=== PATIENT | female | born 1950 | race Caucasian/White ===

== ENCOUNTER → 2016-03-19 | Outpatient (CLI) | payer MEDICARE, OTHER ==
[~2016-03-19] MED LIST: ACC15GT TOP; ACHD5005 PO; ALB0.5V IH; ALPR.25T PO; AZIT250T5 PO; CLON0.5T3 PO; DIVA250T4 PO; EST.625T PO; GABA250S5 PO; HYDR1CAP3; HYDR1CAP3 PO; IBP600T1; LIDOCAINE; METH4TAB PO; OXYC5TAB; PRD20T PO; PREMARIN; PROP1TAB77 PO; RT-ALBUINH; RT-ALBUTEROL SULF 2.5 MG/3 ML PRE-MIX VIAL INH ONE; RT-ALBUTEROL SULF 2.5 MG/3 ML PRE-MIX VIAL ONE; SERT50TA PO; SILVER SULFADIAZINE; VALA100033 PO
--- OUTSIDE RECORDS SUMMARY | 2016-03-19 15:06 | XMS REPORT | Continuity of Care Document ---
Author Author [facility] Organization [facility] Address Unknown Phone Unavailable Care Team Providers Care Educational Psychology Professor Name Role Phone Jacoby Bermeo III PCP [phone] Source Comments Some departments are not documenting in the electronic medical record. If you do not see the information that you expected, contact Release of Information in the Health Information Management department at [phone] for further assistance in locating additional records.[facility] Active Allergies and Adverse Reactions No Known Allergies Current Medications Prescription Sig. Disp. Refills Start End Date Status Date PREMARIN PO Take by mouth. Active BUSPAR PO Take by mouth. 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
== END ==
LOC: RT 15:03
PROVIDERS: ATTEND Nurse Practitioner Family
DX: J44.9 Chronic obstructive pulmonary disease, unspecified (principal); R09.02 Hypoxemia
CPT/HCPCS: 94060; 94640; 94726; 94729

== ENCOUNTER 2016-08-13 01:43 | Inpatient (IN) | payer MEDICARE, OTHER ==
[~2016-08-13] VITALS: Ht 167.6 cm; Wt 52.3 kg
[2016-08-13] VITALS (18 sets, daily range): BP systolic 81–122; BP diastolic 57–72
[~2016-08-13 01:43] MED LIST changes: -RT-ALBUTEROL SULF 2.5 MG/3 ML PRE-MIX VIAL INH ONE; -RT-ALBUTEROL SULF 2.5 MG/3 ML PRE-MIX VIAL ONE
[2016-08-13] MEDS ORDERED: methylPREDNISolone 125 MG (Solu-MEDROL) VIAL ONE (01:52)
--- NOTE | 2016-08-13 01:58 | ED Dyspnea ---
General Stated Complaint: WHEEZING,LOW RESPONSIVENESS Source of Information: EMS, RN Notes Reviewed Exam Limitations: Physical Impairments (respiratory distress) History of Present Illness Time Seen by Provider: 01:48 Initial Comments Patient brought in by EMS p/ developing markedly worsen dyspnea tonight. Apparently started having trouble earlier in day and progressively became worse. Has home O2 but doesn't usually wear it, but sounds like she started using it this PM to no avail. Almost wonder if she knocked out her respiratory drive by using too much O2. Very drowsy upon arrival. called 911 when he thought the patient might of had a seizure ( described as almost posturing by ). No reported LOC although patient is very drowsy. EMS reports that patient's current state is actually improved from what they encountered upon arrival to patient's home. EMS reports patient was so tight initially that they couldn't hear any breath sounds. She is @ least wheezing audibly upon arrival. Currently receiving her second nebulizer treatment. Significant other reports patient was seen by her PCP on Thursday to see if she could qualify for a concentrator but apparently her O2 sats were too good @ that time. Is also still smoking. Timing/Duration: Constant, Other (since AM (08/12) and slowly became worse. 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.) Severity: Severe Activities at Onset: None Prior Episodes/Possible Cause: Occasional Episodes Modifying Factors: Worse With Lying Down Associated Symptoms: Wheezing Allergies and Home Medications Allergies Coded Allergies: Sulfa (Sulfonamide Antibiotics) (Unverified Allergy, Unknown, SOB, SWELLING, RASH, 09/29/14) penicillin (Unverified Allergy, Unknown, 09/29/14) Home Medications Albuterol Sulfate 8.5 Gm Hfa.aer.ad, #9 (Reported) Albuterol Sulfate 2.5 Mg/0.5 Ml Vial.neb, 2.5 MG IH Q4H PRN for SHORTNESS OF BREATH, #25 Prescribed by: FIOR PARRA on 02/02/16 1511 Alprazolam 0.25 Mg Tablet, 1 TAB PO BID, (Reported) Azithromycin 250 Mg Tablet, 250 MG PO UD, #6 Prescribed by: FIOR PARRA on 02/02/16 1511 Clonazepam 0.5 Mg Tablet, 1 EACH PO BID, (Reported) Divalproex Sodium 250 Mg Tablet.dr, 1 EACH PO BID, (Reported) Gabapentin 250 Mg/5 Ml Solution, 250 MG PO BID, (Reported) Prednisone 20 Mg Tab, 40 MG PO DAILY for 4 Days Prescribed by: FIOR PARRA on 02/02/16 1511 Constitutional: see HPI, malaise Respiratory: see HPI, orthopnea, short of breath, wheezing : No Psychiatric/Neurological: See HPI, Depressed, Seizure (??? (doubt)) All Other Systems Reviewed Negative Unless Noted: Yes (Negative excepted noted.) Past Cbfneia-Nmkzbx-Lxslxh Hx Patient Social History Type Used: Cigarettes Recent Foreign Travel: No Contact w/Someone Who Travel: No Recent Hopitalizations: No Immunizations Up To Date Date of Pneumonia Vaccine: Sep 29, 2012 Date of Influenza Vaccine: Nov 25, 2010 Seasonal Allergies Seasonal Allergies: No Surgeries HX Surgeries: Yes Surgeries: Appendectomy, Gallbladder, Hysterectomy Respiratory Hx Respiratory Disorders: No Respiratory Disorders: Chronic Bronchitis, COPD, Emphysema Cardiovascular Hx Cardiac Disorders: No Neurological Hx Neurological Disorders: No 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 System 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) 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 Genitourinary Hx Genitourinary Disorders: No Gastrointestinal Hx Gastrointestinal Disorders: No Musculoskeletal Hx Musculoskeletal Disorders: No Endocrine Hx Endocrine Disorders: No HEENT HX ENT Disorders: No Blood Transfusions Hx Blood Disorders: No Physical Exam Vital Signs Vital Sign - Last 12Hours 08/13/16 08/13/16 01:47 02:19 Temp 96.5 Pulse 133 Resp 28 B/P (MAP) 168/99 Pulse Ox 94 O2 Delivery Simple Mask O2 Flow Rate 10.00 Capillary Refill : General Appearance: Moderate Distress HEENT: Normal ENT Inspection Neck: Normal Inspection Respiratory: Decreased Breath Sounds, Respiratory Distress, Wheezing Cardiovascular: Regular Rate, Rhythm, Tachycardia Rectal: Deferred Neurologic/Psychiatric: Depressed Affect, Other (drowsy; somnolent) Skin: Cool Focused Exam Lactic Acid Level Laboratory Tests Test 08/13/16 02:30 Lactic Acid Level 0.72 MMOL/L (0.50-2.00) Progress/Results/Core Measures Results/Orders Lab Results Laboratory Tests Test 08/13/16 01:47 08/13/16 01:56 08/13/16 02:30 08/13/16 03:14 Range/Units White Blood Count 26.7 H 4.3-11.0 10^3/uL Red Blood Count 4.18 L 4.35-5.85 10^6/uL Hemoglobin 15.1 11.5-16.0 G/DL Hematocrit 45 35-52 % Mean Corpuscular Volume 107 H 80-99 FL Mean Corpuscular Hemoglobin 36 H 25-34 PG Mean Corpuscular Hemoglobin Concent 34 32-36 G/DL Red Cell Distribution Width 12.7 10.0-14.5 % Platelet Count 318 130-400 10^3/uL Mean Platelet Volume 10.4 7.4-10.4 FL Neutrophils (%) (Auto) 42 42-75 % Lymphocytes (%) (Auto) 43 12-44 % Monocytes (%) (Auto) 9 0-12 % Eosinophils (%) (Auto) 5 0-10 % Basophils (%) (Auto) 1 0-10 % Neutrophils # (Auto) 11.2 H 1.8-7.8 X 10^3 Lymphocytes # (Auto) 11.4 H 1.0-4.0 X 10^3 Monocytes # (Auto) 2.5 H 0.0-1.0 X 10^3 Eosinophils # (Auto) 1.4 H 0.0-0.3 10^3/uL Basophils # (Auto) 0.2 H 0.0-0.1 10^3/uL Neutrophils % (Manual) 48 % Lymphocytes % (Manual) 27 % Monocytes % (Manual) 4 % Eosinophils % (Manual) 10 % Basophils % (Manual) 0 % Band Neutrophils 0 % Reactive Lymphocytes 11 % Blood Morphology Comment NORMAL Sodium Level 141 135-145 MMOL/L Potassium Level 4.6 3.6-5.0 MMOL/L Chloride Level 100 98-107 MMOL/L Carbon Dioxide Level 28 21-32 MMOL/L Anion Gap 13 5-14 MMOL/L Blood Urea Nitrogen 15 7-18 MG/DL Creatinine 0.83 0.60-1.30 MG/DL Estimat Glomerular Filtration Rate > 60 BUN/Creatinine Ratio 18 0-20 Glucose Level 242 H 70-105 MG/DL Calcium Level 8.8 8.5-10.1 MG/DL Magnesium Level 2.7 H 1.8-2.4 MG/DL Total Bilirubin 0.7 0.1-1.0 MG/DL Aspartate Amino Transf (AST/SGOT) 31 5-34 U/L Alanine Aminotransferase (ALT/SGPT) 21 0-55 U/L Alkaline Phosphatase 48 40-136 U/L Troponin I < 0.30 <0.30 NG/ML B-Type Natriuretic Peptide 106.3 H <100.0 PG/ML Total Protein 6.9 6.4-8.2 GM/DL Albumin 4.4 3.2-4.5 GM/DL Valproic Acid (Depakene) Level 45.7 L 50.0-100.0 UG/ML Blood Gas Puncture Site R RAD L RAD Blood Gas Patient Temperature 96.5 96.9 Arterial Blood pH 7.12 *L 7.36 L 7.37-7.43 Arterial Blood Partial Pressure CO2 100 *H 47 H 35-45 MMHG Arterial Blood Partial Pressure O2 106 H 189 H 79-93 MMHG Arterial Blood HCO3 32 H 26 23-27 MMOL/L Arterial Blood Total CO2 34.9 H 27.9 21.0-31.0 MMOL/L Arterial Blood Oxygen Saturation 97 100 94-100 % Arterial Blood Base Excess 2.6 H 1.4 -2.5-2.5 MMOL/L Rush Test YES-POS YES-POS Blood Gas Ventilator Setting NO NO Blood Gas Inspired Oxygen 10L 60% Lactic Acid Level 0.72 0.50-2.00 MMOL/L My Orders Orders - GEORGINA ABREU DO Methylprednisolone Sod Succ (Solu-Medrol (08/13/16 01:52) Saline Lock/Iv-Start (08/13/16 01:55) Ekg Tracing (08/13/16 01:55) Arterial Blood Gas (08/13/16 01:55) BNP (08/13/16 01:55) Cbc With Automated Diff (08/13/16 01:55) Comprehensive Metabolic Panel (08/13/16 01:55) Magnesium (08/13/16 01:55) Troponin I (08/13/16 01:55) Chest 1 View, Ap/Pa Only (08/13/16 01:55) Methylprednisolone Sod Succ (Solu-Medrol (08/13/16 02:00) Ns Iv 1000 Ml (Sodium Chloride 0.9%) (08/13/16 02:00) Manual Differential (08/13/16 01:47) Blood Culture (08/13/16 02:11) Lactic Acid Analyzer (08/13/16 02:11) Albuterol Pre-Mix Nebs (Rt) (Proventil P (08/13/16 02:12) Albuterol Pre-Mix Nebs (Rt) (Proventil P (08/13/16 02:16) Bipap Rt-Rfs (08/13/16 02:16) Valproic Acid (08/13/16 02:28) Arterial Blood Gas (08/13/16 03:05) Medications Given in ED Current Medications Medications Dose Ordered Sig/Lulu Route Start Time Stop Time Status Last Admin Dose Admin Albuterol Sulfate 2.5 mg STK-MED ONCE .ROUTE 08/13/16 02:12 08/13/16 02:16 DC 08/13/16 02:19 2.5 MG Methylprednisolone Sodium Succinate 125 mg ONCE ONCE IVP 08/13/16 02:00 08/13/16 02:01 DC 08/13/16 02:05 125 MG Sodium Chloride 1,000 ml @ 0 mls/hr Q0M ONCE IV 08/13/16 02:00 08/13/16 02:01 DC 08/13/16 02:04 999 MLS/HR Vital Signs/I&O Vital Sign - Last 12Hours 08/13/16 08/13/16 08/13/16 01:47 02:19 02:21 Temp 96.5 Pulse 133 114 Resp 28 24 B/P (MAP) 168/99 Pulse Ox 94 95 100 O2 Delivery Simple Mask Simple Mask O2 Flow Rate 10.00 60.00 Progress Note : Progress Note Patient did start to perk up shortly p/ arrival here. Much improved p/ placed on bipap. ABG markedly improved p/ placed on bipap. Discussed c/ Dr. 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 Concurs c/ need for admission. Going to wait on any antibiotics in light of relatively normal WBC differential and no fever. Suspect the leukocytosis is stress related. Will get repeat CBC in AM, 08/13. Going to continue tapering her O2 down as well. ECG Initial ECG Impression Date: Aug 13, 2016 Initial ECG Impression Time: 01:55 Initial ECG Rate: 131 Initial ECG Rhythm: S.Tach Initial ECG Comparisson: Changed Comment LAD, ? Left anterior fascicular block; LVH; anterior infarct, ? age Diagnostic Imaging Diagonstic Imaging: Xray Plain Films/CT/US/NM/MRI: chest Reviewed: Reviewed by Me (NAD) Departure Communication Time/Spoke to Admitting Phy: 03:25 Impression Impression: Primary Impression: COPD with exacerbation Additional Impressions: Suspected stress induced leukocytosis Tobacco abuse Disposition: 09 ADMITTED INPATIENT Condition: Improved Decision to Admit Reason: Admit from ER (General) Decision to Admit/Date: Aug 13, 2016 Time/Decision to Admit Time: 03:25 Departure-Patient Inst. Referrals: GEORGINA GARCIA DO (PCP/Family) Primary Care Physician GEORGINA ABREU DO Aug 13, 2016 01:58
[2016-08-13] MEDS ORDERED: methylPREDNISolone 125 MG (Solu-MEDROL) VIAL IVP ONE (02:00)
[2016-08-13] MEDS ORDERED: NS IV 1000 ML 1,000 ML IV ONE (02:00)
[2016-08-13 02:03] LABS: BASOPHILS # (AUTO) 0.2 10^3/uL (0.0-0.1); BASOPHILS % (AUTO) 1 % (0-10); EOSINOPHILS # (AUTO) 1.4 10^3/uL (0.0-0.3); EOSINOPHILS % (AUTO) 5 % (0-10); LYMPHOCYTES # (AUTO) 11.4 X 10^3 (1.0-4.0); LYMPHOCYTES % (AUTO) 43 % (12-44); MEAN CORPUSCULAR HEMOGLOBIN 36 PG (25-34); MEAN CORPUSCULAR HGB CONC 34 G/DL (32-36); MEAN CORPUSCULAR VOLUME 107 FL (80-99); MEAN PLATELET VOLUME 10.4 FL (7.4-10.4); MONOCYTES # (AUTO) 2.5 X 10^3 (0.0-1.0); MONOCYTES % (AUTO) 9 % (0-12); NEUTROPHILS # (AUTO) 11.2 X 10^3 (1.8-7.8); NEUTROPHILS % (AUTO) 42 % (42-75); PLATELET COUNT 318 10^3/uL (130-400); RED BLOOD COUNT 4.18 10^6/uL (4.35-5.85); RED CELL DISTRIBUTION WIDTH 12.7 % (10.0-14.5); WHITE BLOOD COUNT 26.7 10^3/uL (4.3-11.0)
[2016-08-13] MEDS ORDERED: RT-ALBUTEROL SULF 2.5 MG/3 ML PRE-MIX VIAL ONE (02:12)
[2016-08-13 02:13] LABS: ABG BASE EXCESS 2.6 MMOL/L (-2.5-2.5); ABG HCO3 32 MMOL/L (23-27); ABG OXYGEN SATURATION 97 % (94-100); ABG PO2 106 MMHG (79-93); ABG TCO2 34.9 MMOL/L (21.0-31.0)
[2016-08-13 02:14] LABS: ALLENS TEST YES-POS; PATIENT TEMP 96.5
[2016-08-13 02:15] LABS: ABG PCO2 100 MMHG (35-45); ABG PH 7.12 (7.37-7.43)
[2016-08-13] MEDS ORDERED: RT-ALBUTEROL SULF 2.5 MG/3 ML PRE-MIX VIAL IH STA (02:16)
[2016-08-13 02:21] LABS: BAND NEUTROPHILS 0 %; BASOPHILS % (MANUAL) 0 %; EOSINOPHILS % (MANUAL) 10 %; LYMPHOCYTES % (MANUAL) 27 %; NEUTROPHILS % (MANUAL) 48 %; REACTIVE LYMPHOCYTES 11 %
[2016-08-13 02:27] LABS: ALANINE AMINOTRANSFERASE 21 U/L (0-55); ALBUMIN 4.4 GM/DL (3.2-4.5); ANION GAP 13 MMOL/L (5-14); ASPARTATE AMINO TRANSFERASE 31 U/L (5-34); BILIRUBIN,TOTAL 0.7 MG/DL (0.1-1.0); BLOOD UREA NITROGEN 15 MG/DL (7-18); BUN/CREATININE RATIO 18 (0-20); CALCIUM 8.8 MG/DL (8.5-10.1); CARBON DIOXIDE 28 MMOL/L (21-32); CHLORIDE 100 MMOL/L (98-107); CREATININE SERUM 0.83 MG/DL (0.60-1.30); GFR ESTIMATED > 60; GLUCOSE 242 MG/DL (70-105); MAGNESIUM 2.7 MG/DL (1.8-2.4); POTASSIUM 4.6 MMOL/L (3.6-5.0); SODIUM 141 MMOL/L (135-145); TOTAL PROTEIN 6.9 GM/DL (6.4-8.2)
[2016-08-13 02:33] LABS: TROPONIN I < 0.30 NG/ML (<0.30)
[2016-08-13 03:23] LABS: ABG BASE EXCESS 1.4 MMOL/L (-2.5-2.5); ABG HCO3 26 MMOL/L (23-27); ABG OXYGEN SATURATION 100 % (94-100); ABG PCO2 47 MMHG (35-45); ABG PH 7.36 (7.37-7.43); ABG PO2 189 MMHG (79-93); ABG TCO2 27.9 MMOL/L (21.0-31.0)
[2016-08-13 03:25] LABS: ALLENS TEST YES-POS; PATIENT TEMP 96.9
[2016-08-13] MEDS ORDERED: NS IV 1000 ML 1,000 ML ONE (04:30)
[2016-08-13] MEDS ORDERED: RT-ALBUTEROL SULF 2.5 MG/3 ML PRE-MIX VIAL IH PRN (05:30)
[2016-08-13] MEDS ORDERED: NS IV 1000 ML 1,000 ML IV SCH (05:30)
[2016-08-13] MEDS ORDERED: CATHETER FLUSH 10 ML SYR IV PRN (05:30)
[2016-08-13] MEDS: CATHETER FLUSH 10 ML SYR IV SCH ×3 (06:02→22:17)
[2016-08-13 06:18] LABS: BASOPHILS % (AUTO) 0 % (0-10); EOSINOPHILS % (AUTO) 0 % (0-10); LYMPHOCYTES # (AUTO) 0.5 X 10^3 (1.0-4.0); LYMPHOCYTES % (AUTO) 4 % (12-44); MEAN CORPUSCULAR HEMOGLOBIN 36 PG (25-34); MEAN CORPUSCULAR HGB CONC 34 G/DL (32-36); MEAN CORPUSCULAR VOLUME 107 FL (80-99); MEAN PLATELET VOLUME 10.2 FL (7.4-10.4); MONOCYTES # (AUTO) 0.4 X 10^3 (0.0-1.0); MONOCYTES % (AUTO) 3 % (0-12); NEUTROPHILS # (AUTO) 12.7 X 10^3 (1.8-7.8); NEUTROPHILS % (AUTO) 94 % (42-75); PLATELET COUNT 198 10^3/uL (130-400); RED CELL DISTRIBUTION WIDTH 12.7 % (10.0-14.5); WHITE BLOOD COUNT 13.6 10^3/uL (4.3-11.0)
[2016-08-13] MEDS: RT-ALBUTEROL/IPRATROPIUM 3 ML (DUONEB) VIAL INH SCH ×5 (06:34→22:21)
--- NOTE | 2016-08-13 07:01 | Diagnostic Imaging Report ---
INDICATION: Shortness of breath. Comparison with 02/02/2016. FINDINGS: There is obstructive lung disease. No acute infiltrates are present. Heart is not enlarged. No pulmonary edema. No pneumothorax or pleural effusion. IMPRESSION: Obstructive pulmonary disease with no acute changes. Dictated by: Dictated on workstation # [id number]
--- NOTE | 2016-08-13 07:16 | Pulmonary Consultation ---
History of Present Illness History of Present Illness Date of Consultation 08/13/16 07:11 Date of Admission History of Present Illness 65yo with hx of COPD oxygen dependant however is noncompliant with oxygen presented via EMS secondary to worsening dyspnea onset was the day of admission. called EMS after finding pt lethargic. PT did improve with nebulizer treatments. PT is currently requiring noninvasive ventilation. Her ABG has improved with noninvasive ventilation. I am consulted for pulmonary management. Allergies and Home Medications Allergies Coded Allergies: Sulfa (Sulfonamide Antibiotics) (Unverified Allergy, Unknown, SOB, SWELLING, RASH, 09/29/14) penicillin (Unverified Allergy, Unknown, 09/29/14) Home Medications Albuterol Sulfate 18 Gm Hfa.aer.ad, 2 PUFF INH Q4H PRN for SHORTNESS OF BREATH, (Reported) Alprazolam 0.5 Mg Tablet, 0.5 MG PO Q12H PRN for BREAKTHROUGH ANXIETY, (Reported ) Clonazepam 1 Mg Tablet, 1 MG PO BID, (Reported) Divalproex Sodium 250 Mg Tablet.dr, 250 MG PO BID, (Reported) Ipratropium Cushing 0.2 Mg/1 Ml Solution, 1 VIAL NEB Q6H PRN for SHORTNESS OF BREATH, (Reported) Prednisone 10 Mg Tab.ds.pk, 10 MG PO DAILY, #21 Take 6 tabs(60mg)daily,decrease by 1 tab(10MG)daily. Prescribed by: KRYSTYNA GRAVES on 08/14/16 1006 Past Axfphgw-Byvwmc-Nwotcz Hx Patient Social History Alcohol Use: Denies Use Recreational Drug Use: No Smoking Status: Current Everyday Smoker Type Used: Cigarettes 2nd Hand Smoke Exposure: Yes Recent Foreign Travel: No Contact w/Someone Who Travel: No Recent Infectious Disease Expo: No Recent Hopitalizations: No Physical Abuse Screen: No Sexual Abuse: No Immunizations Up To Date Date of Pneumonia Vaccine: Sep 29, 2012 Date of Influenza Vaccine: Nov 25, 2010 Seasonal Allergies Seasonal Allergies: No Surgeries HX Surgeries: Yes Surgeries: Appendectomy, Gallbladder, Hysterectomy Respiratory Hx Respiratory Disorders: No Respiratory Disorders: Chronic Bronchitis, COPD, Emphysema Cardiovascular Hx Cardiac Disorders: No Neurological Hx Neurological Disorders: No 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 System 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) 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 Genitourinary Hx Genitourinary Disorders: No Gastrointestinal Hx Gastrointestinal Disorders: No Musculoskeletal Hx Musculoskeletal Disorders: No Endocrine Hx Endocrine Disorders: No HEENT HX ENT Disorders: No Blood Transfusions Hx Blood Disorders: No Exam Exam Vital Signs Date Time Temp Pulse Resp B/P (MAP) Pulse Ox O2 Delivery O2 Flow Rate FiO2 08/13/16 06:40 89 23 97 45.00 08/13/16 06:00 92 23 93/65 97 NIV Bilevel 50.00 08/13/16 05:45 92 30 99/70 97 NIV Bilevel 50.00 08/13/16 05:30 92 23 87/63 90 NIV Bilevel 50.00 08/13/16 05:15 92 24 89/60 90 NIV Bilevel 30.00 08/13/16 05:00 92 24 81/57 90 NIV Bilevel 30.00 08/13/16 04:58 93 08/13/16 04:56 NIV Bilevel 30 08/13/16 04:45 92 24 90/61 93 NIV Bilevel 30.00 08/13/16 04:28 96 08/13/16 04:25 97.8 93 28 96/71 95 NIV Bilevel 30.00 08/13/16 04:09 96 16 96 NIV Bilevel 08/13/16 03:32 100 29 100 30.00 08/13/16 02:21 114 24 100 60.00 08/13/16 02:19 95 Simple Mask 10.00 08/13/16 01:47 96.5 133 28 168/99 94 Simple Mask I & O 08/13/16 07:00 Intake Total 1000 ml Output Total 400 ml Balance 600 ml General Appearance: Moderate Distress HEENT: Normal ENT Inspection Neck: Normal Inspection, Supple Respiratory: Accessory Muscle Use, Decreased Breath Sounds, Respiratory Distress, Wheezing Cardiovascular: Regular Rate, Rhythm, Tachycardia Capillary Refill: Less Than 3 Seconds Gastrointestinal: normal bowel sounds, non tender, soft, no organomegaly Neurologic/Psychiatric: Alert, Oriented x3, Depressed Affect, Other (drowsy; somnolent) Skin: Cool Results Lab Laboratory Tests 08/13/16 01:47 08/13/16 05:46 Assessment/Plan Assessment/Plan Acute on Chronic respiratory failure -Currently requiring noninvasive ventilation -will trial off this morning and see how she does. -Pt will benefit from vent to mask in home setting -SVNS Severe COPDAE - SVNS -solumedrol 255 Clinical Quality Measures DVT/VTE Risk/Contraindication: Risk Factor Score Per Nursin RFS Level Per Nursing on Admit: 4+=Very High RIKI REID DO Aug 13, 2016 07:16
[2016-08-13] MEDS ORDERED: ALBU18HF2 INH (08:11)
[2016-08-13] MEDS ORDERED: DIVA250T4 PO (08:11)
[2016-08-13] MEDS ORDERED: CLON1TAB3 PO (08:11)
[2016-08-13] MEDS ORDERED: IPRA0.2S51 NEB (08:11)
[2016-08-13] MEDS ORDERED: ALPR0.5T7 PO (08:16)
[2016-08-13] MEDS: RT-ADVAIR HFA 115/21 MCG PER PUFF IH SCH ×2 (08:57→18:34)
[2016-08-13] MEDS ORDERED: ALPRAZolam 0.5 MG (XANAX) TAB PO PRN (09:00)
[2016-08-13] MEDS ORDERED: RT-ALBUTEROL/IPRATROPIUM 3 ML (DUONEB) VIAL IH SCH (09:00)
[2016-08-13] MEDS: clonazePAM 1 MG (KlonoPIN) TAB PO SCH ×2 (09:03→20:12)
[2016-08-13] MEDS: predniSONE 10 MG TAB PO SCH (09:03)
[2016-08-13] MEDS: NICOTINE 14 MG (NICODERM) PATCH TD SCH (09:05)
[2016-08-13] MEDS: DIVALPROEX 250 MG DELAYED RELEASE (DEPAKOTE) TAB PO SCH ×2 (09:07→20:12)
[2016-08-13] MEDS: PATCH REMOVAL TP SCH (09:54)
[2016-08-13] MEDS ORDERED: methylPREDNISolone 40 MG/ML (Solu-MEDROL) VIAL IV SCH (10:00)
--- NOTE | 2016-08-13 11:09 | History & Physical-Hospitalist ---
HPI History of Present Illness: HPI/Chief Complaint CC: SOB HPI: this is a 65 yoWF clinic pt of Dr. Madera with a hx of anxiety and COPD who presented to the ER with dyspnea via EMS. Pt is on home O2 that she does not wear. called 911 because he thought she was having seizure but upon assessment her pH was 7.12, CO2 of 100 consistent with CO2 narcosis. Pt was placed on BiPAP with good result; pH 7.31/47/189, WBC to 13.6, Hgb stable, CMP normal but glucose 242. CXR showed COPD. Pt was given high dose IV steroids with neb, and placed on nicotine patch because she continues to smoke. Patient Interview: Pt states that she is feeling much better, but does not remember last night Pt confirms PCP as Dr. Bermeo. Pt confirms seeing Dr. Bermeo earlier this week for portable O2; she states that the humidity makes her worse than normal. Pt was informed that since she was hospitalized, she will now qualify for it. Pt states that she felt fine yesterday and was working in her yard. It was humid yesterday, which likely exacerbated her COPD. Pt was informed that Dr. Birch will be checking in on her Pt does not recall taking Depakote. She confirms that she takes something for her nerves and PTSD. Dr. Bermeo refills all her medications. Pt states that her PTSD is from family issues. Pt confirms using home O2 at night. Pt states that she uses the O2 other times when needed. Pt confirms that she smokes. Pt's denies smoking. Pt was advised to stop smoking, this will expedite her recovery. Pt admits to working at [employer]. She has worked there about 20 years. Physical exam stable Pt confirms that she had her gallbladder and appendix removed. Pt denies being previously hospitalized for lung function. Pt was informed that she may need to use more O2 at home. Pt confirms having breathing treatments at home Pt's states that she uses her acapella regularly Scribed by Kym Faye under the direct supervision of Dr. Graves. Source: patient Exam Limitations: no limitations Date Seen 08/13/16 Time Seen by Provider: 09:00 Attending Physician Chad Ellison MD PCP Mehul Bermeo DO Referring Physician Date of Admission Aug 13, 2016 at 03:34 Home Medications & Allergies Home Medications Reviewed patient Home Medication Reconciliation Form Allergies Allergies Coded Allergies Sulfa (Sulfonamide Antibiotics) (Unverified Allergy, Unknown, SOB, SWELLING, RASH, 09/29/14) penicillin (Unverified Allergy, Unknown, 09/29/14) Past Zvtpcih-Fsaoww-Jgvmku Hx Patient Social History Marrital Status: Employed/Student: retired ([employer]) Alcohol Use: Denies Use Recreational Drug Use: No Smoking Status: Current Everyday Smoker Type Used: Cigarettes 2nd Hand Smoke Exposure: Yes Physical Abuse Screen: No Sexual Abuse: No Recent Foreign Travel: No Contact w/other who traveled: No Recent Hopitalizations: No Recent Infectious Disease Expo: No Immunizations Up To Date Date of Pneumonia Vaccine: Sep 29, 2012 Date of Influenza Vaccine: Nov 25, 2010 Seasonal Allergies Seasonal Allergies: No Surgeries HX Surgeries: Yes Surgeries: Appendectomy, Gallbladder, Hysterectomy Respiratory Hx Respiratory Disorders: Yes Respiratory Disorders: COPD Cardiovascular Hx Cardiovascular Disorders: No Neurological Hx Neurological Disorders: No 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 System 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) Genitourinary Hx Genitourinary Disorders: No Gastrointestinal Hx Gastrointestinal Disorders: No Musculoskeletal Hx Musculoskeletal Disorders: No Endocrine Hx Endocrine Disorders: No HEENT HX ENT Disorders: No Cancer Hx Cancer: No Psychosocial Hx Psychiatric Problems: No Integumentary HX Skin/Integumentary Disorder: No Blood Transfusions Hx Blood Disorders: No Review of Systems Date Seen by Provider: Aug 13, 2016 Time Seen by Provider: 09:00 Constitutional: weakness EENTM: no symptoms reported Respiratory: dyspnea on exertion, short of breath, wheezing Cardiovascular: no symptoms reported Gastrointestinal: no symptoms reported Genitourinary: no symptoms reported Musculoskeletal: no symptoms reported Skin: no symptoms reported Psychiatric/Neurological: Anxiety All Other Systems Reviewed Negative Unless Noted: Yes Physical Exam Physical Exam Vital Signs Vital Sign - Last 12Hours 08/13/16 08/13/16 08/13/16 01:47 02:19 04:56 Temp 96.5 Pulse 133 Resp 28 B/P (MAP) 168/99 Pulse Ox 94 O2 Delivery Simple Mask O2 Flow Rate 10.00 FiO2 30 Capillary Refill : Less Than 3 Seconds General Appearance: No Apparent Distress, WD/WN, Chronically ill, Thin Eyes: Bilateral Eye Normal Inspection, Bilateral Eye PERRL HEENT: PERRL/EOMI, Normal ENT Inspection, Pharynx Normal Neck: Full Range of Motion, Normal Inspection, Non Tender, Supple, Carotid Bruit Respiratory: Chest Non Tender, Normal Breath Sounds, No Accessory Muscle Use, No Respiratory Distress, Crackles, Decreased Breath Sounds, Wheezing Cardiovascular: Regular Rate, Rhythm, No Edema, No Gallop, No JVD, No Murmur, Normal Peripheral Pulses Gastrointestinal: Normal Bowel Sounds, No Organomegaly, No Pulsatile Mass, Non Tender, Soft Back: Normal Inspection, No CVA Tenderness, No Vertebral Tenderness Extremity: Normal Capillary Refill, Normal Inspection, Normal Range of Motion, Non Tender, No Calf Tenderness, No Pedal Edema Neurologic/Psychiatric: Alert, Oriented x3, No Motor/Sensory Deficits, Normal Mood/Affect Skin: Normal Color, Warm/Dry Lymphatic: No Adenopathy Results Results/Procedures Lab Laboratory Tests 08/13/16 01:47 08/13/16 05:46 Assessment/Plan Admission Diagnosis Assessment: Severe respiratory failure with CO2 narcosis requiring noninvasive ventilator support now resolved Night time oxygen dependent Severe COPD Current smoker Anxiety 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
[2016-08-13] MEDS ORDERED: ALPRAZolam 0.25 MG (XANAX) TAB PO ONE (22:45)
[2016-08-14] VITALS: BP 128/63
[2016-08-14] MEDS: RT-ALBUTEROL/IPRATROPIUM 3 ML (DUONEB) VIAL INH SCH ×3 (02:33→10:13)
[2016-08-14 04:00] VITALS: BP 130/65
[2016-08-14 04:45] LABS: MEAN PLATELET VOLUME 9.9 FL (7.4-10.4); RED BLOOD COUNT 3.48 10^6/uL (4.35-5.85); RED CELL DISTRIBUTION WIDTH 12.4 % (10.0-14.5); WHITE BLOOD COUNT 10.4 10^3/uL (4.3-11.0)
[2016-08-14 05:33] LABS: ANION GAP 9 MMOL/L (5-14); BLOOD UREA NITROGEN 10 MG/DL (7-18); BUN/CREATININE RATIO 15 (0-20); CALCIUM 8.4 MG/DL (8.5-10.1); CARBON DIOXIDE 25 MMOL/L (21-32); CHLORIDE 106 MMOL/L (98-107); CREATININE SERUM 0.65 MG/DL (0.60-1.30); GFR ESTIMATED > 60; GLUCOSE 90 MG/DL (70-105); HEMOLYSIS 13 (0-29); ICTERUS 0.4 (0-1.9); LIPEMIA 1 (0-49); POTASSIUM 3.6 MMOL/L (3.6-5.0); SODIUM 140 MMOL/L (135-145)
[2016-08-14] MEDS ORDERED: KCL 20 MEQ TAB (K-DUR) PO SCH (06:00)
[2016-08-14] MEDS ORDERED: MAGNESIUM 1 GM/100 ML IVPB 100 ML IV SCH (06:00)
[2016-08-14] MEDS ORDERED: POTASSIUM CL 10MEQ/50ML IVPB 50 ML IV SCH (06:00)
[2016-08-14] MEDS: CATHETER FLUSH 10 ML SYR IV SCH (06:02)
[2016-08-14] MEDS: RT-ADVAIR HFA 115/21 MCG PER PUFF IH SCH (06:20)
[2016-08-14 08:00] VITALS: BP 105/54
[2016-08-14] MEDS: NICOTINE 14 MG (NICODERM) PATCH TD SCH (08:23)
[2016-08-14] MEDS: clonazePAM 1 MG (KlonoPIN) TAB PO SCH (08:23)
[2016-08-14] MEDS: predniSONE 10 MG TAB PO SCH (08:23)
[2016-08-14] MEDS: DIVALPROEX 250 MG DELAYED RELEASE (DEPAKOTE) TAB PO SCH (08:23)
[2016-08-14] MEDS: PATCH REMOVAL TP SCH (08:24)
[2016-08-14] MEDS ORDERED: PRED10TA22 PO (10:06)
--- NOTE | 2016-08-14 10:27 | Pulmonary Progress Note ---
Exam Exam Vital Signs Date Time Temp Pulse Resp B/P (MAP) Pulse Ox O2 Delivery O2 Flow Rate FiO2 08/14/16 08:06 Nasal Cannula 1.00 08/14/16 08:00 98.5 99 16 105/54 94 Nasal Cannula 3.00 08/14/16 06:29 Nasal Cannula 1.00 08/14/16 06:21 97 Nasal Cannula 1.00 08/14/16 04:00 97.2 72 19 130/65 96 Nasal Cannula 3.00 08/14/16 02:34 96 Nasal Cannula 1.00 08/14/16 00:00 96.6 85 17 128/63 95 Nasal Cannula 3.00 08/13/16 22:21 95 Nasal Cannula 1.00 08/13/16 20:21 98.4 89 20 122/72 96 Nasal Cannula 3.00 08/13/16 20:15 Nasal Cannula 3.00 08/13/16 18:41 Nasal Cannula 1.00 08/13/16 18:36 95 Nasal Cannula 1.00 08/13/16 16:40 96 3.00 08/13/16 15:55 Nasal Cannula 3.00 08/13/16 15:51 98.2 92 18 115/68 96 Nasal Cannula 3.00 08/13/16 14:37 98.8 94 16 113/68 96 Nasal Cannula 3.00 08/13/16 14:36 87 33 113/68 NIV Bilevel 50.00 08/13/16 14:17 96 Nasal Cannula 3.00 08/13/16 13:00 88 08/13/16 12:00 89 NIV Bilevel 50.00 08/13/16 12:00 Nasal Cannula 3.00 08/13/16 11:00 89 92/59 96 NIV Bilevel 50.00 08/13/16 10:33 97 Nasal Cannula 3.00 I & O 08/14/16 07:00 Intake Total 1860 ml Output Total 2150 ml Balance -290 ml General Appearance: Moderate Distress HEENT: Normal ENT Inspection Neck: Normal Inspection, Supple Respiratory: Accessory Muscle Use, Decreased Breath Sounds, Respiratory Distress, Wheezing Cardiovascular: Regular Rate, Rhythm, Tachycardia Capillary Refill: Less Than 3 Seconds Gastrointestinal: normal bowel sounds, non tender, soft, no organomegaly Extremity: Normal Capillary Refill, Normal Inspection, Normal Range of Motion, Non Tender, No Calf Tenderness, No Pedal Edema Neurologic/Psychiatric: Alert, Oriented x3, Depressed Affect, Other (drowsy; somnolent) Skin: Cool Lymphatic: No Adenopathy Results Lab Laboratory Tests 08/13/16 01:47 08/13/16 05:46 08/14/16 04:04 Assessment/Plan Assessment/Plan Acute on Chronic respiratory failure - ptis doing much better and is wanting to go home -Pt will benefit from vent to mask in home setting -will arrange with DME -SVNS Severe COPDAE - SVNS -prednisone taper 232 Clinical Quality Measures DVT/VTE Risk/Contraindication: Risk Factor Score Per Nursin RFS Level Per Nursing on Admit: 4+=Very High RIKI REID DO Aug 14, 2016 10:27
--- NOTE | 2016-08-14 10:36 | Discharge Summary-Hospitalist ---
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 Madera with a hx of anxiety and COPD who presented to the ER with dyspnea via EMS. Pt is on home O2 that she does not wear. called 911 because he thought she was having seizure but upon assessment her pH was 7.12, CO2 of 100 consistent with CO2 narcosis. Pt was placed on BiPAP with good result; pH 7.31/47/189, WBC to 13.6, Hgb stable, CMP normal but glucose 242. CXR showed COPD. Pt was given high dose IV steroids with neb, and placed on nicotine patch because she continues to smoke. Patient Interview: Pt states that she is feeling much better, but does not remember last night Pt confirms PCP as Dr. Bermeo. Pt confirms seeing Dr. Bermeo earlier this week for portable O2; she states that the humidity makes her worse than normal. Pt was informed that since she was hospitalized, she will now qualify for it. Pt states that she felt fine yesterday and was working in her yard. It was humid yesterday, which likely exacerbated her COPD. Pt was informed that Dr. Birch will be checking in on her Pt does not recall taking Depakote. She confirms that she takes something for her nerves and PTSD. Dr. Bermeo refills all her medications. Pt states that her PTSD is from family issues. Pt confirms using home O2 at night. Pt states that she uses the O2 other times when needed. Pt confirms that she smokes. Pt's denies smoking. Pt was advised to stop smoking, this will expedite her recovery. Pt admits to working at [employer]. She has worked there about 20 years. Physical exam stable Pt confirms that she had her gallbladder and appendix removed. Pt denies being previously hospitalized for lung function. Pt was informed that she may need to use more O2 at home. Pt confirms having breathing treatments at home Pt's states that she uses her acapella regularly Scribed by Kym Faye under the direct supervision of Dr. Graves. 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 Lungs sound fine. Pt was informed that she qualified for 1 L continuous O2 Pt confirms [facility] Smoking cessation was encouraged. No fever, vital signs stable, pleasant, at bedside Regular rate and rhythm, clear to auscultation bilaterally but diminished breath sounds all jimenez but significantly improved with good air expansion No edema Plan: Mode assessment for portability Scribed by Kym Faye under the direct supervision of Dr. Graves. Hospital course: Patient had a brief hospital course she required BiPAP for respiratory failure and CO2 narcosis in and oxygen dependent patient and overall she improved rapidly with IV steroids and Dr. Birch's pulmonary management. Smoking cessation was counseled aggressively and all home meds were restarted. Patient was deemed stable on 1 L of oxygen continuously of which order was placed and medical supply will evaluate mode assessment for portability for a small oxygen tank so she can ambulate continuous oxygen when she leaves the house. Discharge Summary Discharge Physical Examination Allergies: Coded Allergies: Sulfa (Sulfonamide Antibiotics) (Unverified Allergy, Unknown, SOB, SWELLING, RASH, 09/29/14) penicillin (Unverified Allergy, Unknown, 09/29/14) Vitals & I&Os Vital Signs Date Time Temp Pulse Resp B/P (MAP) Pulse Ox O2 Delivery O2 Flow Rate FiO2 08/14/16 10:13 96 Nasal Cannula 1.00 08/14/16 08:00 98.5 99 16 105/54 08/13/16 04:56 30 Hospital Course Labs (last 24 hrs) Laboratory Tests 08/14/16 04:04: White Blood Count 10.4, Red Blood Count 3.48L, Hemoglobin 12.1, Hematocrit 38, Mean Corpuscular Volume 108H, Mean Corpuscular Hemoglobin 35H, Mean Corpuscular Hemoglobin Concent 32, Red Cell Distribution Width 12.4, Platelet Count 200, Mean Platelet Volume 9.9, Sodium Level 140, Potassium Level 3.6, Chloride Level 106, Carbon Dioxide Level 25, Anion Gap 9, Blood Urea Nitrogen 10, Creatinine 0.65, Estimat Glomerular Filtration Rate > 60, BUN/Creatinine Ratio 15, Glucose Level 90, Calcium Level 8.4L Pending Labs Laboratory Tests 08/14/16 04:04: White Blood Count 10.4, Red Blood Count 3.48, Hemoglobin 12.1, Hematocrit 38, Mean Corpuscular Volume 108, Mean Corpuscular Hemoglobin 35, Mean Corpuscular Hemoglobin Concent 32, Red Cell Distribution Width 12.4, Platelet Count 200, Mean Platelet Volume 9.9, Sodium Level 140, Potassium Level 3.6, Chloride Level 106, Carbon Dioxide Level 25, Anion Gap 9, Blood Urea Nitrogen 10, Creatinine 0.65, Estimat Glomerular Filtration Rate > 60, BUN/Creatinine Ratio 15, Glucose Level 90, Calcium Level 8.4 Discharge Home Medications: Active Scripts Active Prednisone 10 Mg Tab.ds.pk 10 Mg PO DAILY Take 6 tabs(60mg)daily,decrease by 1 tab(10MG)daily. Reported Alprazolam 0.5 Mg Tablet 0.5 Mg PO Q12H PRN Ipratropium [place] 0.2 Mg/1 Ml Solution 1 Vial NEB Q6H PRN Divalproex Sodium 250 Mg Tablet.dr 250 Mg PO BID Clonazepam 1 Mg Tablet 1 Mg PO BID Ventolin Hfa (Albuterol Sulfate) 18 Gm Hfa.aer.ad 2 Puff INH Q4H PRN Instructions to patient/family Please see electonic discharge instructions given to patient. Clinical Quality Measures DVT/VTE Risk/Contraindication: Risk Factor Score Per Nursin RFS Level Per Nursing on Admit: 4+=Very High KRYSTYNA GRAVES DO Aug 14, 2016 10:36
== END 2016-08-14 12:30 | disposition home or self-care (01) | DRG 189 ==
LOC: EDUNIT# 01:43 → ER 01:45 → ICU 03:34 → 4TH 15:05
PROVIDERS: ADMIT Internal Medicine; ATTEND Internal Medicine
DX: J96.20 Acute and chronic respiratory failure, unspecified whether with hypoxia or hypercapnia (principal); J44.1 Chronic obstructive pulmonary disease with (acute) exacerbation; F41.9 Anxiety disorder, unspecified; F43.10 Post-traumatic stress disorder, unspecified; F17.210 Nicotine dependence, cigarettes, uncomplicated; D72.829 Elevated white blood cell count, unspecified; Z99.81 Dependence on supplemental oxygen; Z91.19 Patient's noncompliance with other medical treatment and regimen
CPT/HCPCS: 36415; 71010; 80048; 80053; 80164; 82805; 83605; 83735; 83880; 84484; 85007; 85025; 85027; 87040; 93005; 94640; 94660; 94664; 94760; 94761; 96361; 96374

== ENCOUNTER 2016-09-30 04:48 | Inpatient (IN) | payer MEDICARE, OTHER ==
[~2016-09-30] VITALS: Ht 160 cm; Wt 54.4 kg
[2016-09-30] VITALS (18 sets, daily range): BP systolic 126–163; BP diastolic 69–93
[~2016-09-30 04:48] MED LIST changes: +ALBU18HF2 INH; +ALPR0.5T7 PO; +CLON1TAB3 PO; +IPRA0.2S51 NEB; +PRED10TA22 PO
[2016-09-30] MEDS ORDERED: RT-ALBUTEROL SULF 2.5 MG/3 ML PRE-MIX VIAL INH STA (04:56)
[2016-09-30] MEDS ORDERED: methylPREDNISolone 125 MG (Solu-MEDROL) VIAL IVP ONE (05:00)
[2016-09-30] MEDS ORDERED: RT-IPRATROPIUM (ATROVENT) 0.5MG/2.5ML AMP IH ONE (05:00)
[2016-09-30 05:06] LABS: BASOPHILS # (AUTO) 0.1 10^3/uL (0.0-0.1); BASOPHILS % (AUTO) 1 % (0-10); EOSINOPHILS # (AUTO) 0.7 10^3/uL (0.0-0.3); EOSINOPHILS % (AUTO) 6 % (0-10); LYMPHOCYTES # (AUTO) 2.9 X 10^3 (1.0-4.0); LYMPHOCYTES % (AUTO) 28 % (12-44); MEAN CORPUSCULAR HEMOGLOBIN 36 PG (25-34); MEAN CORPUSCULAR HGB CONC 35 G/DL (32-36); MEAN CORPUSCULAR VOLUME 103 FL (80-99); MEAN PLATELET VOLUME 10.2 FL (7.4-10.4); MONOCYTES # (AUTO) 0.9 X 10^3 (0.0-1.0); MONOCYTES % (AUTO) 9 % (0-12); NEUTROPHILS # (AUTO) 5.8 X 10^3 (1.8-7.8); NEUTROPHILS % (AUTO) 56 % (42-75); PLATELET COUNT 230 10^3/uL (130-400); RED BLOOD COUNT 4.36 10^6/uL (4.35-5.85); RED CELL DISTRIBUTION WIDTH 11.8 % (10.0-14.5); WHITE BLOOD COUNT 10.4 10^3/uL (4.3-11.0)
[2016-09-30 05:10] LABS: PROTHROMBIN TIME PATIENT 12.8 SEC (12.2-14.7)
[2016-09-30] MEDS ORDERED: NS IV 500 ML 500 ML IV ONE (05:11)
[2016-09-30] MEDS ORDERED: fentaNYL INJECTION 100 MCG/2 ML AMP IVP ONE (05:15)
[2016-09-30 05:22] LABS: ALANINE AMINOTRANSFERASE 13 U/L (0-55); ALBUMIN 4.3 GM/DL (3.2-4.5); ANION GAP 7 MMOL/L (5-14); ASPARTATE AMINO TRANSFERASE 16 U/L (5-34); BILIRUBIN,TOTAL 0.7 MG/DL (0.1-1.0); BLOOD UREA NITROGEN 9 MG/DL (7-18); BUN/CREATININE RATIO 12; CALCIUM 9.5 MG/DL (8.5-10.1); CARBON DIOXIDE 32 MMOL/L (21-32); CHLORIDE 103 MMOL/L (98-107); CREATININE SERUM 0.75 MG/DL (0.60-1.30); GFR ESTIMATED > 60; GLUCOSE 100 MG/DL (70-105); POTASSIUM 4.2 MMOL/L (3.6-5.0); SODIUM 142 MMOL/L (135-145); TOTAL PROTEIN 7.2 GM/DL (6.4-8.2)
--- NOTE | 2016-09-30 05:27 | ED General ---
General Chief Complaint: Respiratory Problems Stated Complaint: RESP DISTRESS Nursing Triage Note: brought in by [facility] for c/o feeling soa x2 hrs Nursing Sepsis Screen: No Definite Risk Source of Information: Patient Exam Limitations: No Limitations History of Present Illness Time Seen by Provider: 04:50 Initial Comments This 65 amount presents to the emergency room via EMS in respiratory distress. She has severe COPD and was admitted in July. She required BiPAP at that time. She was recently diagnosed with bronchitis and saw a ruby engineer in [place]. He prescribed a new medication which her insurance would not cover. reports she had recently quit smoking but started smoking again today. She has had no fever that she is aware of. She is coughing and has severe audible wheezing on arrival. She is on her second DuoNeb treatment was provided by EMS. Patient states that she does not want intubation but does not seem willing to accept the alternative. She will not answer the question about CODE STATUS directly. She states "let's just try that" referring to BiPAP. Allergies and Home Medications Allergies Coded Allergies: Sulfa (Sulfonamide Antibiotics) (Unverified Allergy, Unknown, SOB, SWELLING, RASH, 09/29/14) penicillin (Unverified Allergy, Unknown, 09/29/14) Home Medications Albuterol Sulfate 18 Gm Hfa.aer.ad, 2 PUFF INH Q4H PRN for SHORTNESS OF BREATH, (Reported) Alprazolam 0.5 Mg Tablet, 0.5 MG PO Q12H PRN for BREAKTHROUGH ANXIETY, (Reported ) Clonazepam 1 Mg Tablet, 1 MG PO BID, (Reported) Divalproex Sodium 250 Mg Tablet.dr, 250 MG PO BID, (Reported) Ipratropium [place] 0.2 Mg/1 Ml Solution, 1 VIAL NEB Q6H PRN for SHORTNESS OF BREATH, (Reported) Prednisone 10 Mg Tab.ds.pk, 10 MG PO DAILY, #21 Take 6 tabs(60mg)daily,decrease by 1 tab(10MG)daily. Prescribed by: KRYSTYNA GRAVES on 08/14/16 1006 Constitutional: no symptoms reported EENTM: no symptoms reported Respiratory: see HPI Cardiovascular: no symptoms reported Gastrointestinal: no symptoms reported Genitourinary: no symptoms reported Musculoskeletal: no symptoms reported Skin: no symptoms reported Psychiatric/Neurological: Headache Hematologic/Lymphatic: No Symptoms Reported Past Clixddi-Fjiqek-Jxazgd Hx Patient Social History Alcohol Use: Denies Use Recreational Drug Use: No Smoking Status: Current Everyday Smoker Type Used: Cigarettes 2nd Hand Smoke Exposure: Yes Recent Foreign Travel: No Contact w/Someone Who Travel: No Recent Infectious Disease Expo: No Recent Hopitalizations: No Immunizations Up To Date Tetanus Booster (TDap): Unknown Date of Pneumonia Vaccine: Sep 29, 2012 Date of Influenza Vaccine: Nov 25, 2010 Seasonal Allergies Seasonal Allergies: No Surgeries HX Surgeries: Yes Surgeries: Appendectomy, Gallbladder, Hysterectomy Respiratory Hx Respiratory Disorders: Yes Respiratory Disorders: Chronic Bronchitis, COPD, Emphysema Cardiovascular Hx Cardiac Disorders: No Neurological Hx Neurological Disorders: No 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 System 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) 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 Genitourinary Hx Genitourinary Disorders: No Gastrointestinal Hx Gastrointestinal Disorders: No Musculoskeletal Hx Musculoskeletal Disorders: No Endocrine Hx Endocrine Disorders: No HEENT HX ENT Disorders: No Cancer Hx Cancer: No Psychosocial Hx Psychiatric Problems: No Integumentary HX Skin/Integumentary Disorder: No Blood Transfusions Hx Blood Disorders: No Physical Exam Vital Signs Vital Sign - Last 12Hours 09/30/16 09/30/16 04:57 05:04 Temp 97.7 Pulse 130 Resp 36 B/P (MAP) 188/98 Pulse Ox 97 O2 Delivery OxyMask O2 Flow Rate 10.00 FiO2 60 Capillary Refill : Less Than 3 Seconds General Appearance: Severe Distress, Thin HEENT: PERRL/EOMI, Normal ENT Inspection Respiratory: Accessory Muscle Use, No Crackles, Respiratory Distress, Wheezing (severe, diffuse) Cardiovascular: No Edema, No Murmur, Tachycardia Gastrointestinal: Non Tender, Soft Extremity: Normal Inspection, No Pedal Edema Neurologic/Psychiatric: Alert, No Motor/Sensory Deficits, cable 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 Norm as Tested Skin: Normal Color, Warm/Dry Focused Exam Lactic Acid Level Laboratory Tests Test 09/30/16 04:55 Lactic Acid Level 1.39 MMOL/L (0.50-2.00) Progress/Results/Core Measures Results/Orders Lab Results Laboratory Tests Test 09/30/16 04:55 09/30/16 05:00 09/30/16 05:23 Range/Units Lactic Acid Level 1.39 0.50-2.00 MMOL/L White Blood Count 10.4 4.3-11.0 10^3/uL Red Blood Count 4.36 4.35-5.85 10^6/uL Hemoglobin 15.5 11.5-16.0 G/DL Hematocrit 45 35-52 % Mean Corpuscular Volume 103 H 80-99 FL Mean Corpuscular Hemoglobin 36 H 25-34 PG Mean Corpuscular Hemoglobin Concent 35 32-36 G/DL Red Cell Distribution Width 11.8 10.0-14.5 % Platelet Count 230 130-400 10^3/uL Mean Platelet Volume 10.2 7.4-10.4 FL Neutrophils (%) (Auto) 56 42-75 % Lymphocytes (%) (Auto) 28 12-44 % Monocytes (%) (Auto) 9 0-12 % Eosinophils (%) (Auto) 6 0-10 % Basophils (%) (Auto) 1 0-10 % Neutrophils # (Auto) 5.8 1.8-7.8 X 10^3 Lymphocytes # (Auto) 2.9 1.0-4.0 X 10^3 Monocytes # (Auto) 0.9 0.0-1.0 X 10^3 Eosinophils # (Auto) 0.7 H 0.0-0.3 10^3/uL Basophils # (Auto) 0.1 0.0-0.1 10^3/uL Prothrombin Time 12.8 12.2-14.7 SEC INR Comment 1.0 0.8-1.4 Activated Partial Thromboplast Time 27 24-35 SEC Sodium Level 142 135-145 MMOL/L Potassium Level 4.2 3.6-5.0 MMOL/L Chloride Level 103 98-107 MMOL/L Carbon Dioxide Level 32 21-32 MMOL/L Anion Gap 7 5-14 MMOL/L Blood Urea Nitrogen 9 7-18 MG/DL Creatinine 0.75 0.60-1.30 MG/DL Estimat Glomerular Filtration Rate > 60 BUN/Creatinine Ratio 12 Glucose Level 100 70-105 MG/DL Calcium Level 9.5 8.5-10.1 MG/DL Total Bilirubin 0.7 0.1-1.0 MG/DL Aspartate Amino Transf (AST/SGOT) 16 5-34 U/L Alanine Aminotransferase (ALT/SGPT) 13 0-55 U/L Alkaline Phosphatase 50 40-136 U/L Total Protein 7.2 6.4-8.2 GM/DL Albumin 4.3 3.2-4.5 GM/DL Valproic Acid (Depakene) Level 51.2 50.0-100.0 UG/ML Blood Gas Puncture Site RIGHT RADIAL Blood Gas Patient Temperature 97.7 Arterial Blood pH 7.33 *L 7.37-7.43 Arterial Blood Partial Pressure CO2 62 H 35-45 MMHG Arterial Blood Partial Pressure O2 49 L 79-93 MMHG Arterial Blood HCO3 32 H 23-27 MMOL/L Arterial Blood Total CO2 33.5 H 21.0-31.0 MMOL/L Arterial Blood Oxygen Saturation 81 L 94-100 % Arterial Blood Base Excess 5.8 H -2.5-2.5 MMOL/L Rush Test YES-POS Blood Gas Ventilator Setting NO Blood Gas Inspired Oxygen 60% My Orders Orders - NATANAEL ALONZO MD Cbc With Automated Diff (09/30/16 04:56) Comprehensive Metabolic Panel (09/30/16 04:56) Lactic Acid Analyzer (09/30/16 04:56) Blood Culture (09/30/16 04:56) Sputum Culture (09/30/16 04:56) Ua Culture If Indicated (09/30/16 04:56) Protime With Inr (09/30/16 04:56) Partial Thromboplastin Time (09/30/16 04:56) Chest 1 View, Ap/Pa Only (09/30/16 04:56) O2 (09/30/16 04:56) Saline Lock/Iv-Start (09/30/16 04:56) Saline Lock/Iv-Start (09/30/16 04:56) Vital Signs Adult Sepsis Patie Q1HR (09/30/16 04:56) Remove Rings In Anticipation O (09/30/16 04:56) Albuterol Pre-Mix Nebs (Rt) (Proventil P (09/30/16 04:56) Ipratropium 0.02% Neb Solution (Atrovent (09/30/16 05:00) Svn Sm Volume Nebulizer Rt-Rfs (09/30/16 04:56) Svn Sm Volume Nebulizer Rt-Rfs (09/30/16 04:56) Bipap Rt-Rfs (09/30/16 04:56) Methylprednisolone Sod Succ (Solu-Medrol (09/30/16 05:00) Valproic Acid (09/30/16 04:59) Arterial Blood Gas (09/30/16 05:05) Fentanyl Injection (Sublimaze Injection (09/30/16 05:15) Ns Iv 500 Ml (Sodium Chloride 0.9%) (09/30/16 05:11) Medications Given in ED Current Medications Medications Dose Ordered Sig/Lulu Route Start Time Stop Time Status Last Admin Dose Admin Fentanyl Citrate 25 mcg ONCE ONCE IVP 09/30/16 05:15 09/30/16 05:16 DC 09/30/16 05:10 25 MCG Ipratropium [place] 0.5 mg ONCE ONCE IH 09/30/16 05:00 09/30/16 05:01 DC 09/30/16 05:19 0.5 MG Methylprednisolone Sodium Succinate 125 mg ONCE ONCE IVP 09/30/16 05:00 09/30/16 05:01 DC 09/30/16 05:07 125 MG Sodium Chloride 500 ml @ 0 mls/hr Q0M ONCE IV 09/30/16 05:11 09/30/16 05:12 DC 09/30/16 05:26 0 MLS/HR Vital Signs/I&O Vital Sign - Last 12Hours 09/30/16 09/30/16 09/30/16 04:57 05:04 05:19 Temp 97.7 Pulse 130 128 Resp 36 33 B/P (MAP) 188/98 Pulse Ox 97 97 O2 Delivery OxyMask NIV CPAP O2 Flow Rate 10.00 60.00 FiO2 60 Blood Pressure Mean: 128 Progress Note : Time: 05:27 Progress Note Patient was immediately started on BiPAP therapy. She was given Solu-Medrol 125 mg and an hour-long breathing treatment was started. She will receive a 500 mL normal saline bolus. Fentanyl 25 g was administered for headache. Diagnostic Imaging Diagonstic Imaging: Xray Plain Films/CT/US/NM/MRI: chest Comments Chest x-ray viewed by me. Report not yet available. There is hyperinflation with no evidence of infiltrate or consolidation. Departure Communication Time/Spoke to Admitting Phy: 05:[address] Ellison Time/Spoke to Consulting Physi: 05:50 Communication/Consulting Dr. Birch Impression Impression: Primary Impression: RESPIRATORY FAILURE, UNSP, UNSP W HYPOXIA OR HYPERCAPNIA Additional Impression: COPD with exacerbation Disposition: ADMITTED INPATIENT Condition: Improved Decision to Admit Reason: Admit from ER (General) Decision to Admit/Date: Sep 30, 2016 Time/Decision to Admit Time: 04:50 Departure-Patient Inst. Referrals: GEORGINA GARCIA DO (PCP/Family) Primary Care Physician NATANAEL ALONZO MD Sep 30, 2016 05:27
[2016-09-30 05:28] LABS: VALPROIC ACID 51.2 UG/ML (50.0-100.0)
[2016-09-30 05:47] LABS: ABG BASE EXCESS 5.8 MMOL/L (-2.5-2.5); ABG HCO3 32 MMOL/L (23-27); ABG OXYGEN SATURATION 81 % (94-100); ABG PCO2 62 MMHG (35-45); ABG PO2 49 MMHG (79-93); ABG TCO2 33.5 MMOL/L (21.0-31.0); ALLENS TEST YES-POS; PATIENT TEMP 97.7
[2016-09-30 05:48] LABS: ABG PH 7.33 (7.37-7.43)
--- NOTE | 2016-09-30 06:57 | Diagnostic Imaging Report ---
EXAMINATION: Portable erect AP chest at 5:30 AM INDICATION: Shortness of breath The heart size is within normal limits and stable when compared to 08/13/16. The lungs remain clear. There is still no sign of failure, pneumonia or pleural effusion to suggest an acute abnormality. The mediastinum is not widened. The osseous structures are intact. IMPRESSION: Stable chest. There has been no adverse change since the prior exam. Dictated by: Dictated on workstation # [id number]
--- NOTE | 2016-09-30 07:05 | Pulmonary Consultation ---
History of Present Illness History of Present Illness Date of Consultation 09/30/16 07:00 Time Seen by Provider: 07:00 Date of Admission History of Present Illness 65yo with hx COPD presented the ED via EMS secondary to respiratory distress. Pt upon arrival was found to be hypoxic ABG shows acute respiratory acidosis. PT was give 125mg Solumedrol IV x 1 and SVN treatments secondary to SOB, coughing and wheezing. SHe is currently requiring BiPAP. She has no leukocytosis or fever and CXR shows no acute infiltration. PT has had multiple hospitalizations secondary to COPDAE. T Allergies and Home Medications Allergies Coded Allergies: Sulfa (Sulfonamide Antibiotics) (Unverified Allergy, Unknown, SOB, SWELLING, RASH, 09/29/14) penicillin (Unverified Allergy, Unknown, 09/29/14) Home Medications Albuterol Sulfate 18 Gm Hfa.aer.ad, 2 PUFF INH Q4H PRN for SHORTNESS OF BREATH, (Reported) Alprazolam 0.5 Mg Tablet, 0.5 MG PO Q12H PRN for BREAKTHROUGH ANXIETY, (Reported ) Clonazepam 1 Mg Tablet, 1 MG PO BID, (Reported) Divalproex Sodium 250 Mg Tablet.dr, 250 MG PO BID, (Reported) Ipratropium [place] 0.2 Mg/1 Ml Solution, 1 VIAL NEB Q6H PRN for SHORTNESS OF BREATH, (Reported) Prednisone 10 Mg Tab.ds.pk, 10 MG PO DAILY, #21 Take 6 tabs(60mg)daily,decrease by 1 tab(10MG)daily. Prescribed by: KRYSTYNA GRAVES on 08/14/16 1006 Past Hbyijkx-Yrdaut-Wipbgd Hx Patient Social History Alcohol Use: Denies Use Recreational Drug Use: No Smoking Status: Current Everyday Smoker Type Used: Cigarettes 2nd Hand Smoke Exposure: Yes Recent Foreign Travel: No Contact w/Someone Who Travel: No Recent Infectious Disease Expo: No Recent Hopitalizations: No Immunizations Up To Date Tetanus Booster (TDap): Unknown Date of Pneumonia Vaccine: Sep 29, 2012 Date of Influenza Vaccine: Nov 25, 2010 Seasonal Allergies Seasonal Allergies: No Surgeries HX Surgeries: Yes Surgeries: Appendectomy, Gallbladder, Hysterectomy Respiratory Hx Respiratory Disorders: Yes Respiratory Disorders: Chronic Bronchitis, COPD, Emphysema Cardiovascular Hx Cardiac Disorders: No Neurological Hx Neurological Disorders: No 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 System 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) 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 Genitourinary Hx Genitourinary Disorders: No Gastrointestinal Hx Gastrointestinal Disorders: No Musculoskeletal Hx Musculoskeletal Disorders: No Endocrine Hx Endocrine Disorders: No HEENT HX ENT Disorders: No Cancer Hx Cancer: No Psychosocial Hx Psychiatric Problems: No Integumentary HX Skin/Integumentary Disorder: No Blood Transfusions Hx Blood Disorders: No Review of Systems Time Seen by Provider: 07:26 Constitutional: Malaise, Weakness, No: Chills, Fever, Other, Sweats Eyes: No: Conjunctivae inflammation, Eyelid inflammation, Other, Pain, Redness , Vision change ENT: Nose congestion Respiratory: Cough, Dry, SOB with excertion, Shortness of breath Cardiovascular: Edema, Lt Headedness, Palpitations, Paroxysmal Noc. Dyspnea Gastrointestinal: Nausea, No: Abdominal Pain, Constipation, Diarrhea, Hematochezia, Melena, Other, Vomiting Genitourinary: No Dysuria, No Frequency, No Incontinence, No Hematuria, No Retention, No Other Neurological: Confusion, Incoordination, Weakness Exam Exam Vital Signs Date Time Temp Pulse Resp B/P (MAP) Pulse Ox O2 Delivery O2 Flow Rate FiO2 09/30/16 06:49 105 29 100 60.00 09/30/16 06:22 98.0 104 20 99 NIV Bilevel 09/30/16 06:00 98.0 107 20 120/77 99 NIV/Bilevel 09/30/16 05:19 128 33 97 60.00 09/30/16 05:04 NIV CPAP 60 09/30/16 04:57 97.7 130 36 188/98 97 OxyMask 10.00 I & O 09/30/16 07:00 Intake Total 500 ml Balance 500 ml General Appearance: Severe Distress, Thin HEENT: PERRL/EOMI, Normal ENT Inspection Respiratory: Accessory Muscle Use, No Crackles, Respiratory Distress, Wheezing (severe, diffuse) Cardiovascular: No Edema, No Murmur, Tachycardia Capillary Refill: Less Than 3 Seconds Extremity: Normal Inspection, No Pedal Edema Neurologic/Psychiatric: Alert, No Motor/Sensory Deficits, 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
[2016-09-30 07:15] LABS: BILIRUBIN,URINE NEGATIVE (NEGATIVE); KETONES,URINE NEGATIVE (NEGATIVE); LEUKOCYTE ESTERASE ,URINE NEGATIVE (NEGATIVE); NITRITE,URINE NEGATIVE (NEGATIVE); PH,URINE 6 (5-9); PROTEIN,URINE NEGATIVE (NEGATIVE); UROBILINOGEN,URINE NORMAL (NORMAL)
[2016-09-30] MEDS ORDERED: CATHETER FLUSH 10 ML SYR IV PRN (07:15)
[2016-09-30] MEDS ORDERED: ONDANSETRON 4 MG/2 ML (SDV) Z0FRAN IV PRN (07:15)
[2016-09-30] MEDS ORDERED: methylPREDNISolone 40 MG/ML (Solu-MEDROL) VIAL IV SCH (07:15)
[2016-09-30] MEDS: NS IV 1000 ML 1,000 ML IV SCH ×2 (08:05→17:19)
[2016-09-30] MEDS: RT-ADVAIR HFA 115/21 MCG PER PUFF IH SCH ×2 (08:56→21:03)
[2016-09-30] MEDS: methylPREDNISolone 40 MG/ML (Solu-MEDROL) VIAL IV SCH ×3 (09:08→22:28)
[2016-09-30] MEDS ORDERED: RT-ALBUTEROL SULF 2.5 MG/3 ML PRE-MIX VIAL IH PRN (09:15)
[2016-09-30] MEDS: RT-ALBUTEROL/IPRATROPIUM 3 ML (DUONEB) VIAL INH SCH ×2 (14:17→21:03)
--- NOTE | 2016-09-30 15:49 | Progress Note-Hospitalist ---
Standard Progress Note Progress Notes/Assess & Plan Date Seen 09/30/16 Time Seen by Provider: 15:46 Assess & Plan/Chief Complaint The patient is a 65-year-old white female known to me from a previous hospitalization. She reports that about 0200 this morning she awakened and was quite short of breath. Shortly after that she felt the need to come to the emergency room where she was evaluated by Dr. Merritt. He found no evidence of acute infection. Her blood gases showed a pH of 7.33 and a PCO2 of 60. On a previous admission she had a PCO2 of 100. She reports no fever or unusual appearing sputum. Physical exam: She is sitting up in bed. She is employing nasal O2. Her SaO2 is 97 percent. Lungs show breath sounds throughout. CV is regular. Abdomen is soft. Ankles show no pedal edema. Impression: COPD in exacerbation. Plan: Pulmonary consultation and aggressive pulmonary toilet Labs Laboratory Tests 09/30/16 05:00 DANIELLE GA MD Sep 30, 2016 15:49
[2016-09-30] MEDS ORDERED: ALPRAZolam 0.5 MG (XANAX) TAB PO PRN (17:15)
[2016-09-30] MEDS: DIVALPROEX 250 MG DELAYED RELEASE (DEPAKOTE) TAB PO SCH (20:33)
[2016-09-30] MEDS: clonazePAM 1 MG (KlonoPIN) TAB PO SCH (20:35)
[2016-10-01] VITALS (12 sets, daily range): BP systolic 121–146; BP diastolic 68–85
[2016-10-01] MEDS: RT-ALBUTEROL/IPRATROPIUM 3 ML (DUONEB) VIAL INH SCH ×2 (03:04→08:29)
[2016-10-01] MEDS: NS IV 1000 ML 1,000 ML IV SCH (03:25)
[2016-10-01 04:22] LABS: BASOPHILS % (AUTO) 0 % (0-10); EOSINOPHILS % (AUTO) 0 % (0-10); LYMPHOCYTES # (AUTO) 0.7 X 10^3 (1.0-4.0); LYMPHOCYTES % (AUTO) 7 % (12-44); MEAN CORPUSCULAR HEMOGLOBIN 34 PG (25-34); MEAN CORPUSCULAR HGB CONC 33 G/DL (32-36); MEAN CORPUSCULAR VOLUME 106 FL (80-99); MEAN PLATELET VOLUME 10.8 FL (7.4-10.4); MONOCYTES # (AUTO) 0.2 X 10^3 (0.0-1.0); MONOCYTES % (AUTO) 2 % (0-12); NEUTROPHILS # (AUTO) 8.3 X 10^3 (1.8-7.8); NEUTROPHILS % (AUTO) 91 % (42-75); PLATELET COUNT 170 10^3/uL (130-400); RED CELL DISTRIBUTION WIDTH 11.7 % (10.0-14.5); WHITE BLOOD COUNT 9.1 10^3/uL (4.3-11.0)
[2016-10-01 04:41] LABS: ANION GAP 11 MMOL/L (5-14); BLOOD UREA NITROGEN 11 MG/DL (7-18); BUN/CREATININE RATIO 17; CALCIUM 8.8 MG/DL (8.5-10.1); CARBON DIOXIDE 23 MMOL/L (21-32); CHLORIDE 109 MMOL/L (98-107); CREATININE SERUM 0.66 MG/DL (0.60-1.30); GFR ESTIMATED > 60; GLUCOSE 123 MG/DL (70-105); MAGNESIUM 2.1 MG/DL (1.8-2.4); PHOSPHORUS 3.4 MG/DL (2.3-4.7); POTASSIUM 3.9 MMOL/L (3.6-5.0); SODIUM 143 MMOL/L (135-145)
[2016-10-01] MEDS: methylPREDNISolone 40 MG/ML (Solu-MEDROL) VIAL IV SCH (05:50)
[2016-10-01] MEDS ORDERED: KCL 20 MEQ TAB (K-DUR) PO SCH (06:00)
[2016-10-01] MEDS ORDERED: MAGNESIUM 1 GM/100 ML IVPB 100 ML IV SCH (06:00)
[2016-10-01] MEDS ORDERED: POTASSIUM CL 10MEQ/50ML IVPB 50 ML IV SCH (06:00)
--- NOTE | 2016-10-01 07:07 | Diagnostic Imaging Report ---
INDICATION: Shortness of air. Respiratory failure. History of COPD. COMPARISON: 09/30/2016 FINDINGS: Single frontal view of the chest demonstrates normal heart size and pulmonary vascularity. The lungs are well aerated and clear. No large pleural effusion or pneumothorax is seen. The visualized osseous structures show no acute abnormalities. IMPRESSION: 1. No acute cardiopulmonary process. Dictated by: Dictated on workstation # [id number]
[2016-10-01] MEDS: RT-ADVAIR HFA 115/21 MCG PER PUFF IH SCH (08:37)
[2016-10-01] MEDS: clonazePAM 1 MG (KlonoPIN) TAB PO SCH (08:39)
[2016-10-01] MEDS: DIVALPROEX 250 MG DELAYED RELEASE (DEPAKOTE) TAB PO SCH (08:40)
--- NOTE | 2016-10-01 08:58 | Pulmonary Progress Note ---
Subjective Time Seen by Provider: 08:57 Subjective/Events-last exam No complications noted. Pt feels improved. Exam Exam Vital Signs Date Time Temp Pulse Resp B/P (MAP) Pulse Ox O2 Delivery O2 Flow Rate FiO2 10/01/16 08:37 98 Nasal Cannula 3.00 10/01/16 08:30 98 Nasal Cannula 3.00 10/01/16 08:00 68 18 140/76 97 Nasal Cannula 3.00 10/01/16 07:00 94 10/01/16 07:00 94 22 146/85 97 Nasal Cannula 3.00 10/01/16 06:00 78 21 139/81 99 Nasal Cannula 3.00 10/01/16 05:00 72 17 137/78 97 NIV Bilevel 35.00 10/01/16 04:00 71 18 136/81 96 NIV Bilevel 35.00 10/01/16 04:00 NIV Bilevel 30 10/01/16 03:04 64 17 97 30.00 10/01/16 03:00 68 16 121/73 97 NIV Bilevel 35.00 10/01/16 02:00 65 17 122/71 97 NIV Bilevel 35.00 10/01/16 01:00 72 18 121/70 96 NIV Bilevel 35.00 10/01/16 01:00 72 10/01/16 00:15 NIV Bilevel 35.00 10/01/16 00:15 66 19 96 35.00 10/01/16 00:00 67 17 121/68 96 NIV Bilevel 40.00 10/01/16 00:00 NIV Bilevel 40 09/30/16 23:00 85 18 128/83 95 NIV Bilevel 40.00 09/30/16 22:35 103 21 95 40.00 09/30/16 22:35 101 26 138/79 98 NIV Bilevel 40.00 09/30/16 22:00 107 36 149/81 94 Nasal Cannula 3.00 09/30/16 21:03 97 Nasal Cannula 3.00 09/30/16 21:03 97 Nasal Cannula 3.00 09/30/16 21:00 74 21 155/81 97 Nasal Cannula 3.00 09/30/16 20:00 98.3 3.00 09/30/16 20:00 Nasal Cannula 4.00 09/30/16 20:00 83 21 163/88 96 Nasal Cannula 3.00 09/30/16 19:00 91 22 133/69 98 Nasal Cannula 3.00 09/30/16 19:00 91 09/30/16 18:00 89 22 97 Nasal Cannula 3.00 09/30/16 17:00 82 21 139/86 98 Nasal Cannula 3.00 09/30/16 16:00 97.9 81 25 143/82 96 Nasal Cannula 3.00 09/30/16 15:21 Nasal Cannula 3.00 09/30/16 15:00 89 22 137/80 94 Nasal Cannula 3.00 09/30/16 14:18 98 Nasal Cannula 3.00 09/30/16 14:00 87 24 145/88 94 Nasal Cannula 3.00 09/30/16 13:00 80 09/30/16 13:00 86 20 126/81 95 Nasal Cannula 3.00 09/30/16 12:00 Nasal Cannula 3.00 09/30/16 12:00 96.3 88 31 140/79 99 Nasal Cannula 3.00 09/30/16 11:00 90 22 142/70 99 Nasal Cannula 3.00 09/30/16 10:00 94 18 95 Nasal Cannula 3.00 09/30/16 09:00 90 22 95 NIV Bilevel 40.00 09/30/16 08:57 83 18 100 40.00 09/30/16 08:57 83 100 40 09/30/16 08:57 100 NIV Bilevel 40 I & O 10/01/16 07:00 Intake Total 3540 ml Output Total 2200 ml Balance 1340 ml General Appearance: Mild Distress, Thin HEENT: PERRL/EOMI, Normal ENT Inspection Respiratory: Accessory Muscle Use, No Crackles, Respiratory Distress, Wheezing (severe, diffuse) Cardiovascular: No Edema, No Murmur, Tachycardia Capillary Refill: Less Than 3 Seconds Extremity: Normal Inspection, No Pedal Edema Neurologic/Psychiatric: Alert, No Motor/Sensory Deficits, 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 labs and CXR reviewed Clinical Quality Measures DVT/VTE Risk/Contraindication: Risk Factor Score Per Nursin RFS Level Per Nursing on Admit: 4+=Very High RIKI REID DO Oct 01, 2016 08:58
--- NOTE | 2016-10-01 11:28 | History & Physical-Hospitalist ---
HPI History of Present Illness: HPI/Chief Complaint tHE PATIENT IS A 66-YEAR-OLD white female whose primary care doctor is Dr. Mehul Bermeo. She has severe COPD and still smokes. She reports that she was awakened at about 02 30 this morning with increasing shortness of breath. It had did not improve after a treatment and she came to the emergency room. Chest x-ray was negative for pneumonia or fluid. Her blood gases showed a PCO2 of 60 in contradistinction to the 100 she showed at admission on her last visit. She had a pH of 7.33. She improved with BiPAP was admitted to the ICU for careful observation as she was on the threshold of respiratory failure. By the time I saw her son 8 hours after her admission she was already feeling much better. Source: patient Exam Limitations: no limitations Date Seen 09/30/16 Time Seen by Provider: 15:50 Attending Physician Chad Ga MD PCP Mehul Bermeo DO Referring Physician Date of Admission Sep 30, 2016 at 06:15 Home Medications & Allergies Home Medications Reviewed patient Home Medication Reconciliation Form Allergies Allergies Coded Allergies Sulfa (Sulfonamide Antibiotics) (Unverified Allergy, Unknown, SOB, SWELLING, RASH, 09/29/14) penicillin (Unverified Allergy, Unknown, 09/29/14) Past Wnfwpnh-Pnpojh-Oyfmwv Hx Patient Social History Alcohol Use: Denies Use Recreational Drug Use: No Smoking Status: Current Everyday Smoker Type Used: Cigarettes 2nd Hand Smoke Exposure: Yes Physical Abuse Screen: No Sexual Abuse: No Recent Foreign Travel: Yes Contact w/other who traveled: No Recent Hopitalizations: Yes (Pneum) Recent Infectious Disease Expo: No Immunizations Up To Date Tetanus Booster (TDap): Unknown Date of Pneumonia Vaccine: Oct 01, 2015 Date of Influenza Vaccine: Nov 25, 2010 Seasonal Allergies Seasonal Allergies: No Surgeries HX Surgeries: Yes Surgeries: Appendectomy, Gallbladder, Hysterectomy Respiratory Hx Respiratory Disorders: Yes Respiratory Disorders: COPD Cardiovascular Hx Cardiovascular Disorders: No Neurological Hx Neurological Disorders: No 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 System Hx 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 Disorders: Yes (HPV) HIV/AIDS: No Female 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 Disorders: Denies Genitourinary Hx Genitourinary Disorders: No Gastrointestinal Hx Gastrointestinal Disorders: No Musculoskeletal Hx Musculoskeletal Disorders: No Endocrine Hx Endocrine Disorders: No HEENT HX ENT Disorders: No Cancer Hx Cancer: No Psychosocial Hx Psychiatric Problems: No Integumentary HX Skin/Integumentary Disorder: No Blood Transfusions Hx Blood Disorders: No Review of Systems Constitutional: see HPI EENTM: no symptoms reported Respiratory: see HPI, short of breath, wheezing Cardiovascular: no symptoms reported Gastrointestinal: no symptoms reported Genitourinary: no symptoms reported Musculoskeletal: no symptoms reported Skin: no symptoms reported Psychiatric/Neurological: No Symptoms Reported Physical Exam Physical Exam Vital Signs Vital Sign - Last 12Hours 09/30/16 09/30/16 04:57 05:04 Temp 97.7 Pulse 130 Resp 36 B/P (MAP) 188/98 Pulse Ox 97 O2 Delivery OxyMask O2 Flow Rate 10.00 FiO2 60 Capillary Refill : Less Than 3 Seconds General Appearance: Moderate Distress Eyes: Bilateral Eye Normal Inspection HEENT: Normal ENT Inspection Neck: Normal Inspection Respiratory: Decreased Breath Sounds (distant without wheezes or rhonchi) Cardiovascular: Regular Rate, Rhythm, No Edema, No Gallop, No JVD, No Murmur, Normal Peripheral Pulses Gastrointestinal: Normal Bowel Sounds, No Organomegaly, No Pulsatile Mass, Non Tender, Soft Back: Normal Inspection Extremity: Normal Capillary Refill, Normal Inspection, Normal Range of Motion, Non Tender, No Calf Tenderness, No Pedal Edema Neurologic/Psychiatric: Alert, Oriented x3, No Motor/Sensory Deficits, Normal Mood/Affect Skin: Normal Color, Warm/Dry Lymphatic: No Adenopathy Results Results/Procedures Lab Laboratory Tests 09/30/16 05:00 10/01/16 03:45 Assessment/Plan Admission Diagnosis COPD in exacerbation. Assessment and Plan Pulmonology consultation. IV steroids and vigorous pulmonary toilet Clinical Quality Measures DVT/VTE Risk/Contraindication: Risk Factor Score Per Nursin RFS Level Per Nursing on Admit: 4+=Very High CHAD GA MD Oct 01, 2016 11:28
[2016-10-01] MEDS ORDERED: PRD10T PO (12:18)
--- NOTE | 2016-10-01 12:21 | Discharge Instructions ---
Discharge Instructions Discharge Medications New, Converted or Re-Newed RX: Transmitted to Pharmacy Patient Instructions Patient Instructions: Medications as on the discharge list. A prednisone taper prescription has been transmitted to your pharmacy. appt with Dr Birch O2 as before Return to The [facility] For: Declining condition Activity & Diet Discharge Diet: No Restrictions Copy Copies To 1: GEORGINA GARCIA RODNEY K MD Oct 01, 2016 12:21
[2016-10-02] MEDS ORDERED: predniSONE 10 MG TAB PO SCH (09:00)
== END 2016-10-01 13:45 | disposition home or self-care (01) | DRG 189 ==
LOC: EDUNIT# 04:48 → ER 04:50 → ICU 06:15 → 4TH 10-01 11:20
PROVIDERS: ADMIT Internal Medicine; ATTEND Internal Medicine
DX: J96.21 Acute and chronic respiratory failure with hypoxia (principal); J44.1 Chronic obstructive pulmonary disease with (acute) exacerbation; R51 Headache; F17.210 Nicotine dependence, cigarettes, uncomplicated
CPT/HCPCS: 36415; 71010; 80048; 80053; 80164; 81000; 82805; 83605; 83735; 84100; 85025; 85610; 85730; 87040; 87081; 94640; 94660; 96361; 96374; 96375

== ENCOUNTER → 2016-11-25 | Outpatient (CLI) | payer MEDICARE, OTHER ==
[~2016-11-25] MED LIST changes: +PRD10T PO
--- NOTE | 2016-11-25 15:48 | Diagnostic Imaging Report ---
PROCEDURE: Lung cancer screening CT chest without contrast. TECHNIQUE: Multiple contiguous axial images were obtained through the chest without the use of intravenous contrast. This is performed with a low-dose protocol. INDICATION: Currently asymptomatic patient with 30 pack years history of smoking Comparison: 01/12/2011 Findings: There are scattered tiny nodules in the right lung along the major fissure, axial image 34, and in the upper right lung, image 16 and 11. Particularly on the coronal reconstruction, these demonstrate calcifications compatible with calcified granulomas. No significant consolidation, mass or suspicious nodule is seen. There is mild emphysema changes noted in the upper lobes. No bronchiectasis, or fibrotic changes are seen in the lungs. No pericardial or pleural effusion. The thoracic aorta is normal in caliber. The heart size is normal. Prominent coronary artery atherosclerotic calcifications are seen. No axillary lymphadenopathy. The osseous structures demonstrate thoracic spine degenerative changes. IMPRESSION: 1. Scattered tiny calcified granulomas seen in the right lung. No suspicious nodule. 2. Mild emphysema changes. Lung Rads Category 2. Benign findings. Recommendations: Annual screening low-dose CT scan. Dictated by: Dictated on workstation # [id number]
== END ==
LOC: RAD 13:14
PROVIDERS: ATTEND Internal Medicine Critical Care Medicine
DX: Z12.2 Encounter for screening for malignant neoplasm of respiratory organs (principal); R91.8 Other nonspecific abnormal finding of lung field; Z87.891 Personal history of nicotine dependence

== ENCOUNTER 2017-04-17 08:56 | Inpatient (IN) | payer MEDICARE, OTHER ==
[~2017-04-17] VITALS: Ht 162.6 cm; Wt 49.9 kg
[~2017-04-17 08:56] MED LIST changes: +AZIT250T12 PO; -AZIT250T5 PO
[2017-04-17 09:15] LABS: BASOPHILS # (AUTO) 0.1 10^3/uL (0.0-0.1); BASOPHILS % (AUTO) 1 % (0-10); EOSINOPHILS # (AUTO) 0.6 10^3/uL (0.0-0.3); EOSINOPHILS % (AUTO) 8 % (0-10); HEMATOCRIT 44 % (35-52); HEMOGLOBIN 14.5 G/DL (11.5-16.0); LYMPHOCYTES # (AUTO) 2.5 X 10^3 (1.0-4.0); LYMPHOCYTES % (AUTO) 33 % (12-44); MEAN CORPUSCULAR HEMOGLOBIN 34 PG (25-34); MEAN CORPUSCULAR HGB CONC 33 G/DL (32-36); MEAN CORPUSCULAR VOLUME 103 FL (80-99); MONOCYTES # (AUTO) 0.6 X 10^3 (0.0-1.0); MONOCYTES % (AUTO) 8 % (0-12); NEUTROPHILS # (AUTO) 3.9 X 10^3 (1.8-7.8); NEUTROPHILS % (AUTO) 50 % (42-75); PLATELET COUNT 235 10^3/uL (130-400); RED BLOOD COUNT 4.23 10^6/uL (4.35-5.85); RED CELL DISTRIBUTION WIDTH 12.3 % (10.0-14.5); WHITE BLOOD COUNT 7.8 10^3/uL (4.3-11.0)
[2017-04-17] MEDS ORDERED: RT-ALBUTEROL/IPRATROPIUM 3 ML (DUONEB) VIAL INH ONE (09:15)
--- NOTE | 2017-04-17 09:30 | Diagnostic Imaging Report ---
INDICATION: Shortness of air and COPD. TIME OF EXAM: 9:20 AM CORRELATION is made with prior study from 10/01/2016. FINDINGS: The heart size is stable. The lungs are clear. No infiltrates are detected. No effusion or pneumothorax is seen. IMPRESSION: No acute cardiopulmonary process is detected. Dictated by: Dictated on workstation # [id number]
[2017-04-17 09:35] LABS: ALANINE AMINOTRANSFERASE 39 U/L (0-55); ALKALINE PHOSPHATASE 56 U/L (40-136); BILIRUBIN,TOTAL 1.1 MG/DL (0.1-1.0); BUN/CREATININE RATIO 7; CALCIUM 8.9 MG/DL (8.5-10.1); CARBON DIOXIDE 27 MMOL/L (21-32); CHLORIDE 101 MMOL/L (98-107); CREATININE SERUM 0.83 MG/DL (0.60-1.30); GFR ESTIMATED > 60; GLUCOSE 184 MG/DL (70-105); POTASSIUM 3.8 MMOL/L (3.6-5.0); SODIUM 139 MMOL/L (135-145); TOTAL PROTEIN 6.7 GM/DL (6.4-8.2)
--- NOTE | 2017-04-17 10:10 | ED Respiratory ---
General Chief Complaint: Respiratory Problems Stated Complaint: SOA Nursing Triage Note: c/o soa. Onset this morning. Hx of COPD. Source: patient Exam Limitations: no limitations History of Present Illness Date Seen by Provider: Apr 17, 2017 Time Seen by Provider: 10:06 Initial Comments The patient is a 66-year-old white female known to me. She apparently has been having more difficulty with breathing over the last 2-3 days. She got up this morning and felt much more short of breath. She sleeps with CPAP routinely. Her states that she fell on arising and dislodged the mask which caused her to desaturate considerably. She is presently on albuterol on a 3 times daily basis. He questions whether this can be done more frequently. There has been no fever. There has been no increase in sputum production either. Timing/Duration: this morning Prior Episodes/Possible Cause: frequent episodes Modifying Factors: Improves With Activity, Improves With Other (she has home oxygen which she uses during the day and CPAP at night.) Allergies and Home Medications Allergies Coded Allergies: Sulfa (Sulfonamide Antibiotics) (Unverified Allergy, Unknown, SOB, SWELLING, RASH, 09/29/14) penicillin (Unverified Allergy, Unknown, 09/29/14) Home Medications Albuterol Sulfate 18 Gm Hfa.aer.ad, 2 PUFF INH Q4H PRN for SHORTNESS OF BREATH, (Reported) Alprazolam 0.5 Mg Tablet, 0.5 MG PO Q12H PRN for BREAKTHROUGH ANXIETY, (Reported ) Clonazepam 1 Mg Tablet, 1.5 MG PO BID, (Reported) TAKES 1 & 1/2 (1MG) TABLET Divalproex Sodium 250 Mg Tablet.dr, 250 MG PO BID, (Reported) Ipratropium Viola 0.2 Mg/1 Ml Solution, 1 VIAL NEB Q6H PRN for SHORTNESS OF BREATH, (Reported) Prednisone 10 Mg Tab, 60 MG PO DAILY, #35 Prescribed by: DANIELLE GA on 10/01/16 1218 Constitutional: see HPI EENTM: no symptoms reported Respiratory: see HPI, cough, dyspnea on exertion, wheezing Cardiovascular: no symptoms reported Gastrointestinal: no symptoms reported Genitourinary: no symptoms reported Musculoskeletal: no symptoms reported Skin: no symptoms reported Psychiatric/Neurological: No Symptoms Reported Past Izrvzfn-Gkwjtn-Zsyfza Hx Patient Social History Alcohol Use: Denies Use Recreational Drug Use: No Smoking Status: Current Everyday Smoker Type Used: Cigarettes 2nd Hand Smoke Exposure: Yes Recent Foreign Travel: No Contact w/Someone Who Travel: No Recent Infectious Disease Expo: No Recent Hopitalizations: Yes (Pneum) Immunizations Up To Date Tetanus Booster (TDap): Unknown Date of Pneumonia Vaccine: Oct 01, 2015 Date of Influenza Vaccine: Nov 25, 2010 Seasonal Allergies Seasonal Allergies: No Surgeries History of Surgeries: No Surgeries: Appendectomy, Gallbladder, Hysterectomy Respiratory History of Respiratory Disorde: Yes Respiratory Disorders: Asthma, Pneumonia, Chronic Bronchitis, COPD, Emphysema Currently Using CPAP: No Currently Using BIPAP: No Cardiovascular History of Cardiac Disorders: No Neurological History of Neurological Disord: No 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 System Hx 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 Disorders: Yes (HPV) HIV/AIDS: No 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 Genitourinary History of Genitourinary Disor: No Gastrointestinal History of Gastrointestinal Di: No Musculoskeletal History of Musculoskeletal Dis: No Endocrine History of Endocrine Disorders: No HEENT History of HEENT Disorders: No Cancer History of Cancer: No Psychosocial History of Psychiatric Problem: No Integumentary History of Skin or Integumenta: No Blood Transfusions History of Blood Disorders: No Physical Exam Vital Signs Vital Signs - First Documented 04/17/17 04/17/17 08:56 09:25 Temp 97.5 Pulse 70 Resp 18 B/P (MAP) 137/76 (96) Pulse Ox 98 O2 Delivery Room Air O2 Flow Rate 2.00 FiO2 93 Capillary Refill : Less Than 3 Seconds General Appearance: moderate distress Eyes: Bilateral Eye Normal Inspection HEENT: normal ENT inspection Neck: full range of motion Respiratory: other (poor air movement.) Cardiovascular: regular rate, rhythm Extremities: normal range of motion 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 nml as tested Skin: normal color Progress/Results/Core Measures Suspected Sepsis Recent Fever Within 48 Hours: No Infection Criteria Present: None New/Unexplained Altered Menta: No Sepsis Screen: No Definite Risk Sepsis Diagnosis: SIRS Temperature:97.5 Pulse: 70 Respiratory Rate: 18 Laboratory Tests 04/17/17 09:05: White Blood Count 7.8 Blood Pressure 137 /76 Mean: 96 Laboratory Tests 04/17/17 09:05: Creatinine 0.83, Platelet Count 235, Total Bilirubin 1.1H Results/Orders Lab Results Laboratory Tests Test 04/17/17 09:05 Range/Units White Blood Count 7.8 4.3-11.0 10^3/uL Red Blood Count 4.23 L 4.35-5.85 10^6/uL Hemoglobin 14.5 11.5-16.0 G/DL Hematocrit 44 35-52 % Mean Corpuscular Volume 103 H 80-99 FL Mean Corpuscular Hemoglobin 34 25-34 PG Mean Corpuscular Hemoglobin Concent 33 32-36 G/DL Red Cell Distribution Width 12.3 10.0-14.5 % Platelet Count 235 130-400 10^3/uL Mean Platelet Volume 10.0 7.4-10.4 FL Neutrophils (%) (Auto) 50 42-75 % Lymphocytes (%) (Auto) 33 12-44 % Monocytes (%) (Auto) 8 0-12 % Eosinophils (%) (Auto) 8 0-10 % Basophils (%) (Auto) 1 0-10 % Neutrophils # (Auto) 3.9 1.8-7.8 X 10^3 Lymphocytes # (Auto) 2.5 1.0-4.0 X 10^3 Monocytes # (Auto) 0.6 0.0-1.0 X 10^3 Eosinophils # (Auto) 0.6 H 0.0-0.3 10^3/uL Basophils # (Auto) 0.1 0.0-0.1 10^3/uL Sodium Level 139 135-145 MMOL/L Potassium Level 3.8 3.6-5.0 MMOL/L Chloride Level 101 98-107 MMOL/L Carbon Dioxide Level 27 21-32 MMOL/L Anion Gap 11 5-14 MMOL/L Blood Urea Nitrogen 6 L 7-18 MG/DL Creatinine 0.83 0.60-1.30 MG/DL Estimat Glomerular Filtration Rate > 60 BUN/Creatinine Ratio 7 Glucose Level 184 H 70-105 MG/DL Calcium Level 8.9 8.5-10.1 MG/DL Total Bilirubin 1.1 H 0.1-1.0 MG/DL Aspartate Amino Transf (AST/SGOT) 56 H 5-34 U/L Alanine Aminotransferase (ALT/SGPT) 39 0-55 U/L Alkaline Phosphatase 56 40-136 U/L Total Protein 6.7 6.4-8.2 GM/DL Albumin 4.0 3.2-4.5 GM/DL My Orders Orders - DANIELLE GA MD Cbc With Automated Diff (04/17/17 09:01) Comprehensive Metabolic Panel (04/17/17 09:01) Albuterol/Ipra Inhalation Soln (Duoneb I (04/17/17 09:15) Chest 1 View, Ap/Pa Only (04/17/17 09:01) Svn Sm Volume Nebulizer Rt-Rfs (04/17/17 09:01) Medications Given in ED Current Medications Medications Dose Ordered Sig/Lulu Route Start Time Stop Time Status Last Admin Dose Admin Albuterol/ Ipratropium 3 ml ONCE ONCE INH 04/17/17 09:15 04/17/17 09:16 DC 04/17/17 09:25 3 ML Vital Signs/I&O Vital Sign - Last 12Hours 04/17/17 04/17/17 08:56 09:25 Temp 97.5 Pulse 70 Resp 18 B/P (MAP) 137/76 (96) Pulse Ox 98 O2 Delivery Room Air Nasal Cannula O2 Flow Rate 2.00 FiO2 93 Capillary Refill : Less Than 3 Seconds Blood Pressure Mean: 96 Departure Communication (Admissions) Progress Notes Discussed with patient and her . After initial improvement and reexamination she admits that she is having more difficulty again already. We both believe it prudent that she stay. Impression Impression: Primary Impression: COPD with exacerbation Disposition: ADMITTED INPATIENT Condition: Stable/Unchanged Admissions Decision to Admit Reason: Admit from ER (General) Decision to Admit/Date: Apr 17, 2017 Time/Decision to Admit Time: 11:02 Departure-Patient Inst. Referrals: GEORGINA GARCIA DO (PCP/Family) Primary Care Physician DANIELLE GA MD Apr 17, 2017 10:10
[2017-04-17 12:00] VITALS: BP 114/61
--- NOTE | 2017-04-17 12:13 | History & Physical-Hospitalist ---
HPI History of Present Illness: HPI/Chief Complaint CC: Dyspnea HPI: This is a 66-year-old white female clinic patient of Dr. Bermeo who has severe COPD and maintained on oxygen at home who continues to smoke although she says cessation is in the very near future who presents to the emergency room with shortness of breath and wheezing. Patient has been admitted for acute exacerbation of COPD without infiltrate on chest x-ray but Rocephin will be given for bronchitis that is present and will be monitor closely in the meantime. Source: patient Exam Limitations: no limitations Date Seen 04/17/17 Time Seen by Provider: 12:00 Attending Physician Nasra Carney DO PCP Mehul Bermeo DO Referring Physician Date of Admission Apr 17, 2017 at 11:00 Home Medications & Allergies Home Medications Reviewed patient Home Medication Reconciliation Form Allergies Allergies Coded Allergies Sulfa (Sulfonamide Antibiotics) (Unverified Allergy, Unknown, SOB, SWELLING, RASH, 09/29/14) penicillin (Unverified Allergy, Unknown, 09/29/14) Past Yehgupa-Xuxxqp-Kpjija Hx Patient Social History Marrital Status: Employed/Student: retired Alcohol Use: Regular Use Alcohol Beverage of Choice: Beer Recreational Drug Use: No Smoking Status: Current Everyday Smoker Former Smoker, Quit: Apr 15, 2017 Type Used: Cigarettes 2nd Hand Smoke Exposure: Yes Physical Abuse Screen: No Sexual Abuse: No Recent Foreign Travel: No Contact w/other who traveled: No Recent Hopitalizations: Yes (Pneum) Recent Infectious Disease Expo: No Immunizations Up To Date Tetanus Booster (TDap): Unknown Pediatric: Yes Date of Pneumonia Vaccine: Dec 01, 2016 Date of Influenza Vaccine: Dec 01, 2016 Seasonal Allergies Seasonal Allergies: No Surgeries Yes Appendectomy, Gallbladder, Hysterectomy Respiratory Yes COPD, Emphysema, Pneumonia Currently Using CPAP: No Currently Using BIPAP: No Cardiovascular No Neurological No 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 System Hx 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 Disorders: Yes (HPV) HIV/AIDS: No Female 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 Genitourinary No Gastrointestinal No Musculoskeletal No Endocrine History of Endocrine Disorders: No HEENT History of HEENT Disorders: No Cancer No Psychosocial History of Psychiatric Problem: No Integumentary History of Skin or Integumenta: No Blood Transfusions History of Blood Disorders: No Family Medical History Family Hx: Cardiovascular disease G8 BROTHER Diabetes mellitus G8 BROTHER G8 BROTHER Hypertension G8 BROTHER Neoplasm 19 FATHER (LEUKEMIA LYMPHOMA) G8 BROTHER (LEUKEMIA) Respiratory disorder 19 FATHER 19 MOTHER G8 BROTHER Review of Systems Constitutional: see HPI, weakness EENTM: no symptoms reported Respiratory: cough, dyspnea on exertion, short of breath, wheezing Cardiovascular: no symptoms reported Gastrointestinal: no symptoms reported Genitourinary: no symptoms reported Musculoskeletal: no symptoms reported Skin: no symptoms reported Psychiatric/Neurological: No Symptoms Reported All Other Systems Reviewed Negative Unless Noted: Yes Physical Exam Physical Exam Vital Signs Vital Signs - First Documented 04/17/17 04/17/17 08:56 09:25 Temp 97.5 Pulse 70 Resp 18 B/P (MAP) 137/76 (96) Pulse Ox 98 O2 Delivery Room Air O2 Flow Rate 2.00 FiO2 93 Capillary Refill : Less Than 3 Seconds General Appearance: No Apparent Distress, WD/WN, Chronically ill, Cachetic Eyes: Bilateral Eye Normal Inspection, Bilateral Eye PERRL HEENT: PERRL/EOMI, Normal ENT Inspection, Pharynx Normal Neck: Full Range of Motion, Normal Inspection, Non Tender, Supple, Carotid Bruit Respiratory: Chest Non Tender, No Accessory Muscle Use, No Respiratory Distress , Crackles, Decreased Breath Sounds, Wheezing Cardiovascular: Regular Rate, Rhythm, No Edema, No Gallop, No JVD, No Murmur, Normal Peripheral Pulses Gastrointestinal: Normal Bowel Sounds, No Organomegaly, No Pulsatile Mass, Non Tender, Soft Back: Normal Inspection, No CVA Tenderness, No Vertebral Tenderness Extremity: Normal Capillary Refill, Normal Inspection, Normal Range of Motion, Non Tender, No Calf Tenderness, No Pedal Edema Neurologic/Psychiatric: Alert, Oriented x3, No Motor/Sensory Deficits, Normal Mood/Affect Skin: Normal Color, Warm/Dry Lymphatic: No Adenopathy Results Results/Procedures Lab Laboratory Tests 04/17/17 09:05 Assessment/Plan Admission Diagnosis Assessment: Acute exacerbation of COPD without infiltrate on chest x-ray Hypoxia acute on chronic Night time oxygen dependent Current smoker Anxiety PTSD Assessment and Plan Plan: IV steroids Oxygen Nebulizers Home meds Rocephin empirically Monitor closely Clinical Quality Measures DVT/VTE Risk/Contraindication: Risk Factor Score Per Nursin RFS Level Per Nursing on Admit: 4+=Very High NASRA CARNEY DO Apr 17, 2017 12:13
[2017-04-17] MEDS ORDERED: IBUPROFEN TABLET 200 MG TAB PO PRN (12:15)
[2017-04-17] MEDS ORDERED: ACETAMINOPHEN 500 MG TAB (TYLENOL) PO PRN (12:15)
[2017-04-17] MEDS ORDERED: ONDANSETRON 4 MG/2 ML (SDV) Z0FRAN IVP PRN (12:15)
[2017-04-17] MEDS ORDERED: CATHETER FLUSH 10 ML SYR IV PRN (12:15)
[2017-04-17] MEDS ORDERED: HYDROcodone/APAP 5 MG/325 MG (LORTAB) TAB PO PRN (12:15)
[2017-04-17] MEDS: methylPREDNISolone 40 MG/ML (Solu-MEDROL) VIAL IV SCH ×3 (12:42→23:51)
[2017-04-17] MEDS: NS IV 1000 ML 1,000 ML IV SCH (12:42)
[2017-04-17] MEDS: cefTRIAXone INJECTION 1,000 MG in NS (IVPB) 50 ML IV SCH (12:42)
[2017-04-17] MEDS ORDERED: RT-ALBUTEROL/IPRATROPIUM 3 ML (DUONEB) VIAL IH PRN (13:30)
[2017-04-17] MEDS ORDERED: RT-ALBUTEROL/IPRATROPIUM 3 ML (DUONEB) VIAL IH SCH (14:00)
[2017-04-17] MEDS ORDERED: UMEC1BLS INH (14:01)
[2017-04-17] MEDS ORDERED: ROFL500T4 PO (14:01)
[2017-04-17] MEDS ORDERED: GUAI177L3 PO (14:30)
[2017-04-17 15:08] VITALS: BP 114/61
[2017-04-17] MEDS ORDERED: RT-ALBUTEROL/IPRATROPIUM 3 ML (DUONEB) VIAL INH PRN (15:15)
[2017-04-17] MEDS: ALPRAZolam 0.25 MG (XANAX) TAB PO PRN ×3 (15:52→23:51)
[2017-04-17 16:00] VITALS: BP 128/60
[2017-04-17] MEDS ORDERED: ALPRAZolam 0.5 MG (XANAX) TAB PO SCH (16:15)
[2017-04-17] MEDS ORDERED: GUAIFEN PO PRN (16:15)
[2017-04-17] MEDS ORDERED: DEXTROMETHORPHAN PO PRN (16:15)
[2017-04-17] MEDS ORDERED: [UNRECOGNIZED DRUG - OTHER] PO PRN (16:15)
[2017-04-17] MEDS ORDERED: guaiFENesin/DM (ROBITUSSIN DM) 10 ML UDC PO PRN (16:45)
[2017-04-17] MEDS: RT-ALBUTEROL/IPRATROPIUM 3 ML (DUONEB) VIAL INH SCH (18:04)
[2017-04-17 20:00] VITALS: BP 124/59
[2017-04-17] MEDS: clonazePAM 1 MG (KlonoPIN) TAB PO SCH (20:15)
[2017-04-17] MEDS: DIVALPROEX 250 MG DELAYED RELEASE (DEPAKOTE) TAB PO SCH (20:15)
[2017-04-17] MEDS: DOCUSATE SODIUM 100 MG (COLACE) CAP PO SCH (20:17)
[2017-04-18 00:30] VITALS: BP 133/72
[2017-04-18] MEDS: NS IV 1000 ML 1,000 ML IV SCH ×2 (01:52→15:10)
[2017-04-18 04:58] VITALS: BP 127/65
[2017-04-18] MEDS: methylPREDNISolone 40 MG/ML (Solu-MEDROL) VIAL IV SCH ×4 (06:13→23:09)
[2017-04-18] MEDS: cefTRIAXone INJECTION 1,000 MG in NS (IVPB) 50 ML IV SCH (07:41)
[2017-04-18] MEDS: clonazePAM 1 MG (KlonoPIN) TAB PO SCH ×2 (07:42→19:56)
[2017-04-18] MEDS: DIVALPROEX 250 MG DELAYED RELEASE (DEPAKOTE) TAB PO SCH ×2 (07:42→20:00)
[2017-04-18] MEDS: ALPRAZolam 0.25 MG (XANAX) TAB PO PRN ×3 (07:42→22:21)
[2017-04-18] MEDS: ROFLUMILAST 500 MCG TAB (DALIRESP) PO SCH (07:42)
[2017-04-18] MEDS: DOCUSATE SODIUM 100 MG (COLACE) CAP PO SCH ×2 (07:45→19:57)
[2017-04-18 08:30] VITALS: BP 151/76
[2017-04-18] MEDS ORDERED: NON-FORMULARY MEDICATION 1 EA EA (Umeclidinium Brm/Vilanterol Tr (Anoro Ellipta 62.5-25 Mc INH SCH (09:00)
[2017-04-18] MEDS: RT-ALBUTEROL/IPRATROPIUM 3 ML (DUONEB) VIAL INH SCH ×3 (11:17→19:18)
--- NOTE | 2017-04-18 12:11 | Progress Note-Hospitalist ---
Progress Note HPI/CC on Admission CC: Dyspnea HPI: This is a 66-year-old white female clinic patient of Dr. Bermeo who has severe COPD and maintained on oxygen at home who continues to smoke although she says cessation is in the very near future who presents to the emergency room with shortness of breath and wheezing. Patient has been admitted for acute exacerbation of COPD without infiltrate on chest x-ray but Rocephin will be given for bronchitis that is present and will be monitor closely in the meantime. Progress Notes/Assess & Plan Date Seen 04/18/17 Time Seen by Provider: 11:15 Admission Dx/Process Assessment: Acute exacerbation of COPD without infiltrate on chest x-ray Hypoxia acute on chronic Night time oxygen dependent Current smoker Anxiety PTSD Diagonsis/Assessment & Plan Patient doing much better and wanted to go home but still wheezing and asked for a breathing treatment Patient does have nebulizer treatments and machine at home and oxygen Denies any pain Bowels are moving Willing to stay another day to prevent coming straight back if wheezing worsens No fever, vital signs stable, pleasant, improved Regular rate and rhythm, subtle wheezing all jimenez at end expiratory phase No edema Assessment: Acute exacerbation of COPD without infiltrate on chest x-ray Hypoxia acute on chronic Night time oxygen dependent Current smoker Anxiety PTSD Plan: IV steroids Oxygen Nebulizers Home meds Rocephin empirically Monitor closely KRYSTYNA GRAVES DO Apr 18, 2017 12:11
[2017-04-18 12:30] VITALS: BP 129/72
[2017-04-18 16:45] VITALS: BP 124/66
[2017-04-18 20:10] VITALS: BP 113/56
[2017-04-19] VITALS: BP 136/63
[2017-04-19] MEDS: NS IV 1000 ML 1,000 ML IV SCH (04:27)
[2017-04-19] MEDS: methylPREDNISolone 40 MG/ML (Solu-MEDROL) VIAL IV SCH ×2 (05:07→11:12)
[2017-04-19] MEDS: ALPRAZolam 0.25 MG (XANAX) TAB PO PRN (07:59)
[2017-04-19] MEDS: cefTRIAXone INJECTION 1,000 MG in NS (IVPB) 50 ML IV SCH (07:59)
[2017-04-19 08:00] VITALS: BP 134/63
[2017-04-19] MEDS: ROFLUMILAST 500 MCG TAB (DALIRESP) PO SCH (08:00)
[2017-04-19] MEDS: clonazePAM 1 MG (KlonoPIN) TAB PO SCH (08:00)
[2017-04-19] MEDS: DOCUSATE SODIUM 100 MG (COLACE) CAP PO SCH (08:02)
[2017-04-19] MEDS: RT-ALBUTEROL/IPRATROPIUM 3 ML (DUONEB) VIAL INH SCH (08:09)
[2017-04-19] MEDS: DIVALPROEX 250 MG DELAYED RELEASE (DEPAKOTE) TAB PO SCH (08:16)
[2017-04-19] MEDS ORDERED: PRED10TA22 PO (12:00)
[2017-04-19] MEDS ORDERED: CEFD300C3 PO (12:00)
--- NOTE | 2017-04-19 12:02 | Discharge Summary-Hospitalist ---
Diagnosis/Chief Complaint Date of Admission Apr 17, 2017 at 11:00 Date of Discharge Discharge Date: Apr 19, 2017 Admission Diagnosis Assessment: Acute exacerbation of COPD without infiltrate on chest x-ray Hypoxia acute on chronic Night time oxygen dependent Current smoker Anxiety PTSD Discharge Diagnosis Assessment: Acute exacerbation of COPD without infiltrate on chest x-ray Hypoxia acute on chronic Night time oxygen dependent Current smoker Anxiety PTSD Plan: IV steroids Oxygen Nebulizers Home meds Rocephin empirically Monitor closely Discharge Summary Discharge Physical Examination Allergies: Coded Allergies: Sulfa (Sulfonamide Antibiotics) (Unverified Allergy, Unknown, SOB, SWELLING, RASH, 09/29/14) penicillin (Unverified Allergy, Unknown, 09/29/14) Vitals & I&Os Vital Signs Date Time Temp Pulse Resp B/P (MAP) Pulse Ox O2 Delivery O2 Flow Rate FiO2 04/19/17 08:10 96 Nasal Cannula 3.00 04/19/17 08:00 98.2 97 18 134/63 (86) 04/17/17 18:34 92 Hospital Course Patient doing much better and agrees with going home Has home oxygen at home already and nebulizer treatments with medications No fever, vital signs stable, pleasant, improved, at bedside Clear to auscultation bilaterally much improved from yesterday but diminished all jimenez changes from severe COPD Hospital course: Patient had an uneventful hospital course she was admitted for respiratory insufficiency due to acute exacerbation of COPD with continued smoking. Patient was placed on Rocephin empirically for bronchitis and patient was continued on all of her home medications. Overall she did well responded to IV steroids and will resume her home oxygen and nebulizer treatment regimen at home and have close follow-up with her primary care provider Dr. Bermeo. Smoking cessation counseled. Discharge Home Medications: Active Scripts Active Cefdinir 300 Mg Capsule 300 Mg PO BID Prednisone 10 Mg Tab.ds.pk 10 Mg PO DAILY Take 6 tabs(60mg)daily,decrease by 1 tab(10MG)daily. Reported Mucinex Fast-Max Congest-Cough (Guaifen/Dextromethorphan/PE) 180 Ml Liquid 20 Ml PO Q4H PRN Anoro Ellipta 62.5-25 Mcg INH (Umeclidinium Brm/Vilanterol Tr) 1 Each Blst.w.dev 1 Puff INH DAILY Daliresp (Roflumilast) 500 Mcg Tablet 500 Mcg PO DAILY Alprazolam 0.5 Mg Tablet 0.5 Mg PO Q12H Ipratropium [place] 0.2 Mg/1 Ml Solution 1 Vial NEB Q6H PRN Divalproex Sodium 250 Mg Tablet.dr 250 Mg PO BID Clonazepam 1 Mg Tablet 1.5 Mg PO BID TAKES 1 & 1/2 (1MG) TABLET Ventolin Hfa (Albuterol Sulfate) 18 Gm Hfa.aer.ad 2 Puff INH Q6H PRN Instructions to patient/family Please see electronic discharge instructions given to patient. Clinical Quality Measures DVT/VTE Risk/Contraindication: Risk Factor Score Per Nursin RFS Level Per Nursing on Admit: 4+=Very High KRYSTYNA GRAVES DO Apr 19, 2017 12:02
== END 2017-04-19 12:46 | disposition home or self-care (01) | DRG 192 ==
LOC: EDUNIT# 08:56 → ER 08:57 → 4TH 11:00
PROVIDERS: ADMIT Internal Medicine; ATTEND Internal Medicine
DX: J43.9 Emphysema, unspecified (principal); R09.02 Hypoxemia; F17.210 Nicotine dependence, cigarettes, uncomplicated; F41.9 Anxiety disorder, unspecified; F43.10 Post-traumatic stress disorder, unspecified; Z99.81 Dependence on supplemental oxygen
CPT/HCPCS: 36415; 71045; 80053; 85025; 94640; 94664; 94760; 99283

== ENCOUNTER 2017-04-30 08:26 | Outpatient (RCR) | payer MEDICARE, OTHER ==
[~2017-04-30 08:26] MED LIST changes: +CEFD300C3 PO; +GUAI177L3 PO; +ROFL500T4 PO; +UMEC1BLS INH
[2017-06-10] MEDS ORDERED: PRED10TA22 PO (10:38)
== END 2017-07-29 | disposition home or self-care (01) ==
LOC: CARD 08:26
PROVIDERS: ATTEND Internal Medicine
DX: R00.2 Palpitations (principal)
CPT/HCPCS: 93225; 93226

== ENCOUNTER 2017-09-01 14:57 | Emergency (ER) | payer MEDICARE, OTHER ==
[~2017-09-01] VITALS: Ht 162.6 cm; Wt 49.6 kg
[~2017-09-01 14:57] MED LIST changes: -CLON1TAB3 PO; +CLON1TAB4 PO; +DIVA-74 PO
[2017-09-01] MEDS ORDERED: RT-ALBUTEROL/IPRATROPIUM 3 ML (DUONEB) VIAL INH ONE (15:15)
--- NOTE | 2017-09-01 15:27 | ED Respiratory ---
General Chief Complaint: Respiratory Problems Stated Complaint: SOA Source: patient Exam Limitations: no limitations History of Present Illness Date Seen by Provider: Sep 01, 2017 Time Seen by Provider: 15:16 Initial Comments The patient is a 66-year-old white female who presents with complaints of increasing respiratory difficulty. She is not aware of fever. She reports she is producing more sputum than usual. She has a diagnosis of COPD and uses oxygen at home. She states this is largely at bed time but she has had to use it continuously at this time. Timing/Duration: this morning Prior Episodes/Possible Cause: occasional episodes Modifying Factors: Improves With Oxygen Allergies and Home Medications Allergies Coded Allergies: Sulfa (Sulfonamide Antibiotics) (Unverified Allergy, Unknown, SOB, SWELLING, RASH, 09/29/14) penicillin (Unverified Allergy, Unknown, 09/29/14) Home Medications Albuterol Sulfate 18 Gm Hfa.aer.ad, 2 PUFF INH Q6H PRN for WHEEZING, (Reported) Alprazolam 0.5 Mg Tablet, 0.5 MG PO Q12H, (Reported) Clonazepam 1 Mg Tablet, 1.5 MG PO BID, (Reported) TAKES 1 & 1/2 (1MG) TABLET Divalproex Sodium 250 Mg Tablet.dr, 250 MG PO BID, (Reported) LAST FILLED 01-09-17 #180 Guaifen/Dextromethorphan/PE 180 Ml Liquid, 20 ML PO Q4H PRN for COUGH, (Reported ) Ipratropium [place] 0.2 Mg/1 Ml Solution, 1 VIAL NEB Q6H PRN for SHORTNESS OF BREATH, (Reported) Prednisone 10 Mg Tab.ds.pk, 10 MG PO DAILY Take 6 tabs(60mg)daily,decrease by 1 tab(10MG)daily. Prescribed by: KRYSTYNA GRAVES on 06/10/17 1038 Roflumilast 500 Mcg Tablet, 500 MCG PO DAILY, (Reported) Umeclidinium Brm/Vilanterol Tr 1 Each Blst.w.dev, 1 PUFF INH DAILY, (Reported) Patient Home Medication List Home Medication List Reviewed: Yes Review of Systems Constitutional: see HPI Respiratory: see HPI, cough, dyspnea on exertion, phlegm, short of breath, wheezing Cardiovascular: no symptoms reported Gastrointestinal: no symptoms reported Genitourinary: no symptoms reported Musculoskeletal: no symptoms reported Skin: no symptoms reported Psychiatric/Neurological: No Symptoms Reported Hematologic/Lymphatic: No Symptoms Reported Immunological/Allergic: no symptoms reported Past Kpicigg-Qukfyj-Rsmgkb Hx Patient Social History Alcohol Beverage of Choice: Beer Type Used: Cigarettes Former Smoker, Quit: Apr 15, 2017 2nd Hand Smoke Exposure: Yes Recent Hopitalizations: Yes (Pneum) Immunizations Up To Date Tetanus Booster (TDap): Unknown PED Vaccines UTD: Yes Date of Pneumonia Vaccine: Dec 01, 2016 Date of Influenza Vaccine: Dec 01, 2016 Seasonal Allergies Seasonal Allergies: No Past Medical History Surgeries: Yes Appendectomy, Gallbladder, Hysterectomy Respiratory: Yes Asthma, Pneumonia, Chronic Bronchitis, COPD, Emphysema Currently Using CPAP: No Currently Using BIPAP: No Cardiac: No Neurological: No 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 Disorders: Yes (HPV) Female 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 Disorders: Denies [employer] History: Hysterectomy HIV/AIDS: No Genitourinary: No Gastrointestinal: No Musculoskeletal: No Endocrine: No HEENT: No Cancer: No Psychosocial: No Integumentary: No Blood Disorders: No Family Medical History Cardiovascular disease G8 BROTHER Diabetes mellitus G8 BROTHER G8 BROTHER Hypertension G8 BROTHER Neoplasm 19 FATHER (LEUKEMIA LYMPHOMA) G8 BROTHER (LEUKEMIA) Respiratory disorder 19 FATHER 19 MOTHER G8 BROTHER Hypertension Physical Exam Vital Signs Vital Signs - First Documented 09/01/17 15:04 Temp 97.9 Pulse 88 Resp 22 B/P (MAP) 146/96 (113) Pulse Ox 98 O2 Delivery Nasal Cannula O2 Flow Rate 2.00 Capillary Refill : General Appearance: moderate distress Eyes: Bilateral Eye Normal Inspection HEENT: normal ENT inspection Neck: full range of motion, normal inspection Respiratory: decreased breath sounds, accessory muscle use, wheezing, expiration Cardiovascular: normal peripheral pulses, regular rate, rhythm, no edema, no gallop, no JVD, no murmur Gastrointestinal: normal bowel sounds, non tender, soft, no organomegaly, no pulsatile mass Extremities: normal range of motion, non-tender, normal inspection, no pedal edema, no calf tenderness, normal capillary refill, pelvis stable Neurologic/Psychiatric: orthopedic technician II-XII nml as tested, no motor/sensory deficits, alert, normal mood/affect, oriented x 3 Skin: normal color, warm/dry, cyanosis, cool, diaphoresis, damp Lymphatic: no adenopathy Progress/Results/Core Measures Suspected Sepsis SIRS Temperature: Pulse: Respiratory Rate: Laboratory Tests 09/01/17 15:10: White Blood Count 5.0 Blood Pressure / Mean: Laboratory Tests 09/01/17 15:10: Creatinine 0.78, Platelet Count 264, Total Bilirubin 0.7 Results/Orders Lab Results Laboratory Tests Test 09/01/17 15:10 09/01/17 16:45 Range/Units White Blood Count 5.0 4.3-11.0 10^3/uL Red Blood Count 4.13 L 4.35-5.85 10^6/uL Hemoglobin 13.8 11.5-16.0 G/DL Hematocrit 40 35-52 % Mean Corpuscular Volume 97 80-99 FL Mean Corpuscular Hemoglobin 33 25-34 PG Mean Corpuscular Hemoglobin Concent 34 32-36 G/DL Red Cell Distribution Width 13.1 10.0-14.5 % Platelet Count 264 130-400 10^3/uL Mean Platelet Volume 9.5 7.4-10.4 FL Neutrophils (%) (Auto) 52 42-75 % Lymphocytes (%) (Auto) 34 12-44 % Monocytes (%) (Auto) 10 0-12 % Eosinophils (%) (Auto) 4 0-10 % Basophils (%) (Auto) 1 0-10 % Neutrophils # (Auto) 2.6 1.8-7.8 X 10^3 Lymphocytes # (Auto) 1.7 1.0-4.0 X 10^3 Monocytes # (Auto) 0.5 0.0-1.0 X 10^3 Eosinophils # (Auto) 0.2 0.0-0.3 10^3/uL Basophils # (Auto) 0.1 0.0-0.1 10^3/uL Sodium Level 141 135-145 MMOL/L Potassium Level 3.9 3.6-5.0 MMOL/L Chloride Level 108 H 98-107 MMOL/L Carbon Dioxide Level 24 21-32 MMOL/L Anion Gap 9 5-14 MMOL/L Blood Urea Nitrogen 6 L 7-18 MG/DL Creatinine 0.78 0.60-1.30 MG/DL Estimat Glomerular Filtration Rate > 60 BUN/Creatinine Ratio 8 Glucose Level 91 70-105 MG/DL Calcium Level 9.1 8.5-10.1 MG/DL Total Bilirubin 0.7 0.1-1.0 MG/DL Aspartate Amino Transf (AST/SGOT) 22 5-34 U/L Alanine Aminotransferase (ALT/SGPT) 19 0-55 U/L Alkaline Phosphatase 64 40-136 U/L Total Protein 6.4 6.4-8.2 GM/DL Albumin 4.0 3.2-4.5 GM/DL Blood Gas Puncture Site LEFT BRACHIAL Blood Gas Patient Temperature 98.1 Arterial Blood pH 7.36 L 7.37-7.43 Arterial Blood Partial Pressure CO2 45 35-45 MMHG Arterial Blood Partial Pressure O2 113 H 79-93 MMHG Arterial Blood HCO3 25 23-27 MMOL/L Arterial Blood Total CO2 26.2 21.0-31.0 MMOL/L Arterial Blood Oxygen Saturation 99 94-100 % Arterial Blood Base Excess 0.1 -2.5-2.5 MMOL/L Rush Test NA Blood Gas Ventilator Setting NO Blood Gas Inspired Oxygen 2L My Orders Orders - DANIELLE GA MD Cbc With Automated Diff (09/01/17 15:10) Comprehensive Metabolic Panel (09/01/17 15:10) Chest 1 View, Ap/Pa Only (09/01/17 15:10) Albuterol/Ipra Inhalation Soln (Duoneb I (09/01/17 15:15) Svn Small Volume Nebulizer (09/01/17 15:10) Medications Given in ED Current Medications Medications Dose Ordered Sig/Lulu Route Start Time Stop Time Status Last Admin Dose Admin Albuterol/ Ipratropium 3 ml ONCE ONCE INH 09/01/17 15:15 09/01/17 15:16 DC 09/01/17 15:45 3 ML Vital Signs/I&O 09/01/17 09/01/17 15:04 15:45 Temp 97.9 Pulse 88 Resp 22 B/P (MAP) 146/96 (113) Pulse Ox 98 98 O2 Delivery Nasal Cannula Nasal Cannula O2 Flow Rate 2.00 2.00 Capillary Refill : Departure Communication (Admissions) 2801 reexamination shows the patient to be free of wheezing with much better breath sounds. She states she feels much better as well. It is her desire to go home. Impression Primary Impression: COPD with exacerbation Disposition: HOME, SELF-CARE Condition: Improved Departure-Patient Inst. Decision time for Depature: 17:23 Referrals: GEROGINA GARCIA DO (PCP/Family) Primary Care Physician Add. Discharge Instructions: All discharge instructions reviewed with patient and/or family. Voiced understanding. Use oxygen as needed You may use your nebulizer as often as every 4 hours. Prednisone as directed. If increasing symptoms return to the emergency room Scripts Prednisone (Prednisone) 20 Mg Tab 20 MG PO DAILY, #22 TAB Take 3 tabs(60mg)daily,decrease by 1/2 tab(10mg)every other day. Prov: DANIELLE GA MD 09/01/17 DANIELLE GA MD Sep 01, 2017 15:27
[2017-09-01 15:28] LABS: BASOPHILS # (AUTO) 0.1 10^3/uL (0.0-0.1); BASOPHILS % (AUTO) 1 % (0-10); EOSINOPHILS # (AUTO) 0.2 10^3/uL (0.0-0.3); EOSINOPHILS % (AUTO) 4 % (0-10); HEMATOCRIT 40 % (35-52); HEMOGLOBIN 13.8 G/DL (11.5-16.0); LYMPHOCYTES # (AUTO) 1.7 X 10^3 (1.0-4.0); LYMPHOCYTES % (AUTO) 34 % (12-44); MEAN CORPUSCULAR HEMOGLOBIN 33 PG (25-34); MEAN CORPUSCULAR HGB CONC 34 G/DL (32-36); MEAN CORPUSCULAR VOLUME 97 FL (80-99); MEAN PLATELET VOLUME 9.5 FL (7.4-10.4); MONOCYTES # (AUTO) 0.5 X 10^3 (0.0-1.0); MONOCYTES % (AUTO) 10 % (0-12); NEUTROPHILS # (AUTO) 2.6 X 10^3 (1.8-7.8); NEUTROPHILS % (AUTO) 52 % (42-75); PLATELET COUNT 264 10^3/uL (130-400); RED BLOOD COUNT 4.13 10^6/uL (4.35-5.85); RED CELL DISTRIBUTION WIDTH 13.1 % (10.0-14.5)
[2017-09-01 15:54] LABS: ALANINE AMINOTRANSFERASE 19 U/L (0-55); ALKALINE PHOSPHATASE 64 U/L (40-136); BILIRUBIN,TOTAL 0.7 MG/DL (0.1-1.0); BUN/CREATININE RATIO 8; CALCIUM 9.1 MG/DL (8.5-10.1); CARBON DIOXIDE 24 MMOL/L (21-32); CHLORIDE 108 MMOL/L (98-107); CREATININE SERUM 0.78 MG/DL (0.60-1.30); GFR ESTIMATED > 60; GLUCOSE 91 MG/DL (70-105); POTASSIUM 3.9 MMOL/L (3.6-5.0); SODIUM 141 MMOL/L (135-145); TOTAL PROTEIN 6.4 GM/DL (6.4-8.2)
--- NOTE | 2017-09-01 15:56 | Diagnostic Imaging Report ---
INDICATION: Shortness of breath, history of COPD. Frontal chest obtained at 3:33 p.m. FINDINGS: Heart and mediastinal silhouette are normal in appearance. The lungs are clear. There is no pneumothorax or pleural fluid. There is mild hyperinflation. IMPRESSION: No acute process in the chest with no change from 06/08/17. Dictated by: Dictated on workstation # [id number]
[2017-09-01 17:20] LABS: ABG BASE EXCESS 0.1 MMOL/L (-2.5-2.5); ABG OXYGEN SATURATION 99 % (94-100); ABG PCO2 45 MMHG (35-45); ABG PH 7.36 (7.37-7.43); ABG PO2 113 MMHG (79-93); ABG TCO2 26.2 MMOL/L (21.0-31.0)
[2017-09-01 17:21] LABS: INSPIRED O2 2L; PATIENT TEMP 98.1; VENTILATOR NO
[2017-09-01] MEDS ORDERED: PRD20T PO (17:26)
[2017-09-01] MEDS ORDERED: methylPREDNISolone 125 MG (Solu-MEDROL) VIAL IVP ONE (17:45)
[2017-09-01 18:30] VITALS: BP 146/96
== END 2017-09-01 18:30 | disposition home or self-care (01) ==
LOC: EDUNIT# 14:57 → ER 14:58
DX: J44.1 Chronic obstructive pulmonary disease with (acute) exacerbation (principal); Z80.6 Family history of leukemia; Z82.49 Family history of ischemic heart disease and other diseases of the circulatory system; Z86.19 Personal history of other infectious and parasitic diseases; Z87.01 Personal history of pneumonia (recurrent); Z90.710 Acquired absence of both cervix and uterus; Z90.89 Acquired absence of other organs; Z87.891 Personal history of nicotine dependence; Z88.2 Allergy status to sulfonamides; Z88.0 Allergy status to penicillin; Z79.51 Long term (current) use of inhaled steroids; Z79.52 Long term (current) use of systemic steroids
CPT/HCPCS: 36415; 36600; 71045; 80053; 82805; 85025; 94640; 96374

== ENCOUNTER → 2017-11-03 | Outpatient (CLI) | payer MEDICARE, OTHER ==
[~2017-11-03] MED LIST changes: +CLON1TAB13 PO; -CLON1TAB4 PO; +FLUT12AE4 IH; -GUAI177L3 PO; +GUAI180L12 PO; +LEVO500T80 PO
--- NOTE | 2017-11-03 10:42 | Diagnostic Imaging Report ---
PROCEDURE: CT chest without contrast. TECHNIQUE: Multiple contiguous axial images were obtained through the chest without the use of intravenous contrast. INDICATION: Followup pulmonary nodules. History of smoking. COMPARISON: 11/25/2016 FINDINGS: Evaluation of lung jimenez demonstrates small 2-3 mm micronodule within the left upper lobe (image 7, series 3). This, however, is stable compared to 11/25/2016. Few scattered benign punctate calcified granuloma are also noted bilaterally. There is otherwise no new suspicious pulmonary nodule or mass. There is mild air trapping within the bilateral mid and upper lung jimenez consistent with background of emphysematous disease. There is no focal consolidation, large effusion, nor pneumothorax. Cardiomediastinal structures show normal heart size. There is small pericardial effusion. Note is made of moderate calcified aortic and coronary atherosclerosis. No pathologically enlarged or morphologically abnormal adenopathy is seen within the mediastinum, freddy, nor axilla on this noncontrast study. Osseous structures show no acute abnormalities. No lytic or blastic bony lesions are seen. Included portions of the upper abdomen show no additional acute abnormalities. IMPRESSION: 1. Small micronodule within the left apex and few scattered benign-appearing punctate calcified granuloma. Continued followup with annular low-dose screening CT chest is recommended. 2. Background of mild emphysematous disease. 3. Moderate calcified aortic and coronary atherosclerosis. Dictated by: Dictated on workstation # [id number]
== END ==
LOC: RAD 08:58
PROVIDERS: ATTEND Internal Medicine Critical Care Medicine
DX: R91.1 Solitary pulmonary nodule (principal); J84.10 Pulmonary fibrosis, unspecified; I70.0 Atherosclerosis of aorta; I25.10 Atherosclerotic heart disease of native coronary artery without angina pectoris; J43.9 Emphysema, unspecified; Z87.891 Personal history of nicotine dependence
CPT/HCPCS: 71250

== ENCOUNTER 2017-11-13 05:17 | Inpatient (IN) | payer MEDICARE, OTHER ==
[2017-11-13] VITALS (17 sets, daily range): BP systolic 103–175; BP diastolic 55–91
[~2017-11-13] VITALS: Ht 162.6 cm; Wt 52.3 kg
[~2017-11-13 05:17] MED LIST changes: -FLUT12AE4 IH; -LEVO500T80 PO
--- OUTSIDE RECORDS SUMMARY | 2017-11-13 05:24 | XMS REPORT | Continuity of Care Document ---
Author Author [facility] Organization [facility] Address Unknown Phone Unavailable Allergies Active Description Code Type Severity Reaction Onset Reported/Identified Relationship to Patient Clinical Status Yes penicillin [id number] Drug Allergy Unknown N/A 09/29/2014 Yes Sulfa (Sulfonamide Antibiotics) [id number] Drug Allergy Unknown SOB, SWELLING, 09/29/2014 Medications There is no data. Problems Date Dx Coded Attending Type Code Diagnosis Diagnosed By 01/13/2011 Ot 053.9 HERPES ZOSTER NOS 01/13/2011 Ot 305.1 TOBACCO USE DISORDER 01/13/2011 Ot 733.90 BONE CARTILAGE DIS NOS 01/13/2011 Ot 786.50 CHEST PAIN NOS 01/13/2011 Ot 793.19 OTHER NONSPECIFIC ABNORMAL FINDING OF АННА 01/13/2011 Ot V58.69 OTH MED,LT, CURRENT USE 11/26/2011 Ot 535.50 UNSP GASTRITIS GASTRODUODENITIS W/O ME 09/29/2014 DEYA JJ MD Ot 455.0 INT HEMORRHOID W/O COMPL 09/29/2014 DEYA JJ MD Ot 455.3 EXT HEMORRHOID W/O COMPL 09/29/2014 DEYA JJ MD Ot 596.0 BLADDER NECK OBSTRUCTION 09/29/2014 PARVIZ MASSEY, DEYA Ot V12.72 PERSONAL HISTORY OF COLONIC POLYPS 09/29/2014 PARVIZ MASSEY, DEYA Ot V76.51 SCREEN MAL NEOP-COLON 01/01/2016 GEORGINA GARCIA DO Ot J18.9 PNEUMONIA, UNSPECIFIED ORGANISM 01/04/2016 GEORGINA GARCIA DO Ot J18.9 PNEUMONIA, UNSPECIFIED ORGANISM 01/17/2016 Ot 793.81 MAMMOGRAPHIC MICROCLACIFICATION 01/17/2016 Ot V15.89 HX-HEALTH HAZARDS NEC 01/17/2016 Ot V76.11 SCRN MAMMO- HIGH RISK PT, MALIGNANT NEOPL 01/17/2016 Ot V72.84 EXAM PRE- OPERATIVE NOS 01/17/2016 DEYA JJ MD Ot V12.72 PERSONAL HISTORY OF COLONIC POLYPS 01/17/2016 DEYA JJ MD Ot V72.84 EXAM PRE-OPERATIVE NOS 01/17/2016 GEORGINA GARCIA DO Ot J18.9 PNEUMONIA, UNSPECIFIED ORGANISM 01/18/2016 GEORGINA GARCIA DO, Ot J18.9 PNEUMONIA, UNSPECIFIED ORGANISM 01/22/2016 GEORGINA GARCIA DO, Ot J18.9 PNEUMONIA, UNSPECIFIED ORGANISM 02/02/2016 FIOR PARRA APRN Ot F17.210 NICOTINE DEPENDENCE, CIGARETTES, UNCOMPL 02/02/2016 FIOR PARRA APRN Ot J44.1 CHRONIC OBSTRUCTIVE PULMONARY DISEASE W 02/02/2016 FIOR PARRA APRN Ot R06.02 SHORTNESS OF BREATH 02/02/2016 FIOR PARRA APRN Ot Z79.899 OTHER CUSTODIAL (CURRENT) DRUG THERAPY 02/04/2016 FIOR PARRA APRN Ot F17.210 NICOTINE DEPENDENCE, CIGARETTES, UNCOMPL 02/04/2016 FIOR PARRA APRN Ot J44.1 CHRONIC OBSTRUCTIVE PULMONARY DISEASE W 02/04/2016 FIOR PARRA APRN Ot R06.02 SHORTNESS OF BREATH 02/04/2016 FIOR PARRA APRN Ot Z79.899 OTHER CUSTODIAL (CURRENT) DRUG THERAPY 02/08/2016 GEORGINA GARCIA DO Ot J18.9 PNEUMONIA, UNSPECIFIED ORGANISM 03/20/2016 CARLOS ALBERTO GARCIA L TRAVELING PHLEBOTOMIST Ot J44.9 CHRONIC OBSTRUCTIVE PULMONARY DISEASE, U 03/20/2016 SHAY GARCIAIA L TRAVELING PHLEBOTOMIST Ot R09.02 HYPOXEMIA 03/25/2016 DONN GARCIARICIA L TRAVELING PHLEBOTOMIST Ot J44.9 CHRONIC OBSTRUCTIVE PULMONARY DISEASE, U 03/25/2016 DONN GARCIARICIA L TRAVELING PHLEBOTOMIST Ot R09.02 HYPOXEMIA 04/22/2016 HSAY GARCIAIA L TRAVELING PHLEBOTOMIST Ot J44.9 CHRONIC OBSTRUCTIVE PULMONARY DISEASE, U 04/22/2016 SHAY GARCIAIA L TRAVELING PHLEBOTOMIST Ot R09.02 HYPOXEMIA 05/07/2016 SHAY GARCIAIA L TRAVELING PHLEBOTOMIST Ot J44.9 CHRONIC OBSTRUCTIVE PULMONARY DISEASE, U 05/07/2016 CARLOS ALBERTO GARCIA L TRAVELING PHLEBOTOMIST Ot R09.02 HYPOXEMIA 08/13/2016 DANIELLE GA MD Ot D72.829 ELEVATED WHITE BLOOD CELL COUNT, UNSPECI 08/13/2016 DANIELLE GA MD Ot F17.210 NICOTINE DEPENDENCE, CIGARETTES, UNCOMPL 08/13/2016 DANIELLE GA MD Ot F41.9 ANXIETY DISORDER, UNSPECIFIED 08/13/2016 DANIELLE GA MD Ot F43.10 POST-TRAUMATIC STRESS DISORDER, UNSPECIF 08/13/2016 DANIELLE GA MD Ot J44.1 CHRONIC OBSTRUCTIVE PULMONARY DISEASE W 08/13/2016 DANIELLE GA MD Ot J96.20 ACUTE AND CHR RESP FAILURE, UNSP W HYPOX 08/13/2016 DANIELLE GA MD Ot Z91.19 PATIENT'S NONCOMPLIANCE W [facility] 08/13/2016 DANIELLE GA MD Ot Z99.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 OXYGEN 2016 DANIELLE GA MD Ot F17.210 NICOTINE DEPENDENCE, CIGARETTES, UNCOMPL 2016 DANIELLE GA MD Ot J44.1 CHRONIC OBSTRUCTIVE PULMONARY DISEASE W 2016 DANIELLE GA MD Ot J96.21 ACUTE AND CHRONIC RESPIRATORY FAILURE [place] 2016 DANIELLE GA MD Ot R51 HEADACHE 11/21/2016 Ot V72.84 EXAM PRE- OPERATIVE NOS 11/21/2016 DYEA JJ MD Ot V12.72 PERSONAL HISTORY OF COLONIC POLYPS 11/21/2016 DEYA JJ MD Ot V72.84 EXAM PRE-OPERATIVE NOS 11/21/2016 GEORGINA GARCIA DO Ot J18.9 PNEUMONIA, UNSPECIFIED ORGANISM 11/21/2016 CARLOS ALBERTO GARCIA Ot J44.9 CHRONIC OBSTRUCTIVE PULMONARY DISEASE, U 11/21/2016 CARLOS ALBERTO GARCIA Ot R09.02 HYPOXEMIA 12/16/2016 VIKA CHIN MD Ot R91.8 OTHER NONSPECIFIC ABNORMAL FINDING OF АННА 12/16/2016 VIKA CHIN MD Ot Z12.2 ENCNTR SCREEN FOR MALIGNANT NEOPLASM OF 12/16/2016 VIKA CHIN MD Ot Z87.891 PERSONAL HISTORY OF NICOTINE DEPENDENCE 02/25/2017 Lawrence Ravi 491.20 OBSTRUCTIVE CHRONIC BRONCHITIS, WITHOUT EXACERBATION 02/25/2017 Lawrence Ravi J44.9 CHRONIC OBSTRUCTIVE PULMONARY DISEASE, UNSPECIFIED 04/19/2017 KRYSTYNA GRAVES DO Ot F17.210 NICOTINE DEPENDENCE, CIGARETTES, UNCOMPL 04/19/2017 STAR CORTES KRYSTYNA Ot F41.9 ANXIETY DISORDER, UNSPECIFIED 04/19/2017 KRYSTYNA GRAVES DO Ot F43.10 POST-TRAUMATIC STRESS DISORDER, UNSPECIF 04/19/2017 KRYSTYNA GRAVES DO Ot J43.9 EMPHYSEMA, UNSPECIFIED 04/19/2017 STAR CORTES KRYSTYNA Ot R09.02 HYPOXEMIA 04/19/2017 KRYSTYNA GRAVES DO Ot Z99.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 OXYGEN 06/10/2017 DANIELLE GA MD Ot 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 06/10/2017 DANIELLE GA MD Ot F13.20 SEDATIVE, HYPNOTIC OR ANXIOLYTIC DEPENDE 06/10/2017 DANIELLE GA MD Ot F17.210 NICOTINE DEPENDENCE, CIGARETTES, UNCOMPL 06/10/2017 DANIELLE GA MD Ot F41.9 ANXIETY DISORDER, UNSPECIFIED 06/10/2017 DANIELLE GA MD Ot J43.9 EMPHYSEMA, UNSPECIFIED 06/10/2017 DANIELLE GA MD Ot J96.22 ACUTE AND CHRONIC RESPIRATORY FAILURE [place] 06/10/2017 DANIELLE GA MD Ot R55 SYNCOPE AND COLLAPSE 06/10/2017 DANIELLE GA MD Ot T38.0X5A ADVERSE EFFECT OF GLUCOCORT/SYNTH ANALOG 06/10/2017 DANIELLE GA MD Ot Z87.01 PERSONAL HISTORY OF PNEUMONIA (RECURRENT 06/24/2017 GEORGINA GARCIA DO Ot R00.2 PALPITATIONS 07/29/2017 GEORGINA GARCIA DO Ot R00.2 PALPITATIONS 07/30/2017 GEORGINA GARCIA DO Ot R00.2 PALPITATIONS 09/01/2017 DANIELLE GA MD Ot J44.1 CHRONIC OBSTRUCTIVE PULMONARY DISEASE W 09/01/2017 DANIELLE GA MD Ot R06.02 SHORTNESS OF BREATH 09/01/2017 DANIELLE GA MD Ot Z79.51 CUSTODIAL (CURRENT) USE OF INHALED STERO 09/01/2017 DANIELLE GA MD Ot Z79.52 CUSTODIAL (CURRENT) USE OF SYSTEMIC STER 09/01/2017 DANIELLE GA MD Ot Z80.6 FAMILY HISTORY OF LEUKEMIA 09/01/2017 DANIELLE GA MD Ot Z82.49 FAMILY HX OF ISCHEM HEART DIS AND OTH DI 09/01/2017 DANIELLE GA MD Ot Z86.19 PERSONAL HISTORY OF OTHER INFECTIOUS AND 09/01/2017 DANIELLE GA MD Ot Z87.01 PERSONAL HISTORY OF PNEUMONIA (RECURRENT 09/01/2017 DANIELLE GA MD Ot Z87.891 PERSONAL HISTORY OF NICOTINE DEPENDENCE 09/01/2017 DANIELLE GA MD Ot Z88.0 ALLERGY STATUS TO PENICILLIN 09/01/2017 DANIELLE GA MD Ot Z88.2 ALLERGY STATUS TO SULFONAMIDES STATUS 09/01/2017 DANIELLE GA MD Ot Z90.710 ACQUIRED ABSENCE OF BOTH CERVIX AND UTER 09/01/2017 DANIELLE GA MD Ot Z90.89 ACQUIRED ABSENCE OF OTHER ORGANS 09/03/2017 DANIELLE GA MD Ot J44.1 CHRONIC OBSTRUCTIVE PULMONARY DISEASE W 09/03/2017 DANIELLE GA MD Ot R06.02 SHORTNESS OF BREATH 09/03/2017 DANIELLE GA MD Ot Z79.51 CUSTODIAL (CURRENT) USE OF INHALED STERO 09/03/2017 DANIELLE GA MD Ot Z79.52 CUSTODIAL (CURRENT) USE OF SYSTEMIC STER 09/03/2017 DANIELLE GA MD Ot Z80.6 FAMILY HISTORY OF LEUKEMIA 09/03/2017 DANIELLE GA MD Ot Z82.49 FAMILY HX OF ISCHEM HEART DIS AND OTH DI 09/03/2017 DANIELLE GA MD Ot Z86.19 PERSONAL HISTORY OF OTHER INFECTIOUS AND 09/03/2017 DANIELLE GA MD Ot Z87.01 PERSONAL HISTORY OF PNEUMONIA (RECURRENT 09/03/2017 DANIELLE GA MD Ot Z87.891 PERSONAL HISTORY OF NICOTINE DEPENDENCE 09/03/2017 DANIELLE GA MD Ot Z88.0 ALLERGY STATUS TO PENICILLIN 09/03/2017 DANIELLE GA MD Ot Z88.2 ALLERGY STATUS TO SULFONAMIDES STATUS 09/03/2017 DANIELLE GA MD Ot Z90.710 ACQUIRED ABSENCE OF BOTH CERVIX AND UTER 09/03/2017 DANIELLE GA MD Ot Z90.89 ACQUIRED ABSENCE OF OTHER ORGANS 10/28/2017 DEYA JJ MD Ot V12.72 PERSONAL HISTORY OF COLONIC POLYPS 10/28/2017 DEYA JJ MD Ot V72.84 EXAM PRE-OPERATIVE NOS 10/28/2017 GEORGINA GARCIA DO Ot J18.9 PNEUMONIA, UNSPECIFIED ORGANISM 10/28/2017 GEORGINA GARCIA DO Ot J18.9 PNEUMONIA, UNSPECIFIED ORGANISM 10/28/2017 CARLOS ALBERTO GARCIA TRAVELING PHLEBOTOMIST Ot J44.9 CHRONIC OBSTRUCTIVE PULMONARY DISEASE, U 10/28/2017 CARLOS ALBERTO GARCIAP Ot R09.02 HYPOXEMIA 10/28/2017 VIKA CHIN MD Ot R91.8 OTHER NONSPECIFIC ABNORMAL FINDING OF АННА 10/28/2017 VIKA CHIN MD Ot Z12.2 ENCNTR SCREEN FOR MALIGNANT NEOPLASM OF 10/28/2017 VIKA CHIN MD Ot Z87.891 PERSONAL HISTORY OF NICOTINE DEPENDENCE 10/28/2017 GEORGINA GARCIA DO Ot R00.2 PALPITATIONS 11/03/2017 GEORGINA GARCIA DO Ot J18.9 PNEUMONIA, UNSPECIFIED ORGANISM 11/03/2017 GEORGINA GARCIA DO Ot J18.9 PNEUMONIA, UNSPECIFIED ORGANISM 11/03/2017 CARLOS ALBERTO GARCIA Ot J44.9 CHRONIC OBSTRUCTIVE PULMONARY DISEASE, U 11/03/2017 CARLOS ALBERTO GARCIA Ot R09.02 HYPOXEMIA 11/03/2017 VIKA CHIN MD Ot R91.8 OTHER NONSPECIFIC ABNORMAL FINDING OF АННА 11/03/2017 VIKA CHIN MD Ot Z12.2 ENCNTR SCREEN FOR MALIGNANT NEOPLASM OF 11/03/2017 VIKA CHIN MD Ot Z87.891 PERSONAL HISTORY OF NICOTINE DEPENDENCE 11/03/2017 GEORGINA GARCIA DO Ot R00.2 PALPITATIONS Procedures There is no data. Results Test Result Range Sputum Gram stain - 12/31/15 17:45 GRAM STAIN SPUTUM AND MIXED BACTERIAL [facility] Bacterial sputum culture - 12/31/15 17:45 Bacterial sputum culture [facility] Comprehensive metabolic panel - 02/02/16 14:40 Serum or plasma sodium measurement (moles/volume) 144 mmol/L 135-145 Serum or plasma potassium measurement (moles/volume) 4.3 mmol/L 3.6-5.0 Serum or plasma chloride measurement (moles/volume) 107 mmol/L 98-107 Carbon dioxide 27 mmol/L 21-32 Serum or plasma anion gap determination (moles/volume) 10 mmol/L 5-14 Serum or plasma urea nitrogen measurement (mass/volume) 8 mg/dL 7-18 Serum or plasma creatinine measurement (mass/volume) 0.85 mg/dL 0.60-1.30 Serum or plasma urea nitrogen/creatinine mass ratio 9 NRG Serum or plasma creatinine measurement with calculation of estimated glomerular filtration rate > NRG Serum or plasma glucose measurement (mass/volume) 90 mg/dL 70-105 Serum or plasma calcium measurement (mass/volume) 9.2 mg/dL 8.5-10.1 Serum or plasma total bilirubin measurement (mass/volume) 1.0 mg/dL 0.1-1.0 Serum or plasma alkaline phosphatase measurement (enzymatic activity/volume) 64 U/L 40-136 Serum or plasma aspartate aminotransferase measurement (enzymatic activity/ volume) 16 U/L 5-34 Serum or plasma alanine aminotransferase measurement (enzymatic activity/volume ) 14 U/L 0-55 Serum or plasma protein measurement (mass/volume) 7.2 g/dL 6.4-8.2 Serum or plasma albumin measurement (mass/volume) 4.7 g/dL 3.2-4.5 Complete blood count (CBC) with automated white blood cell (WBC) differential - 02/02/16 14:40 Blood leukocytes automated count (number/volume) 7.5 10*3/uL 4.3-11.0 Blood erythrocytes automated count (number/volume) 4.71 10*6/uL 4.35-5.85 Venous blood hemoglobin measurement (mass/volume) 16.6 g/dL 11.5-16.0 Blood hematocrit (volume fraction) 51 % 35-52 Automated erythrocyte mean corpuscular volume 108 [foz_us] 80-99 Automated erythrocyte mean corpuscular hemoglobin (mass per erythrocyte) 35 pg 25-34 Automated erythrocyte mean corpuscular hemoglobin concentration measurement ( mass/volume) 33 g/dL 32-36 Automated erythrocyte distribution width ratio 12.6 % 10.0-14.5 Automated blood platelet count (count/volume) 228 10*3/uL 130-400 Automated blood platelet mean volume measurement 10.1 [foz_us] 7.4-10.4 Automated blood neutrophils/100 leukocytes 57 % 42-75 Automated blood lymphocytes/100 leukocytes 32 % 12-44 Blood monocytes/100 leukocytes 8 % 0-12 Automated blood eosinophils/100 leukocytes 3 % 0-10 Automated blood basophils/100 leukocytes 1 % 0-10 Blood neutrophils automated count (number/volume) 4.3 10*3 1.8-7.8 Blood lymphocytes automated count (number/volume) 2.4 10*3 1.0-4.0 Blood monocytes automated count (number/volume) 0.6 10*3 0.0-1.0 Automated eosinophil count 0.2 10*3/uL 0.0-0.3 Automated blood basophil count (count/volume) 0.0 10*3/uL 0.0-0.1 Complete blood count (CBC) with automated white blood cell (WBC) differential - 08/13/16 01:47 Blood leukocytes automated count (number/volume) 26.7 10*3/uL 4.3-11.0 Blood erythrocytes automated count (number/volume) 4.18 10*6/uL 4.35-5.85 Venous blood hemoglobin measurement (mass/volume) 15.1 g/dL 11.5-16.0 Blood hematocrit (volume fraction) 45 % 35-52 Automated erythrocyte mean corpuscular volume 107 [foz_us] 80-99 Automated erythrocyte mean corpuscular hemoglobin (mass per erythrocyte) 36 pg 25-34 Automated erythrocyte mean corpuscular hemoglobin concentration measurement ( mass/volume) 34 g/dL 32-36 Automated erythrocyte distribution width ratio 12.7 % 10.0-14.5 Automated blood platelet count (count/volume) 318 10*3/uL 130-400 Automated blood platelet mean volume measurement 10.4 [foz_us] 7.4-10.4 Automated blood neutrophils/100 leukocytes 42 % 42-75 Automated blood lymphocytes/100 leukocytes 43 % 12-44 Blood monocytes/100 leukocytes 9 % 0-12 Automated blood eosinophils/100 leukocytes 5 % 0-10 Automated blood basophils/100 leukocytes 1 % 0-10 Blood neutrophils automated count (number/volume) 11.2 10*3 1.8-7.8 Blood lymphocytes automated count (number/volume) 11.4 10*3 1.0-4.0 Blood monocytes automated count (number/volume) 2.5 10*3 0.0-1.0 Automated eosinophil count 1.4 10*3/uL 0.0-0.3 Automated blood basophil count (count/volume) 0.2 10*3/uL 0.0-0.1 Blood manual differential performed detection - 08/13/16 01:47 Blood monocytes/100 leukocytes 4 % NRG Manual blood segmented neutrophils/100 leukocytes 48 % NRG Blood band neutrophils/100 leukocytes 0 % NRG Manual blood lymphocytes/100 leukocytes 27 % NRG Manual eosinophils/100 leukocytes in nose 10 % NRG Manual blood basophils/100 leukocytes 0 % NRG Blood lymphocytes variant/100 leukocytes 11 % NRG Blood erythrocyte morphology finding identification [facility] Comprehensive metabolic panel - 08/13/16 01:47 Serum or plasma sodium measurement (moles/volume) 141 mmol/L 135-145 Serum or plasma potassium measurement (moles/volume) 4.6 mmol/L 3.6-5.0 Serum or plasma chloride measurement (moles/volume) 100 mmol/L 98-107 Carbon dioxide 28 mmol/L 21-32 Serum or plasma anion gap determination (moles/volume) 13 mmol/L 5-14 Serum or plasma urea nitrogen measurement (mass/volume) 15 mg/dL 7-18 Serum or plasma creatinine measurement (mass/volume) 0.83 mg/dL 0.60-1.30 Serum or plasma urea nitrogen/creatinine mass ratio 18 0 -20 Serum or plasma creatinine measurement with calculation of estimated glomerular filtration rate > NRG Serum or plasma glucose measurement (mass/volume) 242 mg/dL 70-105 Serum or plasma calcium measurement (mass/volume) 8.8 mg/dL 8.5-10.1 Serum or plasma total bilirubin measurement (mass/volume) 0.7 mg/dL 0.1-1.0 Serum or plasma alkaline phosphatase measurement (enzymatic activity/volume) 48 U/L 40-136 Serum or plasma aspartate aminotransferase measurement (enzymatic activity/ volume) 31 U/L 5-34 Serum or plasma alanine aminotransferase measurement (enzymatic activity/volume ) 21 U/L 0-55 Serum or plasma protein measurement (mass/volume) 6.9 g/dL 6.4-8.2 Serum or plasma albumin measurement (mass/volume) 4.4 g/dL 3.2-4.5 Magnesium - 08/13/16 01:47 Magnesium 2.7 mg/dL 1.8-2.4 Serum or plasma troponin i.cardiac measurement (mass/volume) - 08/13/16 01:47 Serum or plasma troponin i.cardiac measurement (mass/volume) < ng/ mL <0.30 Serum or plasma lithium measurement (moles/volume) - 08/13/16 01:47 BNP level 106.3 pg/mL <100.0 Valproic acid - 08/13/16 01:47 Valproic acid 45.7 ug/mL 50.0-100.0 Arterial blood gas measurement - 08/13/16 01:56 Blood pCO2 100 mm[Hg] 35-45 Blood pO2 106 mm[Hg] 79-93 Arterial blood bicarbonate measurement (moles/volume) 32 mmol/L 23-27 Arterial blood base excess by calculation 2.6 mmol/L -2.5 -2.5 Arterial blood oxygen saturation measurement 97 % 94-100 * Inhaled oxygen flow rate 10L NRG Arterial blood pH measurement with patient temperature correction 7.12 7.37-7.43 Arterial blood carbon dioxide, total measurement (moles/volume) 34.9 mmol/L 21.0-31.0 Body site R RAD NRG Assessment of wrist artery patency prior to arterial puncture YES- POS NRG Setting of ventilation mode NO NRG Measurement of body temperature 96.5 NRG Bacterial blood culture - 08/13/16 02:18 FREE TEXT EXTERNAL SEE COMMENT NRG QUANTITY OF GROWTH Isolated NRG Bacterial blood culture [id number] NRG Blood lactic acid measurement (moles/volume) - 08/13/16 02:30 Blood lactic acid measurement (moles/volume) 0.72 mmol/L 0.50-2.00 Bacterial blood culture - 08/13/16 02:30 Bacterial blood culture NG NRG Arterial blood gas measurement - 08/13/16 03:14 Blood pCO2 47 mm[Hg] 35-45 Blood pO2 189 mm[Hg] 79-93 Arterial blood bicarbonate measurement (moles/volume) 26 mmol/L 23-27 Arterial blood base excess by calculation 1.4 mmol/L -2.5 -2.5 Arterial blood oxygen saturation measurement 100 % 94- 100 * Inhaled oxygen flow rate 60% NRG Arterial blood pH measurement with patient temperature correction 7.36 7.37-7.43 Arterial blood carbon dioxide, total measurement (moles/volume) 27.9 mmol/L 21.0-31.0 Body site L RAD NRG Assessment of wrist artery patency prior to arterial puncture YES- POS NRG Setting of ventilation mode NO NRG Measurement of body temperature 96.9 NRG Complete blood count (CBC) with automated white blood cell (WBC) differential - 08/13/16 05:46 Blood leukocytes automated count (number/volume) 13.6 10*3/uL 4.3-11.0 Blood erythrocytes automated count (number/volume) 3.70 10*6/uL 4.35-5.85 Venous blood hemoglobin measurement (mass/volume) 13.3 g/dL 11.5-16.0 Blood hematocrit (volume fraction) 39 % 35-52 Automated erythrocyte mean corpuscular volume 107 [foz_us] 80-99 Automated erythrocyte mean corpuscular hemoglobin (mass per erythrocyte) 36 pg 25-34 Automated erythrocyte mean corpuscular hemoglobin concentration measurement ( mass/volume) 34 g/dL 32-36 Automated erythrocyte distribution width ratio 12.7 % 10.0-14.5 Automated blood platelet count (count/volume) 198 10*3/uL 130-400 Automated blood platelet mean volume measurement 10.2 [foz_us] 7.4-10.4 Automated blood neutrophils/100 leukocytes 94 % 42-75 Automated blood lymphocytes/100 leukocytes 4 % 12-44 Blood monocytes/100 leukocytes 3 % 0-12 Automated blood eosinophils/100 leukocytes 0 % 0-10 Automated blood basophils/100 leukocytes 0 % 0-10 Blood neutrophils automated count (number/volume) 12.7 10*3 1.8-7.8 Blood lymphocytes automated count (number/volume) 0.5 10*3 1.0-4.0 Blood monocytes automated count (number/volume) 0.4 10*3 0.0-1.0 Automated eosinophil count 0.0 10*3/uL 0.0-0.3 Automated blood basophil count (count/volume) 0.0 10*3/uL 0.0-0.1 Automated blood complete blood count (hemogram) panel - 08/14/16 04:04 Blood leukocytes automated count (number/volume) 10.4 10*3/uL 4.3-11.0 Blood erythrocytes automated count (number/volume) 3.48 10*6/uL 4.35-5.85 Venous blood hemoglobin measurement (mass/volume) 12.1 g/dL 11.5-16.0 Blood hematocrit (volume fraction) 38 % 35-52 Automated erythrocyte mean corpuscular volume 108 [foz_us] 80-99 Automated erythrocyte mean corpuscular hemoglobin (mass per erythrocyte) 35 pg 25-34 Automated erythrocyte mean corpuscular hemoglobin concentration measurement ( mass/volume) 32 g/dL 32-36 Automated erythrocyte distribution width ratio 12.4 % 10.0-14.5 Automated blood platelet count (count/volume) 200 10*3/uL 130-400 Automated blood platelet mean volume measurement 9.9 [foz_us] 7.4-10.4 Whole blood basic metabolic panel - 08/14/16 04:04 Serum or plasma sodium measurement (moles/volume) 140 mmol/L 135-145 Serum or plasma potassium measurement (moles/volume) 3.6 mmol/L 3.6-5.0 Serum or plasma chloride measurement (moles/volume) 106 mmol/L 98-107 Carbon dioxide 25 mmol/L 21-32 Serum or plasma anion gap determination (moles/volume) 9 mmol/L 5-14 Serum or plasma urea nitrogen measurement (mass/volume) 10 mg/dL 7-18 Serum or plasma creatinine measurement (mass/volume) 0.65 mg/dL 0.60-1.30 Serum or plasma urea nitrogen/creatinine mass ratio 15 0 -20 Serum or plasma creatinine measurement with calculation of estimated glomerular filtration rate > NRG Serum or plasma glucose measurement (mass/volume) 90 mg/dL 70-105 Serum or plasma calcium measurement (mass/volume) 8.4 mg/dL 8.5-10.1 Blood lactic acid measurement (moles/volume) - 09/30/16 04:55 Blood lactic acid measurement (moles/volume) 1.39 mmol/L 0.50-2.00 Bacterial blood culture - 09/30/16 04:55 Bacterial blood culture NG NRG Complete blood count (CBC) with automated white blood cell (WBC) differential - 09/30/16 05:00 Blood leukocytes automated count (number/volume) 10.4 10*3/uL 4.3-11.0 Blood erythrocytes automated count (number/volume) 4.36 10*6/uL 4.35-5.85 Venous blood hemoglobin measurement (mass/volume) 15.5 g/dL 11.5-16.0 Blood hematocrit (volume fraction) 45 % 35-52 Automated erythrocyte mean corpuscular volume 103 [foz_us] 80-99 Automated erythrocyte mean corpuscular hemoglobin (mass per erythrocyte) 36 pg 25-34 Automated erythrocyte mean corpuscular hemoglobin concentration measurement ( mass/volume) 35 g/dL 32-36 Automated erythrocyte distribution width ratio 11.8 % 10.0-14.5 Automated blood platelet count (count/volume) 230 10*3/uL 130-400 Automated blood platelet mean volume measurement 10.2 [foz_us] 7.4-10.4 Automated blood neutrophils/100 leukocytes 56 % 42-75 Automated blood lymphocytes/100 leukocytes 28 % 12-44 Blood monocytes/100 leukocytes 9 % 0-12 Automated blood eosinophils/100 leukocytes 6 % 0-10 Automated blood basophils/100 leukocytes 1 % 0-10 Blood neutrophils automated count (number/volume) 5.8 10*3 1.8-7.8 Blood lymphocytes automated count (number/volume) 2.9 10*3 1.0-4.0 Blood monocytes automated count (number/volume) 0.9 10*3 0.0-1.0 Automated eosinophil count 0.7 10*3/uL 0.0-0.3 Automated blood basophil count (count/volume) 0.1 10*3/uL 0.0-0.1 Comprehensive metabolic panel - 09/30/16 05:00 Serum or plasma sodium measurement (moles/volume) 142 mmol/L 135-145 Serum or plasma potassium measurement (moles/volume) 4.2 mmol/L 3.6-5.0 Serum or plasma chloride measurement (moles/volume) 103 mmol/L 98-107 Carbon dioxide 32 mmol/L 21-32 Serum or plasma anion gap determination (moles/volume) 7 mmol/L 5-14 Serum or plasma urea nitrogen measurement (mass/volume) 9 mg/dL 7-18 Serum or plasma creatinine measurement (mass/volume) 0.75 mg/dL 0.60-1.30 Serum or plasma urea nitrogen/creatinine mass ratio 12 NRG Serum or plasma creatinine measurement with calculation of estimated glomerular filtration rate > NRG Serum or plasma glucose measurement (mass/volume) 100 mg/dL 70-105 Serum or plasma calcium measurement (mass/volume) 9.5 mg/dL 8.5-10.1 Serum or plasma total bilirubin measurement (mass/volume) 0.7 mg/dL 0.1-1.0 Serum or plasma alkaline phosphatase measurement (enzymatic activity/volume) 50 U/L 40-136 Serum or plasma aspartate aminotransferase measurement (enzymatic activity/ volume) 16 U/L 5-34 Serum or plasma alanine aminotransferase measurement (enzymatic activity/volume ) 13 U/L 0-55 Serum or plasma protein measurement (mass/volume) 7.2 g/dL 6.4-8.2 Serum or plasma albumin measurement (mass/volume) 4.3 g/dL 3.2-4.5 PT panel in platelet poor plasma by coagulation assay - 09/30/16 05:00 Prothrombin time (PT) in platelet poor plasma by coagulation assay 12.8 s 12.2-14.7 INR in platelet poor plasma or blood by coagulation assay 1.0 0.8-1.4 Activated partial thromboplastin time (aPTT) in platelet poor plasma bycoagulation assay - 09/30/16 05:00 Activated partial thromboplastin time (aPTT) in platelet poor plasma bycoagulation assay 27 s 24-35 Valproic acid - 09/30/16 05:00 Valproic acid 51.2 ug/mL 50.0-100.0 Arterial blood gas measurement - 09/30/16 05:23 Blood pCO2 62 mm[Hg] 35-45 Blood pO2 49 mm[Hg] 79-93 Arterial blood bicarbonate measurement (moles/volume) 32 mmol/L 23-27 Arterial blood base excess by calculation 5.8 mmol/L -2.5 -2.5 Arterial blood oxygen saturation measurement 81 % 94-100 * Inhaled oxygen flow rate 60% NRG Arterial blood pH measurement with patient temperature correction 7.33 7.37-7.43 Arterial blood carbon dioxide, total measurement (moles/volume) 33.5 mmol/L 21.0-31.0 Body site RIGHT RADIAL NRG Assessment of wrist artery patency prior to arterial puncture YES- POS NRG Setting of ventilation mode NO NRG Measurement of body temperature 97.7 NRG Bacterial blood culture - 09/30/16 05:32 Bacterial blood culture NG NRG Complete urinalysis with reflex to culture - 09/30/16 07:05 Urine color determination YELLOW NRG Urine clarity determination CLEAR NRG Urine pH measurement by test strip 6 5-9 Specific gravity of urine by test strip 1.020 1.016- 1.022 Urine protein assay by test strip, semi-quantitative NEGATIVE NEGATIVE Urine glucose detection by automated test strip NEGATIVE NEGATIVE Erythrocytes detection in urine sediment by light microscopy 2+ NEGATIVE Urine ketones detection by automated test strip NEGATIVE NEGATIVE Urine nitrite detection by test strip NEGATIVE NEGATIVE Urine total bilirubin detection by test strip NEGATIVE NEGATIVE Urine urobilinogen measurement by automated test strip (mass/volume) NORMAL NORMAL Urine leukocyte esterase detection by dipstick NEGATIVE NEGATIVE Automated urine sediment erythrocyte count by microscopy (number/high power field) [HPF] NRG Automated urine sediment leukocyte count by microscopy (number/high power field ) NONE NRG Bacteria detection in urine sediment by light microscopy NEGATIVE NRG Squamous epithelial cells detection in urine sediment by light microscopy 5-10 NRG Crystals detection in urine sediment by light microscopy NONE NRG Casts detection in urine sediment by light microscopy NONE NRG Mucus detection in urine sediment by light microscopy MODERATE NRG Complete urinalysis with reflex to culture NO NRG Methicillin resistant Staphylococcus aureus (MRSA) screening culture - 07:05 Methicillin resistant Staphylococcus aureus (MRSA) screening culture NEG NRG Methicillin resistant Staphylococcus aureus (MRSA) screening culture - 11:00 Methicillin resistant Staphylococcus aureus (MRSA) screening culture NEG NRG Complete blood count (CBC) with automated white blood cell (WBC) differential - 10/01/16 03:45 Blood leukocytes automated count (number/volume) 9.1 10*3/uL 4.3-11.0 Blood erythrocytes automated count (number/volume) 3.70 10*6/uL 4.35-5.85 Venous blood hemoglobin measurement (mass/volume) 12.7 g/dL 11.5-16.0 Blood hematocrit (volume fraction) 39 % 35-52 Automated erythrocyte mean corpuscular volume 106 [foz_us] 80-99 Automated erythrocyte mean corpuscular hemoglobin (mass per erythrocyte) 34 pg 25-34 Automated erythrocyte mean corpuscular hemoglobin concentration measurement ( mass/volume) 33 g/dL 32-36 Automated erythrocyte distribution width ratio 11.7 % 10.0-14.5 Automated blood platelet count (count/volume) 170 10*3/uL 130-400 Automated blood platelet mean volume measurement 10.8 [foz_us] 7.4-10.4 Automated blood neutrophils/100 leukocytes 91 % 42-75 Automated blood lymphocytes/100 leukocytes 7 % 12-44 Blood monocytes/100 leukocytes 2 % 0-12 Automated blood eosinophils/100 leukocytes 0 % 0-10 Automated blood basophils/100 leukocytes 0 % 0-10 Blood neutrophils automated count (number/volume) 8.3 10*3 1.8-7.8 Blood lymphocytes automated count (number/volume) 0.7 10*3 1.0-4.0 Blood monocytes automated count (number/volume) 0.2 10*3 0.0-1.0 Automated eosinophil count 0.0 10*3/uL 0.0-0.3 Automated blood basophil count (count/volume) 0.0 10*3/uL 0.0-0.1 Whole blood basic metabolic panel - 10/01/16 03:45 Serum or plasma sodium measurement (moles/volume) 143 mmol/L 135-145 Serum or plasma potassium measurement (moles/volume) 3.9 mmol/L 3.6-5.0 Serum or plasma chloride measurement (moles/volume) 109 mmol/L 98-107 Carbon dioxide 23 mmol/L 21-32 Serum or plasma anion gap determination (moles/volume) 11 mmol/L 5-14 Serum or plasma urea nitrogen measurement (mass/volume) 11 mg/dL 7-18 Serum or plasma creatinine measurement (mass/volume) 0.66 mg/dL 0.60-1.30 Serum or plasma urea nitrogen/creatinine mass ratio 17 NRG Serum or plasma creatinine measurement with calculation of estimated glomerular filtration rate > NRG Serum or plasma glucose measurement (mass/volume) 123 mg/dL 70-105 Serum or plasma calcium measurement (mass/volume) 8.8 mg/dL 8.5-10.1 Serum or plasma phosphate measurement (mass/volume) - 10/01/16 03:45 Serum or plasma phosphate measurement (mass/volume) 3.4 mg/dL 2.3-4.7 Magnesium - 10/01/16 03:45 Magnesium 2.1 mg/dL 1.8-2.4 Complete blood count (CBC) with automated white blood cell (WBC) differential - 04/17/17 09:05 Blood leukocytes automated count (number/volume) 7.8 10*3/uL 4.3-11.0 Blood erythrocytes automated count (number/volume) 4.23 10*6/uL 4.35-5.85 Venous blood hemoglobin measurement (mass/volume) 14.5 g/dL 11.5-16.0 Blood hematocrit (volume fraction) 44 % 35-52 Automated erythrocyte mean corpuscular volume 103 [foz_us] 80-99 Automated erythrocyte mean corpuscular hemoglobin (mass per erythrocyte) 34 pg 25-34 Automated erythrocyte mean corpuscular hemoglobin concentration measurement ( mass/volume) 33 g/dL 32-36 Automated erythrocyte distribution width ratio 12.3 % 10.0-14.5 Automated blood platelet count (count/volume) 235 10*3/uL 130-400 Automated blood platelet mean volume measurement 10.0 [foz_us] 7.4-10.4 Automated blood neutrophils/100 leukocytes 50 % 42-75 Automated blood lymphocytes/100 leukocytes 33 % 12-44 Blood monocytes/100 leukocytes 8 % 0-12 Automated blood eosinophils/100 leukocytes 8 % 0-10 Automated blood basophils/100 leukocytes 1 % 0-10 Blood neutrophils automated count (number/volume) 3.9 10*3 1.8-7.8 Blood lymphocytes automated count (number/volume) 2.5 10*3 1.0-4.0 Blood monocytes automated count (number/volume) 0.6 10*3 0.0-1.0 Automated eosinophil count 0.6 10*3/uL 0.0-0.3 Automated blood basophil count (count/volume) 0.1 10*3/uL 0.0-0.1 Comprehensive metabolic panel - 04/17/17 09:05 Serum or plasma sodium measurement (moles/volume) 139 mmol/L 135-145 Serum or plasma potassium measurement (moles/volume) 3.8 mmol/L 3.6-5.0 Serum or plasma chloride measurement (moles/volume) 101 mmol/L 98-107 Carbon dioxide 27 mmol/L 21-32 Serum or plasma anion gap determination (moles/volume) 11 mmol/L 5-14 Serum or plasma urea nitrogen measurement (mass/volume) 6 mg/dL 7-18 Serum or plasma creatinine measurement (mass/volume) 0.83 mg/dL 0.60-1.30 Serum or plasma urea nitrogen/creatinine mass ratio 7 NRG Serum or plasma creatinine measurement with calculation of estimated glomerular filtration rate > NRG Serum or plasma glucose measurement (mass/volume) 184 mg/dL 70-105 Serum or plasma calcium measurement (mass/volume) 8.9 mg/dL 8.5-10.1 Serum or plasma total bilirubin measurement (mass/volume) 1.1 mg/dL 0.1-1.0 Serum or plasma alkaline phosphatase measurement (enzymatic activity/volume) 56 U/L 40-136 Serum or plasma aspartate aminotransferase measurement (enzymatic activity/ volume) 56 U/L 5-34 Serum or plasma alanine aminotransferase measurement (enzymatic activity/volume ) 39 U/L 0-55 Serum or plasma protein measurement (mass/volume) 6.7 g/dL 6.4-8.2 Serum or plasma albumin measurement (mass/volume) 4.0 g/dL 3.2-4.5 Blood lactic acid measurement (moles/volume) - 06/08/17 08:40 Blood lactic acid measurement (moles/volume) 2.51 mmol/L 0.50-2.00 Complete blood count (CBC) with automated white blood cell (WBC) differential - 06/08/17 08:42 Blood leukocytes automated count (number/volume) 11.6 10*3/uL 4.3-11.0 Blood erythrocytes automated count (number/volume) 4.28 10*6/uL 4.35-5.85 Venous blood hemoglobin measurement (mass/volume) 14.3 g/dL 11.5-16.0 Blood hematocrit (volume fraction) 44 % 35-52 Automated erythrocyte mean corpuscular volume 103 [foz_us] 80-99 Automated erythrocyte mean corpuscular hemoglobin (mass per erythrocyte) 33 pg 25-34 Automated erythrocyte mean corpuscular hemoglobin concentration measurement ( mass/volume) 32 g/dL 32-36 Automated erythrocyte distribution width ratio 13.2 % 10.0-14.5 Automated blood platelet count (count/volume) 280 10*3/uL 130-400 Automated blood platelet mean volume measurement 10.2 [foz_us] 7.4-10.4 Automated blood neutrophils/100 leukocytes 42 % 42-75 Automated blood lymphocytes/100 leukocytes 42 % 12-44 Blood monocytes/100 leukocytes 9 % 0-12 Automated blood eosinophils/100 leukocytes 6 % 0-10 Automated blood basophils/100 leukocytes 1 % 0-10 Blood neutrophils automated count (number/volume) 4.9 10*3 1.8-7.8 Blood lymphocytes automated count (number/volume) 4.8 10*3 1.0-4.0 Blood monocytes automated count (number/volume) 1.1 10*3 0.0-1.0 Automated eosinophil count 0.7 10*3/uL 0.0-0.3 Automated blood basophil count (count/volume) 0.1 10*3/uL 0.0-0.1 Comprehensive metabolic panel - 06/08/17 08:42 Serum or plasma sodium measurement (moles/volume) 141 mmol/L 135-145 Serum or plasma potassium measurement (moles/volume) 3.8 mmol/L 3.6-5.0 Serum or plasma chloride measurement (moles/volume) 107 mmol/L 98-107 Carbon dioxide 22 mmol/L 21-32 Serum or plasma anion gap determination (moles/volume) 12 mmol/L 5-14 Serum or plasma urea nitrogen measurement (mass/volume) 6 mg/dL 7-18 Serum or plasma creatinine measurement (mass/volume) 0.83 mg/dL 0.60-1.30 Serum or plasma urea nitrogen/creatinine mass ratio 7 NRG Serum or plasma creatinine measurement with calculation of estimated glomerular filtration rate > NRG Serum or plasma glucose measurement (mass/volume) 181 mg/dL 70-105 Serum or plasma calcium measurement (mass/volume) 9.0 mg/dL 8.5-10.1 Serum or plasma total bilirubin measurement (mass/volume) 0.7 mg/dL 0.1-1.0 Serum or plasma alkaline phosphatase measurement (enzymatic activity/volume) 68 U/L 40-136 Serum or plasma aspartate aminotransferase measurement (enzymatic activity/ volume) 55 U/L 5-34 Serum or plasma alanine aminotransferase measurement (enzymatic activity/volume ) 31 U/L 0-55 Serum or plasma protein measurement (mass/volume) 6.8 g/dL 6.4-8.2 Serum or plasma albumin measurement (mass/volume) 4.2 g/dL 3.2-4.5 PT panel in platelet poor plasma by coagulation assay - 06/08/17 08:42 Prothrombin time (PT) in platelet poor plasma by coagulation assay 13.7 s 12.2-14.7 INR in platelet poor plasma or blood by coagulation assay 1.0 0.8-1.4 Activated partial thromboplastin time (aPTT) in platelet poor plasma bycoagulation assay - 06/08/17 08:42 Activated partial thromboplastin time (aPTT) in platelet poor plasma bycoagulation assay 26 s 24-35 Bacterial blood culture - 06/08/17 08:45 Bacterial blood culture NG NRG Arterial blood gas measurement - 06/08/17 08:46 Blood pCO2 48 mm[Hg] 35-45 Blood pO2 96 mm[Hg] 79-93 Arterial blood bicarbonate measurement (moles/volume) 23 mmol/L 23-27 Arterial blood base excess by calculation -2.3 mmol/L - 2.5-2.5 Arterial blood oxygen saturation measurement 98 % 94-100 * Inhaled oxygen flow rate 5 NRG Arterial blood pH measurement with patient temperature correction 7.30 7.37-7.43 Arterial blood carbon dioxide, total measurement (moles/volume) 24.9 mmol/L 21.0-31.0 Body site R RAD NRG Assessment of wrist artery patency prior to arterial puncture YES- POS NRG Setting of ventilation mode NO NRG Measurement of body temperature 96.8 NRG Bacterial blood culture - 06/08/17 08:53 Bacterial blood culture NG NRG Serum or plasma lactate measurement (moles/volume) - 06/08/17 10:45 Serum or plasma lactate measurement (moles/volume) 2.21 mmol/L 0.50-2.00 Complete blood count (CBC) with automated white blood cell (WBC) differential - 06/09/17 09:25 Blood leukocytes automated count (number/volume) 17.7 10*3/uL 4.3-11.0 Blood erythrocytes automated count (number/volume) 3.65 10*6/uL 4.35-5.85 Venous blood hemoglobin measurement (mass/volume) 12.2 g/dL 11.5-16.0 Blood hematocrit (volume fraction) 37 % 35-52 Automated erythrocyte mean corpuscular volume 102 [foz_us] 80-99 Automated erythrocyte mean corpuscular hemoglobin (mass per erythrocyte) 33 pg 25-34 Automated erythrocyte mean corpuscular hemoglobin concentration measurement ( mass/volume) 33 g/dL 32-36 Automated erythrocyte distribution width ratio 13.1 % 10.0-14.5 Automated blood platelet count (count/volume) 218 10*3/uL 130-400 Automated blood platelet mean volume measurement 10.2 [foz_us] 7.4-10.4 Automated blood neutrophils/100 leukocytes 95 % 42-75 Automated blood lymphocytes/100 leukocytes 3 % 12-44 Blood monocytes/100 leukocytes 2 % 0-12 Automated blood eosinophils/100 leukocytes 0 % 0-10 Automated blood basophils/100 leukocytes 0 % 0-10 Blood neutrophils automated count (number/volume) 16.8 10*3 1.8-7.8 Blood lymphocytes automated count (number/volume) 0.5 10*3 1.0-4.0 Blood monocytes automated count (number/volume) 0.4 10*3 0.0-1.0 Automated eosinophil count 0.0 10*3/uL 0.0-0.3 Automated blood basophil count (count/volume) 0.0 10*3/uL 0.0-0.1 Comprehensive metabolic panel - 06/09/17 09:25 Serum or plasma sodium measurement (moles/volume) 139 mmol/L 135-145 Serum or plasma potassium measurement (moles/volume) 3.8 mmol/L 3.6-5.0 Serum or plasma chloride measurement (moles/volume) 108 mmol/L 98-107 Carbon dioxide 22 mmol/L 21-32 Serum or plasma anion gap determination (moles/volume) 9 mmol/L 5-14 Serum or plasma urea nitrogen measurement (mass/volume) 8 mg/dL 7-18 Serum or plasma creatinine measurement (mass/volume) 0.78 mg/dL 0.60-1.30 Serum or plasma urea nitrogen/creatinine mass ratio 10 NRG Serum or plasma creatinine measurement with calculation of estimated glomerular filtration rate > NRG Serum or plasma glucose measurement (mass/volume) 215 mg/dL 70-105 Serum or plasma calcium measurement (mass/volume) 8.8 mg/dL 8.5-10.1 Serum or plasma total bilirubin measurement (mass/volume) 0.3 mg/dL 0.1-1.0 Serum or plasma alkaline phosphatase measurement (enzymatic activity/volume) 55 U/L 40-136 Serum or plasma aspartate aminotransferase measurement (enzymatic activity/ volume) 16 U/L 5-34 Serum or plasma alanine aminotransferase measurement (enzymatic activity/volume ) 21 U/L 0-55 Serum or plasma protein measurement (mass/volume) 6.2 g/dL 6.4-8.2 Serum or plasma albumin measurement (mass/volume) 3.9 g/dL 3.2-4.5 Blood manual differential performed detection - 06/09/17 09:25 Blood monocytes/100 leukocytes 3 % NRG Manual blood segmented neutrophils/100 leukocytes 93 % NRG Blood band neutrophils/100 leukocytes 2 % NRG Manual blood lymphocytes/100 leukocytes 2 % NRG Manual eosinophils/100 leukocytes in nose 0 % NRG Manual blood basophils/100 leukocytes 0 % NRG Blood macrocytes detection by light microscopy SLIGHT NRG Complete blood count (CBC) with automated white blood cell (WBC) differential - 06/10/17 05:36 Blood leukocytes automated count (number/volume) 15.0 10*3/uL 4.3-11.0 Blood erythrocytes automated count (number/volume) 3.53 10*6/uL 4.35-5.85 Venous blood hemoglobin measurement (mass/volume) 11.7 g/dL 11.5-16.0 Blood hematocrit (volume fraction) 36 % 35-52 Automated erythrocyte mean corpuscular volume 101 [foz_us] 80-99 Automated erythrocyte mean corpuscular hemoglobin (mass per erythrocyte) 33 pg 25-34 Automated erythrocyte mean corpuscular hemoglobin concentration measurement ( mass/volume) 33 g/dL 32-36 Automated erythrocyte distribution width ratio 13.4 % 10.0-14.5 Automated blood platelet count (count/volume) 200 10*3/uL 130-400 Automated blood platelet mean volume measurement 10.3 [foz_us] 7.4-10.4 Automated blood neutrophils/100 leukocytes 78 % 42-75 Automated blood lymphocytes/100 leukocytes 16 % 12-44 Blood monocytes/100 leukocytes 6 % 0-12 Automated blood eosinophils/100 leukocytes 0 % 0-10 Automated blood basophils/100 leukocytes 0 % 0-10 Blood neutrophils automated count (number/volume) 11.7 10*3 1.8-7.8 Blood lymphocytes automated count (number/volume) 2.5 10*3 1.0-4.0 Blood monocytes automated count (number/volume) 0.9 10*3 0.0-1.0 Automated eosinophil count 0.0 10*3/uL 0.0-0.3 Automated blood basophil count (count/volume) 0.0 10*3/uL 0.0-0.1 Comprehensive metabolic panel - 06/10/17 05:36 Serum or plasma sodium measurement (moles/volume) 141 mmol/L 135-145 Serum or plasma potassium measurement (moles/volume) 3.9 mmol/L 3.6-5.0 Serum or plasma chloride measurement (moles/volume) 109 mmol/L 98-107 Carbon dioxide 22 mmol/L 21-32 Serum or plasma anion gap determination (moles/volume) 10 mmol/L 5-14 Serum or plasma urea nitrogen measurement (mass/volume) 12 mg/dL 7-18 Serum or plasma creatinine measurement (mass/volume) 0.66 mg/dL 0.60-1.30 Serum or plasma urea nitrogen/creatinine mass ratio 18 NRG Serum or plasma creatinine measurement with calculation of estimated glomerular filtration rate > NRG Serum or plasma glucose measurement (mass/volume) 79 mg/dL 70-105 Serum or plasma calcium measurement (mass/volume) 8.7 mg/dL 8.5-10.1 Serum or plasma total bilirubin measurement (mass/volume) 0.3 mg/dL 0.1-1.0 Serum or plasma alkaline phosphatase measurement (enzymatic activity/volume) 47 U/L 40-136 Serum or plasma aspartate aminotransferase measurement (enzymatic activity/ volume) 16 U/L 5-34 Serum or plasma alanine aminotransferase measurement (enzymatic activity/volume ) 19 U/L 0-55 Serum or plasma protein measurement (mass/volume) 5.9 g/dL 6.4-8.2 Serum or plasma albumin measurement (mass/volume) 3.6 g/dL 3.2-4.5 Complete blood count (CBC) with automated white blood cell (WBC) differential - 09/01/17 15:10 Blood leukocytes automated count (number/volume) 5.0 10*3/uL 4.3-11.0 Blood erythrocytes automated count (number/volume) 4.13 10*6/uL 4.35-5.85 Venous blood hemoglobin measurement (mass/volume) 13.8 g/dL 11.5-16.0 Blood hematocrit (volume fraction) 40 % 35-52 Automated erythrocyte mean corpuscular volume 97 [foz_us] 80-99 Automated erythrocyte mean corpuscular hemoglobin (mass per erythrocyte) 33 pg 25-34 Automated erythrocyte mean corpuscular hemoglobin concentration measurement ( mass/volume) 34 g/dL 32-36 Automated erythrocyte distribution width ratio 13.1 % 10.0-14.5 Automated blood platelet count (count/volume) 264 10*3/uL 130-400 Automated blood platelet mean volume measurement 9.5 [foz_us] 7.4-10.4 Automated blood neutrophils/100 leukocytes 52 % 42-75 Automated blood lymphocytes/100 leukocytes 34 % 12-44 Blood monocytes/100 leukocytes 10 % 0-12 Automated blood eosinophils/100 leukocytes 4 % 0-10 Automated blood basophils/100 leukocytes 1 % 0-10 Blood neutrophils automated count (number/volume) 2.6 10*3 1.8-7.8 Blood lymphocytes automated count (number/volume) 1.7 10*3 1.0-4.0 Blood monocytes automated count (number/volume) 0.5 10*3 0.0-1.0 Automated eosinophil count 0.2 10*3/uL 0.0-0.3 Automated blood basophil count (count/volume) 0.1 10*3/uL 0.0-0.1 Comprehensive metabolic panel - 09/01/17 15:10 Serum or plasma sodium measurement (moles/volume) 141 mmol/L 135-145 Serum or plasma potassium measurement (moles/volume) 3.9 mmol/L 3.6-5.0 Serum or plasma chloride measurement (moles/volume) 108 mmol/L 98-107 Carbon dioxide 24 mmol/L 21-32 Serum or plasma anion gap determination (moles/volume) 9 mmol/L 5-14 Serum or plasma urea nitrogen measurement (mass/volume) 6 mg/dL 7-18 Serum or plasma creatinine measurement (mass/volume) 0.78 mg/dL 0.60-1.30 Serum or plasma urea nitrogen/creatinine mass ratio 8 NRG Serum or plasma creatinine measurement with calculation of estimated glomerular filtration rate > NRG Serum or plasma glucose measurement (mass/volume) 91 mg/dL 70-105 Serum or plasma calcium measurement (mass/volume) 9.1 mg/dL 8.5-10.1 Serum or plasma total bilirubin measurement (mass/volume) 0.7 mg/dL 0.1-1.0 Serum or plasma alkaline phosphatase measurement (enzymatic activity/volume) 64 U/L 40-136 Serum or plasma aspartate aminotransferase measurement (enzymatic activity/ volume) 22 U/L 5-34 Serum or plasma alanine aminotransferase measurement (enzymatic activity/volume ) 19 U/L 0-55 Serum or plasma protein measurement (mass/volume) 6.4 g/dL 6.4-8.2 Serum or plasma albumin measurement (mass/volume) 4.0 g/dL 3.2-4.5 Arterial blood gas measurement - 09/01/17 16:45 Blood pCO2 45 mm[Hg] 35-45 Blood pO2 113 mm[Hg] 79-93 Arterial blood bicarbonate measurement (moles/volume) 25 mmol/L 23-27 Arterial blood base excess by calculation 0.1 mmol/L -2.5 -2.5 Arterial blood oxygen saturation measurement 99 % 94-100 * Inhaled oxygen flow rate 2L NRG Arterial blood pH measurement with patient temperature correction 7.36 7.37-7.43 Arterial blood carbon dioxide, total measurement (moles/volume) 26.2 mmol/L 21.0-31.0 Body site LEFT BRACHIAL NRG Assessment of wrist artery patency prior to arterial puncture NA NRG Setting of ventilation mode NO NRG Measurement of body temperature 98.1 NRG Encounters ACCT No. Visit Date/Time Discharge Status Pt. Type Provider Facility Loc./Unit Complaint [id number] 11/03/2017 08:58:00 11/03/2017 23:59:59 CLS Outpatient VIKA CHIN MD [facility] RAD R91.8 [id number] 09/01/2017 14:58:00 09/01/2017 18:30:00 DIS Emergency DANIELLE GA MD [facility] ER SOA [id number] 07/30/2017 08:30:00 07/30/2017 23:59:59 CLS Preadmit GEORGINA GARCIA DO [facility] CARD R00.2 [id number] 04/30/2017 08:26:00 07/29/2017 00:01:00 DIS Outpatient GEORGINA GARCIA DO [facility] CARD R00.2 [id number] 06/08/2017 09:40:00 06/10/2017 11:30:00 DIS Inpatient DANIELLE GA MD [facility] 4TH COPD ACUTE EXACERBATION, HYPOXIA [id number] 04/17/2017 11:00:00 04/19/2017 12:46:00 DIS Inpatient KRYSTYNA GRAVES DO [facility] 4TH COPD IN EXACERBATION [id number] 11/25/2016 13:14:00 11/25/2016 23:59:59 CLS Outpatient VIKA CHIN MD [facility] RAD SCREENING [id number] 10/02/2016 12:11:00 10/02/2016 23:59:59 CLS Preadmit VIKA CHIN MD [facility] RAD COPD,HX OF SMOKING [id number] 09/30/2016 06:15:00 2016 13:45:00 DIS Inpatient DANIELLE GA MD [facility] [address] RESPIRATORY FAILURE,COPD EX [id number] 08/13/2016 03:34:00 08/14/2016 12:30:00 DIS Inpatient DANIELLE GA MD [facility] [address] ACUTE EXACERBATION OF COPD [id number] 03/19/2016 15:03:00 03/19/2016 23:59:59 CLS Outpatient 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 J44.9, R09.02 [id number] 02/02/2016 14:37:00 02/02/2016 16:52:00 DIS Emergency FIOR PARRA APRN [facility] ER SOA [id number] 01/17/2016 14:18:00 01/17/2016 23:59:59 CLS Outpatient GEORGINA GARCIA DO [facility] RAD PNEUMONIA [id number] 12/31/2015 17:22:00 12/31/2015 23:59:59 CLS Outpatient GEORGINA GARCIA DO [facility] RAD J18.9 [id number] 09/29/2014 09:19:00 09/29/2014 12:00:00 DIS Outpatient DEYA JJ MD [facility] SDC SCREENING,HISTORY OF POLYPS [id number] 09/28/2014 06:36:00 09/28/2014 23:59:59 CLS Outpatient DEYA JJ MD [facility] PREOP HISTORY OF POLYPS [id number] 06/06/2013 18:50:00 06/06/2013 23:59:59 CLS Outpatient [id number] 11/13/2017 05:18:00 ACT Emergency SHAILESH HICKMAN DO [facility] ER LETHARGIC,LABORED BREATHING [id number] 11/26/2011 06:32:00 Document Registration [id number] 11/25/2011 08:24:00 Document Registration [id number] 05/02/2011 09:40:00 Document Registration [id number] 01/12/2011 22:12:00 Document Registration [id number] 10/08/2016 10:00:00 02/25/2017 15:48:00 DIS Outpatient Lawrence Ravi [id number] 10/06/2016 12:41:00 10/06/2016 23:59:00 DIS Outpatient Lawrence Ravi
[2017-11-13] MEDS ORDERED: DEXAMETHASONE 4 MG/ML SDV (DECADRON) ONE (05:27)
[2017-11-13] MEDS ORDERED: RT-ALBUTEROL/IPRATROPIUM 3 ML (DUONEB) VIAL ONE (05:27)
[2017-11-13] MEDS ORDERED: RT-ALBUTEROL/IPRATROPIUM 3 ML (DUONEB) VIAL INH ONE (05:30)
[2017-11-13] MEDS ORDERED: DEXAMETHASONE 4 MG/ML SDV (DECADRON) IH ONE ×2 (05:30)
[2017-11-13] MEDS ORDERED: methylPREDNISolone 125 MG (Solu-MEDROL) VIAL IVP ONE (05:30)
[2017-11-13] MEDS ORDERED: cefTRIAXone FOR IV USE 1,000 MG in NS (IVPB) 50 ML IV ONE (05:30)
[2017-11-13 05:37] LABS: BASOPHILS # (AUTO) 0.1 10^3/uL (0.0-0.1); BASOPHILS % (AUTO) 1 % (0-10); EOSINOPHILS # (AUTO) 0.3 10^3/uL (0.0-0.3); EOSINOPHILS % (AUTO) 3 % (0-10); HEMATOCRIT 43 % (35-52); HEMOGLOBIN 14.5 G/DL (11.5-16.0); LYMPHOCYTES # (AUTO) 3.2 X 10^3 (1.0-4.0); LYMPHOCYTES % (AUTO) 30 % (12-44); MEAN CORPUSCULAR HEMOGLOBIN 33 PG (25-34); MEAN CORPUSCULAR HGB CONC 34 G/DL (32-36); MEAN CORPUSCULAR VOLUME 100 FL (80-99); MEAN PLATELET VOLUME 9.8 FL (7.4-10.4); MONOCYTES # (AUTO) 0.9 X 10^3 (0.0-1.0); MONOCYTES % (AUTO) 8 % (0-12); NEUTROPHILS # (AUTO) 6.4 X 10^3 (1.8-7.8); NEUTROPHILS % (AUTO) 58 % (42-75); PLATELET COUNT 247 10^3/uL (130-400); RED BLOOD COUNT 4.34 10^6/uL (4.35-5.85); RED CELL DISTRIBUTION WIDTH 13.3 % (10.0-14.5)
--- NOTE | 2017-11-13 05:43 | ED Respiratory ---
General Chief Complaint: Respiratory Problems Stated Complaint: LETHARGIC,LABORED BREATHING Source: patient (LIMITED HISTORIAN DUE TO CLINICAL CONDITION), old records Exam Limitations: clinical condition History of Present Illness Date Seen by Provider: Nov 13, 2017 Time Seen by Provider: 05:18 Initial Comments PT ARRIVES VIA EMS FROM HOME PT WITH LONG HISTORY OF COPD WITH CHRONIC RESPIRATORY FAILURE PT WOKE HER UP AND TOLD HIM SHE WAS SHORT OF BREATH AND HE CALLED EMS PT SAW ON THURSDAY, FOR THIS PROBLEM--HAS BEEN SHORT OF BREATH FOR A WEEK. WAS STARTED ON [place] PT DENIES CHEST PAIN PT STATES SHE HAS HAD FEVER NO SWELLING IN LEGS/ FEET EMS REPORT THAT O2 SAT WAS 50% ON ROOM AIR AT THE SCENE EMS PLACED PT ON CPAP AND O2 SAT IS 98% PT HAS BEEN LETHARGIC PT WAS INITIALLY HYPERTENSIVE, WITH BP AROUND 200 SYSTOLIC, PER EMS EMS INITIATED A DUONEB TREATMENT ENROUTE. PT HAS HOME CPAP THAT SHE ONLY WEARS AT NIGHT. CLAIMS SHE WAS USING IT TONIGHT PT STATES SHE DID NOT THINK IT WAS WORKING RIGHT FOR THE LAST WEEK AND HAD SOMEONE FROM [facility] LOOK AT IT LAST WEEK AND AGAIN YESTERDAY--REPORTEDLY THEY DID NOT FIND ANYTHING WRONG. PT HAS HAD MULTIPLE ADMITS FOR COPD EXACERBATION/RESPIRATORY FAILURE LAST ADMIT 05/2017 PT HAS BEEN DNR ON PRIOR ADMITS. PT HAS CONTINUED TO SMOKE PT HAS KALIE PULMONARY NODULE, AND IS FOLLOWED BY ROUTINE CHEST CT SCANS--LAST SCAN WAS 11/03/17 AND NO CHANGE IN SIZE, AND NO ACUTE PROCESS. PCP: DR. GARCIA MOOSE HUNTER: GREGG FERNANDEZ Allergies and Home Medications Allergies Coded Allergies: Sulfa (Sulfonamide Antibiotics) (Unverified Allergy, Unknown, SOB, SWELLING, RASH, 09/29/14) penicillin (Unverified Allergy, Unknown, 09/29/14) Home Medications Albuterol Sulfate 18 Gm Hfa.aer.ad, 2 PUFF INH Q6H PRN for WHEEZING, (Reported) Alprazolam 0.5 Mg Tablet, 0.5 MG PO Q12H, (Reported) Clonazepam 1 Mg Tablet, 1.5 MG PO BID, (Reported) TAKES 1 & 1/2 (1MG) TABLET Divalproex Sodium 250 Mg Tablet.dr, 250 MG PO BID, (Reported) LAST FILLED 01-09-17 #180 Guaifen/Dextromethorphan/PE 180 Ml Liquid, 20 ML PO Q4H PRN for COUGH, (Reported ) Ipratropium [place] 0.2 Mg/1 Ml Solution, 1 VIAL NEB Q6H PRN for SHORTNESS OF BREATH, (Reported) Roflumilast 500 Mcg Tablet, 500 MCG PO DAILY, (Reported) Umeclidinium Brm/Vilanterol Tr 1 Each Blst.w.dev, 1 PUFF INH DAILY, (Reported) Patient Home Medication List Home Medication List Reviewed: Yes Review of Systems Review of Systems Constitutional: fever, malaise, weakness, other (LIMITED) Respiratory: short of breath Cardiovascular: No chest pain, No edema Past Pwxlmaz-Xocdxf-Frewpy Hx Patient Social History Alcohol Use: Occasionally Uses Number of Drinks Today: AA Alcohol Beverage of Choice: Beer Recreational Drug Use: No Smoking Status: Current Everyday Smoker Type Used: Cigarettes (1 PPD) 2nd Hand Smoke Exposure: Yes Recent Foreign Travel: No Contact w/Someone Who Travel: No Recent Hopitalizations: No Immunizations Up To Date Tetanus Booster (TDap): Unknown PED Vaccines UTD: Yes Date of Pneumonia Vaccine: Dec 01, 2016 Date of Influenza Vaccine: Dec 01, 2016 Seasonal Allergies Seasonal Allergies: No Past Medical History Surgeries: Yes (EGD/COLONOSOCPIES WITH POLYPECTOMIES; CERVICAL SPINE SURGERY; LUMBAR SPINE SURGERY/KYPHOPLASTY; GENITAL SURGERY) Appendectomy, Gallbladder, Hysterectomy, Orthopedic Respiratory: Yes (CHRONIC RESPIRATORY FAILURE; KALIE PULMONARY NODULE--STABLE/ UNCHANGED ON CT 11/03/17) Asthma, Pneumonia, Chronic Bronchitis, COPD, Emphysema Currently Using CPAP: No Currently Using BIPAP: No Cardiac: No Neurological: No 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 Disorders: Yes (HPV) Female 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 Disorders: Denies [employer] History: Hysterectomy, Menopausal HIV/AIDS: No Genitourinary: No Gastrointestinal: Yes Hemorrhoids, Polyps Musculoskeletal: Yes (CHRONIC NECK AND BACK PAIN--S/P CERVICAL AND LUMBAR SPINE SURGERIES) Chronic Back Pain Endocrine: No HEENT: No Cancer: No Psychosocial: Yes Anxiety, PTSD Integumentary: Yes (SHINGLES) Blood Disorders: No Family Medical History Cardiovascular disease G8 BROTHER Diabetes mellitus G8 BROTHER G8 BROTHER Hypertension G8 BROTHER Neoplasm 19 FATHER (LEUKEMIA LYMPHOMA) G8 BROTHER (LEUKEMIA) Respiratory disorder 19 FATHER 19 MOTHER G8 BROTHER Hypertension Physical Exam Vital Signs - First Documented 11/13/17 11/13/17 05:20 05:30 Temp 96.7 Pulse 116 Resp 16 B/P (MAP) 129/81 (97) Pulse Ox 100 O2 Delivery NIV Bilevel O2 Flow Rate 100.00 FiO2 100 Capillary Refill : Height: 5'4.00" Weight: 109lbs. 5.0oz. 49.177702gd; 18.8 BMI Method:Stated General Appearance: thin, other (LETHARGIC, BUT ABLE TO ANSWER YES/NO QUESTIONS AND OPENS EYES TO VOICE) Neck: normal inspection Respiratory: other (DECREASED AERATION IN ALL LUNG ORELLANA, WITH VERY FAINT WHEEZING BILATERALLY) Cardiovascular: no murmur, tachycardia Gastrointestinal: soft Extremities: no pedal edema, normal capillary refill (PULSES +2/4) Neurologic/Psychiatric: no motor/sensory deficits, oriented x 3, other ( LETHARGIC BUT DOES NOT APPEAR CONFUSED) Skin: normal color, warm/dry Focused Exam Lactate Level 11/13/17 05:24: Lactic Acid Level 2.06*H Lactic Acid Level Laboratory Tests Test 11/13/17 05:24 Lactic Acid Level 2.06 MMOL/L (0.50-2.00) *H Progress/Results/Core Measures Suspected Sepsis SIRS Temperature: Pulse: Respiratory Rate: Laboratory Tests 11/13/17 05:24: White Blood Count 11.0 Blood Pressure / Mean: 11/13/17 05:24: Lactic Acid Level 2.06*H Laboratory Tests 11/13/17 05:24: Creatinine 0.84, INR Comment 1.0, Platelet Count 247, Total Bilirubin 0.8 Results/Orders Lab Results Laboratory Tests Test 11/13/17 05:24 11/13/17 05:45 11/13/17 05:55 Range/Units White Blood Count 11.0 4.3-11.0 10^3/uL Red Blood Count 4.34 L 4.35-5.85 10^6/uL Hemoglobin 14.5 11.5-16.0 G/DL Hematocrit 43 35-52 % Mean Corpuscular Volume 100 H 80-99 FL Mean Corpuscular Hemoglobin 33 25-34 PG Mean Corpuscular Hemoglobin Concent 34 32-36 G/DL Red Cell Distribution Width 13.3 10.0-14.5 % Platelet Count 247 130-400 10^3/uL Mean Platelet Volume 9.8 7.4-10.4 FL Neutrophils (%) (Auto) 58 42-75 % Lymphocytes (%) (Auto) 30 12-44 % Monocytes (%) (Auto) 8 0-12 % Eosinophils (%) (Auto) 3 0-10 % Basophils (%) (Auto) 1 0-10 % Neutrophils # (Auto) 6.4 1.8-7.8 X 10^3 Lymphocytes # (Auto) 3.2 1.0-4.0 X 10^3 Monocytes # (Auto) 0.9 0.0-1.0 X 10^3 Eosinophils # (Auto) 0.3 0.0-0.3 10^3/uL Basophils # (Auto) 0.1 0.0-0.1 10^3/uL Prothrombin Time 13.6 12.2-14.7 SEC INR Comment 1.0 0.8-1.4 Activated Partial Thromboplast Time 24 24-35 SEC Sodium Level 138 135-145 MMOL/L Potassium Level 3.7 3.6-5.0 MMOL/L Chloride Level 104 98-107 MMOL/L Carbon Dioxide Level 22 21-32 MMOL/L Anion Gap 12 5-14 MMOL/L Blood Urea Nitrogen 6 L 7-18 MG/DL Creatinine 0.84 0.60-1.30 MG/DL Estimat Glomerular Filtration Rate > 60 BUN/Creatinine Ratio 7 Glucose Level 210 H 70-105 MG/DL Lactic Acid Level 2.06 *H 0.50-2.00 MMOL/L Calcium Level 8.8 8.5-10.1 MG/DL Corrected Calcium 8.6 8.5-10.1 MG/DL Magnesium Level 2.3 1.8-2.4 MG/DL Total Bilirubin 0.8 0.1-1.0 MG/DL Aspartate Amino Transf (AST/SGOT) 39 H 5-34 U/L Alanine Aminotransferase (ALT/SGPT) 21 0-55 U/L Alkaline Phosphatase 67 40-136 U/L Troponin I < 0.30 <0.30 NG/ML B-Type Natriuretic Peptide 32.7 <100.0 PG/ML Total Protein 7.0 6.4-8.2 GM/DL Albumin 4.2 3.2-4.5 GM/DL Valproic Acid (Depakene) Level 18.7 L 50.0-100.0 UG/ML Blood Gas Puncture Site RRAD Blood Gas Patient Temperature 96.7 Arterial Blood pH 7.27 *L 7.37-7.43 Arterial Blood Partial Pressure CO2 55 H 35-45 MMHG Arterial Blood Partial Pressure O2 285 H 79-93 MMHG Arterial Blood HCO3 25 23-27 MMOL/L Arterial Blood Total CO2 26.6 21.0-31.0 MMOL/L Arterial Blood Oxygen Saturation 100 94-100 % Arterial Blood Base Excess -1.4 -2.5-2.5 MMOL/L Rush Test YES-POS Blood Gas Ventilator Setting NO Blood Gas Inspired Oxygen 100 BIPAP Urine Color YELLOW Urine Clarity CLEAR Urine pH 6 5-9 Urine Specific [place] 1.020 1.016-1.022 Urine Protein 2+ H NEGATIVE Urine Glucose (UA) 3+ H NEGATIVE Urine Ketones NEGATIVE NEGATIVE Urine Nitrite NEGATIVE NEGATIVE Urine Bilirubin NEGATIVE NEGATIVE Urine Urobilinogen NORMAL NORMAL MG/DL Urine Leukocyte Esterase NEGATIVE NEGATIVE Urine RBC (Auto) 2+ H NEGATIVE Urine RBC 0-2 /HPF Urine WBC NONE /HPF Urine Squamous Epithelial Cells RARE /HPF Urine Crystals NONE /LPF Urine Bacteria TRACE /HPF Urine Casts PRESENT /LPF Urine Hyaline Casts 0-2 H /LPF Urine Mucus SMALL H /LPF Urine Culture Indicated NO My Orders Orders - SHAILESH HICKMAN DO Saline Lock/Iv-Start (11/13/17 05:21) Ekg Tracing (11/13/17 05:21) O2 (11/13/17 05:21) Monitor-Rhythm Ecg Trace Only (11/13/17 05:21) Arterial Blood Gas (11/13/17 05:21) BNP (11/13/17 05:21) Cbc With Automated Diff (11/13/17 05:21) Comprehensive Metabolic Panel (11/13/17 05:21) Lactic Acid Analyzer (11/13/17 05:21) Magnesium (11/13/17 05:21) Protime With Inr (11/13/17 05:21) Partial Thromboplastin Time (11/13/17 05:21) Troponin I (11/13/17 05:21) Ua Culture If Indicated (11/13/17 05:21) Blood Culture (11/13/17 05:21) Chest 1 View, Ap/Pa Only (11/13/17 05:21) O2 (11/13/17 05:21) Saline Lock/Iv-Start (11/13/17 05:21) Sputum Culture (11/13/17 05:21) Urine Culture (11/13/17 05:21) Saline Lock/Iv-Start (11/13/17 05:21) Saline Lock/Iv-Start (11/13/17 05:21) Vital Signs Adult Sepsis Patie Q15M (11/13/17 05:21) O2 (11/13/17 05:21) Remove Rings In Anticipation O (11/13/17 05:21) Ceftriaxone For Iv Use (Rocephin For I (11/13/17 05:30) Albuterol/Ipra Inhalation Soln (Duoneb I (11/13/17 05:30) Dexamethasone Injection (Decadron Inject (11/13/17 05:30) Rt Request For Service (11/13/17 05:21) Svn Small Volume Nebulizer (11/13/17 05:21) Svn Small Volume Nebulizer (11/13/17 05:21) Methylprednisolone Sod Succ (Solu-Medrol (11/13/17 05:30) Valproic Acid (11/13/17 05:21) Dexamethasone Injection (Decadron Inject (11/13/17 05:30) Dexamethasone Injection (Decadron Inject (11/13/17 05:27) Albuterol/Ipra Inhalation Soln (Duoneb I (11/13/17 05:27) Catheter(Urinary) Insert & Ass 03,15 (11/13/17 05:35) Medications Given in ED Current Medications Medications Dose Ordered Sig/Lulu Route Start Time Stop Time Status Last Admin Dose Admin Albuterol/ Ipratropium 3 ml ONCE ONCE INH 11/13/17 05:30 11/13/17 05:32 DC 11/13/17 05:30 3 ML Ceftriaxone Sodium 1000 mg/ Sodium Chloride 60 ml @ 100 mls/hr ONCE ONCE IV 11/13/17 05:30 11/13/17 06:05 DC 11/13/17 06:09 100 MLS/HR Dexamethasone Sodium Phosphate 20 mg ONCE ONCE IH 11/13/17 05:30 11/13/17 05:32 DC 11/13/17 05:30 20 MG Methylprednisolone Sodium Succinate 125 mg ONCE ONCE IVP 11/13/17 05:30 9/14/18 05:32 DC 11/13/17 05:41 125 MG Vital Signs/I&O 11/13/17 11/13/17 11/13/17 05:20 05:20 05:30 Temp 96.7 Pulse 116 108 Resp 16 18 B/P (MAP) 129/81 (97) Pulse Ox 100 100 100 O2 Delivery NIV Bilevel NIV/Bilevel O2 Flow Rate 100.00 FiO2 100 Capillary Refill : Progress Note : Progress Note PT IMMEDIATELY SWITCHED OVER TO BIPAP ON ARRIVAL AND DUONEB TREATMENT GIVEN O2 SAT 100% 0600--PT FEELING MUCH BETTER, PT IS MUCH MORE ALERT, AWAKE, AND TALKING IN FULL SENTENCES RESPIRATIONS EVEN AND UNLABORED INCREASED AERATION AND DECREASED WHEEZING O2 SATS REMAIN AT 100% NO DETERIORATION IN PT'S CONDITION DURING ER STAY ECG Initial ECG Impression Date: Nov 13, 2017 Initial ECG Impression Time: 05:29 Initial ECG Rate: 113 Initial ECG Rhythm: S.Tach Initial ECG Comparisson: Unchanged Diagnostic Imaging Comments CXR--NO ACUTE PROCESS, PER RADIOLOGIST REPORT @ 0603 Reviewed: Reviewed by Me Departure Communication (Admissions) 0617--SPOKE WITH DR. GRAVES, ACCEPTS PT FOR ADMIT. WANTS DR. REID CONSULTED 0619--SPOKE WITH DR. REID, FOR PULMONOLOGY CONSULT. Impression Primary Impression: Acute on chronic respiratory failure with hypoxia and hypercapnia Additional Impressions: Lactic acidosis COPD with exacerbation Disposition: ADMITTED INPATIENT Condition: Improved Admissions Decision to Admit Reason: Admit from ER (General) Decision to Admit/Date: Nov 13, 2017 Time/Decision to Admit Time: 06:20 Departure-Patient Inst. Referrals: GEORGINA GARCIA DO (PCP/Family) Primary Care Physician SHAILESH HICKMAN DO Nov 13, 2017 05:43
[2017-11-13 05:52] LABS: ABG BASE EXCESS -1.4 MMOL/L (-2.5-2.5); ABG OXYGEN SATURATION 100 % (94-100); ABG PCO2 55 MMHG (35-45); ABG PO2 285 MMHG (79-93); ABG TCO2 26.6 MMOL/L (21.0-31.0); ALLENS TEST YES-POS; INSPIRED O2 100 BIPAP; VENTILATOR NO
[2017-11-13 05:52] LABS: PROTHROMBIN TIME PATIENT 13.6 SEC (12.2-14.7)
[2017-11-13 05:53] LABS: PATIENT TEMP 96.7
[2017-11-13 05:54] LABS: ABG PH 7.27 (7.37-7.43)
--- NOTE | 2017-11-13 06:00 | Diagnostic Imaging Report ---
CHEST 1 VIEW, AP/PA ONLY Indication: Shortness of air Comparison: 09/01/2017 Findings: No focal airspace disease in the visualized lungs. Please note that the posterior lower lobes are poorly evaluated by portable radiography. No pleural effusion or pneumothorax. Normal cardiomediastinal silhouette. Impression: No acute cardiopulmonary process by portable radiography. Dictated by: Dictated on workstation # [id number]
[2017-11-13 06:02] LABS: ALANINE AMINOTRANSFERASE 21 U/L (0-55); ALBUMIN 4.2 GM/DL (3.2-4.5); ALKALINE PHOSPHATASE 67 U/L (40-136); BILIRUBIN,TOTAL 0.8 MG/DL (0.1-1.0); BUN/CREATININE RATIO 7; CALCIUM 8.8 MG/DL (8.5-10.1); CARBON DIOXIDE 22 MMOL/L (21-32); CHLORIDE 104 MMOL/L (98-107); CREATININE SERUM 0.84 MG/DL (0.60-1.30); GFR ESTIMATED > 60; GLUCOSE 210 MG/DL (70-105); MAGNESIUM 2.3 MG/DL (1.8-2.4); POTASSIUM 3.7 MMOL/L (3.6-5.0); SODIUM 138 MMOL/L (135-145)
[2017-11-13 06:10] LABS: VALPROIC ACID 18.7 UG/ML (50.0-100.0)
[2017-11-13 06:24] LABS: BILIRUBIN,URINE NEGATIVE (NEGATIVE); CLARITY,URINE CLEAR; COLOR,URINE YELLOW; GLUCOSE, URINE (UA) 3+ (NEGATIVE); KETONES,URINE NEGATIVE (NEGATIVE); LEUKOCYTE ESTERASE ,URINE NEGATIVE (NEGATIVE); NITRITE,URINE NEGATIVE (NEGATIVE); PH,URINE 6 (5-9); PROTEIN,URINE 2+ (NEGATIVE); UROBILINOGEN,URINE NORMAL (NORMAL)
[2017-11-13 06:31] LABS: RBC,URINE 0-2 /HPF
[2017-11-13 06:32] LABS: BACTERIA,URINE TRACE /HPF; HYALINE CASTS, URINE 0-2 /LPF; SQUAMOUS EPITHELIAL CELL,UR RARE /HPF
--- OUTSIDE RECORDS SUMMARY | 2017-11-13 06:38 | XMS REPORT | Continuity of Care Document ---
Author Author [facility] Organization [facility] Address Unknown Phone Unavailable Allergies Active Description Code Type Severity Reaction Onset Reported/Identified Relationship to Patient Clinical Status Yes penicillin [id number] Drug Allergy Unknown N/A 09/29/2014 Yes Sulfa (Sulfonamide Antibiotics) [id number] Drug Allergy Unknown SOB, SWELLING, 09/29/2014 Medications [...] 02/02/2016 FIOR PARRA APRN Ot Z79.899 OTHER LONG-TERM (CURRENT) DRUG THERAPY 02/04/2016 FIOR PARRA APRN Ot F17.210 NICOTINE DEPENDENCE, CIGARETTES, UNCOMPL 02/04/2016 FIOR PARRA APRN Ot J44.1 CHRONIC OBSTRUCTIVE PULMONARY DISEASE W 02/04/2016 FIOR PARRA APRN Ot R06.02 SHORTNESS OF BREATH 02/04/2016 FIOR PARRA APRN Ot Z79.899 OTHER LONG-TERM (CURRENT) DRUG THERAPY 02/08/2016 GEORGINA GARCIA DO Ot J18.9 PNEUMONIA, UNSPECIFIED ORGANISM 03/20/2016 CARLOS ALBERTO GARCIA L CADDIE SUPERVISOR Ot J44.9 CHRONIC OBSTRUCTIVE PULMONARY DISEASE, U 03/20/2016 SHAY GARCIAIA L CADDIE SUPERVISOR Ot R09.02 HYPOXEMIA 03/25/2016 DONN GARCIARICIA L CADDIE SUPERVISOR Ot J44.9 CHRONIC OBSTRUCTIVE PULMONARY DISEASE, U 03/25/2016 DONN GARCIARICIA L CADDIE SUPERVISOR Ot R09.02 HYPOXEMIA 04/22/2016 SHAY GARCIAIA L CADDIE SUPERVISOR Ot J44.9 CHRONIC OBSTRUCTIVE PULMONARY DISEASE, U 04/22/2016 SHAY GARCIAIA L CADDIE SUPERVISOR Ot R09.02 HYPOXEMIA 05/07/2016 SHAY GARCIAIA L CADDIE SUPERVISOR Ot J44.9 CHRONIC OBSTRUCTIVE PULMONARY DISEASE, U 05/07/2016 CARLOS ALBERTO GARCIA L CADDIE SUPERVISOR Ot R09.02 HYPOXEMIA 08/13/2016 DANIELLE GA MD [...] GA MD Ot Z91.19 PATIENT'S NONCOMPLIANCE W [facility] 08/13/2016 DANIELLE GA MD [...] GA MD Ot Z91.19 PATIENT'S NONCOMPLIANCE W [facility] 08/14/2016 DANIELLE GA MD [...] GA MD Ot Z91.19 PATIENT'S NONCOMPLIANCE W [facility] 08/14/2016 DANIELLE GA MD [...] GA MD Ot Z91.19 PATIENT'S NONCOMPLIANCE W [facility] 08/14/2016 DANIELLE GA MD Ot Z99.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 OXYGEN 2016 DANIELLE GA MD Ot F17.210 NICOTINE DEPENDENCE, CIGARETTES, UNCOMPL 2016 DANIELLE GA MD Ot J44.1 CHRONIC OBSTRUCTIVE PULMONARY DISEASE W 2016 DANIELLE GA MD Ot J96.21 ACUTE AND CHRONIC RESPIRATORY FAILURE [place] 2016 DANIELLE GA MD Ot R51 HEADACHE 11/21/2016 Ot V72.84 EXAM PRE- OPERATIVE NOS 11/21/2016 DEYA JJ MD Ot V12.72 PERSONAL HISTORY [...] GA MD Ot J43.9 EMPHYSEMA, UNSPECIFIED 06/10/2017 DAINELLE GA MD Ot J96.22 ACUTE AND CHRONIC [...] BREATH 09/01/2017 DANIELLE GA MD Ot Z79.51 LONG-TERM (CURRENT) USE OF INHALED STERO 09/01/2017 DANIELLE GA MD Ot Z79.52 LONG-TERM (CURRENT) USE OF SYSTEMIC STER 09/01/2017 DANIELLE [...] BREATH 09/03/2017 DANIELLE GA MD Ot Z79.51 LONG-TERM (CURRENT) USE OF INHALED STERO 09/03/2017 DANIELLE GA MD Ot Z79.52 LONG-TERM (CURRENT) USE OF SYSTEMIC STER 09/03/2017 DANIELLE [...] PNEUMONIA, UNSPECIFIED ORGANISM 10/28/2017 CARLOS ALBERTO GARCIA CADDIE SUPERVISOR Ot J44.9 CHRONIC OBSTRUCTIVE PULMONARY DISEASE, U 10/28/2017 CARLOS ALBERTO GARCIAP Ot R09.02 HYPOXEMIA 10/28/2017 IVKA CHIN MD Ot R91.8 OTHER NONSPECIFIC ABNORMAL [...] GRAM STAIN SPUTUM AND MIXED BACTERIAL CATIA [facility] Bacterial sputum culture - 12/31/15 17:45 Bacterial sputum culture NORMAL [facility] Comprehensive metabolic panel - 02/02/16 14:40 Serum [...] NRG Blood erythrocyte morphology finding identification NORMAL [facility] Comprehensive metabolic panel - 08/13/16 01:47 Serum [...] OF GROWTH Isolated NRG Bacterial blood culture [id number] NRG Blood lactic acid measurement (moles/volume) - [...] NRG Measurement of body temperature 98.1 NRG Complete blood count (CBC) with automated white blood cell (WBC) differential - 11/13/17 05:24 Blood leukocytes automated count (number/volume) 11.0 10*3/uL 4.3-11.0 Blood erythrocytes automated count (number/volume) 4.34 10*6/uL 4.35-5.85 Venous blood hemoglobin measurement (mass/volume) 14.5 g/dL 11.5-16.0 Blood hematocrit (volume fraction) 43 % 35-52 Automated erythrocyte mean corpuscular volume 100 [foz_us] 80-99 Automated erythrocyte mean corpuscular hemoglobin (mass per erythrocyte) 33 pg 25-34 Automated erythrocyte mean corpuscular hemoglobin concentration measurement ( mass/volume) 34 g/dL 32-36 Automated erythrocyte distribution width ratio 13.3 % 10.0-14.5 Automated blood platelet count (count/volume) 247 10*3/uL 130-400 Automated blood platelet mean volume measurement 9.8 [foz_us] 7.4-10.4 Automated blood neutrophils/100 leukocytes 58 % 42-75 Automated blood lymphocytes/100 leukocytes 30 % 12-44 Blood monocytes/100 leukocytes 8 % 0-12 Automated blood eosinophils/100 leukocytes 3 % 0-10 Automated blood basophils/100 leukocytes 1 % 0-10 Blood neutrophils automated count (number/volume) 6.4 10*3 1.8-7.8 Blood lymphocytes automated count (number/volume) 3.2 10*3 1.0-4.0 Blood monocytes automated count (number/volume) 0.9 10*3 0.0-1.0 Automated eosinophil count 0.3 10*3/uL 0.0-0.3 Automated blood basophil count (count/volume) 0.1 10*3/uL 0.0-0.1 PT panel in platelet poor plasma by coagulation assay - 11/13/17 05:24 Prothrombin time (PT) in platelet poor plasma by coagulation assay 13.6 s 12.2-14.7 INR in platelet poor plasma or blood by coagulation assay 1.0 0.8-1.4 Activated partial thromboplastin time (aPTT) in platelet poor plasma bycoagulation assay - 11/13/17 05:24 Activated partial thromboplastin time (aPTT) in platelet poor plasma bycoagulation assay 24 s 24-35 Blood lactic acid measurement (moles/volume) - 11/13/17 05:24 Blood lactic acid measurement (moles/volume) 2.06 mmol/L 0.50-2.00 Comprehensive metabolic panel - 11/13/17 05:24 Serum or plasma sodium measurement (moles/volume) 138 mmol/L 135-145 Serum or plasma potassium measurement (moles/volume) 3.7 mmol/L 3.6-5.0 Serum or plasma chloride measurement (moles/volume) 104 mmol/L 98-107 Carbon dioxide 22 mmol/L 21-32 Serum or plasma anion gap determination (moles/volume) 12 mmol/L 5-14 Serum or plasma urea nitrogen measurement (mass/volume) 6 mg/dL 7-18 Serum or plasma creatinine measurement (mass/volume) 0.84 mg/dL 0.60-1.30 Serum or plasma urea nitrogen/creatinine mass ratio 7 NRG Serum or plasma creatinine measurement with calculation of estimated glomerular filtration rate > NRG Serum or plasma glucose measurement (mass/volume) 210 mg/dL 70-105 Serum or plasma calcium measurement (mass/volume) 8.8 mg/dL 8.5-10.1 Serum or plasma total bilirubin measurement (mass/volume) 0.8 mg/dL 0.1-1.0 Serum or plasma alkaline phosphatase measurement (enzymatic activity/volume) 67 U/L 40-136 Serum or plasma aspartate aminotransferase measurement (enzymatic activity/ volume) 39 U/L 5-34 Serum or plasma alanine aminotransferase measurement (enzymatic activity/volume ) 21 U/L 0-55 Serum or plasma protein measurement (mass/volume) 7.0 g/dL 6.4-8.2 Serum or plasma albumin measurement (mass/volume) 4.2 g/dL 3.2-4.5 CALCIUM CORRECTED 8.6 mg/dL 8.5-10.1 Magnesium - 11/13/17 05:24 Magnesium 2.3 mg/dL 1.8-2.4 Serum or plasma troponin i.cardiac measurement (mass/volume) - 11/13/17 05:24 Serum or plasma troponin i.cardiac measurement (mass/volume) < ng/ mL <0.30 Serum or plasma lithium measurement (moles/volume) - 11/13/17 05:24 BNP level 32.7 pg/mL <100.0 [id number] - 11/13/17 05:24 [id number] 18.7 ug/mL 50.0-100.0 Arterial blood gas measurement - 11/13/17 05:45 Blood pCO2 55 mm[Hg] 35-45 Blood pO2 285 mm[Hg] 79-93 Arterial blood bicarbonate measurement (moles/volume) 25 mmol/L 23-27 Arterial blood base excess by calculation -1.4 mmol/L - 2.5-2.5 Arterial blood oxygen saturation measurement 100 % 94- 100 * Inhaled oxygen flow rate 100 BIPAP NRG Arterial blood pH measurement with patient temperature correction 7.27 7.37-7.43 Arterial blood carbon dioxide, total measurement (moles/volume) 26.6 mmol/L 21.0-31.0 Body site RRAD NRG Assessment of wrist artery patency prior to arterial puncture YES- POS NRG Setting of ventilation mode NO NRG Measurement of body temperature 96.7 NRG Complete urinalysis with reflex to culture - 11/13/17 05:55 Urine color determination YELLOW NRG Urine clarity determination CLEAR NRG Urine pH measurement by test strip 6 5-9 Specific gravity of urine by test strip 1.020 1.016- 1.022 Urine protein assay by test strip, semi-quantitative 2+ NEGATIVE Urine glucose detection by automated test strip 3+ NEGATIVE Erythrocytes detection in urine sediment by [...] detection in urine sediment by light microscopy TRACE NRG Squamous epithelial cells detection in urine sediment by light microscopy RARE NRG Crystals detection in urine sediment by light microscopy NONE NRG Casts detection in urine sediment by light microscopy PRESENT NRG Mucus detection in urine sediment by light microscopy SMALL NRG Complete urinalysis with reflex to culture NO NRG Hyaline casts detection in urine sediment by light microscopy 0-2 NRG Encounters ACCT No. Visit Date/Time Discharge Status Pt. Type Provider Facility Loc./Unit Complaint [id number] 11/03/2017 08:58:00 11/03/2017 23:59:59 CLS Outpatient VIKA CHIN MD [facility] RAD R91.8 [id number] 09/01/2017 14:58:00 09/01/2017 18:30:00 DIS Emergency DANIELLE GA MD [facility] ER SOA [id number] 07/30/2017 08:30:00 07/30/2017 23:59:59 CLS Preadmit GEORGINA GARCIA DO [facility] CARD R00.2 [id number] 04/30/2017 08:26:00 07/29/2017 00:01:00 DIS Outpatient GEORGINA GARCIA DO [facility] CARD R00.2 [id number] 06/08/2017 09:40:00 06/10/2017 11:30:00 DIS Inpatient DANIELLE GA MD [facility] 4TH COPD ACUTE EXACERBATION, HYPOXIA [id number] 04/17/2017 11:00:00 04/19/2017 12:46:00 DIS Inpatient KRYSTYNA GRAVES DO [facility] 4TH COPD IN EXACERBATION [id number] 11/25/2016 13:14:00 11/25/2016 23:59:59 CLS Outpatient VIKA CHIN MD [facility] RAD SCREENING [id number] 10/02/2016 12:11:00 10/02/2016 23:59:59 CLS Preadmit VIKA CHIN MD [facility] RAD COPD,HX OF SMOKING [id number] 09/30/2016 06:15:00 2016 13:45:00 DIS Inpatient DANIELLE GA MD [facility] 4TH RESPIRATORY FAILURE,COPD EX [id number] 08/13/2016 03:34:00 08/14/2016 12:30:00 DIS Inpatient DANIELLE GA MD [facility] 4TH ACUTE EXACERBATION OF COPD [id number] 03/19/2016 15:03:00 03/19/2016 23:59:59 CLS Outpatient CARLOS ALBERTO GARCIA [facility] RT J44.9, R09.02 [id number] 02/02/2016 14:37:00 02/02/2016 16:52:00 DIS Emergency FIOR PARRA METER INSTALLER AND REMOVER [facility] ER SOA [id number] 01/17/2016 14:18:00 01/17/2016 23:59:59 CLS Outpatient GEORGINA GARCIA DO [facility] RAD PNEUMONIA [id number] 12/31/2015 17:22:00 12/31/2015 23:59:59 CLS Outpatient GEORGINA GARCIA DO [facility] RAD J18.9 [id number] 09/29/2014 09:19:00 09/29/2014 12:00:00 DIS Outpatient DEYA JJ MD [facility] SDC SCREENING,HISTORY OF POLYPS [id number] 09/28/2014 06:36:00 09/28/2014 23:59:59 CLS Outpatient DEYA JJ MD [facility] PREOP HISTORY OF POLYPS [id number] 06/06/2013 18:50:00 06/06/2013 23:59:59 CLS Outpatient [id number] 11/13/2017 06:20:00 ACT Inpatient KRYSTYNA GRAVES DO [facility] ICU ACUTE ON CHRONIC RESPIRATORY FAILURE;COPD; [id number] 11/26/2011 06:32:00 Document Registration [id number] 11/25/2011 08:24:00 Document Registration [id number] 05/02/2011 09:40:00 Document Registration [id number] 01/12/2011 22:12:00 Document Registration [id number] 10/08/2016 10:00:00 02/25/2017 15:48:00 DIS Outpatient Lawrence Ravi [id number] 10/06/2016 12:41:00 10/06/2016 23:59:00 DIS Outpatient Lawrence Ravi
[2017-11-13] MEDS ORDERED: CATHETER FLUSH 10 ML SYR IV PRN (08:15)
[2017-11-13] MEDS ORDERED: LEVO500T80 PO (08:51)
[2017-11-13] MEDS ORDERED: AZITHROMYCIN 500 MG/NS 250 ML IVPB IV SCH ×2 (09:00)
[2017-11-13] MEDS ORDERED: RT-ALBUTEROL/IPRATROPIUM 3 ML (DUONEB) VIAL INH PRN (09:30)
--- NOTE | 2017-11-13 10:01 | History & Physical-Hospitalist ---
BRENDA PARRA MEDICAL STUDENT 11/13/17 1001: History of Present Illness HPI/Chief Complaint 67 year old female with history of COPD with multiple previous hospitalizations (last 06/17) with one week of congestion, productive cough, and dyspnea admitted after acute worsening of dyspnea and respiratory failure. Pt saw PCP, Dr. Bermeo on Thursday, who diagnosed her with sinus infection and gave her Levaquin. She felt feverish throughout the week and continued to have productive cough, dyspnea and congestion. During this time, she has not felt that her CPAP with 2.5 L oxygen has been working right - it seems as if it is not pushing enough air through, she says. This morning, her noted her to be lethargic with severe dyspnea and called EMS. EMS found her to have O2 saturation of 50% on RA and put on a CPAP with oxygen with improvement to 98%. They also noted a systolic in the 200s. Duonebs were administered with improvement in mental status. Other symptoms include constipation and a new sore that has developed over her sacrum. She follows with Dr. Adrian for KALIE nodule, for which she has serial CTs last one last week. Source: patient Exam Limitations: no limitations Date Seen 11/13/17 Time Seen by Provider: 08:45 Attending Physician Nasra Graves DO PCP Mehul Bermeo DO Referring Physician Date of Admission Nov 13, 2017 at 06:20 Home Medications & Allergies Home Medications Reviewed patient Home Medication Reconciliation performed by pharmacy medication reconciliations cadd technician and/or nursing. Patients Allergies have been reviewed. Allergies Allergies Coded Allergies Sulfa (Sulfonamide Antibiotics) (Unverified Allergy, Unknown, SOB, SWELLING, RASH, 09/29/14) penicillin (Unverified Allergy, Unknown, Pt has received Ceftriaxone w/o issue , 11/13/17) Past Tvoglsw-Boweab-Nlthnz Hx Patient Social History Marrital Status: Living Status: Lives with Employed/Student: retired (From [employer]) Alcohol Use: Occasionally Uses Number of Drinks Today: AA Alcohol Beverage of Choice: Beer (1 beer per night) Recreational Drug Use: No Smoking Status: Current Everyday Smoker Type Used: Cigarettes 2nd Hand Smoke Exposure: Yes Physical Abuse Screen: No Sexual Abuse: No Recent Foreign Travel: No Contact w/other who traveled: No Recent Hopitalizations: No Recent Infectious Disease Expo: No Immunizations Up To Date Tetanus Booster (TDap): Unknown Pediatric: Yes Date of Pneumonia Vaccine: Dec 01, 2016 Date of Influenza Vaccine: Dec 01, 2016 Seasonal Allergies Seasonal Allergies: No Past Medical History Surgeries: Appendectomy, Gallbladder, Hysterectomy, Orthopedic Respiratory: COPD, Emphysema, Pneumonia Currently Using CPAP: No Currently Using BIPAP: No : No 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: Yes (HPV) HIV/AIDS: No Female 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 Disorders: Denies Hysterectomy, Menopausal Gastrointestinal: Hemorrhoids, Polyps Musculoskeletal: Chronic Back Pain Psychosocial: Anxiety, PTSD History of Blood Disorders: No Adverse Reaction to Blood Crespo: No Family History Cardiovascular disease G8 BROTHER Diabetes mellitus G8 BROTHER G8 BROTHER Hypertension G8 BROTHER Neoplasm 19 FATHER (LEUKEMIA LYMPHOMA) G8 BROTHER (LEUKEMIA) Respiratory disorder 19 FATHER 19 MOTHER G8 BROTHER Hypertension Review of Systems Constitutional: chills, fever EENTM: nose congestion; No throat pain Respiratory: cough, phlegm, short of breath Cardiovascular: No chest pain, No edema Gastrointestinal: No abdominal pain; constipation; No diarrhea Genitourinary: no symptoms reported Musculoskeletal: no symptoms reported Skin: no symptoms reported Psychiatric/Neurological: Anxiety Physical Exam Physical Exam Vital Signs Vital Signs - First Documented 11/13/17 11/13/17 05:20 05:30 Temp 96.7 Pulse 116 Resp 16 B/P (MAP) 129/81 (97) Pulse Ox 100 O2 Delivery NIV Bilevel O2 Flow Rate 100.00 FiO2 100 Capillary Refill : Less Than 3 Seconds Height, Weight, BMI Height: 5'4.00" Weight: 116lbs. 9.6oz. 52.868071ht; 20.0 BMI Method:Stated General Appearance: WD/WN, Other (On BiPap, appears comfortable. ) Respiratory: Chest Non Tender, Decreased Breath Sounds; No Wheezing (No prominent wheezing heard. ) Cardiovascular: Regular Rate, Rhythm, No Edema, No Murmur Gastrointestinal: Normal Bowel Sounds, Non Tender, Soft Extremity: No Pedal Edema Neurologic/Psychiatric: Alert, Oriented x3 Skin: Normal Color, Warm/Dry Results Results/Procedures Labs Laboratory Tests 11/13/17 05:24 Patient resulted labs reviewed. Assessment/Plan Admission Diagnosis Acute on chronic hypoxic respiratory failure Admission Status: Inpatient Order (span 2 midnights) Assessment and Plan 67 year-old with a history of COPD with multiple previous hospitalizations for this now admitted for acute hypoxic respiratory failure secondary to a COPD exacerbation. Acute respiratory failure secondary to COPD exacerbation: Lactate 2.06 admission , troponin negative and BNP normal. -Duonebs Q4H -Solumedrol given in ED, now given Q6H -On BiPAP with saturation >92% -On Azithromycin and CTX Decubitus Ulcer -Dressing changes as needed Constipation -Will provide bowel regimen Dispo: Continue ICU admission until off BiPAP, then will transfer to the floor. Diagnosis/Problems Diagnosis/Problems (1) Decubitus ulcer of back Status: Acute Qualifiers: Pressure injury stage: stage 1 Qualified Codes: L89.101 - Pressure ulcer of unspecified part of back, stage 1 (2) COPD with exacerbation Status: Acute (3) Acute on chronic respiratory failure with hypoxia and hypercapnia Status: Acute (4) Lactic acidosis Status: Acute (5) Anxiety Status: Chronic Clinical Quality Measures DVT/VTE Risk/Contraindication: Risk Factor Score Per Nursin RFS Level Per Nursing on Admit: 4+=Very High NASRA GRAVES DO 11/13/17 1035: History of Present Illness HPI/Chief Complaint CC: Dyspnea HPI: This is a 67-year-old white female with severe COPD due to smoking who is known to me from prior hospital stays his primary care provider is Dr. Bermeo and coatings inspector is Dr. Adrian who was recently seen by her primary care provider placed on Levaquin for empiric coverage of bronchitis and had follow- up plan for CT scan was obtained to check lung nodules. Patient is currently on BiPAP much improved after nebulizer treatments BiPAP and oxygen supplementation. She has been placed on empiric antibiotic for bronchitis and at the bedside reports she is doing much better. He reports that she's been doing extremely well at home prior to this but patient has such severe COPD that I believe that she limits her activities because of her COPD and she does have a decubitus ulcer on her sacrum that likely as a result from sitting in a chair and lying in bed a lot. Source: patient, family, RN/MD Exam Limitations: no limitations Time Seen by Provider: 10:00 Home Medications & Allergies Home Medications Reviewed Past Wsmwkud-Nbmvhu-Bwdygq Hx Past Med/Social Hx: Reviewed Nursing Past Med/Soc Hx, Reviewed and Corrections made Patient Social History Marrital Status: Type Used: Cigarettes Past Medical History Surgeries: Appendectomy, Gallbladder, Hysterectomy, Orthopedic Respiratory: Chronic Bronchitis, COPD, Emphysema, Pneumonia Female 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 Disorders: Denies Hysterectomy, Menopausal Gastrointestinal: Hemorrhoids, Polyps Musculoskeletal: Chronic Back Pain Psychosocial: Anxiety, PTSD Family History Cardiovascular disease G8 BROTHER Diabetes mellitus G8 BROTHER G8 BROTHER Hypertension G8 BROTHER Neoplasm 19 FATHER (LEUKEMIA LYMPHOMA) G8 BROTHER (LEUKEMIA) Respiratory disorder 19 FATHER 19 MOTHER G8 BROTHER Hypertension Review of Systems Constitutional: chills, fever, weakness EENTM: nose congestion Respiratory: cough, phlegm, short of breath, wheezing Gastrointestinal: no symptoms reported Genitourinary: no symptoms reported Musculoskeletal: no symptoms reported Skin: no symptoms reported Psychiatric/Neurological: Anxiety All Other Systems Reviewed Negative Unless Noted: Yes Physical Exam Physical Exam General Appearance: No Apparent Distress, WD/WN Eyes: Bilateral Eye Normal Inspection, Bilateral Eye PERRL HEENT: PERRL/EOMI, TMs Normal, Normal ENT Inspection, Pharynx Normal Neck: Full Range of Motion, Normal Inspection, Non Tender, Supple, Carotid Bruit Respiratory: Chest Non Tender, Lungs Clear, Accessory Muscle Use, Crackles, Decreased Breath Sounds, Respiratory Distress Cardiovascular: Regular Rate, Rhythm, No Edema, No Gallop, No JVD, No Murmur, Normal Peripheral Pulses Gastrointestinal: Normal Bowel Sounds, No Organomegaly, No Pulsatile Mass, Non Tender, Soft Back: Normal Inspection, No CVA Tenderness, No Vertebral Tenderness Extremity: Normal Capillary Refill, Normal Inspection, Normal Range of Motion, Non Tender, No Calf Tenderness, No Pedal Edema Neurologic/Psychiatric: Alert, Oriented x3, No Motor/Sensory Deficits, Normal Mood/Affect Skin: Normal Color, Warm/Dry Lymphatic: No Adenopathy Assessment/Plan Admission Diagnosis Respiratory failure Bronchitis Anxiety PTSD Plan: BiPAP O2 Nebs Home meds Monitor closely Admission Status: Inpatient Order (span 2 midnights) Reason for Inpatient Admission: Respiratory failure requiring biPAP due to severe COPD Diagnosis/Problems Diagnosis/Problems (1) Acute on chronic respiratory failure with hypoxia and hypercapnia Status: Acute (2) COPD with exacerbation Status: Acute (3) Decubitus ulcer of back Status: Acute Qualifiers: Pressure injury stage: stage 1 Qualified Codes: L89.101 - Pressure ulcer of unspecified part of back, stage 1 (4) Lactic acidosis Status: Acute Assessment & Plan: Due to hypoxia (5) Anxiety Status: Chronic PARRA,BRENDA MEDICAL STUDENT Nov 13, 2017 10:01 NASRA GRAVES DO Nov 13, 2017 10:35
[2017-11-13] MEDS: RT-ALBUTEROL/IPRATROPIUM 3 ML (DUONEB) VIAL INH SCH ×4 (10:18→22:31)
[2017-11-13] MEDS ORDERED: fentaNYL INJECTION 100 MCG/2 ML AMP IVP PRN (10:45)
[2017-11-13] MEDS ORDERED: [UNRECOGNIZED DRUG - OTHER] PO PRN (10:45)
[2017-11-13] MEDS ORDERED: ACETAMINOPHEN 500 MG TAB (TYLENOL) PO PRN (10:45)
[2017-11-13] MEDS ORDERED: DOCUSATE SODIUM 100 MG (COLACE) CAP PO PRN (10:45)
[2017-11-13] MEDS ORDERED: RT-ALBUTEROL SULF 2.5 MG/3 ML PRE-MIX VIAL INH PRN (10:45)
[2017-11-13] MEDS ORDERED: LORazepam INJ 2 MG/ML (ATIVAN) VIAL IVP PRN (10:45)
[2017-11-13] MEDS ORDERED: GUAIFEN PO PRN (10:45)
[2017-11-13] MEDS ORDERED: HYDROcodone/APAP 5 MG/325 MG (LORTAB) TAB PO PRN (10:45)
[2017-11-13] MEDS ORDERED: ONDANSETRON 4 MG/2 ML (SDV) Z0FRAN IVP PRN (10:45)
[2017-11-13] MEDS ORDERED: DEXTROMETHORPHAN PO PRN (10:45)
--- NOTE | 2017-11-13 11:16 | Pulmonary Consultation ---
History of Present Illness History of Present Illness Date of Consultation 11/13/17 11:10 Time Seen by Provider: 11:10 Date of Admission History of Present Illness 67yo with a hx of KALIE nodule (follows with Dr. Adrian), PATRICIA, severe COPD and multiple hospitalizations last admit was 06/17 secondary to respiratory failure, and increased lethargy . Pt's Sp02 was 50% on RA per EMS. EMS placed pt on CPAP and Sp02 improved to 98%. She was also found to have SBP of 200's Allergies and Home Medications Allergies Coded Allergies: Sulfa (Sulfonamide Antibiotics) (Unverified Allergy, Unknown, SOB, SWELLING, RASH, 09/29/14) penicillin (Unverified Allergy, Unknown, Pt has received Ceftriaxone w/o issue, 11/13/17) Home Medications Albuterol Sulfate 18 Gm Hfa.aer.ad, 2 PUFF INH Q6H PRN for WHEEZING, (Reported) Clonazepam 1 Mg Tablet, 1.5 MG PO BID, (Reported) TAKES 1 & 1/2 (1MG) TABLET Divalproex Sodium 250 Mg Tablet.dr, 250 MG PO BID, (Reported) Fluticasone/Salmeterol 12 Gm Hfa.aer.ad, 12 GM IH BID Prescribed by: LAURA GREEN on 11/14/17 1123 Guaifen/Dextromethorphan/PE 180 Ml Liquid, 20 ML PO Q4H PRN for COUGH, (Reported ) Ipratropium [place] 0.2 Mg/1 Ml Solution, 1 VIAL NEB TID PRN for SHORTNESS OF BREATH, (Reported) Prednisone 10 Mg Tab.ds.pk, 10 MG PO DAILY Take 6 tabs(60mg)daily,decrease by 1 tab(10MG)daily. Prescribed by: LAURA GREEN on 11/14/17 1119 Roflumilast 500 Mcg Tablet, 500 MCG PO DAILY, (Reported) Umeclidinium Brm/Vilanterol Tr 1 Each Blst.w.dev, 1 PUFF INH DAILY, (Reported) Past Gpdeiln-Sdvpyk-Icaacs Hx Past Med/Social Hx: Reviewed Nursing Past Med/Soc Hx, Reviewed and Corrections made Patient Social History Alcohol Use: Occasionally Uses Number of Drinks Today: AA Alcohol Beverage of Choice: Beer (1 beer per night) Recreational Drug Use: No Smoking Status: Current Everyday Smoker Type Used: Cigarettes 2nd Hand Smoke Exposure: Yes Recent Foreign Travel: No Contact w/Someone Who Travel: No Recent Infectious Disease Expo: No Recent Hopitalizations: No Immunizations Up To Date Tetanus Booster (TDap): Unknown PED Vaccines UTD: Yes Date of Pneumonia Vaccine: Dec 01, 2016 Date of Influenza Vaccine: Dec 01, 2016 Seasonal Allergies Seasonal Allergies: No Past Medical History Surgeries: Yes Appendectomy, Gallbladder, Hysterectomy, Orthopedic Respiratory: Yes Asthma, Pneumonia, Chronic Bronchitis, COPD, Emphysema Currently Using CPAP: No Currently Using BIPAP: No Cardiac: No Neurological: No : No 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 Disorders: Yes (HPV) Female 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 Disorders: Denies [employer] History: Hysterectomy, Menopausal HIV/AIDS: No Genitourinary: No Gastrointestinal: Yes Hemorrhoids, Polyps Musculoskeletal: Yes (CHRONIC NECK AND BACK PAIN--S/P CERVICAL AND LUMBAR SPINE SURGERIES) Chronic Back Pain Endocrine: No HEENT: No Cancer: No Psychosocial: Yes Anxiety, PTSD Integumentary: Yes (SHINGLES) Blood Disorders: No Adverse Reaction/Blood Tranf: No Family Medical History Cardiovascular disease G8 BROTHER Diabetes mellitus G8 BROTHER G8 BROTHER Hypertension G8 BROTHER Neoplasm 19 FATHER (LEUKEMIA LYMPHOMA) G8 BROTHER (LEUKEMIA) Respiratory disorder 19 FATHER 19 MOTHER G8 BROTHER Hypertension Review of Systems Time Seen by Provider: 12:31 Sepsis Event Evaluation Height, Weight, BMI Height: 5'4.00" Weight: 116lbs. 9.6oz. 52.251018qj; 20.0 BMI Method:Stated Exam Exam Vital Signs Date Time Temp Pulse Resp B/P (MAP) Pulse Ox O2 Delivery O2 Flow Rate FiO2 11/13/17 10:45 91 26 125/79 (94) 93 Room Air 11/13/17 10:18 96 20 94 25.00 11/13/17 10:00 96 22 114/82 (93) 91 NIV Bilevel 25.00 11/13/17 09:45 97 21 123/80 (94) 91 NIV Bilevel 25.00 11/13/17 09:30 94 19 119/78 (92) 90 NIV Bilevel 25.00 11/13/17 09:15 98 20 126/89 (101) 92 NIV Bilevel 25.00 11/13/17 09:00 97 21 110/72 (85) 92 NIV Bilevel 25.00 11/13/17 08:53 97 30 11/13/17 08:45 NIV Bilevel 25 11/13/17 08:45 101 21 103/78 (86) 91 NIV Bilevel 25.00 11/13/17 08:30 100 21 120/82 (95) 93 NIV Bilevel 25.00 11/13/17 08:30 100 21 120/82 (95) 93 NIV Bilevel 25.00 11/13/17 08:15 101 22 131/69 (89) 95 NIV Bilevel 25.00 11/13/17 08:15 101 22 131/69 (89) 95 NIV Bilevel 25.00 11/13/17 08:11 98 27 99 30.00 11/13/17 07:45 93 18 109/93 99 NIV CPAP 11/13/17 07:13 98 18 104/66 (79) 98 NIV Bilevel 11/13/17 05:30 108 18 100 100.00 11/13/17 05:20 96.7 116 16 129/81 (97) 100 NIV/Bilevel 11/13/17 05:20 100 NIV Bilevel 100 Height & Weight Height: 5'4.00" Weight: 116lbs. 9.6oz. 52.357428we; 20.0 BMI Method:Stated General Appearance: No Apparent Distress, WD/WN HEENT: PERRL/EOMI, TMs Normal, Normal ENT Inspection, Pharynx Normal Neck: Full Range of Motion, Normal Inspection, Non Tender, Supple, Carotid Bruit Respiratory: Chest Non Tender, Lungs Clear, Accessory Muscle Use, Crackles, Decreased Breath Sounds, Respiratory Distress Cardiovascular: Regular Rate, Rhythm, No Edema, No Gallop, No JVD, No Murmur, Normal Peripheral Pulses Capillary Refill: Less Than 3 Seconds Gastrointestinal: soft Extremity: Normal Capillary Refill, Normal Inspection, Normal Range of Motion, Non Tender, No Calf Tenderness, No Pedal Edema Neurologic/Psychiatric: Alert, Oriented x3, No Motor/Sensory Deficits, Normal Mood/Affect Skin: Normal Color, Warm/Dry Lymphatic: No Adenopathy Results Lab Laboratory Tests 11/13/17 05:24 Assessment/Plan Assessment/Plan Acute respiratory distress - improved -CXR is negative -D/C marcus -Troponin is negative COPDAE r/o Pneumonia (doubt pneumonia -Prednisone taper -SVNS Q 4 -Add advair Allergic rhinitis -Singulair, zyrtec, flonase Sinus tach -Monitor Will d/c marcus and get pt up to chair. If she is still doing ok will transfer to 4th floor with tele. RIKI REID DO Nov 13, 2017 11:16
[2017-11-13] MEDS ORDERED: RT-IPRATROPIUM (ATROVENT) 0.5MG/2.5ML AMP IH PRN (14:00)
[2017-11-13] MEDS: ALPRAZolam 0.5 MG (XANAX) TAB PO PRN ×2 (14:12→20:46)
[2017-11-13] MEDS: CATHETER FLUSH 10 ML SYR IV SCH ×2 (15:38→20:48)
[2017-11-13] MEDS: RT-ADVAIR HFA 115/21 MCG PER PUFF IH SCH (18:47)
[2017-11-13] MEDS: clonazePAM 1 MG (KlonoPIN) TAB PO SCH (20:47)
[2017-11-13] MEDS: DIVALPROEX 250 MG DELAYED RELEASE (DEPAKOTE) TAB PO SCH (20:47)
[2017-11-13] MEDS ORDERED: MONTELUKAST 10 MG (SINGULAIR) TAB PO SCH (21:00)
[2017-11-14 00:03] VITALS: BP 130/69
[2017-11-14] MEDS: RT-ALBUTEROL/IPRATROPIUM 3 ML (DUONEB) VIAL INH SCH ×3 (02:16→10:16)
[2017-11-14 03:26] VITALS: BP 110/60
[2017-11-14] MEDS: CATHETER FLUSH 10 ML SYR IV SCH (06:18)
[2017-11-14] MEDS: RT-ADVAIR HFA 115/21 MCG PER PUFF IH SCH (06:40)
[2017-11-14] MEDS ORDERED: PANTOPRAZOLE 40 MG (PROTONIX) TAB PO SCH (07:00)
--- NOTE | 2017-11-14 07:17 | Pulmonary Progress Note ---
Subjective Time Seen by Provider: 07:17 Subjective/Events-last exam No complications noted. Sepsis Event Evaluation Height, Weight, BMI Height: 5'4.00" Weight: 115lbs. 6.0oz. 52.798395wa; 20.0 BMI Method:Stated Focused Exam Lactate Level 11/13/17 05:24: Lactic Acid Level 2.06*H 11/13/17 07:14: Lactic Acid Level 0.88 Exam Exam Vital Signs Date Time Temp Pulse Resp B/P (MAP) Pulse Ox O2 Delivery O2 Flow Rate FiO2 11/14/17 06:53 Nasal Cannula 2.00 11/14/17 06:40 95 Nasal Cannula 2.00 11/14/17 04:25 19 25.00 11/14/17 03:26 97.5 92 20 110/60 (77) 97 NIV Bilevel 25.00 11/14/17 02:16 90 20 96 25.00 11/14/17 01:00 84 11/14/17 00:34 20 25.00 11/14/17 00:03 98.9 102 20 130/69 (89) 99 Room Air 11/13/17 22:31 95 17 95 25.00 11/13/17 21:00 Room Air 11/13/17 19:54 98.2 97 20 143/63 (89) 95 Room Air 11/13/17 19:00 93 11/13/17 18:53 Nasal Cannula 2.00 11/13/17 18:47 88 Room Air 11/13/17 16:15 98.7 96 24 113/55 (74) 92 Room Air 11/13/17 13:59 95 Room Air 11/13/17 13:30 Room Air 11/13/17 13:20 97.9 104 20 175/79 (111) 95 Room Air 11/13/17 11:51 97.7 11/13/17 11:51 94 Room Air 11/13/17 11:45 93 27 128/80 (96) 92 Room Air 11/13/17 11:00 95 19 128/86 (100) 93 Room Air 11/13/17 10:45 91 26 125/79 (94) 93 Room Air 11/13/17 10:18 96 20 94 25.00 11/13/17 10:00 96 22 114/82 (93) 91 NIV Bilevel 25.00 11/13/17 09:45 97 21 123/80 (94) 91 NIV Bilevel 25.00 11/13/17 09:30 94 19 119/78 (92) 90 NIV Bilevel 25.00 11/13/17 09:15 98 20 126/89 (101) 92 NIV Bilevel 25.00 11/13/17 09:00 97 21 110/72 (85) 92 NIV Bilevel 25.00 11/13/17 08:53 97 30 11/13/17 08:45 NIV Bilevel 25 11/13/17 08:45 101 21 103/78 (86) 91 NIV Bilevel 25.00 11/13/17 08:30 100 21 120/82 (95) 93 NIV Bilevel 25.00 11/13/17 08:30 100 21 120/82 (95) 93 NIV Bilevel 25.00 11/13/17 08:15 101 22 131/69 (89) 95 NIV Bilevel 25.00 11/13/17 08:15 101 22 131/69 (89) 95 NIV Bilevel 25.00 11/13/17 08:11 98 27 99 30.00 11/13/17 07:45 93 18 109/93 99 NIV CPAP I & O 11/14/17 07:00 Intake Total 1570 ml Output Total 365 ml Balance 1205 ml Height & Weight Height: 5'4.00" Weight: 115lbs. 6.0oz. 52.020766if; 20.0 BMI Method:Stated General Appearance: No Apparent Distress, WD/WN HEENT: PERRL/EOMI, TMs Normal, Normal ENT Inspection, Pharynx Normal Neck: Full Range of Motion, Normal Inspection, Non Tender, Supple, Carotid Bruit Respiratory: Chest Non Tender, Lungs Clear, Accessory Muscle Use, Crackles, Decreased Breath Sounds, Respiratory Distress Cardiovascular: Regular Rate, Rhythm, No Edema, No Gallop, No JVD, No Murmur, Normal Peripheral Pulses Capillary Refill: Less Than 3 Seconds Gastrointestinal: soft Extremity: Normal Capillary Refill, Normal Inspection, Normal Range of Motion, Non Tender, No Calf Tenderness, No Pedal Edema Neurologic/Psychiatric: Alert, Oriented x3, No Motor/Sensory Deficits, Normal Mood/Affect Skin: Normal Color, Warm/Dry Lymphatic: No Adenopathy Results Lab Laboratory Tests 11/13/17 05:24 Assessment/Plan Assessment/Plan Acute respiratory distress - improved -CXR is negative -D/C marcus -Troponin is negative COPDAE r/o Pneumonia (doubt pneumonia -Prednisone taper -SVNS Q 4 -advair Allergic rhinitis -Singulairmarychuyyrtec, flonase Sinus tach -Monitor RIKI REID DO Nov 14, 2017 07:17
[2017-11-14] MEDS: clonazePAM 1 MG (KlonoPIN) TAB PO SCH (08:10)
[2017-11-14] MEDS: DIVALPROEX 250 MG DELAYED RELEASE (DEPAKOTE) TAB PO SCH (08:10)
[2017-11-14] MEDS ORDERED: AZITHROMYCIN 500 MG (ZITHROMAX) VIAL ONE (08:11)
[2017-11-14] MEDS ORDERED: NS (IVPB) 250 ML ONE (08:12)
[2017-11-14] MEDS: ALPRAZolam 0.5 MG (XANAX) TAB PO PRN (08:12)
[2017-11-14 08:40] VITALS: BP 121/59
[2017-11-14] MEDS ORDERED: ROFLUMILAST 500 MCG TAB (DALIRESP) PO SCH (09:00)
[2017-11-14] MEDS ORDERED: predniSONE 10 MG TAB PO SCH (09:00)
[2017-11-14] MEDS ORDERED: LORATADINE (CLARITIN) 10 MG TAB PO SCH (09:00)
[2017-11-14] MEDS ORDERED: NON-FORMULARY MEDICATION 1 EA EA (Umeclidinium Brm/Vilanterol Tr (Anoro Ellipta 62.5-25 Mc INH SCH (09:00)
[2017-11-14] MEDS ORDERED: cefTRIAXone 1 GM/NS 50 ML IVPB IV SCH ×2 (09:00)
[2017-11-14] MEDS ORDERED: AZITHROMYCIN 500 MG/NS 250 ML IVPB IV SCH ×2 (09:00)
[2017-11-14] MEDS ORDERED: PRED10TA22 PO (11:19)
[2017-11-14] MEDS ORDERED: FLUT12AE4 IH (11:23)
[2017-11-14 11:53] VITALS: BP 138/73
[2017-11-14] MEDS ORDERED: inSUlin ASPART (NovoLOG) 1 UNIT/0.01 ML (CHARGE PER UNIT) SC SCH (14:30)
--- NOTE | 2017-11-19 08:57 | Physician Query-Final Dx ---
CARLOS ALBERTO WALSH 11/19/17 0857: Final Diagnosis Give Final Diagnosis Please give Final Diagnosis EVE CAMARGO 11/26/17 1119: KRYSTYNA GRAVES DO 11/26/17 1625: Final Diagnosis Give Final Diagnosis AECOPD CARLOS ALBERTO WALSH Nov 19, 2017 08:57 EVE CAMARGO Nov 26, 2017 11:19 KRYSTYNA GRAVES DO Nov 26, 2017 16:25
== END 2017-11-14 12:56 | disposition home or self-care (01) | DRG 189 ==
LOC: EDUNIT# 05:17 → ER 05:18 → ICU 06:20 → 4TH 13:20
PROVIDERS: ADMIT Internal Medicine; ATTEND Internal Medicine
DX: J96.21 Acute and chronic respiratory failure with hypoxia (principal); J96.22 Acute and chronic respiratory failure with hypercapnia; J43.9 Emphysema, unspecified; E87.2 Acidosis; R91.1 Solitary pulmonary nodule; F17.210 Nicotine dependence, cigarettes, uncomplicated; L89.151 Pressure ulcer of sacral region, stage 1; G47.33 Obstructive sleep apnea (adult) (pediatric); J30.9 Allergic rhinitis, unspecified; R00.0 Tachycardia, unspecified; F41.9 Anxiety disorder, unspecified; F43.10 Post-traumatic stress disorder, unspecified
CPT/HCPCS: 36415; 51702; 71045; 80053; 80164; 81000; 82805; 83605; 83735; 83880; 84484; 85025; 85610; 85730; 87040; 87081; 87088; 93005; 93041; 94640; 94660; 94760; 94761; 96374; 96375; 99291

== ENCOUNTER 2018-01-03 16:28 | Inpatient (IN) | payer MEDICARE, OTHER ==
[2018-01-03] VITALS (13 sets, daily range): BP systolic 109–136; BP diastolic 56–108
[~2018-01-03] VITALS: Ht 160 cm; Wt 51.0 kg
[~2018-01-03 16:28] MED LIST changes: +FLUT12AE4 IH; +LEVO500T80 PO
[2018-01-03] MEDS ORDERED: proPOfol 200 MG/20 ML (DIPRIVAN) VIAL IV ONE (16:36)
[2018-01-03] MEDS ORDERED: PROPOFOL DRIP (ICU) 100 ML IV ONE (16:38)
[2018-01-03] MEDS ORDERED: NS IV 1000 ML 1,000 ML IV ONE ×3 (16:39→17:48)
[2018-01-03] MEDS: PROPOFOL INJECTION 50 ML IV SCH (16:45)
[2018-01-03] MEDS ORDERED: RT-ALBUTEROL/IPRATROPIUM 3 ML (DUONEB) VIAL INH ONE (16:45)
[2018-01-03] MEDS ORDERED: methylPREDNISolone 125 MG (Solu-MEDROL) VIAL IVP ONE (16:45)
[2018-01-03 16:53] LABS: BASOPHILS # (AUTO) 0.1 10^3/uL (0.0-0.1); BASOPHILS % (AUTO) 0 % (0-10); EOSINOPHILS # (AUTO) 0.6 10^3/uL (0.0-0.3); EOSINOPHILS % (AUTO) 2 % (0-10); HEMATOCRIT 43 % (35-52); HEMOGLOBIN 13.6 G/DL (11.5-16.0); LYMPHOCYTES # (AUTO) 8.3 X 10^3 (1.0-4.0); LYMPHOCYTES % (AUTO) 34 % (12-44); MEAN CORPUSCULAR HEMOGLOBIN 34 PG (25-34); MEAN CORPUSCULAR HGB CONC 31 G/DL (32-36); MEAN CORPUSCULAR VOLUME 107 FL (80-99); MEAN PLATELET VOLUME 9.9 FL (7.4-10.4); MONOCYTES # (AUTO) 2.1 X 10^3 (0.0-1.0); MONOCYTES % (AUTO) 8 % (0-12); NEUTROPHILS # (AUTO) 13.5 X 10^3 (1.8-7.8); NEUTROPHILS % (AUTO) 55 % (42-75); PLATELET COUNT 324 10^3/uL (130-400); RED BLOOD COUNT 4.06 10^6/uL (4.35-5.85); RED CELL DISTRIBUTION WIDTH 13.2 % (10.0-14.5); WHITE BLOOD COUNT 24.6 10^3/uL (4.3-11.0)
[2018-01-03 16:55] LABS: ABG BASE EXCESS -4.5 MMOL/L (-2.5-2.5); ABG OXYGEN SATURATION 100 % (94-100); ABG PO2 334 MMHG (79-93); ABG TCO2 25.6 MMOL/L (21.0-31.0)
[2018-01-03 16:58] LABS: ABG PCO2 71 MMHG (35-45); ABG PH 7.14 (7.37-7.43); ALLENS TEST YES-POS; INSPIRED O2 60%; PATIENT TEMP 98.1; VENTILATOR YES
[2018-01-03 17:06] LABS: AMPHETAMINE SCREEN, URINE NEGATIVE (NEGATIVE); BARBITURATE SCREEN URINE NEGATIVE (NEGATIVE); BENZODIAZEPINES SCREEN URINE POSITIVE (NEGATIVE); CANNABINOID SCREEN, URINE NEGATIVE (NEGATIVE); COCAINE SCREEN URINE NEGATIVE (NEGATIVE); METHADONE STAT NEGATIVE (NEGATIVE); METHAMPHETAMINE SCREEN URINE S NEGATIVE (NEGATIVE); OPIATE SCREEN URINE NEGATIVE (NEGATIVE); OXYCODONE STAT NEGATIVE (NEGATIVE); PROPOXYPHENE STAT NEGATIVE (NEGATIVE); TRICYCLIC ANTIDEPRESSANTS SCRE NEGATIVE (NEGATIVE)
[2018-01-03 17:07] LABS: PROTHROMBIN TIME PATIENT 13.2 SEC (12.2-14.7)
[2018-01-03 17:08] LABS: MAGNESIUM 2.5 MG/DL (1.8-2.4)
--- OUTSIDE RECORDS SUMMARY | 2018-01-03 17:11 | XMS REPORT | Clinical Summary ---
Author Author [facility] Organization [facility] Address Unknown Phone Unavailable Care Team Providers Care Importer Exporter Name Role Phone Mehul Bermeo MD PCP Amanda Augustin MD Unavailable Unavailable Source Comments Some departments are not documenting in the electronic medical record. If you do not see the information that you expected, contact Release of Information in the Health Information Management department at [phone] for further assistance in locating additional records.[facility] Allergies No Known Allergies Current Medications Prescription Sig. Disp. Refills Start End Date Status Date PREMARIN PO Take by mouth. Active BUSPAR PO Take by mouth. 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
--- OUTSIDE RECORDS SUMMARY | 2018-01-03 17:13 | XMS REPORT | Continuity of Care Document ---
Author Author [facility] Organization [facility] Address Unknown Phone Unavailable Allergies Active Description Code Type Severity Reaction Onset Reported/Identified Relationship to Patient Clinical Status Yes penicillin [id number] Drug Allergy Unknown N/A 09/29/2014 Yes Sulfa (Sulfonamide Antibiotics) [id number] Drug Allergy Unknown SOB, SWELLING, 09/29/2014 Yes penicillin [id number] Drug Allergy Unknown Pt has received 11/13/2017 Medications There is no data. Problems Date [...] MD Ot 596.0 BLADDER NECK OBSTRUCTION 09/29/2014 DEYA JJ MD Ot V12.72 PERSONAL HISTORY OF COLONIC POLYPS 09/29/2014 DEYA JJ MD Ot V76.51 SCREEN MAL NEOP-COLON 01/01/2016 GEORGINA GARCIA DO Ot J18.9 PNEUMONIA, UNSPECIFIED ORGANISM 01/04/2016 GEORGINA GARCIA DO Ot J18.9 PNEUMONIA, UNSPECIFIED ORGANISM 01/17/2016 Ot 793.81 MAMMOGRAPHIC MICROCLACIFICATION 01/17/2016 Ot V15.89 HX-HEALTH HAZARDS NEC 01/17/2016 Ot V76.11 SCRN MAMMO- HIGH RISK PT, MALIGNANT NEOPL 01/17/2016 Ot V72.84 EXAM PRE- OPERATIVE NOS 01/17/2016 PARVIZ MASSEY, DEYA Ot V12.72 PERSONAL HISTORY OF COLONIC POLYPS 01/17/2016 DEYA JJ MD Ot V72.84 EXAM PRE-OPERATIVE NOS 01/17/2016 GEORGINA GARCIA DO Ot J18.9 PNEUMONIA, UNSPECIFIED ORGANISM 01/18/2016 GEORGINA GARCIA DO Ot J18.9 PNEUMONIA, UNSPECIFIED ORGANISM 01/22/2016 GEORGINA GARCIA DO Ot J18.9 PNEUMONIA, UNSPECIFIED ORGANISM 02/02/2016 FIOR PARRA APRN Ot F17.210 NICOTINE DEPENDENCE, CIGARETTES, UNCOMPL 02/02/2016 FIOR PARRA APRN Ot J44.1 CHRONIC OBSTRUCTIVE PULMONARY DISEASE W 02/02/2016 FIOR PARRA APRN Ot R06.02 SHORTNESS OF BREATH 02/02/2016 FIOR PARRA APRN Ot 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 02/04/2016 FIOR PARRA APRN Ot F17.210 NICOTINE DEPENDENCE, CIGARETTES, UNCOMPL 02/04/2016 FIOR PARRA APRN Ot J44.1 CHRONIC OBSTRUCTIVE PULMONARY DISEASE W 02/04/2016 FIOR PARRA APRN Ot R06.02 SHORTNESS OF BREATH 02/04/2016 FIOR PARRA APRN Ot Z79.899 OTHER NURSING HOME (CURRENT) DRUG THERAPY 02/08/2016 GEORGINA GARCIA DO Ot J18.9 PNEUMONIA, UNSPECIFIED ORGANISM 03/20/2016 CARLOS ALBERTO GARCIA VICE PRESIDENT PAYMENT Ot J44.9 CHRONIC OBSTRUCTIVE PULMONARY DISEASE, U 03/20/2016 CARLOS ALBERTO GARCIA L VICE PRESIDENT PAYMENT Ot R09.02 HYPOXEMIA 03/25/2016 CARLOS ALBERTO GARCIA L VICE PRESIDENT PAYMENT Ot J44.9 CHRONIC OBSTRUCTIVE PULMONARY DISEASE, U 03/25/2016 CARLOS ALBERTO GARCIA VICE PRESIDENT PAYMENT Ot R09.02 HYPOXEMIA 04/22/2016 CARLOS ALBERTO GARCIA VICE PRESIDENT PAYMENT Ot J44.9 CHRONIC OBSTRUCTIVE PULMONARY DISEASE, U 04/22/2016 CARLOS ALBERTO GARCIA VICE PRESIDENT PAYMENT Ot R09.02 HYPOXEMIA 05/07/2016 CARLOS ALBERTO GARCIA L VICE PRESIDENT PAYMENT Ot J44.9 CHRONIC OBSTRUCTIVE PULMONARY DISEASE, U 05/07/2016 RADHA CARLOS ALBERTO L VICE PRESIDENT PAYMENT Ot R09.02 HYPOXEMIA 08/13/2016 DANIELLE GA MD [...] GA MD Ot Z91.19 PATIENT'S NONCOMPLIANCE W [facility] MEDICAL TR 08/13/2016 DANIELLE GA MD Ot [...] GA MD Ot Z91.19 PATIENT'S NONCOMPLIANCE W [facility] TR 08/14/2016 DAINELLE GA MD Ot Z99.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 [...] GA MD Ot Z91.19 PATIENT'S NONCOMPLIANCE W [facility] MED[facility] TR 08/14/2016 DANIELLE GA MD Ot Z99.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 OXYGEN 08/14/2016 DANIELLE GA MD Ot D72.829 ELEVATED WHITE BLOOD CELL COUNT, UNSPECI 08/14/2016 DANIELLE GA MD Ot F17.210 NICOTINE DEPENDENCE, CIGARETTES, UNCOMPL 08/14/2016 DANIELLE GA MD Ot F41.9 ANXIETY DISORDER, UNSPECIFIED 08/14/2016 DANIELLE GA MD Ot F43.10 POST-TRAUMATIC STRESS DISORDER, UNSPECIF 08/14/2016 DANIELLE AG MD Ot J44.1 CHRONIC OBSTRUCTIVE PULMONARY DISEASE W 08/14/2016 DANIELLE GA MD Ot J96.20 ACUTE AND CHR RESP FAILURE, UNSP W HYPOX 08/14/2016 DANIELLE GA MD Ot Z91.19 PATIENT'S NONCOMPLIANCE W [facility] TR 08/14/2016 DANIELLE GA MD Ot Z99.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 OXYGEN 2016 DANIELLE AG MD Ot F17.210 NICOTINE DEPENDENCE, CIGARETTES, UNCOMPL [...] PULMONARY DISEASE, U 11/21/2016 CARLOS ALBERTO GARCIA VICE PRESIDENT PAYMENT Ot R09.02 HYPOXEMIA 12/16/2016 VIKA CHIN MD [...] Ot F17.210 NICOTINE DEPENDENCE, CIGARETTES, UNCOMPL 04/19/2017 KRYSTYNA GRAVES DO Ot F41.9 ANXIETY DISORDER, UNSPECIFIED 04/19/2017 KRYSTYNA GRAVES DO Ot F43.10 POST-TRAUMATIC STRESS DISORDER, UNSPECIF 04/19/2017 KRYSTYNA GRAVES DO Ot J43.9 EMPHYSEMA, UNSPECIFIED 04/19/2017 KRYSTYNA GRAVES DO Ot R09.02 HYPOXEMIA 04/19/2017 CRIS GRAVES DOI Ot Z99.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 OXYGEN 06/10/2017 [...] DO Ot R00.2 PALPITATIONS 09/01/2017 DANIELLE GA MD, Ot J44.1 CHRONIC OBSTRUCTIVE PULMONARY DISEASE W 09/01/2017 DANIELLE GA MD Ot R06.02 SHORTNESS OF BREATH 09/01/2017 DANIELLE GA MD, Ot 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 09/01/2017 DANIELLE GA MD Ot Z79.52 OFFICE MACHINE MECHANIC (CURRENT) USE OF SYSTEMIC STER 09/01/2017 DANIELLE GA MD, Ot Z80.6 FAMILY HISTORY OF LEUKEMIA 09/01/2017 DANIELLE GA MD Ot Z82.49 FAMILY HX OF ISCHEM HEART DIS AND OTH DI 09/01/2017 DANIELLE GA MD Ot Z86.19 PERSONAL HISTORY OF OTHER INFECTIOUS AND 09/01/2017 DANIELLE GA MD Ot Z87.01 PERSONAL HISTORY OF PNEUMONIA (RECURRENT 09/01/2017 DANIELLE GA MD, Ot Z87.891 PERSONAL HISTORY OF NICOTINE DEPENDENCE 09/01/2017 DANIELLE GA MD, Ot Z88.0 ALLERGY STATUS TO PENICILLIN 09/01/2017 DANIELLE AG MD, Ot Z88.2 ALLERGY STATUS TO SULFONAMIDES STATUS 09/01/2017 DANIELLE GA MD Ot Z90.710 ACQUIRED ABSENCE OF BOTH CERVIX AND UTER 09/01/2017 DANIELLE GA MD Ot Z90.89 ACQUIRED ABSENCE OF OTHER ORGANS 09/03/2017 DANIELLE GA MD, Ot J44.1 CHRONIC OBSTRUCTIVE PULMONARY DISEASE W 09/03/2017 DANIELLE GA MD Ot R06.02 SHORTNESS OF BREATH 09/03/2017 DANIELLE GA MD, Ot 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 09/03/2017 DANIELLE GA MD, Ot Z79.52 NURSING HOME (CURRENT) USE OF SYSTEMIC STER 09/03/2017 DANIELLE GA MD, Ot Z80.6 FAMILY HISTORY OF LEUKEMIA 09/03/2017 DANIELLE GA MD Ot Z82.49 FAMILY HX OF ISCHEM HEART DIS AND OTH DI 09/03/2017 DANIELLE GA MD Ot Z86.19 PERSONAL HISTORY OF OTHER INFECTIOUS AND 09/03/2017 DANIELLE GA MD Ot Z87.01 PERSONAL HISTORY OF PNEUMONIA (RECURRENT 09/03/2017 DANIELLE GA MD, Ot Z87.891 PERSONAL HISTORY OF NICOTINE DEPENDENCE [...] PNEUMONIA, UNSPECIFIED ORGANISM 10/28/2017 CARLOS ALBERTO GARCIA VICE PRESIDENT PAYMENT Ot J44.9 CHRONIC OBSTRUCTIVE PULMONARY DISEASE, U 10/28/2017 CARLOS ALBERTO GARCIA VICE PRESIDENT PAYMENT Ot R09.02 HYPOXEMIA 10/28/2017 VIKA CHIN MD [...] PNEUMONIA, UNSPECIFIED ORGANISM 11/03/2017 CARLOS ALBERTO GARCIA VICE PRESIDENT PAYMENT Ot J44.9 CHRONIC OBSTRUCTIVE PULMONARY DISEASE, U 11/03/2017 CARLOS ALBERTO GARCIA VICE PRESIDENT PAYMENT Ot R09.02 HYPOXEMIA 11/03/2017 VIKA CHIN MD Ot R91.8 OTHER NONSPECIFIC ABNORMAL FINDING OF АННА 11/03/2017 VIKA CHIN MD Ot Z12.2 ENCNTR SCREEN FOR MALIGNANT NEOPLASM OF 11/03/2017 VIKA CHIN MD Ot Z87.891 PERSONAL HISTORY OF NICOTINE DEPENDENCE 11/03/2017 GEORGINA GARCIA DO Ot R00.2 PALPITATIONS 11/13/2017 GARCIAGEORGINA GARCIA DO Ot R00.2 PALPITATIONS 11/14/2017 STAR CORTES KRYSTYNA Ot E87.2 ACIDOSIS 11/14/2017 STAR CORTES KRYSTYNA Ot F17.210 NICOTINE DEPENDENCE, CIGARETTES, UNCOMPL 11/14/2017 STAR CORTES KRYSTYNA Ot F41.9 ANXIETY DISORDER, UNSPECIFIED 11/14/2017 STAR CROTES KRYSTYNA Ot F43.10 POST-TRAUMATIC STRESS DISORDER, UNSPECIF 11/14/2017 GRAVESKEVIN CORTES KRYSTYNA Ot G47.33 OBSTRUCTIVE SLEEP APNEA (ADULT) (PEDIATR 11/14/2017 STAR CORTES KRYSTYNA Ot J30.9 ALLERGIC RHINITIS, UNSPECIFIED 11/14/2017 STAR CORTES KRYSTYNA Ot J43.9 EMPHYSEMA, UNSPECIFIED 11/14/2017 STAR CORTES KRYSTYNA Ot J96.21 ACUTE AND CHRONIC RESPIRATORY FAILURE [place] 11/14/2017 STAR CORTES KRYSTYNA Ot J96.22 ACUTE AND CHRONIC RESPIRATORY FAILURE [place] 11/14/2017 STAR CORTES KRYSTYNA Ot L89.151 PRESSURE ULCER OF SACRAL REGION, STAGE 1 11/14/2017 KRYSTYNA GRAVES DO Ot R00.0 TACHYCARDIA, UNSPECIFIED 11/14/2017 KRYSTYNA GRAVES DO Ot R91.1 SOLITARY PULMONARY NODULE 11/27/2017 ELSY MSASEY VIKA S Ot I25.10 ATHSCL HEART DISEASE OF [place] CORONARY 11/27/2017 ELSY MASSEY VIKA S Ot I70.0 ATHEROSCLEROSIS OF [place] 11/27/2017 ELSY MASSEY VIKA S Ot J43.9 EMPHYSEMA, UNSPECIFIED 11/27/2017 ELSY MASSEY, VIKA S Ot J84.10 PULMONARY FIBROSIS, UNSPECIFIED 11/27/2017 ELSY MASSEY VIKA S Ot R91.1 SOLITARY PULMONARY NODULE 11/27/2017 ELSY MASSEY VIKA S Ot Z87.891 PERSONAL HISTORY OF NICOTINE DEPENDENCE Procedures There is no data. Results Test Result Range Sputum Gram stain - 12/31/15 17:45 GRAM STAIN SPUTUM AND MIXED BACTERIAL CATIA NRG Bacterial sputum culture - 12/31/15 17:45 Bacterial sputum culture [facility] Comprehensive metabolic panel - 02/02/16 14:40 Serum [...] 08/13/16 01:47 Blood monocytes/100 leukocytes 4 % NR Manual blood segmented neutrophils/100 leukocytes 48 % NRG Blood band neutrophils/100 leukocytes 0 % NRG Manual blood lymphocytes/100 leukocytes 27 % NRG Manual eosinophils/100 leukocytes in nose 10 % NRG Manual blood basophils/100 leukocytes 0 % NRG Blood lymphocytes variant/100 leukocytes 11 % NRG Blood erythrocyte morphology finding identification [facility] Comprehensive metabolic panel - 08/13/16 01:47 Serum [...] OF GROWTH Isolated NRG Bacterial blood culture [id number] NRG Blood lactic acid measurement (moles/volume) - [...] 11/13/17 05:24 BNP level 32.7 pg/mL <100.0 [id number] - 11/13/17 05:24 [id number] 18.7 ug/mL 50.0-100.0 Bacterial blood culture - 11/13/17 05:24 Bacterial blood culture NG NRG Arterial blood gas measurement - 11/13/17 05:45 [...] urine sediment by light microscopy 0-2 NRG Bacterial urine culture - 11/13/17 05:55 Bacterial urine culture SEE COMMEN NRG COLONY COUNT . NRG FTX;REPORTABLE THIS AMENDED REPORT SENT BY [facility] NR FREE TEXT ENTRY 2 11/15 12:05 NRG Bacterial blood culture - 11/13/17 06:05 Bacterial blood culture NG NRG Serum or plasma lactate measurement (moles/volume) - 11/13/17 07:14 Serum or plasma lactate measurement (moles/volume) 0.88 mmol/L 0.50-2.00 Methicillin resistant Staphylococcus aureus (MRSA) screening culture - 11:00 Methicillin resistant Staphylococcus aureus (MRSA) screening culture NEG NRG Serum or plasma troponin i.cardiac measurement (mass/volume) - 11/13/17 11:55 Serum or plasma troponin i.cardiac measurement (mass/volume) < ng/ mL <0.30 Complete blood count (CBC) with automated white blood cell (WBC) differential - 01/03/18 16:36 Blood leukocytes automated count (number/volume) 24.6 10*3/uL 4.3-11.0 Blood erythrocytes automated count (number/volume) 4.06 10*6/uL 4.35-5.85 Venous blood hemoglobin measurement (mass/volume) 13.6 g/dL 11.5-16.0 Blood hematocrit (volume fraction) 43 % 35-52 Automated erythrocyte mean corpuscular volume 107 [foz_us] 80-99 Automated erythrocyte mean corpuscular hemoglobin (mass per erythrocyte) 34 pg 25-34 Automated erythrocyte mean corpuscular hemoglobin concentration measurement ( mass/volume) 31 g/dL 32-36 Automated erythrocyte distribution width ratio 13.2 % 10.0-14.5 Automated blood platelet count (count/volume) 324 10*3/uL 130-400 Automated blood platelet mean volume measurement 9.9 [foz_us] 7.4-10.4 Automated blood neutrophils/100 leukocytes 55 % 42-75 Automated blood lymphocytes/100 leukocytes 34 % 12-44 Blood monocytes/100 leukocytes 8 % 0-12 Automated blood eosinophils/100 leukocytes 2 % 0-10 Automated blood basophils/100 leukocytes 0 % 0-10 Blood neutrophils automated count (number/volume) 13.5 10*3 1.8-7.8 Blood lymphocytes automated count (number/volume) 8.3 10*3 1.0-4.0 Blood monocytes automated count (number/volume) 2.1 10*3 0.0-1.0 Automated eosinophil count 0.6 10*3/uL 0.0-0.3 Automated blood basophil count (count/volume) 0.1 10*3/uL 0.0-0.1 Arterial blood gas measurement - 01/03/18 16:45 Blood pCO2 71 mm[Hg] 35-45 Blood pO2 334 mm[Hg] 79-93 Arterial blood bicarbonate measurement (moles/volume) 23 mmol/L 23-27 Arterial blood base excess by calculation -4.5 mmol/L - 2.5-2.5 Arterial blood oxygen saturation measurement 100 % 94- 100 * Inhaled oxygen flow rate 60% NRG Arterial blood pH measurement with patient temperature correction 7.14 7.37-7.43 Arterial blood carbon dioxide, total measurement (moles/volume) 25.6 mmol/L 21.0-31.0 Body site RT RAD NRG Assessment of wrist artery patency prior to arterial puncture YES- POS NRG Setting of ventilation mode YES NRG Measurement of body temperature 98.1 NRG Capillary blood glucose measurement by glucometer (mass/volume) - 01/03/18 16: 48 Capillary blood glucose measurement by glucometer (mass/volume) 171 mg/dL 70-110 Encounters ACCT No. Visit Date/Time Discharge Status Pt. Type Provider Facility Loc./Unit Complaint [id number] 11/13/2017 06:20:00 11/14/2017 12:56:00 DIS Inpatient KRYSTYNA GRAVES DO [facility] 4TH ACUTE ON CHRONIC RESPIRATORY FAILURE;COPD; [id number] 11/03/2017 08:58:00 11/03/2017 23:59:59 CLS Outpatient VIKA CHIN MD [facility] RAD R91.8 [id number] 09/01/2017 14:58:00 09/01/2017 18:30:00 DIS Emergency DANIELLE GA MD [facility] ER SOA [id number] 07/30/2017 08:30:00 07/30/2017 23:59:59 CLS Preadmit GEORGINA GARCIA DO [facility] CARD R00.2 [id number] 04/30/2017 08:26:00 07/29/2017 00:01:00 DIS Outpatient GEORGINA GARCIA DO [facility] CARD R00.2 [id number] 06/08/2017 09:40:00 06/10/2017 11:30:00 DIS Inpatient DANIELLE GA MD [facility] 4TH COPD ACUTE EXACERBATION, HYPOXIA [id number] 04/17/2017 11:00:00 04/19/2017 12:46:00 DIS Inpatient KRYSTYNA GRAVES DO [facility] 4TH COPD IN EXACERBATION [id number] 11/25/2016 13:14:00 11/25/2016 23:59:59 CLS Outpatient VIKA CHIN MD [facility] RAD SCREENING [id number] 10/02/2016 12:11:00 10/02/2016 23:59:59 CLS Preadmit VIKA CHIN MD [facility] RAD COPD,HX OF SMOKING [id number] 09/30/2016 06:15:00 2016 13:45:00 DIS Inpatient DANIELLE GA MD [facility] 4TH RESPIRATORY FAILURE,COPD EX [id number] 08/13/2016 03:34:00 08/14/2016 12:30:00 DIS Inpatient DANIELLE GA MD [facility] 4TH ACUTE EXACERBATION OF COPD [id number] 03/19/2016 15:03:00 03/19/2016 23:59:59 CLS Outpatient CARLOS ALBERTO GARCIA [facility] RT J44.9, R09.02 [id number] 02/02/2016 14:37:00 02/02/2016 16:52:00 DIS Emergency FIOR PARRA APRN [facility] ER SOA [id number] 01/17/2016 14:18:00 01/17/2016 23:59:59 CLS Outpatient GEORGINA GARCIA DO [facility] RAD PNEUMONIA [id number] 12/31/2015 17:22:00 12/31/2015 23:59:59 CLS Outpatient GEORGINA GARCIA DO [facility] RAD J18.9 [id number] 09/29/2014 09:19:00 09/29/2014 12:00:00 DIS Outpatient DEYA JJ MD [facility] SCREENING,HISTORY OF POLYPS [id number] 09/28/2014 06:36:00 09/28/2014 23:59:59 CLS Outpatient DEYA JJ MD [facility] PREOP HISTORY OF POLYPS [id number] 06/06/2013 18:50:00 06/06/2013 23:59:59 CLS Outpatient [id number] 01/03/2018 16:32:00 ACT Emergency CLINTON MASSEY, NATANAEL Thompson [facility] ER COPD,RESP DISTRESS [id number] 11/26/2011 06:32:00 Document Registration [id number] 11/25/2011 08:24:00 Document Registration [id number] 05/02/2011 09:40:00 Document Registration [id number] 01/12/2011 22:12:00 Document Registration [id number] 10/08/2016 10:00:00 02/25/2017 15:48:00 DIS Outpatient Lawrence Ravi [id number] 10/06/2016 12:41:00 10/06/2016 23:59:00 DIS Outpatient Lawrence Ravi
[2018-01-03 17:14] LABS: BAND NEUTROPHILS 2 %; BASOPHILS % (MANUAL) 0 %; EOSINOPHILS % (MANUAL) 2 %; LYMPHOCYTES % (MANUAL) 38 %; MONOCYTES % (MANUAL) 5 %; NEUTROPHILS % (MANUAL) 49 %; PLATELET CLUMPS OCCASIONAL; REACTIVE LYMPHOCYTES 4 %; TOXIC GRANULATION/VACUOLAZATIO 2+
[2018-01-03] MEDS ORDERED: ETOMIDATE IV SOLN 20 MG/10 ML VIAL IV ONE (17:15)
[2018-01-03 17:17] LABS: ALANINE AMINOTRANSFERASE 11 U/L (0-55); ALKALINE PHOSPHATASE 61 U/L (40-136); BILIRUBIN,TOTAL 0.3 MG/DL (0.1-1.0); BUN/CREATININE RATIO 6; CARBON DIOXIDE 17 MMOL/L (21-32); CHLORIDE 104 MMOL/L (98-107); CREATININE SERUM 0.96 MG/DL (0.60-1.30); GFR ESTIMATED 58; GLUCOSE 184 MG/DL (70-105); POTASSIUM 3.5 MMOL/L (3.6-5.0); SODIUM 142 MMOL/L (135-145); TOTAL PROTEIN 6.9 GM/DL (6.4-8.2)
[2018-01-03 17:24] LABS: MYOGLOBIN SERUM 23.4 NG/ML (10.0-92.0)
--- NOTE | 2018-01-03 17:24 | Diagnostic Imaging Report ---
INDICATION: OG tube placement. EXAMINATION: Chest from 06/19/2017. COMPARISON: 11/13/2017. FINDINGS: There is a feeding tube coursing beneath the diaphragm. An ET tube is noted and unchanged. Lungs are hyperinflated. An in ET tube is noted and unremarkable. Lungs are hyperinflated. No infiltrates, effusions or pneumothorax. IMPRESSION: 1. Tubes, as described. 2. Emphysematous changes. Dictated by: Dictated on workstation # [id number]
[2018-01-03] MEDS ORDERED: ENOXAPARIN 60 MG/0.6 ML (LOVENOX) SYR SC ONE (17:30)
[2018-01-03] MEDS ORDERED: MIDAZOLAM 5 MG/5 ML (VERSED) VIAL IVP ONE ×5 (17:45→18:45)
[2018-01-03] MEDS ORDERED: fentaNYL INJECTION 100 MCG/2 ML AMP IVP ONE ×2 (17:45→18:00)
[2018-01-03 18:00] LABS: BILIRUBIN,URINE NEGATIVE (NEGATIVE); CLARITY,URINE CLEAR; COLOR,URINE YELLOW; GLUCOSE, URINE (UA) NEGATIVE (NEGATIVE); KETONES,URINE NEGATIVE (NEGATIVE); LEUKOCYTE ESTERASE ,URINE NEGATIVE (NEGATIVE); NITRITE,URINE NEGATIVE (NEGATIVE); PH,URINE 6 (5-9); PROTEIN,URINE NEGATIVE (NEGATIVE); UROBILINOGEN,URINE NORMAL (NORMAL)
[2018-01-03] MEDS ORDERED: CEFEPIME INJECTION 2,000 MG in NS (IVPB) 50 ML IV ONE (18:00)
[2018-01-03] MEDS ORDERED: D5W IV SOLUTION (EXCEL) 250 ML IV ONE (18:13)
[2018-01-03] MEDS ORDERED: NOREPINEPHRINE 4 MG in NS (IVPB) 250 ML IV SCH (18:15)
[2018-01-03 18:18] LABS: BACTERIA,URINE NEGATIVE /HPF; RBC,URINE 0-2 /HPF; SQUAMOUS EPITHELIAL CELL,UR 0-2 /HPF; WBC,URINE 0-2 /HPF
[2018-01-03] MEDS: NOREPINEPHRINE 4 MG/4 ML (LEVOPHED) AMP IV ONE ×2 (18:22→18:24)
--- NOTE | 2018-01-03 18:27 | ED General ---
General Chief Complaint: Unresponsive Stated Complaint: COPD,RESP DISTRESS Nursing Triage Note: ASSISTED UNRESPONISVE PT OUT OF CAR ONTO CART. STATES SHE IS PASSED OUT AND HAS A HX OF COPD. PT WITH AGONAL RESPERATIONS ET A TACHY PULSE. ET CYANOTIC IN THE FACE. PT WAS IMMEDIATELY BAGGED ONCE IN ROOM ET PULSE OX CAME UP TO 80'S WHILE BAGGING. Nursing Sepsis Screen: No Definite Risk Source of Information: Family, Old Records History of Present Illness Date Seen by Provider: Jan 03, 2018 Time Seen by Provider: 16:32 Initial Comments This 67-year-old woman presents to the emergency room by private vehicle driven by her . She was unresponsive with agonal breathing upon arrival. She had a strong tachycardic pulse. Respiratory resuscitation was started immediately upon arrival with a BVM and high flow oxygen followed promptly by intubation. reports she was not feeling well this morning and had noted hypoxia with oxygen saturations in the 80s. She felt a little better after using some O2 at home. She had been intermittently dizzy throughout the morning. Despite this she decided to smoke some cigarettes and go to the [employer] Upon returning from the [employer] she was still not feeling well and took a nap. Upon waking she still had oxygen saturations in the low 80s despite using her home O2. They then decided to present to the emergency room. reports she lost consciousness in route to the ER. Patient does have a history of severe COPD. There has been no recent drug or alcohol use as far as has been nose. Patient had a narrow complex tachycardia around 170-180 upon arrival. knows of no prior history of arrhythmia. Patient recently had a labial lesion or mass resection. states that it was precancerous tissue. This was performed in [place] on Thursday. Allergies and Home Medications Allergies Coded Allergies: Sulfa (Sulfonamide Antibiotics) (Unverified Allergy, Unknown, SOB, SWELLING, RASH, 09/29/14) penicillin (Unverified Allergy, Unknown, Pt has received Ceftriaxone w/o issue, 11/13/17) Home Medications Albuterol Sulfate 18 Gm Hfa.aer.ad, 2 PUFF INH Q6H PRN for WHEEZING, (Reported) Clonazepam 1 Mg Tablet, 1.5 MG PO BID, (Reported) TAKES 1 & 1/2 (1MG) TABLET Divalproex Sodium 250 Mg Tablet.dr, 250 MG PO BID, (Reported) Fluticasone/Salmeterol 12 Gm Hfa.aer.ad, 12 GM IH BID Prescribed by: LAURA GREEN on 11/14/17 1123 Guaifen/Dextromethorphan/PE 180 Ml Liquid, 20 ML PO Q4H PRN for COUGH, (Reported ) Ipratropium [place] 0.2 Mg/1 Ml Solution, 1 VIAL NEB TID PRN for SHORTNESS OF BREATH, (Reported) Prednisone 10 Mg Tab.ds.pk, 10 MG PO DAILY Take 6 tabs(60mg)daily,decrease by 1 tab(10MG)daily. Prescribed by: LAURA GREEN on 11/14/17 1119 Roflumilast 500 Mcg Tablet, 500 MCG PO DAILY, (Reported) Umeclidinium Brm/Vilanterol Tr 1 Each Blst.w.dev, 1 PUFF INH DAILY, (Reported) Patient Home Medication List Home Medication List Reviewed: Yes Review of Systems Review of Systems Constitutional: see HPI EENTM: no symptoms reported Respiratory: see HPI Cardiovascular: see HPI Gastrointestinal: no symptoms reported Genitourinary: no symptoms reported : No Musculoskeletal: no symptoms reported Skin: no symptoms reported Psychiatric/Neurological: See HPI Hematologic/Lymphatic: No Symptoms Reported Immunological/Allergic: no symptoms reported Past Cilgseo-Cmrrla-Pnsmaq Hx Patient Social History Alcohol Beverage of Choice: Beer Type Used: Cigarettes 2nd Hand Smoke Exposure: Yes Recent Foreign Travel: No Contact w/Someone Who Travel: No Recent Infectious Disease Expo: No Recent Hopitalizations: No Immunizations Up To Date Tetanus Booster (TDap): Unknown PED Vaccines UTD: Yes Date of Pneumonia Vaccine: Dec 01, 2016 Date of Influenza Vaccine: Dec 01, 2016 Seasonal Allergies Seasonal Allergies: No Past Medical History Surgeries: Yes Appendectomy, Gallbladder, Hysterectomy, Orthopedic Respiratory: Yes Asthma, Pneumonia, Chronic Bronchitis, COPD, Emphysema Currently Using CPAP: No Currently Using BIPAP: No Cardiac: No Neurological: No : No 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 Disorders: Yes (HPV) Female 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 Disorders: Denies [employer]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 History: Hysterectomy, Menopausal HIV/AIDS: No Genitourinary: No Gastrointestinal: Yes Hemorrhoids, Polyps Musculoskeletal: Yes (CHRONIC NECK AND BACK PAIN--S/P CERVICAL AND LUMBAR SPINE SURGERIES) Chronic Back Pain Endocrine: No HEENT: No Cancer: No Psychosocial: Yes Anxiety, PTSD Integumentary: Yes (SHINGLES) Blood Disorders: No Adverse Reaction/Blood Tranf: No Family Medical History Cardiovascular disease G8 BROTHER Diabetes mellitus G8 BROTHER G8 BROTHER Hypertension G8 BROTHER Neoplasm 19 FATHER (LEUKEMIA LYMPHOMA) G8 BROTHER (LEUKEMIA) Respiratory disorder 19 FATHER 19 MOTHER G8 BROTHER Hypertension Physical Exam Vital Signs Vital Signs - First Documented 01/03/18 01/03/18 16:28 17:09 Temp 97.0 Pulse 203 Resp 16 B/P (MAP) 159/78 (105) Pulse Ox 57 O2 Delivery Room Air FiO2 60 Capillary Refill : Less Than 3 Seconds Height, Weight, BMI Height: 5'3.00" Weight: 130lbs. 6.0oz. 58.728309io; 20.0 BMI Method:Estimated General Appearance: WD/WN, Thin, Other (unresponsive) HEENT: PERRL/EOMI, Normal ENT Inspection Neck: Normal Inspection Respiratory: Accessory Muscle Use, Crackles, Decreased Breath Sounds, Wheezing , Other (agonal breathing with very little air movement) Cardiovascular: No Edema, No Murmur, Tachycardia Gastrointestinal: Soft Extremity: Normal Inspection, No Pedal Edema Neurologic/Psychiatric: Other (unresponsive) Skin: Warm/Dry, Cyanosis, Other (sutures intact over the right labia majora) Focused Exam Lactate Level 01/03/18 16:36: Lactic Acid Level 6.33*H Lactic Acid Level Laboratory Tests Test 01/03/18 16:36 Lactic Acid Level 6.33 MMOL/L (0.50-2.00) *H Procedures/Interventions Lumen: triple Central Line Procedure: betadine prep, sterile drapes applied, sterile dressing applied Position: internal jugular (R) Complications: none Post Position: sutured Date of ETT Placement: Jan 03, 2018 Time of ETT Placement: 16:34 Tube Size: 7.00 Medications: Etomidate Positive End Tide CO2: Yes Breath Sounds after Intubation: bilateral-equal Intubation Complications: no complications Post Intubation Xray: Yes ET tube in good position Respiratory resuscitation successful after intubation with improved oxygen saturation. Progress/Results/Core Measures Suspected Sepsis Recent Fever Within 48 Hours: No Infection Criteria Present: None New/Unexplained Altered Menta: No Sepsis Screen: No Definite Risk SIRS Temperature:97.0 Pulse: 176 Respiratory Rate: 16 Laboratory Tests 01/03/18 16:36: White Blood Count 24.6H Blood Pressure 159 /78 Mean: 105 01/03/18 16:36: Lactic Acid Level 6.33*H Laboratory Tests 01/03/18 16:36: Creatinine 0.96, INR Comment 1.0, Platelet Count 324, Total Bilirubin 0.3 Results/Orders Lab Results Laboratory Tests Test 01/03/18 16:36 01/03/18 16:45 01/03/18 16:48 Range/Units White Blood Count 24.6 H 4.3-11.0 10^3/uL Red Blood Count 4.06 L 4.35-5.85 10^6/uL Hemoglobin 13.6 11.5-16.0 G/DL Hematocrit 43 35-52 % Mean Corpuscular Volume 107 H 80-99 FL Mean Corpuscular Hemoglobin 34 25-34 PG Mean Corpuscular Hemoglobin Concent 31 L 32-36 G/DL Red Cell Distribution Width 13.2 10.0-14.5 % Platelet Count 324 130-400 10^3/uL Mean Platelet Volume 9.9 7.4-10.4 FL Neutrophils (%) (Auto) 55 42-75 % Lymphocytes (%) (Auto) 34 12-44 % Monocytes (%) (Auto) 8 0-12 % Eosinophils (%) (Auto) 2 0-10 % Basophils (%) (Auto) 0 0-10 % Neutrophils # (Auto) 13.5 H 1.8-7.8 X 10^3 Lymphocytes # (Auto) 8.3 H 1.0-4.0 X 10^3 Monocytes # (Auto) 2.1 H 0.0-1.0 X 10^3 Eosinophils # (Auto) 0.6 H 0.0-0.3 10^3/uL Basophils # (Auto) 0.1 0.0-0.1 10^3/uL Neutrophils % (Manual) 49 % Lymphocytes % (Manual) 38 % Monocytes % (Manual) 5 % Eosinophils % (Manual) 2 % Basophils % (Manual) 0 % Band Neutrophils 2 % Reactive Lymphocytes 4 % Toxic Granulation 2+ Clumped Platelets OCCASIONAL Macrocytosis SLIGHT Prothrombin Time 13.2 12.2-14.7 SEC INR Comment 1.0 0.8-1.4 Activated Partial Thromboplast Time 28 24-35 SEC Sodium Level 142 135-145 MMOL/L Potassium Level 3.5 L 3.6-5.0 MMOL/L Chloride Level 104 98-107 MMOL/L Carbon Dioxide Level 17 L 21-32 MMOL/L Anion Gap 21 H 5-14 MMOL/L Blood Urea Nitrogen 6 L 7-18 MG/DL Creatinine 0.96 0.60-1.30 MG/DL Estimat Glomerular Filtration Rate 58 BUN/Creatinine Ratio 6 Glucose Level 184 H 70-105 MG/DL Lactic Acid Level 6.33 *H 0.50-2.00 MMOL/L Calcium Level 9.0 8.5-10.1 MG/DL Corrected Calcium 9.0 8.5-10.1 MG/DL Magnesium Level 2.5 H 1.8-2.4 MG/DL Total Bilirubin 0.3 0.1-1.0 MG/DL Aspartate Amino Transf (AST/SGOT) 16 5-34 U/L Alanine Aminotransferase (ALT/SGPT) 11 0-55 U/L Alkaline Phosphatase 61 40-136 U/L Myoglobin 23.4 10.0-92.0 NG/ML Troponin I < 0.30 <0.30 NG/ML Total Protein 6.9 6.4-8.2 GM/DL Albumin 4.0 3.2-4.5 GM/DL Serum Alcohol < 10 <10 MG/DL Urine Color YELLOW Urine Clarity CLEAR Urine pH 6 5-9 Urine Specific [place] 1.015 L 1.016-1.022 Urine Protein NEGATIVE NEGATIVE Urine Glucose (UA) NEGATIVE NEGATIVE Urine Ketones NEGATIVE NEGATIVE Urine Nitrite NEGATIVE NEGATIVE Urine Bilirubin NEGATIVE NEGATIVE Urine Urobilinogen NORMAL NORMAL MG/DL Urine Leukocyte Esterase NEGATIVE NEGATIVE Urine RBC (Auto) 1+ H NEGATIVE Urine RBC 0-2 /HPF Urine WBC 0-2 /HPF Urine Squamous Epithelial Cells 0-2 /HPF Urine Renal Epithelial Cells NONE /HPF Urine Crystals NONE /LPF Urine Bacteria NEGATIVE /HPF Urine Casts PRESENT /LPF Urine Hyaline Casts 2-5 H /LPF Urine Mucus NEGATIVE /LPF Urine Culture Indicated NO Blood Gas Puncture Site RT RAD Blood Gas Patient Temperature 98.1 Arterial Blood pH 7.14 *L 7.37-7.43 Arterial Blood Partial Pressure CO2 71 *H 35-45 MMHG Arterial Blood Partial Pressure O2 334 H 79-93 MMHG Arterial Blood HCO3 23 23-27 MMOL/L Arterial Blood Total CO2 25.6 21.0-31.0 MMOL/L Arterial Blood Oxygen Saturation 100 94-100 % Arterial Blood Base Excess -4.5 L -2.5-2.5 MMOL/L Ursh Test YES-POS Blood Gas Ventilator Setting YES Blood Gas Inspired Oxygen 60% Urine Opiates Screen NEGATIVE NEGATIVE Urine Oxycodone Screen NEGATIVE NEGATIVE Urine Methadone Screen NEGATIVE NEGATIVE Urine Propoxyphene Screen NEGATIVE NEGATIVE Urine Barbiturates Screen NEGATIVE NEGATIVE Ur Tricyclic Antidepressants Screen NEGATIVE NEGATIVE Urine Phencyclidine Screen NEGATIVE NEGATIVE Urine Amphetamines Screen NEGATIVE NEGATIVE Urine Methamphetamines Screen NEGATIVE NEGATIVE Urine Benzodiazepines Screen POSITIVE H NEGATIVE Urine Cocaine Screen NEGATIVE NEGATIVE Urine Cannabinoids Screen NEGATIVE NEGATIVE Glucometer 171 H 70-110 MG/DL Micro Results Microbiology 01/03/18 Influenza Types A,B Antigen (BETTY) - Final, Complete My Orders Orders - NATANAEL ALONZO MD Chest 1 View, Ap/Pa Only (01/03/18 16:38) Albuterol/Ipra Inhalation Soln (Duoneb I (01/03/18 16:45) Svn Small Volume Nebulizer (01/03/18 16:38) Methylprednisolone Sod Succ (Solu-Medrol (01/03/18 16:45) Propofol Injection (Diprivan Injection) (01/03/18 16:45) Accucheck Stat ONCE (01/03/18 16:39) Ekg Tracing (01/03/18 16:39) Monitor-Rhythm Ecg Trace Only (01/03/18 16:39) Alcohol (01/03/18 16:39) Cbc With Automated Diff (01/03/18 16:39) Comprehensive Metabolic Panel (01/03/18 16:39) Drug Screen Stat (Urine) (01/03/18 16:39) Lactic Acid Analyzer (01/03/18 16:39) Blood Culture (01/03/18 16:39) Influenza A And B Antigens (01/03/18 16:39) Magnesium (01/03/18 16:39) Cardiac Profile 1 (01/03/18 16:39) Myoglobin Serum (01/03/18 16:39) Protime With Inr (01/03/18 16:39) Partial Thromboplastin Time (01/03/18 16:39) O2 (01/03/18 16:39) Lipid Panel (01/04/18 06:00) Saline Lock/Iv-Start (01/03/18 16:39) Ns Iv 1000 Ml (Sodium Chloride 0.9%) (01/03/18 16:39) Arterial Blood Gas (01/03/18 16:49) Manual Differential (01/03/18 16:36) Etomidate Injection (Amidate Injection) (01/03/18 17:15) Saline Lock/Iv-Start (01/03/18 17:11) Ns Iv 1000 Ml (Sodium Chloride 0.9%) (01/03/18 17:11) Chest 1 View, Ap/Pa Only (01/03/18 17:17) Arterial Blood Draw (01/03/18 ) Enoxaparin Injection (Lovenox Injection) (01/03/18 17:30) Ua Culture If Indicated (01/03/18 17:28) Saline Lock/Iv-Start (01/03/18 17:48) Ns Iv 1000 Ml (Sodium Chloride 0.9%) (01/03/18 17:48) Cefepime Injection (Maxipime Injection) (01/03/18 18:00) Norepinephrine (Levophed) (01/03/18 18:15) D5w Iv Solution (Evans) (Dextrose 5% Dionna (01/03/18 18:13) Norepinephrine (Levophed) (01/03/18 18:13) Medications Given in ED Current Medications Medications Dose Ordered Sig/Lulu Route Start Time Stop Time Status Last Admin Dose Admin Cefepime HCl 2000 mg/Sodium Chloride 50 ml @ 100 mls/hr ONCE ONCE IV 01/03/18 18:00 01/03/18 18:29 01/03/18 18:09 100 MLS/HR Enoxaparin Sodium 60 mg ONCE ONCE SC 01/03/18 17:30 01/03/18 17:31 DC 01/03/18 17:41 60 MG Etomidate 20 mg ONCE ONCE IV 01/03/18 17:15 01/03/18 17:16 DC 01/03/18 16:35 20 MG Fentanyl Citrate 50 mcg ONCE ONCE IVP 01/03/18 17:45 01/03/18 17:46 DC 01/03/18 17:39 50 MCG Fentanyl Citrate 50 mcg ONCE ONCE IVP 01/03/18 18:00 01/03/18 18:01 DC 01/03/18 17:57 50 MCG Methylprednisolone Sodium Succinate 125 mg ONCE ONCE IVP 01/03/18 16:45 01/03/18 16:46 DC 01/03/18 17:17 125 MG Midazolam HCl 2 mg ONCE ONCE IVP 01/03/18 17:45 01/03/18 17:46 DC 01/03/18 17:26 2 MG Midazolam HCl 2 mg ONCE ONCE IVP 01/03/18 17:45 01/03/18 17:46 DC 01/03/18 17:57 2 MG Midazolam HCl 3 mg ONCE ONCE IVP 01/03/18 17:45 01/03/18 17:46 DC 01/03/18 16:37 3 MG Midazolam HCl 3 mg ONCE ONCE IVP 01/03/18 17:45 01/03/18 17:46 DC 01/03/18 17:16 3 MG Sodium Chloride 1,000 ml @ 0 mls/hr Q0M ONCE IV 01/03/18 16:39 01/03/18 16:45 DC 01/03/18 16:42 1,000 MLS/HR Sodium Chloride 1,000 ml @ 0 mls/hr Q0M ONCE IV 01/03/18 17:11 01/03/18 17:13 DC 01/03/18 16:55 1,000 MLS/HR Sodium Chloride 1,000 ml @ 0 mls/hr Q0M ONCE IV 01/03/18 17:48 01/03/18 17:50 DC 01/03/18 17:49 1,000 MLS/HR Vital Signs/I&O 01/03/18 01/03/18 16:28 17:09 Temp 97.0 Pulse 203 176 Resp 16 16 B/P (MAP) 159/78 (105) Pulse Ox 57 99 O2 Delivery Room Air FiO2 60 Capillary Refill : Less Than 3 Seconds Blood Pressure Mean: 105 Point of Care Testing Finger Stick Blood Glucose: 171 ECG EKG #1: EKG Time: 16:45 Rate: 169 Comment Narrow complex tachycardia suggestive of atrial fibrillation with RVR. Mild ST depression noted. EKG #2: EKG Time: 16:51 Rate: 82 Rhythm: Normal Sinus ECG Impression: Normal Comment Normal sinus rhythm with no ST elevation or depression. No abnormal intervals or axis deviation. Diagnostic Imaging Diagonstic Imaging: Xray Plain Films/CT/US/NM/MRI: chest Comments Chest x-ray viewed by me and report reviewed. ET tube in good position. NAME: GONZALO MCKEON [facility] REC#: [id number] PT STATUS: REG ER : 1950 PHYSICIAN: NATANAEL ALONZO MD ADMIT DATE: 01/03/18/ER Draft Date of Exam:01/03/18 CHEST 1 VIEW, AP/PA ONLY INDICATION: OG tube placement. EXAMINATION: Chest from 06/19/2017. COMPARISON: 11/13/2017. FINDINGS: There is a feeding tube coursing beneath the diaphragm. An ET tube is noted and unchanged. Lungs are hyperinflated. An in ET tube is noted and unremarkable. Lungs are hyperinflated. No infiltrates, effusions or pneumothorax. IMPRESSION: 1. Tubes, as described. 2. Emphysematous changes. Dictated on workstation # [id number] Dict: 01/03/18 1716 Trans: 01/03/18 1723 PJE [id number] Interpreted by: IFEOMA KUNZ MD Diagonstic Imaging: Xray Plain Films/CT/US/NM/MRI: chest Comments Chest x-ray after placement of central line and OG tube viewed by me and report reviewed. Lines and tubes are in good position. NAME: GONZALO MCKEON [facility] REC#: [id number] PT STATUS: REG ER : 1950 PHYSICIAN: NATANAEL ALONZO MD ADMIT DATE: 01/03/18/ER Draft Date of Exam:01/03/18 CHEST 1 VIEW, AP/PA ONLY INDICATION Central line placement. EXAMINATION: Chest, 01/03/2018. COMPARISON: 01/03/2018 at 5:01 p.m. FINDINGS: A feeding tube is coursing beneath the diaphragm. There is an ET tube unchanged. A right jugular line tip is seen in the proximal SVC. Lungs stable in appearance and hyperinflated. IMPRESSION: Tubes and lines, as described, otherwise stable chest. Dictated on workstation # [id number] Dict: 01/03/18 1820 Trans: 01/03/18 1832 PJE [id number] Interpreted by: IFEOMA KUNZ MD Critical Care Note Critical Care Start Time: 16:32 Stop Time: 18:48 Progress Patient was brought to the emergency room by her in respiratory failure. She had agonal breathing and was unresponsive. She had a strong tachycardic pulse. Patient was immediately given respiratory resuscitation with BVM and high flow oxygen. Oxygen saturations were initially in the 50s. They gradually climbed with interventions. Patient was promptly intubated by Ezequiel Hardwick APRN, at 16:34. Etomidate 20 mg IV was administered during the intubation. Patient's respiratory status recovered promptly after intubation. ET tube placement was confirmed with chest x-ray. Patient was further sedated with a propofol drip. We had some difficulty with hypotension caused by the propofol. Propofol drip was titrated down. Further sedation was provided with fentanyl and Versed in multiple doses. IV fluid boluses were liberally administered. She received a total of 3 L of IV normal saline. Solu-Medrol 125 mg was administered as well. DuoNeb was given 1. Patient had a markedly leukocytosis of 23,000. No source of infection was identified. After discussion with Dr. Birch, a dose of cefepime was administered empirically. Patient exhibited a narrow complex tachycardia with a heart rate in the 170s and 180s on presentation. After intubation patient spontaneously converted to sinus rhythm with a rate of 80s. She later had a brief run of atrial fibrillation with a heart rate in the 130s and 140s. This rhythm also spontaneously converted to sinus rhythm. Case was discussed with Dr. Millan. Plans for treatment of recurrent A. fib with RVR were reviewed. We selected digoxin as the PRN medication of choice for her recurrent A. fib with RVR. Dr. Millan suggested digoxin 0.25 mg IV every 2 hours as needed for heart rate greater than 130 with a maximum of 3 doses (total dose of 0.75 mg). Case was also discussed with Dr. Birch who recommended scheduled DuoNeb treatments and scheduled Solu-Cortef 100 mg IV every 8 hours. Levophed was initiated to support pressures. A right IJ line was placed by Ezequiel Hardwick APRN with no complications. Influenza screen was negative. CODE STATUS was discussed with the patient's . He requests no chest compressions but states defibrillation is acceptable. Verbal report was given to the eICU databases computer consultant prior to transfer. Departure Communication (Admissions) Time/Spoke to Admitting Phy: 18:25 Dr. Savanah Birch 17:54 Dr. Millan 18:09 Impression Primary Impression: Respiratory failure with hypoxia and hypercapnia Qualified Codes: J96.21 - Acute and chronic respiratory failure with hypoxia; J96.22 - Acute and chronic respiratory failure with hypercapnia Additional Impressions: Paroxysmal atrial fibrillation Atrial fibrillation with RVR COPD with exacerbation Disposition: ADMITTED INPATIENT Condition: Improved Admissions Decision to Admit Reason: Admit from ER (General) Decision to Admit/Date: Jan 03, 2018 Time/Decision to Admit Time: 16:32 Departure-Patient Inst. Referrals: GEORGINA GARCIA DO (PCP/Family) Primary Care Physician NATANAEL ALONZO MD Jan 03, 2018 18:27
--- NOTE | 2018-01-03 18:32 | Diagnostic Imaging Report ---
INDICATION Central line placement. EXAMINATION: Chest, 01/03/2018. COMPARISON: 01/03/2018 at 5:01 p.m. FINDINGS: A feeding tube is coursing beneath the diaphragm. There is an ET tube unchanged. A right jugular line tip is seen in the proximal SVC. Lungs stable in appearance and hyperinflated. IMPRESSION: Tubes and lines, as described, otherwise stable chest. Dictated by: Dictated on workstation # [id number]
[2018-01-03] MEDS ORDERED: fentaNYL INJECTION 100 MCG/2 ML AMP IVP PRN ×2 (18:45)
--- OUTSIDE RECORDS SUMMARY | 2018-01-03 18:46 | XMS REPORT | Clinical Summary ---
Author Author [facility] Organization [facility] Address Unknown Phone Unavailable Care Team Providers Care Inspector Wire Rope Name Role Phone Mehul Bermeo MD PCP Amanda Augustin MD Unavailable Unavailable Source Comments Some departments are not documenting in the electronic medical record. If you do not see the information that you expected, contact Release of Information in the Health Information Management department at [phone] for further assistance in locating additional records.[facility] Allergies No Known Allergies Current Medications [...] 58.1 kg (128 lb) 03/17/2008 6:00 AM MEDIA RELATIONS DIRECTOR Height 160 cm (5' 3") 03/17/2008 6:00 AM MEDIA RELATIONS DIRECTOR Body Mass Index 22.67 03/17/2008 6:00 AM MEDIA RELATIONS DIRECTOR Plan of Treatment Health Maintenance Due Date [...]
--- OUTSIDE RECORDS SUMMARY | 2018-01-03 18:49 | XMS REPORT | Continuity of Care Document ---
Author Author [facility] Organization [facility] Address Unknown Phone Unavailable Allergies Active Description Code Type Severity Reaction Onset Reported/Identified Relationship to Patient Clinical Status Yes penicillin [id number] Drug Allergy Unknown N/A 09/29/2014 Yes Sulfa (Sulfonamide Antibiotics) [id number] Drug Allergy Unknown SOB, SWELLING, 09/29/2014 Yes penicillin [id number] Drug Allergy Unknown Pt has received 11/13/2017 [...] 02/02/2016 FIOR PARRA APRN Ot Z79.899 OTHER LEAF TIER (CURRENT) DRUG THERAPY 02/04/2016 FIOR PARRA APRN Ot F17.210 NICOTINE DEPENDENCE, CIGARETTES, UNCOMPL 02/04/2016 FIOR PARRA APRN Ot J44.1 CHRONIC OBSTRUCTIVE PULMONARY DISEASE W 02/04/2016 FIOR PARRA APRN Ot R06.02 SHORTNESS OF BREATH 02/04/2016 FIOR PARRA APRN Ot Z79.899 OTHER GROUP HOME (CURRENT) DRUG THERAPY 02/08/2016 GEORGINA GARCIA DO Ot J18.9 PNEUMONIA, UNSPECIFIED ORGANISM 03/20/2016 CARLOS ALBERTO GARCIA BARREL ENDSHAKE ADJUSTER Ot J44.9 CHRONIC OBSTRUCTIVE PULMONARY DISEASE, U 03/20/2016 CARLOS ALBERTO GARCIA L BARREL ENDSHAKE ADJUSTER Ot R09.02 HYPOXEMIA 03/25/2016 CARLOS ALBERTO GARCIA L BARREL [employer]SHAKE ADJUSTER Ot J44.9 CHRONIC OBSTRUCTIVE PULMONARY DISEASE, U 03/25/2016 CARLOS ALBERTO GARCIA BARREL [employer]SHAKE ADJUSTER Ot R09.02 HYPOXEMIA 04/22/2016 CARLOS ALBERTO GARCIA BARREL [employer]SHAKE ADJUSTER Ot J44.9 CHRONIC OBSTRUCTIVE PULMONARY DISEASE, U 04/22/2016 CARLOS ALBERTO GARCIA BARREL [employer]SHAKE ADJUSTER Ot R09.02 HYPOXEMIA 05/07/2016 CARLOS ALBERTO GARCIA L BARREL [employer]SHAKE ADJUSTER Ot J44.9 CHRONIC OBSTRUCTIVE PULMONARY DISEASE, U 05/07/2016 RADHA CARLOS ALBERTO L BARREL ENDSHAKE ADJUSTER Ot R09.02 HYPOXEMIA 08/13/2016 DANIELLE GA MD [...] GA MD Ot Z91.19 PATIENT'S NONCOMPLIANCE W [facility] 08/13/2016 DANIELLE GA MD Ot [...] GA MD Ot Z91.19 PATIENT'S NONCOMPLIANCE W [facility] TR 08/14/2016 DANIELLE GA MD Ot [...] GA MD Ot Z91.19 PATIENT'S NONCOMPLIANCE W [facility] TR 08/14/2016 DANIELLE GA MD Ot [...] J44.1 CHRONIC OBSTRUCTIVE PULMONARY DISEASE W 08/14/2016 DAINELLE GA MD Ot J96.20 ACUTE AND CHR RESP FAILURE, UNSP W HYPOX 08/14/2016 DANIELLE GA MD Ot Z91.19 PATIENT'S NONCOMPLIANCE W [facility] TR 08/14/2016 DANIELLE GA MD Ot [...] PULMONARY DISEASE, U 11/21/2016 CARLOS ALBERTO GARCIA BARREL ENDSHAKE ADJUSTER Ot R09.02 HYPOXEMIA 12/16/2016 VIKA CHIN MD [...] BREATH 09/01/2017 DANIELLE GA MD, Ot Z79.51 LEAF TIER (CURRENT) USE OF INHALED STERO 09/01/2017 DANIELLE GA MD Ot Z79.52 LEAF TIER (CURRENT) USE OF SYSTEMIC STER 09/01/2017 DANIELLE [...] ALLERGY STATUS TO PENICILLIN 09/01/2017 DANIELLE GA MD, Ot Z88.2 ALLERGY STATUS TO SULFONAMIDES STATUS 09/01/2017 DANIELLE GA MD Ot Z90.710 ACQUIRED ABSENCE OF BOTH CERVIX AND UTER 09/01/2017 DANIELLE GA MD Ot Z90.89 ACQUIRED ABSENCE OF OTHER ORGANS 09/03/2017 DANIELLE GA MD, Ot J44.1 CHRONIC OBSTRUCTIVE PULMONARY DISEASE W 09/03/2017 DANIELLE GA MD Ot R06.02 SHORTNESS OF BREATH 09/03/2017 DANIELLE GA MD, Ot Z79.51 LEAF TIER (CURRENT) USE OF INHALED STERO 09/03/2017 DANIELLE GA MD, Ot Z79.52 GROUP HOME (CURRENT) USE OF SYSTEMIC STER 09/03/2017 [...] PNEUMONIA, UNSPECIFIED ORGANISM 10/28/2017 CARLOS ALBERTO GARCIA BARREL ENDSHAKE ADJUSTER Ot J44.9 CHRONIC OBSTRUCTIVE PULMONARY DISEASE, U 10/28/2017 CARLOS ALBERTO GARCIA BARREL [employer]SHAKE ADJUSTER Ot R09.02 HYPOXEMIA 10/28/2017 VIKA CHIN MD [...] PNEUMONIA, UNSPECIFIED ORGANISM 11/03/2017 CARLOS ALBERTO GARCIA BARREL [employer]SHAKE ADJUSTER Ot J44.9 CHRONIC OBSTRUCTIVE PULMONARY DISEASE, U 11/03/2017 CARLOS ALBERTO GARCIA BARREL [employer]SHAKE ADJUSTER Ot R09.02 HYPOXEMIA 11/03/2017 VIKA CHIN MD [...] Ot F41.9 ANXIETY DISORDER, UNSPECIFIED 11/14/2017 STAR CORTES KRYSTYNA Ot F43.10 POST-TRAUMATIC STRESS DISORDER, UNSPECIF [...] NODULE 11/27/2017 ELSY MASSEY VIKA S Ot I25.10 ATHSCL HEART DISEASE OF [place] CORONARY 11/27/2017 ELSY MASSEY VIKA S Ot [...] 12/31/15 17:45 Bacterial sputum culture [facility] Comprehensive metabolic panel - 02/02/16 14:40 [...] Blood erythrocyte morphology finding identification [facility] Comprehensive metabolic panel - 08/13/16 01:47 [...] OF GROWTH Isolated NRG Bacterial blood culture [id number] NRG Blood lactic acid measurement (moles/volume) - [...] 11/13/17 05:24 BNP level 32.7 pg/mL <100.0 [id number] - 11/13/17 05:24 [id number] 18.7 ug/mL 50.0-100.0 Bacterial blood culture - [...] NRG FTX;REPORTABLE THIS AMENDED REPORT SENT BY [facility] NR FREE TEXT ENTRY 2 11/15 12:05 [...] platelet poor plasma by coagulation assay - 01/03/18 16:36 Prothrombin time (PT) in platelet poor plasma by coagulation assay 13.2 s 12.2-14.7 INR in platelet poor plasma or blood by coagulation assay 1.0 0.8-1.4 Activated partial thromboplastin time (aPTT) in platelet poor plasma bycoagulation assay - 01/03/18 16:36 Activated partial thromboplastin time (aPTT) in platelet poor plasma bycoagulation assay 28 s 24-35 Magnesium - 01/03/18 16:36 Magnesium 2.5 mg/dL 1.8-2.4 Blood manual differential performed detection - 01/03/18 16:36 Blood monocytes/100 leukocytes 5 % NRG Manual blood segmented neutrophils/100 leukocytes 49 % NRG Blood band neutrophils/100 leukocytes 2 % NRG Manual blood lymphocytes/100 leukocytes 38 % NRG Manual eosinophils/100 leukocytes in nose 2 % NRG Manual blood basophils/100 leukocytes 0 % NRG Blood lymphocytes variant/100 leukocytes 4 % NRG Blood macrocytes detection by light microscopy SLIGHT NRG Blood toxic granules detection by light microscopy 2+ NRG Blood platelet clump detection by light microscopy OCCASIONAL NRG Comprehensive metabolic panel - 01/03/18 16:36 Serum or plasma sodium measurement (moles/volume) 142 mmol/L 135-145 Serum or plasma potassium measurement (moles/volume) 3.5 mmol/L 3.6-5.0 Serum or plasma chloride measurement (moles/volume) 104 mmol/L 98-107 Carbon dioxide 17 mmol/L 21-32 Serum or plasma anion gap determination (moles/volume) 21 mmol/L 5-14 Serum or plasma urea nitrogen measurement (mass/volume) 6 mg/dL 7-18 Serum or plasma creatinine measurement (mass/volume) 0.96 mg/dL 0.60-1.30 Serum or plasma urea nitrogen/creatinine mass ratio 6 NRG Serum or plasma creatinine measurement with calculation of estimated glomerular filtration rate 58 NRG Serum or plasma glucose measurement (mass/volume) 184 mg/dL 70-105 Serum or plasma calcium measurement (mass/volume) 9.0 mg/dL 8.5-10.1 Serum or plasma total bilirubin measurement (mass/volume) 0.3 mg/dL 0.1-1.0 Serum or plasma alkaline phosphatase measurement (enzymatic activity/volume) 61 U/L 40-136 Serum or plasma aspartate aminotransferase measurement (enzymatic activity/ volume) 16 U/L 5-34 Serum or plasma alanine aminotransferase measurement (enzymatic activity/volume ) 11 U/L 0-55 Serum or plasma protein measurement (mass/volume) 6.9 g/dL 6.4-8.2 Serum or plasma albumin measurement (mass/volume) 4.0 g/dL 3.2-4.5 CALCIUM CORRECTED 9.0 mg/dL 8.5-10.1 Serum or plasma ethanol measurement (mass/volume) - 01/03/18 16:36 Serum or plasma ethanol measurement (mass/volume) < mg/dL <10 Blood lactic acid measurement (moles/volume) - 01/03/18 16:36 Blood lactic acid measurement (moles/volume) 6.33 mmol/L 0.50-2.00 Serum or plasma troponin i.cardiac measurement (mass/volume) - 01/03/18 16:36 Serum or plasma troponin i.cardiac measurement (mass/volume) < ng/ mL <0.30 Myoglobin, serum - 01/03/18 16:36 Myoglobin, serum 23.4 ng/mL 10.0-92.0 Arterial blood gas measurement - 01/03/18 16:45 [...] NRG Measurement of body temperature 98.1 NRG Urine drug screening test - 01/03/18 16:45 Urine phencyclidine detection by screening method NEGATIVE NEGATIVE Urine benzodiazepines detection by screening method POSITIVE NEGATIVE Urine cocaine detection NEGATIVE NEGATIVE Urine amphetamines detection by screening method NEGATIVE NEGATIVE Urine methamphetamine detection by screening method NEGATIVE NEGATIVE Urine cannabinoids detection by screening method NEGATIVE NEGATIVE Urine opiates detection by screening method NEGATIVE NEGATIVE Urine barbiturates detection NEGATIVE NEGATIVE Screening urine tricyclic antidepressants detection NEGATIVE NEGATIVE Urine methadone detection by screening method NEGATIVE NEGATIVE Urine oxycodone detection NEGATIVE NEGATIVE Urine propoxyphene detection NEGATIVE NEGATIVE Complete urinalysis with reflex to culture - 01/03/18 16:45 Urine color determination YELLOW NRG Urine clarity determination CLEAR NRG Urine pH measurement by test strip 6 5-9 Specific gravity of urine by test strip 1.015 1.016- 1.022 Urine protein assay by test strip, semi-quantitative NEGATIVE NEGATIVE Urine glucose detection by automated test strip NEGATIVE NEGATIVE Erythrocytes detection in urine sediment by light microscopy 1+ NEGATIVE Urine ketones detection by automated test [...] count by microscopy (number/high power field ) [HPF] NRG Bacteria detection in urine sediment by light microscopy NEGATIVE NRG Squamous epithelial cells detection in urine sediment by light microscopy 0-2 NRG Crystals detection in urine sediment by light microscopy NONE NRG Casts detection in urine sediment by light microscopy PRESENT NRG Mucus detection in urine sediment by light microscopy NEGATIVE NRG Complete urinalysis with reflex to culture NO NRG Hyaline casts detection in urine sediment by light microscopy 2-5 NRG Renal epithelial cells detection in urine sediment by light microscopy NONE NRG Influenza virus A and B antigen detection - 01/03/18 16:47 FLU RESULT NEGATIVE FOR INFLUENZA A AND B ANTIGENS BY IA NRG Capillary blood glucose measurement by glucometer (mass/volume) - 01/03/18 16: 48 Capillary blood glucose measurement by glucometer (mass/volume) 171 mg/dL 70-110 Encounters ACCT No. Visit Date/Time Discharge Status Pt. Type Provider Facility Loc./Unit Complaint [id number] 11/13/2017 06:20:00 11/14/2017 12:56:00 DIS Inpatient KRYSTYNA GRAVES DO [facility] 4TH ACUTE ON CHRONIC RESPIRATORY FAILURE;COPD; [id number] 11/03/2017 08:58:00 11/03/2017 23:59:59 CLS Outpatient VIKA CHIN MD [facility] RAD R91.8 [id number] 09/01/2017 14:58:00 09/01/2017 18:30:00 DIS Emergency DANIELLE GA MD [facility] ER SOA [id number] 07/30/2017 08:30:00 07/30/2017 23:59:59 CLS Preadmit GEORGINA GARCIA DO [facility] CARD R00.2 [id number] 04/30/2017 08:26:00 07/29/2017 00:01:00 DIS Outpatient GEORGINA GARCIA DO [facility] CARD R00.2 [id number] 06/08/2017 09:40:00 06/10/2017 11:30:00 DIS Inpatient DANIELLE GA MD [facility] 4TH COPD ACUTE EXACERBATION, HYPOXIA [id number] 04/17/2017 11:00:00 04/19/2017 12:46:00 DIS Inpatient KRYSTYNA GRAVES DO [facility] 4TH COPD IN EXACERBATION [id number] 11/25/2016 13:14:00 11/25/2016 23:59:59 CLS Outpatient VIKA CHIN MD [facility] RAD SCREENING [id number] 10/02/2016 12:11:00 10/02/2016 23:59:59 CLS Preadmit ELSY MASSEY, VIKA Gilbert [facility] RAD COPD,HX OF SMOKING [id number] 09/30/2016 06:15:00 2016 13:45:00 DIS Inpatient DANIELLE GA MD [facility] 4TH RESPIRATORY FAILURE,COPD EX [id number] 08/13/2016 03:34:00 08/14/2016 12:30:00 DIS Inpatient DANIELLE GA MD [facility] 4TH ACUTE EXACERBATION OF COPD [id number] 03/19/2016 15:03:00 03/19/2016 23:59:59 CLS Outpatient CARLOS ALBERTO GARCIA [facility] RT J44.9, R09.02 [id number] 02/02/2016 14:37:00 02/02/2016 16:52:00 DIS Emergency FIOR PARRA ORNAMENT STITCHER [facility] ER SOA [id number] 01/17/2016 14:18:00 01/17/2016 23:59:59 CLS Outpatient GEORGINA GARCIA DO [facility] RAD PNEUMONIA [id number] 12/31/2015 17:22:00 12/31/2015 23:59:59 CLS Outpatient GEORGINA GARCIA DO [facility] RAD J18.9 [id number] 09/29/2014 09:19:00 09/29/2014 12:00:00 DIS Outpatient DEYA JJ MD [facility] SDC SCREENING,HISTORY OF POLYPS [id number] 09/28/2014 06:36:00 09/28/2014 23:59:59 CLS Outpatient DEYA JJ MD [facility] PREOP HISTORY OF POLYPS [id number] 06/06/2013 18:50:00 06/06/2013 23:59:59 CLS Outpatient [id number] 01/03/2018 18:32:00 ACT Inpatient LAURA GREEN MD [facility] ICU RESPIRATORY FAILURE,COPD EXACERBATION [id number] 11/26/2011 06:32:00 Document Registration [id number] 11/25/2011 08:24:00 Document Registration [id number] 05/02/2011 09:40:00 Document Registration [id number] 01/12/2011 22:12:00 Document Registration [id number] 10/08/2016 10:00:00 02/25/2017 15:48:00 DIS Outpatient Lawrence Ravi [id number] 10/06/2016 12:41:00 10/06/2016 23:59:00 DIS Outpatient Lawrence Ravi
[2018-01-03] MEDS ORDERED: DIGOXIN 0.25 MG/ML (LANOXIN) 2 ML AMP IV PRN (19:15)
[2018-01-03] MEDS ORDERED: NOREPINEPHRINE 4 MG/NS 250 ML DRIP IV SCH ×2 (19:15)
[2018-01-03] MEDS: NS W/KCL 20 MEQ/L 1,000 ML IV SCH (20:37)
[2018-01-03] MEDS: HYDROCORTISONE 100 MG/2 ML (Solu-CORTEF) VIAL IV SCH (20:37)
[2018-01-03 20:53] LABS: ABG OXYGEN SATURATION 99 % (94-100); ABG PCO2 53 MMHG (35-45); ABG PO2 105 MMHG (79-93); ABG TCO2 24.7 MMOL/L (21.0-31.0)
[2018-01-03 20:57] LABS: ABG PH 7.26 (7.37-7.43); ALLENS TEST YES-POS; INSPIRED O2 40%; PATIENT TEMP 98.6; VENTILATOR YES
[2018-01-03] MEDS: fentaNYL INJECTION 100 MCG/2 ML AMP IV PRN ×3 (21:40→23:10)
[2018-01-03] MEDS: RT-ALBUTEROL/IPRATROPIUM 3 ML (DUONEB) VIAL IH SCH (22:51)
[2018-01-03] MEDS: CEFEPIME 2 GM/NS 50 ML IVPB IV SCH ×2 (23:24)
[2018-01-04] VITALS (36 sets, daily range): BP systolic 110–168; BP diastolic 59–92
[2018-01-04] MEDS: fentaNYL INJECTION 100 MCG/2 ML AMP IV PRN ×12 (00:04→23:35)
[2018-01-04] MEDS ORDERED: PROPOFOL DRIP (ICU) 100 ML IV ONE (00:42)
[2018-01-04] MEDS: RT-ALBUTEROL/IPRATROPIUM 3 ML (DUONEB) VIAL IH SCH ×6 (03:02→22:05)
[2018-01-04] MEDS: NS W/KCL 20 MEQ/L 1,000 ML IV SCH ×4 (03:28→23:10)
[2018-01-04] MEDS: HYDROCORTISONE 100 MG/2 ML (Solu-CORTEF) VIAL IV SCH (03:32)
[2018-01-04 03:50] LABS: BASOPHILS % (AUTO) 0 % (0-10); EOSINOPHILS % (AUTO) 0 % (0-10); HEMATOCRIT 36 % (35-52); HEMOGLOBIN 11.6 G/DL (11.5-16.0); LYMPHOCYTES # (AUTO) 0.4 X 10^3 (1.0-4.0); LYMPHOCYTES % (AUTO) 3 % (12-44); MEAN CORPUSCULAR HEMOGLOBIN 33 PG (25-34); MEAN CORPUSCULAR HGB CONC 32 G/DL (32-36); MEAN CORPUSCULAR VOLUME 105 FL (80-99); MEAN PLATELET VOLUME 9.6 FL (7.4-10.4); MONOCYTES # (AUTO) 0.3 X 10^3 (0.0-1.0); MONOCYTES % (AUTO) 2 % (0-12); NEUTROPHILS # (AUTO) 10.6 X 10^3 (1.8-7.8); NEUTROPHILS % (AUTO) 94 % (42-75); PLATELET COUNT 213 10^3/uL (130-400); RED BLOOD COUNT 3.47 10^6/uL (4.35-5.85); RED CELL DISTRIBUTION WIDTH 13.2 % (10.0-14.5); WHITE BLOOD COUNT 11.2 10^3/uL (4.3-11.0)
[2018-01-04 04:11] LABS: CHOLESTEROL 156 MG/DL (< 200); HDL CHOLESTEROL 53 MG/DL (40-60); TRIGLYCERIDES 63 MG/DL (<150); VLDL CHOLESTEROL 13 MG/DL (5-40)
[2018-01-04 04:13] LABS: ALANINE AMINOTRANSFERASE 23 U/L (0-55); ALBUMIN 3.4 GM/DL (3.2-4.5); ALKALINE PHOSPHATASE 51 U/L (40-136); BILIRUBIN,TOTAL 0.3 MG/DL (0.1-1.0); BUN/CREATININE RATIO 9; CALCIUM 8.3 MG/DL (8.5-10.1); CARBON DIOXIDE 22 MMOL/L (21-32); CHLORIDE 112 MMOL/L (98-107); GFR ESTIMATED > 60; GLUCOSE 141 MG/DL (70-105); MAGNESIUM 1.9 MG/DL (1.8-2.4); PHOSPHORUS 2.9 MG/DL (2.3-4.7); POTASSIUM 4.3 MMOL/L (3.6-5.0); SODIUM 144 MMOL/L (135-145); TOTAL PROTEIN 5.7 GM/DL (6.4-8.2)
[2018-01-04 04:46] LABS: ABG BASE EXCESS -3.1 MMOL/L (-2.5-2.5); ABG OXYGEN SATURATION 98 % (94-100); ABG PCO2 50 MMHG (35-45); ABG PO2 96 MMHG (79-93); ABG TCO2 24.1 MMOL/L (21.0-31.0)
[2018-01-04 04:52] LABS: ABG PH 7.28 (7.37-7.43); ALLENS TEST YES-POS; INSPIRED O2 35%; VENTILATOR YES
[2018-01-04 04:53] LABS: PATIENT TEMP 98.8
--- NOTE | 2018-01-04 06:09 | Pulmonary Consultation ---
History of Present Illness History of Present Illness Date of Consultation 01/04/18 06:04 Time Seen by Provider: 06:04 Date of Admission History of Present Illness 67yo with hx of COPD with home oxygen presented to ED via private vehicle secondary to respiratory distress. Upon ED arrival pt was unresponsive with agonal breathing. She was intubated in the ED secondary to severe respiratory distress and unresponsiveness. reported patients Sp02 has been in the 80s however improved after using home oxygen. Her respiratory distress worsened after going to [employer] and smoking cigarettes. After returning home her Sp02 was in the 80's even with home oxygen. PT became unresponsive while traveling to ED. Pt is currently intubated in ICU and is at bedside. UDS was positive for benzos. I am consulted for pulmonary CC management. Allergies and Home Medications Allergies Coded Allergies: Sulfa (Sulfonamide Antibiotics) (Unverified Allergy, Unknown, SOB, SWELLING, RASH, 09/29/14) penicillin (Unverified Allergy, Unknown, Pt has received Ceftriaxone w/o issue, 11/13/17) Home Medications Albuterol Sulfate 18 Gm Hfa.aer.ad, 2 PUFF INH Q6H PRN for WHEEZING, (Reported) Clonazepam 1 Mg Tablet, 1.5 MG PO BID, (Reported) TAKES 1 & 1/2 (1MG) TABLET Divalproex Sodium 250 Mg Tablet.dr, 250 MG PO BID, (Reported) Fluticasone/Salmeterol 12 Gm Hfa.aer.ad, 12 GM IH BID Prescribed by: LAURA GREEN on 11/14/17 1123 Guaifen/Dextromethorphan/PE 180 Ml Liquid, 20 ML PO Q4H PRN for COUGH, (Reported ) Ipratropium [place] 0.2 Mg/1 Ml Solution, 1 VIAL NEB TID PRN for SHORTNESS OF BREATH, (Reported) Prednisone 10 Mg Tab.ds.pk, 10 MG PO DAILY Take 6 tabs(60mg)daily,decrease by 1 tab(10MG)daily. Prescribed by: LAURA GREEN on 11/14/17 1119 Roflumilast 500 Mcg Tablet, 500 MCG PO DAILY, (Reported) Umeclidinium Brm/Vilanterol Tr 1 Each Blst.w.dev, 1 PUFF INH DAILY, (Reported) Past Zppsmqg-Lpzbuf-Wynfky Hx Patient Social History Alcohol Use: Past History Number of Drinks Today: AA Alcohol Beverage of Choice: Beer Recreational Drug Use: No Smoking Status: Current Everyday Smoker Type Used: Cigarettes Former Smoker, Quit: Apr 15, 2017 2nd Hand Smoke Exposure: Yes Recent Foreign Travel: No Contact w/Someone Who Travel: No Recent Infectious Disease Expo: No Recent Hopitalizations: No Immunizations Up To Date Tetanus Booster (TDap): Unknown PED Vaccines UTD: Yes Date of Pneumonia Vaccine: Dec 01, 2016 Date of Influenza Vaccine: Dec 01, 2016 Seasonal Allergies Seasonal Allergies: No Past Medical History Surgeries: Yes Appendectomy, Gallbladder, Hysterectomy, Orthopedic Respiratory: Yes Asthma, Pneumonia, Chronic Bronchitis, COPD, Emphysema Currently Using CPAP: No Currently Using BIPAP: No Cardiac: No Neurological: No : No 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 Disorders: Yes (HPV) Female 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 Disorders: Denies 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, 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 HIV/AIDS: No Genitourinary: No Gastrointestinal: Yes Hemorrhoids, Polyps Musculoskeletal: Yes (CHRONIC NECK AND BACK PAIN--S/P CERVICAL AND LUMBAR SPINE SURGERIES) Chronic Back Pain Endocrine: No HEENT: No Cancer: No Psychosocial: Yes Anxiety, PTSD Integumentary: Yes (SHINGLES) Blood Disorders: No Adverse Reaction/Blood Tranf: No Family Medical History Cardiovascular disease G8 BROTHER Diabetes mellitus G8 BROTHER G8 BROTHER Hypertension G8 BROTHER Neoplasm 19 FATHER (LEUKEMIA LYMPHOMA) G8 BROTHER (LEUKEMIA) Respiratory disorder 19 FATHER 19 MOTHER G8 BROTHER Hypertension Sepsis Event Evaluation Height, Weight, BMI Height: 5'3.00" Weight: 140lbs. 0.0oz. 63.917163yf; 24.8 BMI Method:Estimated Exam Exam Vital Signs Date Time Temp Pulse Resp B/P (MAP) Pulse Ox O2 Delivery O2 Flow Rate FiO2 01/04/18 03:02 61 16 98 35 01/04/18 03:00 62 16 141/72 (95) 98 Mechanical Ventilator 35.00 01/04/18 02:00 68 15 123/65 (84) 98 Mechanical Ventilator 35.00 01/04/18 01:00 73 01/04/18 01:00 73 16 117/61 (79) 97 Mechanical Ventilator 35.00 01/04/18 00:51 77 01/04/18 00:00 98 Mechanical Ventilator 40.00 01/04/18 00:00 97.5 79 16 152/76 (101) 98 Mechanical Ventilator 35.00 01/03/18 23:00 75 21 136/68 (90) 99 Mechanical Ventilator 35.00 01/03/18 22:57 62 16 128/66 (86) 99 Mechanical Ventilator 35.00 01/03/18 22:51 58 16 99 40 01/03/18 22:00 61 16 132/69 (90) 99 Mechanical Ventilator 40.00 01/03/18 21:00 65 15 122/63 (82) 98 Mechanical Ventilator 40.00 01/03/18 20:00 97.9 80 11 112/60 (77) 98 Mechanical Ventilator 40.00 01/03/18 20:00 98 Mechanical Ventilator 40.00 01/03/18 19:45 81 11 109/56 (73) 99 Mechanical Ventilator 40.00 01/03/18 19:30 84 11 116/63 (80) 99 Mechanical Ventilator 40.00 01/03/18 19:15 86 14 119/64 (82) 100 Mechanical Ventilator 40.00 01/03/18 19:07 87 23 100 40 01/03/18 19:04 87 01/03/18 19:04 87 19 126/66 (86) 100 Mechanical Ventilator 40.00 01/03/18 19:03 98.9 82 23 114/108 (110) Ambu Bag 01/03/18 18:55 97.2 86 16 126/55 (78) 100 Mechanical Ventilator 01/03/18 18:55 98 Mechanical Ventilator 40 01/03/18 18:55 98.9 82 23 114/108 (110) 100 Mechanical Ventilator 40.00 01/03/18 17:09 176 16 99 60 01/03/18 16:28 97.0 203 16 159/78 (105) 57 Room Air 01/03/18 16:28 54 Ambu Bag I & O 01/04/18 07:00 Intake Total 3050 ml Output Total 1600 ml Balance 1450 ml Height & Weight Height: 5'3.00" Weight: 140lbs. 0.0oz. 63.771292ze; 24.8 BMI Method:Estimated General Appearance: WD/WN, Thin, Other (unresponsive) HEENT: PERRL/EOMI, Normal ENT Inspection Neck: Normal Inspection Respiratory: Accessory Muscle Use, Crackles, Decreased Breath Sounds, Wheezing , Other (agonal breathing with very little air movement) Cardiovascular: No Edema, No Murmur, Tachycardia Capillary Refill: Less Than 3 Seconds Extremity: Normal Inspection, No Pedal Edema Neurologic/Psychiatric: Other (unresponsive) Skin: Warm/Dry, Cyanosis, Other (sutures intact over the right labia majora) Results Lab Laboratory Tests 01/03/18 16:36 01/04/18 03:35 Assessment/Plan Assessment/Plan Acute on chronic respiratory failure -PT follows with Dr. Eisenberg as an out patient -Pt would benefit from home vent to mask -C02 on admission is 71 -Hx of hospitalizations secondary to respiratory failure COPDAE r/o pneumonia -Change solucortef to solumedrol 40 IV Q 6 -Continue Cefepime for now and await cultures -CXR does not show infiltration and RN reports no copious secretions -PT has home oxygen -SVNs Q 4 hrs with duoneb Metabolic lactic acidosis probably secondary to hypoxia -IVF Hypotension -secondary to intubation/sedation -Levophed is now off -Change solucortef to solumedrol Lung nodules -Followed as out patient Allergic rhinitis hx -start Zyrtec and RIKI Demarco DO Jan 04, 2018 06:08
[2018-01-04] MEDS: POTASSIUM CL 10MEQ/50ML IVPB 50 ML IV SCH (06:27)
[2018-01-04] MEDS: PROPOFOL INJECTION 50 ML IV SCH (06:27)
[2018-01-04] MEDS: MAGNESIUM 1 GM/100 ML IVPB 100 ML IV SCH (06:27)
[2018-01-04] MEDS: KCL 20 MEQ TAB (K-DUR) PO SCH (06:28)
[2018-01-04] MEDS ORDERED: NS IV 1000 ML 3,000 ML ONE (07:13)
--- NOTE | 2018-01-04 07:28 | History & Physical-Hospitalist ---
History of Present Illness HPI/Chief Complaint Pt is a 67yoCF with a PMH of severe COPD who presented to the ER in respiratory failure and was very quickly intubated after arrival. Currently she remains intubated and sedated and is unable to participate in history and there is no one at bedside to give details and thus history is limited to review of records. Per ER note she was having difficulty breathing yesterday all day with oxygen saturations in the 80s even with supplementation. As this did not improve her decided to seek evaluation in the ER but in route she decompensated and ultimately lost consciousness. On arrival she had agonal respirations and was unresponsive. She was also found to be in a-fib with RVR. She was intubated and sedation was started. She quickly converted to sinus after those interventions. She also became very hypotensive and was fluid resuscitated with >3L. She remained hypotensive and levophed was started briefly. Exam Limitations: clinical condition Date Seen 01/04/18 Time Seen by a Provider: 07:30 Attending Physician Ana Pavon MD PCP Mehul Bermeo DO Referring Physician Date of Admission Jan 03, 2018 at 6:32 pm Home Medications & Allergies Home Medications Reviewed patient Home Medication Reconciliation performed by pharmacy medication reconciliations aviation maintenance technician and/or nursing. Patients Allergies have been reviewed. Allergies Allergies Coded Allergies Sulfa (Sulfonamide Antibiotics) (Unverified Allergy, Unknown, SOB, SWELLING, RASH, 09/29/14) penicillin (Unverified Allergy, Unknown, Pt has received Ceftriaxone w/o issue , 11/13/17) Past Qgkyshi-Enuuju-Lakhgu Hx Past Med/Social Hx: Reviewed Nursing Past Med/Soc Hx Patient Social History Marrital Status: Alcohol Use: Past History Number of Drinks Today: AA Alcohol Beverage of Choice: Beer Recreational Drug Use: No Smoking Status: Current Everyday Smoker Type Used: Cigarettes 2nd Hand Smoke Exposure: Yes Recent Foreign Travel: No Contact w/other who traveled: No Recent Hopitalizations: No Recent Infectious Disease Expo: No Immunizations Up To Date Tetanus Booster (TDap): Unknown Pediatric: Yes Date of Pneumonia Vaccine: Dec 01, 2016 Date of Influenza Vaccine: Dec 01, 2016 Seasonal Allergies Seasonal Allergies: No Past Medical History Surgeries: Appendectomy, Gallbladder, Hysterectomy, Orthopedic Respiratory: Chronic Bronchitis, COPD, Emphysema, Pneumonia Currently Using CPAP: No Currently Using BIPAP: No : No 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: Yes (HPV) HIV/AIDS: No Female 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 Disorders: Denies Hysterectomy, Menopausal Gastrointestinal: Hemorrhoids, Polyps Musculoskeletal: Chronic Back Pain Psychosocial: Anxiety, PTSD History of Blood Disorders: No Adverse Reaction to Blood Crespo: No Family History Reviewed Nursing Family Hx Cardiovascular disease G8 BROTHER Diabetes mellitus G8 BROTHER G8 BROTHER Hypertension G8 BROTHER Neoplasm 19 FATHER (LEUKEMIA LYMPHOMA) G8 BROTHER (LEUKEMIA) Respiratory disorder 19 FATHER 19 MOTHER G8 BROTHER Hypertension Review of Systems ROS-Unable to Obtain: INtubated and sedated Constitutional: see HPI Physical Exam Physical Exam Vital Signs Vital Signs - First Documented 01/03/18 01/03/18 01/03/18 16:28 17:09 18:55 Temp 97.0 Pulse 203 Resp 16 B/P (MAP) 159/78 (105) Pulse Ox 54 O2 Delivery Ambu Bag O2 Flow Rate 40.00 FiO2 60 Capillary Refill : Less Than 3 Seconds Height, Weight, BMI Height: 5'3.00" Weight: 140lbs. 0.0oz. [id number]; 24.8 BMI Method:Estimated General Appearance: Chronically ill, Other (intubated, sedated) Neck: Other (central line in place) Respiratory: Rhonci, Other (intubated) Cardiovascular: Regular Rate, Rhythm, No Edema, No Murmur Gastrointestinal: Normal Bowel Sounds, Non Tender, Soft Neurologic/Psychiatric: Alert (eyes open to verbal stimuli, otherwise resting comfortably, sedated) Results Results/Procedures Labs Laboratory Tests 01/03/18 16:36 01/04/18 03:35 Patient resulted labs reviewed. Imaging: Reviewed Imaging Films, Reviewed Imaging Report Assessment/Plan Admission Diagnosis Acute Respiratory Failure Admission Status: Inpatient Order (span 2 midnights) Reason for Inpatient Admission: On vent, will need more than two midnights to stabilize Diagnosis/Problems Diagnosis/Problems (1) Respiratory failure with hypoxia and hypercapnia Status: Acute Assessment & Plan: ON vent Pulm consulted, appreciate recs Continue steroids, scheduled SVNS Continue Cefepime though no known source at this time Qualifiers: Chronicity: acute on chronic Qualified Codes: J96.21 - Acute and chronic respiratory failure with hypoxia; J96.22 - Acute and chronic respiratory failure with hypercapnia (2) COPD with exacerbation Status: Acute Assessment & Plan: Pulm consulted Continue treatment as above with switch from solu-cortef to solu-medrol Dr Birch to arrange for Vent to mask at DC (3) Lactic acidosis Assessment & Plan: Now resolved Likely due to profound and prolonged hypoxia (4) Atrial fibrillation with RVR Status: Acute Assessment & Plan: Converted Cardiology consulted, appreciate recs Digoxin ordered prn for rate Reviewed previous EKGs and holter monitor with no documented history of a-fib (5) Leukocytosis Status: Acute Assessment & Plan: Improving Trend Clinical Quality Measures DVT/VTE Risk/Contraindication: Risk Factor Score Per Nursin RFS Level Per Nursing on Admit: 4+=Very High PABLO BAUTISTA MD Jan 04, 2018 7:28 am
[2018-01-04] MEDS ORDERED: FLU QUADRIvalent (5+ YOA) 2018-2019 (AFLURIA) 0.5 ML IM ONE (07:30)
[2018-01-04] MEDS: PROPOFOL DRIP (ICU) 100 ML IV SCH ×3 (08:03→22:12)
[2018-01-04] MEDS ORDERED: ETOMIDATE IV SOLN 20 MG/10 ML VIAL IV ONE (08:38)
[2018-01-04] MEDS ORDERED: MIDAZOLAM 5 MG/5 ML (VERSED) VIAL IJ ONE (08:38)
[2018-01-04] MEDS ORDERED: fentaNYL INJECTION 100 MCG/2 ML AMP INJ ONE (08:38)
--- NOTE | 2018-01-04 09:04 | Consultation-Cardiology ---
HPI-Cardiology Cardiology Consultation: Date of Consultation 01/04/18 Time Seen by a Provider: 08:45 Date of Admission 01-03-18 Attending Physician Ana Pavon MD Admitting Physician Mehul Bermeo DO Consulting Physician Juliette Millan MD HPI: Chief Complaint: Acute on chronic respiratory failure Syncope Ms. Mckeon is a 67 year old female who has been admitted to ICU 6 from the ED. She is currently intubated and sedated. Her spouse is at the bedside. He states she was in her usual state of health up until Thursday. 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 He reports she has long standing h/o COPD and follows with Dr. Adrian. He reports she continues to smoke cigs. He states she uses a ventilator machine at home. He reports on Thursday she began to c/o significant dizziness when up moving or changing positions. He states she has chronic SOB, but yesterday she began to c/o increasing dyspnea. He states [place] He reports her oxygen level on finger sat monitor was 83% so he made her wear her oxygen. He states they were at the casino for a short period of time when she began to report worsening dizziness and feeling unwell. He reports with her oxygen on her O2 sat was above 90%. He reports she went to lie down in the recliner reporting worsening dizziness. He states she took nap after taking a dose of Mucinex and eating a strawberry shake. He states he noticed while sleeping she seemed to have labored breathing. He woke her up. She took a breathing tx. She reports she felt more SOB and wanted to come to the ED. He reports he got her in the car and half way to the hospital she "passed out" and he was unable to arouse her. He reports she was unresponsive up until they began treating her in the ED. Review of Systems-Cardiology Review of Systems : No Other comments Unable to obtain d/t being intubated and sedated LDJ-Vjtrzh-Oiizbf Hx Patient Social History Marrital Status: Alcohol Use: Past History Recreational Drug Use: No Smoking Status: Current Everyday Smoker Type Used: Cigarettes 2nd Hand Smoke Exposure: Yes Recent Foreign Travel: No Recent Infectious Disease Expo: No Immunizations Up To Date Tetanus Booster (TDap): Unknown Date of Pneumonia Vaccine: Dec 01, 2016 Date of Influenza Vaccine: Dec 01, 2016 Past Medical History PMH As described under Assessment. Family Medical History Family History: Cardiovascular disease G8 BROTHER Diabetes mellitus G8 BROTHER G8 BROTHER Hypertension G8 BROTHER Neoplasm 19 FATHER (LEUKEMIA LYMPHOMA) G8 BROTHER (LEUKEMIA) Respiratory disorder 19 FATHER 19 MOTHER G8 BROTHER Allergies and Home Medications Allergies Coded Allergies: Sulfa (Sulfonamide Antibiotics) (Unverified Allergy, Unknown, SOB, SWELLING, RASH, 09/29/14) penicillin (Unverified Allergy, Unknown, Pt has received Ceftriaxone w/o issue, 11/13/17) Home Medications Albuterol Sulfate 18 Gm Hfa.aer.ad, 2 PUFF INH Q6H PRN for WHEEZING, (Reported) Alprazolam 0.5 Mg Tablet, 0.5 MG PO Q6H PRN for ANXIETY, (Reported) Clonazepam 1 Mg Tablet, 1.5 MG PO BID, (Reported) TAKES 1 & 1/2 (1MG) TABLET Divalproex Sodium 250 Mg Tablet.dr, 250 MG PO BID, (Reported) Gabapentin 600 Mg Tablet, 600 MG PO BID, (Reported) #6 FILLED 01-01-18 Guaifen/Dextromethorphan/PE 180 Ml Liquid, 20 ML PO Q4H PRN for COUGH, (Reported ) Ibuprofen 600 Mg Tablet, 600 MG PO Q6H PRN for PAIN-MILD, (Reported) #30 FILLED 01-01-18 Ipratropium Stanton 0.2 Mg/1 Ml Solution, 1 VIAL NEB TID PRN for SHORTNESS OF BREATH, (Reported) Roflumilast 500 Mcg Tablet, 500 MCG PO DAILY, (Reported) Tramadol HCl 50 Mg Tablet, 50 MG PO Q6H PRN for PAIN-MODERATE, (Reported) #20 FILLED -2-18 Umeclidinium Brm/Vilanterol Tr 1 Each Blst.w.dev, 1 PUFF INH DAILY, (Reported) [[facility] Cpod Vit] , 1 TAB PO DAILY, (Reported) Physical Exam-Cardiology Physical Exam Vital Signs/I&O 01/04/18 01/04/18 01/04/18 01/04/18 20:23 21:00 22:00 22:06 Pulse 90 65 62 70 Resp 22 21 22 22 B/P (MAP) 148/74 (98) 147/77 (100) Pulse Ox 97 96 95 95 O2 Delivery Mechanical Ventilator Mechanical Ventilator O2 Flow Rate 25.00 25.00 FiO2 25 25 01/04/18 01/04/18 01/04/18 01/05/18 22:12 23:00 23:55 00:00 Pulse 54 97 93 96 Resp 22 22 20 B/P (MAP) 146/92 (110) 161/86 (111) Pulse Ox 95 95 94 O2 Delivery Mechanical Ventilator Mechanical Ventilator O2 Flow Rate 25.00 25.00 FiO2 25 01/05/18 01/05/18 01/05/18 01/05/18 00:00 00:00 01:00 01:00 Temp 97.8 Pulse 90 90 Resp 21 B/P (MAP) 162/91 (114) Pulse Ox 98 95 O2 Delivery Mechanical Ventilator Mechanical Ventilator O2 Flow Rate 25.00 25.00 01/05/18 01/05/18 01/05/18 01/05/18 02:00 02:04 03:00 03:57 Pulse 80 86 91 Resp 22 22 B/P (MAP) 161/82 (108) 160/85 (110) Pulse Ox 95 95 94 O2 Delivery Mechanical Ventilator Mechanical Ventilator O2 Flow Rate 25.00 25.00 FiO2 25 01/05/18 01/05/18 01/05/18 01/05/18 04:00 04:00 04:00 04:04 Temp 98.9 Pulse 101 98 Resp 23 26 B/P (MAP) 158/85 (109) Pulse Ox 98 97 98 O2 Delivery Mechanical Ventilator Mechanical Ventilator O2 Flow Rate 25.00 25.00 01/05/18 01/05/18 01/05/18 01/05/18 04:30 05:00 06:00 06:07 Pulse 92 81 73 71 Resp 22 22 B/P (MAP) 173/89 (117) 180/90 (120) Pulse Ox 98 97 96 97 O2 Delivery Mechanical Ventilator Mechanical Ventilator O2 Flow Rate 25.00 25.00 FiO2 25 25 01/05/18 00:00 Intake Total 1000 ml Output Total 1200 ml Balance -200 ml Capillary Refill : Less Than 3 Seconds Constitutional: well-nourished, other (intubated and sedated) Neck: No carotid bruit; carotid pulses are 2 + bilaterally Respiratory: chest expansion is symmetric, other (scatted rhonchi; diminished lower lobes bilat) Cardiovascular: regular rate-rhythm, S1 and S2 Gastrointestinal: soft, round, audible bowel sounds Rectal: deferred Extremities: no lower extremity edema bilateral Neurologic/Psychiatric: other (sedated) Skin: No rash, No ulcerations Data Review Labs Laboratory Tests 01/04/18 09:15: Blood Gas Puncture Site R RADIAL, Blood Gas Patient Temperature 97.5, Arterial Blood pH 7.42, Arterial Blood Partial Pressure CO2 33L, Arterial Blood Partial Pressure O2 82, Arterial Blood HCO3 21L, Arterial Blood Total CO2 21.8, Arterial Blood Oxygen Saturation 98, Arterial Blood Base Excess -3.1L, Rush Test POSITIVE, Blood Gas Ventilator Setting YES, Blood Gas Inspired Oxygen 30% 01/05/18 04:10: Blood Gas Puncture Site RT RADIAL, Blood Gas Patient Temperature 99.0, Arterial Blood pH 7.44H, Arterial Blood Partial Pressure CO2 33L, Arterial Blood Partial Pressure O2 83, Arterial Blood HCO3 22L, Arterial Blood Total CO2 22.7, Arterial Blood Oxygen Saturation 98, Arterial Blood Base Excess -1.8, Rush Test YES-POS, Blood Gas Ventilator Setting YES, Blood Gas Inspired Oxygen 25%, White Blood Count 11.4H, Red Blood Count 3.69L, Hemoglobin 12.2, Hematocrit 38, Mean Corpuscular Volume 102H, Mean Corpuscular Hemoglobin 33, Mean Corpuscular Hemoglobin Concent 32, Red Cell Distribution Width 13.2, Platelet Count 209, Mean Platelet Volume 10.0, Neutrophils (%) (Auto) 94H, Lymphocytes (%) (Auto) 3L , Monocytes (%) (Auto) 3, Eosinophils (%) (Auto) 0, Basophils (%) (Auto) 0, Neutrophils # (Auto) 10.7H, Lymphocytes # (Auto) 0.4L, Monocytes # (Auto) 0.3, Eosinophils # (Auto) 0.0, Basophils # (Auto) 0.0, Sodium Level 144, Potassium Level 3.5L, Chloride Level 111H, Carbon Dioxide Level 19L, Anion Gap 14, Blood Urea Nitrogen 7, Creatinine 0.68, Estimat Glomerular Filtration Rate > 60, BUN/ Creatinine Ratio 10, Glucose Level 122H, Calcium Level 8.8, Phosphorus Level 1.9L, Magnesium Level 2.0 Microbiology 01/03/18 Blood Culture - Preliminary, Resulted No growth 01/03/18 Influenza Types A,B Antigen (BETTY) - Final, Complete Radiology NAME: GONZALO [facility] REC#: [id number] PT STATUS: ADM IN : 1950 PHYSICIAN: NATANAEL ALONZO MD ADMIT DATE: 01/03/18/ICU Signed Date of Exam: 01/03/18 CHEST 1 VIEW, AP/PA ONLY INDICATION Central line placement. EXAMINATION: Chest, 01/03/2018. COMPARISON: 01/03/2018 at 5:01 p.m. FINDINGS: A feeding tube is coursing beneath the diaphragm. There is an ET tube unchanged. A right jugular line tip is seen in the proximal SVC. Lungs stable in appearance and hyperinflated. IMPRESSION: Tubes and lines, as described, otherwise stable chest. Dictated by: Dictated on workstation # [id number] Dict: 01/03/181819 Trans: 01/03/181951 Interpreted by: IFEOMA KUNZ MD Electronically signed by: IFEOMA KUNZ MD 01/03/181951 ECG Impression ECG Initial ECG Rhythm: Normal Sinus A/P-Cardiology Assessment/Admission Diagnosis Syncope of undetermined etiology PAF - first documented on EKG of 01-03-18 - currently NSR Acute on chronic respiratory failure - management per pulmonary services Probable pneumonia - management per pulmonary/medical services Acute exacerbation of COPD - management per pulmonary services Leukocytosis - improving Tobaccoism Transient hypotension at time of intubation likely secondary to sedation - resolved Recent surgery d/t pre-cancerous lesion Metabolic acidosis likely secondary to hypoxemia - management per pulmonary services Clinical Quality Measures DVT/VTE Risk/Contraindication: Risk Factor Score Per Nursin RFS Level Per Nursing on Admit: 4+=Very High TED SANTOS Jan 04, 2018 09:04
[2018-01-04 09:20] LABS: ABG BASE EXCESS -3.1 MMOL/L (-2.5-2.5); ABG OXYGEN SATURATION 98 % (94-100); ABG PCO2 33 MMHG (35-45); ABG PH 7.42 (7.37-7.43); ABG PO2 82 MMHG (79-93); ABG TCO2 21.8 MMOL/L (21.0-31.0); ALLENS TEST POSITIVE; INSPIRED O2 30%; PATIENT TEMP 97.5; VENTILATOR YES
[2018-01-04] MEDS: CEFEPIME 2 GM/NS 50 ML IVPB IV SCH ×2 (09:21)
--- NOTE | 2018-01-04 09:23 | Diagnostic Imaging Report ---
INDICATION: Respiratory failure, COPD exacerbation. TECHNIQUE: Single frontal view of the chest. COMPARISON: 01/03/2018 FINDINGS: The endotracheal tube is approximately 5.5 cm from the nurys. The enteric tube crosses the [id number]. The right jugular line tip projects over the upper SVC. The cardiac silhouette is normal in size. Lung volumes are large. No focal airspace consolidation is seen. There is flattening of the diaphragm. No pneumothorax or pleural effusion is seen. Degenerative changes are seen in the spine and shoulders. IMPRESSION: 1. Stable tubes and line. Large lung volumes with no focal airspace consolidation seen. Dictated by: Dictated on workstation # [id number]
[2018-01-04] MEDS ORDERED: TRAM50TA2 PO (10:13)
[2018-01-04] MEDS ORDERED: GABA600T2 PO (10:13)
[2018-01-04] MEDS ORDERED: IBUP-1773 PO (10:13)
[2018-01-04] MEDS ORDERED: [UNRECOGNIZED DRUG - OTHER] PO (10:13)
[2018-01-04] MEDS ORDERED: ALPR0.5T7 PO (10:13)
[2018-01-04] MEDS: methylPREDNISolone 40 MG/ML (Solu-MEDROL) VIAL IV SCH ×2 (11:11→17:12)
--- NOTE | 2018-01-04 12:51 | Consultation-Cardiology ---
HPI-Cardiology Cardiology Consultation: Date of Consultation 01/04/18 Time Seen by a Provider: 09:00 Date of Admission Attending Physician Ana Pavon MD Admitting Physician Mehul Bermeo DO Consulting Physician HANS GORE MD, MA, FACP, FACC, FSCAI, CCDS HPI: Chief Complaint: Reason for consultation: PAF, Acute on chronic respiratory failure HPI Ms. Johnson is a 67 year old female who has been admitted to ICU 6 from the ED. She is currently intubated and sedated. Her spouse is at the bedside. He states she was in her usual state of health up until Thursday. 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 He reports she has long standing h/o COPD and follows with Dr. Adrian. He reports she continues to smoke cigs. He states she uses a ventilator machine at home. He reports on Thursday she began to c/o significant dizziness when up moving or changing positions. He states she has chronic SOB, but yesterday she began to c/o increasing dyspnea. He [place] He reports her oxygen level on finger sat monitor was 83% so he made her wear her oxygen. He states [place] were at the [place] for [place] period of time when she began to report worsening dizziness and feeling unwell. He reports with her oxygen on her O2 sat was above 90%. He reports she went to lie down in the recliner reporting worsening dizziness. He states she took nap after taking a dose of Mucinex and eating a strawberry shake. He states he noticed while sleeping she seemed to have labored breathing. He woke her up. She took a breathing tx. She reports she felt more SOB and wanted to come to the ED. He reports he got her in the car and half way to the hospital she "passed out" and he was unable to arouse her. He reports she was unresponsive up until they began treating her in the ED. Review of Systems-Cardiology Review of Systems Constitutional: other (not able to provide ROS because intubated and on mech vent; whatever could be obtained from the fam is described under HPI) : No [id number] Hx Patient Social History Marrital Status: Alcohol Use: Past History Recreational Drug Use: No Smoking Status: Current Everyday Smoker Type Used: Cigarettes 2nd Hand Smoke Exposure: Yes Recent Foreign Travel: No Recent Infectious Disease Expo: No Immunizations Up To Date Tetanus Booster (TDap): Unknown Date of Pneumonia Vaccine: Dec 01, 2016 Date of Influenza Vaccine: Dec 01, 2016 Past Medical History PMH As described under Assessment. Family Medical History Family History: Cardiovascular disease G8 BROTHER Diabetes mellitus G8 BROTHER G8 BROTHER Hypertension G8 BROTHER Neoplasm 19 FATHER (LEUKEMIA LYMPHOMA) G8 BROTHER (LEUKEMIA) Respiratory disorder 19 FATHER 19 MOTHER G8 BROTHER Allergies and Home Medications Allergies Coded Allergies: Sulfa (Sulfonamide Antibiotics) (Unverified Allergy, Unknown, SOB, SWELLING, RASH, 09/29/14) penicillin (Unverified Allergy, Unknown, Pt has received Ceftriaxone w/o issue, 11/13/17) Home Medications Albuterol Sulfate 18 Gm Hfa.aer.ad, 2 PUFF INH Q6H PRN for WHEEZING, (Reported) Alprazolam 0.5 Mg Tablet, 0.5 MG PO Q6H PRN for ANXIETY, (Reported) Clonazepam 1 Mg Tablet, 1.5 MG PO BID, (Reported) TAKES 1 & 1/2 (1MG) TABLET Divalproex Sodium 250 Mg Tablet.dr, 250 MG PO BID, (Reported) Gabapentin 600 Mg Tablet, 600 MG PO BID, (Reported) #6 FILLED 18 Guaifen/Dextromethorphan/PE 180 Ml Liquid, 20 ML PO Q4H PRN for COUGH, (Reported ) Ibuprofen 600 Mg Tablet, 600 MG PO Q6H PRN for PAIN-MILD, (Reported) #30 FILLED 18 Ipratropium [place] 0.2 Mg/1 Ml Solution, 1 VIAL NEB TID PRN for SHORTNESS OF BREATH, (Reported) Roflumilast 500 Mcg Tablet, 500 MCG PO DAILY, (Reported) Tramadol HCl 50 Mg Tablet, 50 MG PO Q6H PRN for PAIN-MODERATE, (Reported) #20 FILLED 18 Umeclidinium Brm/Vilanterol Tr 1 Each Blst.w.dev, 1 PUFF INH DAILY, (Reported) [[facility] Cpod Vit] , 1 TAB PO DAILY, (Reported) Patient Home Medication List Home Medication List Reviewed: Yes Physical Exam-Cardiology Physical Exam Vital Signs/I&O 11/5/18 11/5/18 11/5/18 11/5/18 00:51 01:00 01:00 02:00 Pulse 77 73 73 68 Resp 16 15 B/P (MAP) 117/61 (79) 123/65 (84) Pulse Ox 97 98 O2 Delivery Mechanical Ventilator Mechanical Ventilator O2 Flow Rate 35.00 35.00 01/04/18 01/04/18 01/04/18 01/04/18 03:00 03:02 04:00 04:00 Temp 97.0 Pulse 62 61 85 Resp 16 16 29 B/P (MAP) 141/72 (95) 133/67 (89) Pulse Ox 98 98 97 O2 Delivery Mechanical Ventilator Mechanical Ventilator O2 Flow Rate 35.00 35.00 FiO2 35 01/04/18 01/04/18 01/04/18 01/04/18 04:00 05:00 06:00 06:40 Pulse 80 71 77 Resp 16 15 22 B/P (MAP) 110/59 (76) 113/63 (80) Pulse Ox 98 96 97 100 O2 Delivery Mechanical Ventilator Mechanical Ventilator Mechanical Ventilator O2 Flow Rate 35.00 35.00 35.00 FiO2 35 01/04/18 01/04/18 01/04/18 01/04/18 06:45 07:00 07:00 08:00 Pulse 77 79 78 Resp 21 22 B/P (MAP) 129/69 (89) 122/65 (84) Pulse Ox 99 98 98 O2 Delivery Mechanical Ventilator Mechanical Ventilator Mechanical Ventilator O2 Flow Rate 30.00 30.00 30.00 01/04/18 01/04/18 01/04/18 01/04/18 08:00 08:03 08:53 09:00 Pulse 77 77 67 61 Resp 23 22 21 B/P (MAP) 132/70 (90) 126/69 146/82 (103) Pulse Ox 98 96 97 O2 Delivery Mechanical Ventilator Mechanical Ventilator O2 Flow Rate 30.00 30.00 FiO2 30 01/04/18 01/04/18 01/04/18 10:00 10:54 11:00 Pulse 75 62 57 Resp 22 22 22 B/P (MAP) 140/71 (94) 138/70 (92) Pulse Ox 99 98 98 O2 Delivery Mechanical Ventilator Mechanical Ventilator O2 Flow Rate 30.00 30.00 FiO2 30 01/04/18 00:00 Intake Total 3050 ml Output Total 800 ml Balance 2250 ml Capillary Refill : Less Than 3 Seconds Constitutional: well-nourished, other (intubated and sedated) Neck: No carotid bruit; carotid pulses are 2 + bilaterally Respiratory: chest expansion is symmetric, other (scatted rhonchi; diminished lower lobes bilat) Cardiovascular: regular rate-rhythm, S1 and S2 Gastrointestinal: soft, round, audible bowel sounds Rectal: deferred Extremities: no lower extremity edema bilateral Neurologic/Psychiatric: other (sedated) Skin: No rash, No ulcerations Data Review Labs Laboratory Tests 01/03/18 16:36: White Blood Count 24.6H, Red Blood Count 4.06L, Hemoglobin 13.6, Hematocrit 43, Mean Corpuscular Volume 107H, Mean Corpuscular Hemoglobin 34, Mean Corpuscular Hemoglobin Concent 31L, Red Cell Distribution Width 13.2, Platelet Count 324, Mean Platelet Volume 9.9, Neutrophils (%) (Auto) 55, Lymphocytes (%) (Auto) 34, Monocytes (%) (Auto) 8, Eosinophils (%) (Auto) 2, Basophils (%) (Auto) 0, Neutrophils # (Auto) 13.5H, Lymphocytes # (Auto) 8.3H, Monocytes # (Auto) 2.1H, Eosinophils # (Auto) 0.6H, Basophils # (Auto) 0.1, Neutrophils % (Manual) 49, Lymphocytes % (Manual) 38, Monocytes % (Manual) 5, Eosinophils % (Manual) 2, Basophils % (Manual) 0, Band Neutrophils 2, Reactive Lymphocytes 4, Toxic Granulation 2+, Clumped Platelets OCCASIONAL, Macrocytosis SLIGHT, Prothrombin Time 13.2, INR Comment 1.0, Activated Partial Thromboplast Time 28, Sodium Level 142, Potassium Level 3.5L, Chloride Level 104, Carbon Dioxide Level 17L, Anion Gap 21H, Blood Urea Nitrogen 6L, Creatinine 0.96, Estimat Glomerular Filtration Rate 58, BUN/Creatinine Ratio 6, Glucose Level 184H, Lactic Acid Level 6.33*H, Calcium Level 9.0, Corrected Calcium 9.0, Magnesium Level 2.5H, Total Bilirubin 0.3, Aspartate Amino Transf (AST/SGOT) 16, Alanine Aminotransferase (ALT/SGPT) 11, Alkaline Phosphatase 61, Myoglobin 23.4, Troponin I < 0.30, Total Protein 6.9, Albumin 4.0, Serum Alcohol < 10 01/03/18 16:45: Urine Color YELLOW, Urine Clarity CLEAR, Urine pH 6, Urine Specific [place] 1.015L, Urine Protein NEGATIVE, Urine Glucose (UA) NEGATIVE, Urine Ketones NEGATIVE, Urine Nitrite NEGATIVE, Urine Bilirubin NEGATIVE, Urine Urobilinogen NORMAL, Urine Leukocyte Esterase NEGATIVE, Urine RBC (Auto) 1+H, Urine RBC 0-2, Urine WBC 0-2, Urine Squamous Epithelial Cells 0-2, Urine Renal Epithelial Cells NONE, Urine Crystals NONE, Urine Bacteria NEGATIVE, Urine Casts PRESENT, Urine Hyaline Casts 2-5H, Urine Mucus NEGATIVE, Urine Culture Indicated NO, Blood Gas Puncture Site RT RAD, Blood Gas Patient Temperature 98.1, Arterial Blood pH 7.14*L, Arterial Blood Partial Pressure CO2 71*H, Arterial Blood Partial Pressure O2 334H, Arterial Blood HCO3 23, Arterial Blood Total CO2 25.6 , Arterial Blood Oxygen Saturation 100, Arterial Blood Base Excess -4.5L, Rush Test YES-POS, Blood Gas Ventilator Setting YES, Blood Gas Inspired Oxygen 60%, Urine Opiates Screen NEGATIVE, Urine Oxycodone Screen NEGATIVE, Urine Methadone Screen NEGATIVE, Urine Propoxyphene Screen NEGATIVE, Urine Barbiturates Screen NEGATIVE, Ur Tricyclic Antidepressants Screen NEGATIVE, Urine Phencyclidine Screen NEGATIVE, Urine Amphetamines Screen NEGATIVE, Urine Methamphetamines Screen NEGATIVE, Urine Benzodiazepines Screen POSITIVEH, Urine Cocaine Screen NEGATIVE, Urine Cannabinoids Screen NEGATIVE 01/03/18 16:48: Glucometer 171H 01/03/18 18:35: Lactic Acid Level 1.34 01/03/18 20:39: Blood Gas Puncture Site LEFT RADIAL, Blood Gas Patient Temperature 98.6, Arterial Blood pH 7.26*L, Arterial Blood Partial Pressure CO2 53H, Arterial Blood Partial Pressure O2 105H, Arterial Blood HCO3 23, Arterial Blood Total CO2 24.7, Arterial Blood Oxygen Saturation 99, Arterial Blood Base Excess -3.0L , Rush Test YES-POS, Blood Gas Ventilator Setting YES, Blood Gas Inspired Oxygen 40% 01/04/18 03:35: White Blood Count 11.2H, Red Blood Count 3.47L, Hemoglobin 11.6, Hematocrit 36, Mean Corpuscular Volume 105H, Mean Corpuscular Hemoglobin 33, Mean Corpuscular Hemoglobin Concent 32, Red Cell Distribution Width 13.2, Platelet Count 213, Mean Platelet Volume 9.6, Neutrophils (%) (Auto) 94H, Lymphocytes (%) (Auto) 3L , Monocytes (%) (Auto) 2, Eosinophils (%) (Auto) 0, Basophils (%) (Auto) 0, Neutrophils # (Auto) 10.6H, Lymphocytes # (Auto) 0.4L, Monocytes # (Auto) 0.3, Eosinophils # (Auto) 0.0, Basophils # (Auto) 0.0, Sodium Level 144, Potassium Level 4.3, Chloride Level 112H, Carbon Dioxide Level 22, Anion Gap 10, Blood Urea Nitrogen 6L, Creatinine 0.70, Estimat Glomerular Filtration Rate > 60, BUN/ Creatinine Ratio 9, Glucose Level 141H, Calcium Level 8.3L, Corrected Calcium 8.8, Phosphorus Level 2.9, Magnesium Level 1.9, Total Bilirubin 0.3, Aspartate Amino Transf (AST/SGOT) 22, Alanine Aminotransferase (ALT/SGPT) 23, Alkaline Phosphatase 51, Total Protein 5.7L, Albumin 3.4, Triglycerides Level 63, Cholesterol Level 156, LDL Cholesterol Direct 88, VLDL Cholesterol 13, HDL Cholesterol 53 01/04/18 04:38: Blood Gas Puncture Site RIGHT RADIAL, Blood Gas Patient Temperature 98.8, Arterial Blood pH 7.28*L, Arterial Blood Partial Pressure CO2 50H, Arterial Blood Partial Pressure O2 96H, Arterial Blood HCO3 23, Arterial Blood Total CO2 24.1, Arterial Blood Oxygen Saturation 98, Arterial Blood Base Excess -3.1L, Rush Test YES-POS, Blood Gas Ventilator Setting YES, Blood Gas Inspired Oxygen 35% 01/04/18 09:15: Blood Gas Puncture Site R RADIAL, Blood Gas Patient Temperature 97.5, Arterial Blood pH 7.42, Arterial Blood Partial Pressure CO2 33L, Arterial Blood Partial Pressure O2 82, Arterial Blood HCO3 21L, Arterial Blood Total CO2 21.8, Arterial Blood Oxygen Saturation 98, Arterial Blood Base Excess -3.1L, Rush Test POSITIVE, Blood Gas Ventilator Setting YES, Blood Gas Inspired Oxygen 30% Microbiology 01/03/18 Influenza Types A,B Antigen (BETTY) - Final, Complete Laboratory Tests 01/03/18 16:36 01/04/18 03:35 A/P-Cardiology Assessment/Admission Diagnosis PAF - first documented on EKG of 01-03-18 - currently NSR Acute on chronic respiratory failure - management by Pulm and Hosp Svces Probable pneumonia with sepsis Acute exacerbation of COPD Leukocytosis - probably related to sepsis Tobaccoism Transient hypotension at time of intubation likely secondary to sedation - resolved Recent surgery d/t pre-cancerous lesion Discussion and Recomendations * iv BB to reduce risk of PAF and to control heart rate if PAF recurs * Enoxaparin to reduce risk of cardioembolic stroke * Echo to eval for structural heart disease * Monitor labs * I discussed her CV issues at length with her * Further recs based on hosp course Clinical Quality Measures DVT/VTE Risk/Contraindication: Risk Factor Score Per Nursin RFS Level Per Nursing on Admit: 4+=Very High HANS GORE MD FACP FAC CCDS Jan 04, 2018 12:51
[2018-01-04] MEDS ORDERED: CATHETER FLUSH 10 ML SYR IV PRN (13:15)
[2018-01-04] MEDS: meTOprolol 5 MG/5 ML (LOPRESSOR) VIAL IV SCH ×2 (15:33→21:38)
[2018-01-04] MEDS: ENOXAPARIN 60 MG/0.6 ML (LOVENOX) SYR SC SCH (17:52)
[2018-01-04] MEDS ORDERED: NS (IVPB) 50 ML ONE (19:43)
[2018-01-04] MEDS: DEXMEDETOMIDINE INJECTION 200 MCG in NS (IVPB) 50 ML IV SCH (20:00)
[2018-01-05] VITALS (27 sets, daily range): BP systolic 125–180; BP diastolic 70–101
[2018-01-05] MEDS: DEXMEDETOMIDINE INJECTION 200 MCG in NS (IVPB) 50 ML IV SCH (01:37)
[2018-01-05] MEDS: fentaNYL INJECTION 100 MCG/2 ML AMP IV PRN ×4 (01:37→06:38)
[2018-01-05] MEDS: methylPREDNISolone 40 MG/ML (Solu-MEDROL) VIAL IV SCH ×5 (01:38→23:22)
[2018-01-05] MEDS: RT-ALBUTEROL/IPRATROPIUM 3 ML (DUONEB) VIAL IH SCH ×6 (02:04→22:39)
[2018-01-05] MEDS: PROPOFOL DRIP (ICU) 100 ML IV SCH ×2 (03:57→23:06)
[2018-01-05 04:28] LABS: BASOPHILS % (AUTO) 0 % (0-10); EOSINOPHILS % (AUTO) 0 % (0-10); HEMATOCRIT 38 % (35-52); HEMOGLOBIN 12.2 G/DL (11.5-16.0); LYMPHOCYTES # (AUTO) 0.4 X 10^3 (1.0-4.0); LYMPHOCYTES % (AUTO) 3 % (12-44); MEAN CORPUSCULAR HEMOGLOBIN 33 PG (25-34); MEAN CORPUSCULAR HGB CONC 32 G/DL (32-36); MEAN CORPUSCULAR VOLUME 102 FL (80-99); MONOCYTES # (AUTO) 0.3 X 10^3 (0.0-1.0); MONOCYTES % (AUTO) 3 % (0-12); NEUTROPHILS # (AUTO) 10.7 X 10^3 (1.8-7.8); NEUTROPHILS % (AUTO) 94 % (42-75); PLATELET COUNT 209 10^3/uL (130-400); RED BLOOD COUNT 3.69 10^6/uL (4.35-5.85); RED CELL DISTRIBUTION WIDTH 13.2 % (10.0-14.5); WHITE BLOOD COUNT 11.4 10^3/uL (4.3-11.0)
[2018-01-05 04:29] LABS: ABG BASE EXCESS -1.8 MMOL/L (-2.5-2.5); ABG OXYGEN SATURATION 98 % (94-100); ABG PCO2 33 MMHG (35-45); ABG PH 7.44 (7.37-7.43); ABG PO2 83 MMHG (79-93); ABG TCO2 22.7 MMOL/L (21.0-31.0)
[2018-01-05 04:42] LABS: ALLENS TEST YES-POS; INSPIRED O2 25%; VENTILATOR YES
[2018-01-05 04:46] LABS: BUN/CREATININE RATIO 10; CALCIUM 8.8 MG/DL (8.5-10.1); CARBON DIOXIDE 19 MMOL/L (21-32); CHLORIDE 111 MMOL/L (98-107); CREATININE SERUM 0.68 MG/DL (0.60-1.30); GFR ESTIMATED > 60; GLUCOSE 122 MG/DL (70-105); PHOSPHORUS 1.9 MG/DL (2.3-4.7); POTASSIUM 3.5 MMOL/L (3.6-5.0); SODIUM 144 MMOL/L (135-145)
--- NOTE | 2018-01-05 06:23 | Pulmonary Progress Note ---
Subjective Time Seen by a Provider: 06:20 Subjective/Events-last exam Pt sedated on vent. She gets very anxious fast when sedation is weaned off. Currently she is on Diprivan and Precedex. Sepsis Event Evaluation Height, Weight, BMI Height: 5'3.00" Weight: 140lbs. 0.0oz. 63.811468nt; 24.8 BMI Method:Estimated Focused Exam Lactate Level 01/03/18 16:36: Lactic Acid Level 6.33*H 01/03/18 18:35: Lactic Acid Level 1.34 Exam Exam Vital Signs Date Time Temp Pulse Resp B/P (MAP) Pulse Ox O2 Delivery O2 Flow Rate FiO2 01/05/18 06:07 71 22 97 25 01/05/18 06:00 73 22 180/90 (120) 96 Mechanical Ventilator 25.00 01/05/18 05:00 81 21 173/89 (117) 97 Mechanical Ventilator 25.00 01/05/18 04:30 92 22 98 25 01/05/18 04:04 98 26 98 01/05/18 04:00 101 23 158/85 (109) 97 Mechanical Ventilator 25.00 01/05/18 03:57 22 01/05/18 03:00 91 22 160/85 (110) 94 Mechanical Ventilator 25.00 01/05/18 02:04 86 22 95 25 01/05/18 02:00 80 22 161/82 (108) 95 Mechanical Ventilator 25.00 01/05/18 01:00 90 21 162/91 (114) 95 Mechanical Ventilator 25.00 01/05/18 01:00 90 01/05/18 00:00 96 20 161/86 (111) 94 Mechanical Ventilator 25.00 01/04/18 23:55 93 22 95 25 01/04/18 23:00 97 22 146/92 (110) 95 Mechanical Ventilator 25.00 01/04/18 22:12 54 01/04/18 22:06 70 22 95 25 01/04/18 22:00 62 22 147/77 (100) 95 Mechanical Ventilator 25.00 01/04/18 21:00 65 21 148/74 (98) 96 Mechanical Ventilator 25.00 01/04/18 20:23 90 22 97 25 01/04/18 20:00 92 19 146/79 (101) 99 Mechanical Ventilator 25.00 01/04/18 20:00 98 Mechanical Ventilator 25.00 01/04/18 19:00 92 01/04/18 19:00 92 21 143/69 (93) 95 Mechanical Ventilator 25.00 01/04/18 18:13 83 25 98 25 01/04/18 18:00 86 21 168/85 (112) 99 Mechanical Ventilator 25.00 01/04/18 17:00 45 21 156/73 (100) 99 Mechanical Ventilator 25.00 01/04/18 16:43 47 22 98 25 01/04/18 16:00 47 21 160/87 (111) 97 Mechanical Ventilator 25.00 01/04/18 16:00 97.5 01/04/18 16:00 98 Mechanical Ventilator 25.00 01/04/18 15:07 50 22 98 30 01/04/18 15:00 48 22 161/86 (111) 99 Mechanical Ventilator 30.00 01/04/18 14:00 73 22 156/81 (106) 99 Mechanical Ventilator 30.00 01/04/18 13:30 97.1 82 24 164/88 99 Mechanical Ventilator 30.00 01/04/18 13:02 87 24 99 30 01/04/18 13:00 82 01/04/18 13:00 82 18 160/87 (111) 99 Mechanical Ventilator 30.00 01/04/18 12:00 79 22 156/78 (104) 100 Mechanical Ventilator 30.00 01/04/18 12:00 97.4 01/04/18 12:00 98 Mechanical Ventilator 30.00 01/04/18 11:00 57 22 138/70 (92) 98 Mechanical Ventilator 30.00 01/04/18 10:54 62 22 98 30 01/04/18 10:00 75 22 140/71 (94) 99 Mechanical Ventilator 30.00 01/04/18 09:00 61 21 146/82 (103) 97 Mechanical Ventilator 30.00 01/04/18 08:53 67 22 96 30 01/04/18 08:03 77 126/69 01/04/18 08:00 77 23 132/70 (90) 98 Mechanical Ventilator 30.00 01/04/18 08:00 98 Mechanical Ventilator 30.00 01/04/18 08:00 97.5 01/04/18 07:00 78 01/04/18 07:00 79 22 122/65 (84) 98 Mechanical Ventilator 30.00 01/04/18 06:45 77 21 129/69 (89) 99 Mechanical Ventilator 30.00 01/04/18 06:40 77 22 100 35 I & O 01/05/18 07:00 Intake Total 1000 ml Output Total 1375 ml Balance -375 ml Height & Weight Height: 5'3.00" Weight: 140lbs. 0.0oz. 63.162550cx; 24.8 BMI Method:Estimated General Appearance: Chronically ill, Other (intubated, sedated) HEENT: PERRL/EOMI, Normal ENT Inspection Neck: Other (central line in place) Respiratory: Decreased Breath Sounds, Other (intubated) Cardiovascular: Regular Rate, Rhythm, No Edema, No Murmur Capillary Refill: Less Than 3 Seconds Extremity: Normal Inspection, No Pedal Edema Skin: Warm/Dry, Cyanosis Results Lab Laboratory Tests 01/03/18 16:36 01/04/18 03:35 01/05/18 04:10 Assessment/Plan Assessment/Plan Acute on chronic respiratory failure -PT follows with Dr. Eisenberg as an out patient -Pt would benefit from home vent to mask -- will defer to Dr. Eisenberg. -Pt is only on 21% oxygen and weaning parameters are good. Secondary to pt's severe anxiety will just wake patient up and extubate. is at bedside and he strongly agrees secondary to patients anxiety. -C02 on admission is 71 -Hx of hospitalizations secondary to respiratory failure COPDAE r/o pneumonia - solumedrol 40 IV Q 6 -Continue Cefepime for now and await cultures -Cultures negative thus far -PT has home oxygen -SVNs Q 4 hrs with duoneb Metabolic lactic acidosis probably secondary to hypoxia -IVF Lung nodules -Followed as out patient Allergic rhinitis hx -start Zyrtec and RIKI Demarco DO Jan 05, 2018 06:23
[2018-01-05] MEDS: ENOXAPARIN 60 MG/0.6 ML (LOVENOX) SYR SC SCH (06:24)
[2018-01-05] MEDS: meTOprolol 5 MG/5 ML (LOPRESSOR) VIAL IV SCH ×2 (06:24)
[2018-01-05] MEDS: POTASSIUM CL 10MEQ/50ML IVPB 50 ML IV SCH ×3 (06:24→07:53)
[2018-01-05] MEDS: NS W/KCL 20 MEQ/L 1,000 ML IV SCH ×3 (06:24→21:57)
[2018-01-05] MEDS: MAGNESIUM 1 GM/100 ML IVPB 100 ML IV SCH (06:25)
[2018-01-05] MEDS: KCL 20 MEQ TAB (K-DUR) PO SCH (06:25)
[2018-01-05] MEDS ORDERED: SODIUM PHOSPHATE INJ 30 MM in NS (IVPB) 250 ML IV ONE (06:30)
--- NOTE | 2018-01-05 07:46 | Progress Note-Hospitalist ---
Subjective HPI/CC On Admission Date Seen by Provider: Jan 05, 2018 Time Seen by Provider: 07:40 Pt is a 67yoCF with a PMH of severe COPD who presented to the ER in respiratory failure and was very quickly intubated after arrival. Currently she remains intubated and sedated and is unable to participate in history and there is no one at bedside to give details and thus history is limited to review of records. Per ER note she was having difficulty breathing yesterday all day with oxygen saturations in the 80s even with supplementation. As this did not improve her decided to seek evaluation in the ER but in route she decompensated and ultimately lost consciousness. On arrival she had agonal respirations and was unresponsive. She was also found to be in a-fib with RVR. She was intubated and sedation was started. She quickly converted to sinus after those interventions. She also became very hypotensive and was fluid resuscitated with >3L. She remained hypotensive and levophed was started briefly. Subjective/Events-last exam Pt extubated today. States doing better. Breathing well. No other complaints. Reports history of intubation for COPD in past. Focused Exam Lactate Level 01/03/18 16:36: Lactic Acid Level 6.33*H 01/03/18 18:35: Lactic Acid Level 1.34 Objective Exam Vital Signs Vital Signs Date Time Temp Pulse Resp B/P (MAP) Pulse Ox O2 Delivery O2 Flow Rate FiO2 01/05/18 06:07 71 22 97 25 01/05/18 06:00 180/90 (120) Mechanical Ventilator 25.00 01/04/18 16:00 97.5 Capillary Refill : Less Than 3 Seconds General Appearance: No Apparent Distress, WD/WN Respiratory: No Accessory Muscle Use, No Respiratory Distress, Decreased Breath Sounds, Other (on oxygen) Cardiovascular: Regular Rate, Rhythm, No Murmur Gastrointestinal: Normal Bowel Sounds, Soft Extremity: No Calf Tenderness, No Pedal Edema Neurologic/Psychiatric: Alert, Oriented x3 Results/Procedures Lab Laboratory Tests 01/05/18 04:10 Patient resulted labs reviewed. Imaging: Reviewed Imaging Films, Reviewed Imaging Report Assessment/Plan Assessment and Plan Assess & Plan/Chief Complaint Acute Respiratory Failure Diagnosis/Problems Diagnosis/Problems (1) Respiratory failure with hypoxia and hypercapnia Status: Acute Assessment & Plan: Extubated today Pulm consulted, appreciate recs Continue steroids, scheduled SVNS Continue Cefepime though no known source at this time MAT protocol Qualifiers: Chronicity: acute on chronic Qualified Codes: J96.21 - Acute and chronic respiratory failure with hypoxia; J96.22 - Acute and chronic respiratory failure with hypercapnia (2) COPD with exacerbation Status: Acute Assessment & Plan: Pulm consulted Continue treatment as above with switch from solu-cortef to solu-medrol Dr Birch to arrange for Vent to mask at DC (3) Lactic acidosis Status: Resolved Assessment & Plan: Now resolved Likely due to profound and prolonged hypoxia (4) Atrial fibrillation with RVR Status: Acute Assessment & Plan: Converted Cardiology consulted, appreciate recs Digoxin ordered prn for rate Reviewed previous EKGs and holter monitor with no documented history of a-fib Lovenox for anticoagulation (5) Leukocytosis Status: Acute Assessment & Plan: Improving Trend (6) Anxiety Status: Chronic Assessment & Plan: Resume ativan Hold Klonopin for now (7) Smoker Status: Chronic Assessment & Plan: Smoking cessation education (8) Prophylactic measure Assessment & Plan: Lovenox NS +20KCL at 75ml/hr NPO until passes bedside swallow Clinical Quality Measures DVT/VTE Risk/Contraindication: Risk Factor Score Per Nursin RFS Level Per Nursing on Admit: 4+=Very High PABLO BAUTISTA MD Jan 05, 2018 07:46
--- NOTE | 2018-01-05 08:26 | Progress Note-Cardiology ---
Cardiology SOAP Progress Note Subjective: Extubated this morning. Family x 1 at the bedside. She states she feels well this morning. She feels her breathing is at its baseline. No c/o CP, palpitations. Denies cough. Objective: I&O/Vital Signs 01/05/18 01/05/18 01/05/18 01/05/18 03:57 04:00 04:00 04:00 Temp 98.9 Pulse 101 Resp 22 23 B/P (MAP) 158/85 (109) Pulse Ox 98 97 O2 Delivery Mechanical Ventilator Mechanical Ventilator O2 Flow Rate 25.00 25.00 01/05/18 01/05/18 01/05/18 01/05/18 04:04 04:30 05:00 06:00 Pulse 98 92 81 73 Resp 26 22 21 22 B/P (MAP) 173/89 (117) 180/90 (120) Pulse Ox 98 98 97 96 O2 Delivery Mechanical Ventilator Mechanical Ventilator O2 Flow Rate 25.00 25.00 FiO2 25 01/05/18 01/05/18 01/05/18 01/05/18 06:07 07:00 07:00 07:00 Pulse 71 80 80 Resp 22 18 B/P (MAP) 177/91 (119) Pulse Ox 97 100 O2 Delivery High Flow N/C High Flow N/C O2 Flow Rate 8.00 8.00 FiO2 25 01/05/18 01/05/18 01/05/18 01/05/18 08:00 08:00 08:00 08:55 Temp 97.0 Pulse 78 Resp 20 B/P (MAP) 169/87 (114) Pulse Ox 100 100 O2 Delivery High Flow N/C High Flow N/C High Flow N/C O2 Flow Rate 8.00 8.00 4.00 01/05/18 01/05/18 01/05/18 01/05/18 09:00 10:00 11:00 12:00 Temp 97.6 Pulse 78 83 80 Resp 26 10 26 B/P (MAP) 156/78 (104) 148/77 (100) 143/75 (97) Pulse Ox 98 99 99 O2 Delivery High Flow N/C High Flow N/C High Flow N/C O2 Flow Rate 4.00 4.00 4.00 01/05/18 01/05/18 01/05/18 01/05/18 12:00 12:00 13:00 13:00 Pulse 75 73 73 Resp 31 21 B/P (MAP) 139/80 (99) 136/75 (95) Pulse Ox 100 100 98 O2 Delivery High Flow N/C High Flow N/C High Flow N/C O2 Flow Rate 4.00 4.00 4.00 01/05/18 01/05/18 14:00 14:54 Pulse 84 Resp 22 B/P (MAP) 145/75 (98) Pulse Ox 100 98 O2 Delivery High Flow N/C Nasal Cannula O2 Flow Rate 4.00 4.00 01/05/18 00:00 Intake Total 1000 ml Output Total 1200 ml Balance -200 ml Weight (Pounds): 140 Weight (Ounces): 0.0 Weight (Calculated Kilograms): 63.982673 Constitutional: appears stated age, AAO x 3; No apparent distress; well- developed, well-nourished Respiratory: chest expansion is symmetric, other (prolonged expiratory phase; diminished lower lobes bilat) Cardiovascular: regular rate-rhythm, S1 and S2 Gastrointestional: No tender; soft, round, audible bowel sounds Extremities: no lower extremity edema bilateral Neurologic/Psychiatric: grossly intact Skin: No rash, No ulcerations Results/Procedures: Labs Laboratory Tests 01/05/18 04:10: White Blood Count 11.4H, Red Blood Count 3.69L, Hemoglobin 12.2, Hematocrit 38, Mean Corpuscular Volume 102H, Mean Corpuscular Hemoglobin 33, Mean Corpuscular Hemoglobin Concent 32, Red Cell Distribution Width 13.2, Platelet Count 209, Mean Platelet Volume 10.0, Neutrophils (%) (Auto) 94H, Lymphocytes (%) (Auto) 3L , Monocytes (%) (Auto) 3, Eosinophils (%) (Auto) 0, Basophils (%) (Auto) 0, Neutrophils # (Auto) 10.7H, Lymphocytes # (Auto) 0.4L, Monocytes # (Auto) 0.3, Eosinophils # (Auto) 0.0, Basophils # (Auto) 0.0, Blood Gas Puncture Site RT RADIAL, Blood Gas Patient Temperature 99.0, Arterial Blood pH 7.44H, Arterial Blood Partial Pressure CO2 33L, Arterial Blood Partial Pressure O2 83, Arterial Blood HCO3 22L, Arterial Blood Total CO2 22.7, Arterial Blood Oxygen Saturation 98, Arterial Blood Base Excess -1.8, Rush Test YES-POS, Blood Gas Ventilator Setting YES, Blood Gas Inspired Oxygen 25%, Sodium Level 144, Potassium Level 3.5L, Chloride Level 111H, Carbon Dioxide Level 19L, Anion Gap 14, Blood Urea Nitrogen 7, Creatinine 0.68, Estimat Glomerular Filtration Rate > 60, BUN/ Creatinine Ratio 10, Glucose Level 122H, Calcium Level 8.8, Phosphorus Level 1.9L, Magnesium Level 2.0 Microbiology 01/03/18 Blood Culture - Preliminary, Resulted No growth 01/03/18 MRSA Screen - Final, Complete MRSA not isolated A/P: Assessment: PAF - first documented on EKG of 01-03-18 - currently maintaining NSR Acute on chronic respiratory failure - management by [facility] Probable pneumonia with sepsis - improving Acute exacerbation of COPD - improving Leukocytosis - probably related to sepsis - improving Tobaccoism Transient hypotension at time of intubation likely secondary to sedation - resolved Recent surgery d/t pre-cancerous lesion Plan: * Change to oral BB to reduce risk of PAF and to control heart rate if PAF recurs * Enoxaparin to reduce risk of cardioembolic stroke - change to OAC with Eliquis * Monitor labs * Replace electrolytes * Echocardiogram - pending Physician Assessment Physician Assessment Denies cp or palp or syncope or shortness of breath at rest Lungs: fair bilat air entry, prolonged exp phase Cor: reg Ext: no c/c/e A&R * As documented in our note above that I updated (italics) and as noted below * OAC for stoke prophylaxis. I discussed the rationale for and pros and cons of this with her. 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
[2018-01-05] MEDS: ROFLUMILAST 500 MCG TAB (DALIRESP) PO SCH (08:49)
[2018-01-05] MEDS: CEFEPIME 2 GM/NS 50 ML IVPB IV SCH ×2 (08:49)
[2018-01-05] MEDS: DIVALPROEX 250 MG DELAYED RELEASE (DEPAKOTE) TAB PO SCH ×2 (08:49→20:06)
[2018-01-05] MEDS: APIXABAN 5 MG (ELIQUIS) TABLET PO SCH ×2 (08:52→20:06)
[2018-01-05] MEDS: ALPRAZolam 0.5 MG (XANAX) TAB PO PRN ×2 (09:59→21:54)
--- NOTE | 2018-01-05 10:08 | Diagnostic Imaging Report ---
Indication: Respiratory failure. Portable chest 3:03 AM There is an ET tube projecting over the trachea. NG tube enters the stomach. Right jugular central line tip projects over the right innominate vein. Heart size and pulmonary vascularity are normal. Lungs are clear. There are no effusions or pneumothoraces. Impression: No acute abnormalities of the chest. Dictated by: Dictated on workstation # [id number]
[2018-01-06] VITALS (14 sets, daily range): BP systolic 115–162; BP diastolic 64–78
[2018-01-06] MEDS: RT-ALBUTEROL/IPRATROPIUM 3 ML (DUONEB) VIAL IH SCH ×5 (02:37→21:33)
[2018-01-06] MEDS: DEXMEDETOMIDINE INJECTION 200 MCG in NS (IVPB) 50 ML IV SCH (03:56)
[2018-01-06 04:12] LABS: BASOPHILS % (AUTO) 0 % (0-10); EOSINOPHILS % (AUTO) 0 % (0-10); HEMATOCRIT 35 % (35-52); HEMOGLOBIN 11.5 G/DL (11.5-16.0); LYMPHOCYTES # (AUTO) 0.5 X 10^3 (1.0-4.0); LYMPHOCYTES % (AUTO) 5 % (12-44); MEAN CORPUSCULAR HEMOGLOBIN 34 PG (25-34); MEAN CORPUSCULAR HGB CONC 33 G/DL (32-36); MEAN CORPUSCULAR VOLUME 104 FL (80-99); MEAN PLATELET VOLUME 9.9 FL (7.4-10.4); MONOCYTES # (AUTO) 0.3 X 10^3 (0.0-1.0); MONOCYTES % (AUTO) 3 % (0-12); NEUTROPHILS # (AUTO) 9.4 X 10^3 (1.8-7.8); NEUTROPHILS % (AUTO) 92 % (42-75); PLATELET COUNT 195 10^3/uL (130-400); RED BLOOD COUNT 3.42 10^6/uL (4.35-5.85); RED CELL DISTRIBUTION WIDTH 13.9 % (10.0-14.5); WHITE BLOOD COUNT 10.2 10^3/uL (4.3-11.0)
[2018-01-06 04:18] LABS: BUN/CREATININE RATIO 20; CALCIUM 8.6 MG/DL (8.5-10.1); CARBON DIOXIDE 21 MMOL/L (21-32); CHLORIDE 109 MMOL/L (98-107); CREATININE SERUM 0.61 MG/DL (0.60-1.30); GFR ESTIMATED > 60; GLUCOSE 127 MG/DL (70-105); MAGNESIUM 2.1 MG/DL (1.8-2.4); PHOSPHORUS 2.4 MG/DL (2.3-4.7); POTASSIUM 3.7 MMOL/L (3.6-5.0); SODIUM 142 MMOL/L (135-145)
--- NOTE | 2018-01-06 06:07 | Pulmonary Progress Note ---
Subjective Time Seen by a Provider: 06:07 Subjective/Events-last exam PT is doing well off ventilator Sepsis Event Evaluation Height, Weight, BMI Height: 5'3.00" Weight: 140lbs. 0.0oz. 63.628283ve; 24.8 BMI Method:Estimated Focused Exam Lactate Level 01/03/18 16:36: Lactic Acid Level 6.33*H 01/03/18 18:35: Lactic Acid Level 1.34 Exam Exam Vital Signs Date Time Temp Pulse Resp B/P (MAP) Pulse Ox O2 Delivery O2 Flow Rate FiO2 01/06/18 05:00 71 16 143/78 (99) 99 NIV CPAP 2.50 01/06/18 04:00 85 20 144/75 (98) 98 NIV CPAP 2.50 01/06/18 03:00 71 16 148/74 (98) 98 NIV CPAP 2.50 01/06/18 02:37 98 NIV CPAP 2.50 01/06/18 02:00 71 16 133/74 (93) 98 NIV CPAP 2.50 01/06/18 01:00 98 01/06/18 01:00 98 14 115/72 (86) 99 NIV CPAP 2.50 01/06/18 00:03 99.0 94 18 129/68 (88) 98 NIV CPAP 2.50 01/06/18 00:00 95 18 129/68 (88) 98 Room Air 01/06/18 00:00 96 NIV CPAP 2.50 01/05/18 23:00 117 27 141/72 (95) 95 Room Air 01/05/18 22:39 100 Room Air 01/05/18 22:00 98 11 125/77 (93) 96 Room Air 01/05/18 21:00 104 30 139/72 (94) 97 Room Air 01/05/18 20:00 100.6 107 24 144/86 (105) 96 Room Air 01/05/18 19:54 96 Room Air 01/05/18 19:00 112 01/05/18 19:00 104 25 142/82 (102) 96 Room Air 01/05/18 18:23 98 Room Air 01/05/18 18:00 81 21 147/77 (100) 95 Room Air 01/05/18 17:02 93 24 155/78 (103) 98 High Flow N/C 4.00 01/05/18 16:00 101 21 141/70 (93) 99 High Flow N/C 4.00 01/05/18 16:00 99.6 01/05/18 16:00 99 High Flow N/C 4.00 01/05/18 15:00 100 16 143/72 (95) 100 High Flow N/C 4.00 01/05/18 14:54 98 Nasal Cannula 4.00 01/05/18 14:00 84 22 145/75 (98) 100 High Flow N/C 4.00 01/05/18 13:00 73 21 136/75 (95) 98 High Flow N/C 4.00 01/05/18 13:00 73 01/05/18 12:00 75 31 139/80 (99) 100 High Flow N/C 4.00 01/05/18 12:00 100 High Flow N/C 4.00 01/05/18 12:00 97.6 01/05/18 11:00 80 26 143/75 (97) 99 High Flow N/C 4.00 01/05/18 10:00 83 10 148/77 (100) 99 High Flow N/C 4.00 01/05/18 09:00 78 26 156/78 (104) 98 High Flow N/C 4.00 01/05/18 08:55 High Flow N/C 4.00 01/05/18 08:00 78 20 169/87 (114) 100 High Flow N/C 8.00 01/05/18 08:00 97.0 01/05/18 08:00 100 High Flow N/C 8.00 01/05/18 07:00 80 18 177/91 (119) 100 High Flow N/C 8.00 01/05/18 07:00 80 01/05/18 07:00 High Flow N/C 8.00 01/05/18 06:07 71 22 97 25 I & O 01/06/18 07:00 Intake Total 2220 ml Output Total 5150 ml Balance -2930 ml Height & Weight Height: 5'3.00" Weight: 140lbs. 0.0oz. 63.008552zn; 24.8 BMI Method:Estimated General Appearance: No Apparent Distress, WD/WN HEENT: PERRL/EOMI, Normal ENT Inspection Neck: Other (central line in place) Respiratory: No Accessory Muscle Use, No Respiratory Distress, Decreased Breath Sounds, Other (on oxygen) Cardiovascular: Regular Rate, Rhythm, No Murmur Capillary Refill: Less Than 3 Seconds Extremity: No Calf Tenderness, No Pedal Edema Neurologic/Psychiatric: Alert, Oriented x3 Skin: Warm/Dry, Cyanosis Results Lab Laboratory Tests 01/05/18 04:10 01/06/18 03:52 Assessment/Plan Assessment/Plan Acute on chronic respiratory failure -PT follows with Dr. Eisenberg as an out patient -Pt is already on vent to mask -C02 on admission is 71 -Hx of hospitalizations secondary to respiratory failure COPDAE r/o pneumonia - solumedrol 40 IV Q 6 -Continue Cefepime for now and await cultures -Cultures negative thus far -PT has home oxygen -SVNs Q 4 hrs with duoneb Metabolic lactic acidosis probably secondary to hypoxia -IVF Lung nodules -Followed as out patient Allergic rhinitis hx -start Zyrtec and Singulair Will transfer to 4th floor. RIKI REID DO Jan 06, 2018 06:07
[2018-01-06] MEDS: methylPREDNISolone 40 MG/ML (Solu-MEDROL) VIAL IV SCH ×4 (06:19→23:58)
--- NOTE | 2018-01-06 08:00 | Diagnostic Imaging Report ---
Indication: Respiratory failure Exam: Portable chest at 2:50 AM Findings: There is air trapping in the lungs. Heart size and pulmonary vascularity are normal. The lungs are clear. Impression: Air trapping suggesting obstructive airways disease. Dictated by: Dictated on workstation # [id number]
--- NOTE | 2018-01-06 08:05 | Progress Note-Hospitalist ---
Subjective HPI/CC On Admission Date Seen by Provider: Jan 06, 2018 Time Seen by Provider: 08:01 Pt is a 67yoCF with a PMH of severe COPD who presented to the ER in respiratory failure and was very quickly intubated after arrival. Currently she remains intubated and sedated and is unable to participate in history and there is no one at bedside to give details and thus history is limited to review of records. Per ER note she was having difficulty breathing yesterday all day with oxygen saturations in the 80s even with supplementation. As this did not improve her decided to seek evaluation in the ER but in route she decompensated and ultimately lost consciousness. On arrival she had agonal respirations and was unresponsive. She was also found to be in a-fib with RVR. She was intubated and sedation was started. She quickly converted to sinus after those interventions. She also became very hypotensive and was fluid resuscitated with >3L. She remained hypotensive and levophed was started briefly. Subjective/Events-last exam Pt reports doing well. breathing better but still wheezing. Focused Exam Lactate Level 01/03/18 16:36: Lactic Acid Level 6.33*H 01/03/18 18:35: Lactic Acid Level 1.34 Objective Exam Vital Signs Vital Signs Date Time Temp Pulse Resp B/P (MAP) Pulse Ox O2 Delivery O2 Flow Rate FiO2 01/06/18 06:00 69 17 146/78 (100) 99 Room Air 01/06/18 05:00 2.50 01/06/18 04:00 98.9 01/05/18 06:07 25 Capillary Refill : Less Than 3 Seconds General Appearance: No Apparent Distress, Chronically ill Respiratory: No Accessory Muscle Use, No Respiratory Distress, Wheezing Cardiovascular: Regular Rate, Rhythm, No Murmur Gastrointestinal: Normal Bowel Sounds, Soft Extremity: No Calf Tenderness, No Pedal Edema Neurologic/Psychiatric: Alert, Oriented x3 Results/Procedures Lab Laboratory Tests 01/06/18 03:52 Patient resulted labs reviewed. Imaging: Reviewed Imaging Films, Reviewed Imaging Report Assessment/Plan Assessment and Plan Assess & Plan/Chief Complaint Acute Respiratory Failure Diagnosis/Problems Diagnosis/Problems (1) Respiratory failure with hypoxia and hypercapnia Status: Acute Assessment & Plan: Extubated 01/05 Pulm consulted, appreciate recs Continue steroids, scheduled SVNS Continue Cefepime MAT protocol Home oxygen study Transfer to floor Qualifiers: Chronicity: acute on chronic Qualified Codes: J96.21 - Acute and chronic respiratory failure with hypoxia; J96.22 - Acute and chronic respiratory failure with hypercapnia (2) COPD with exacerbation Status: Acute Assessment & Plan: Pulm consulted Continue solu-medrol Has Vent to mask at home (3) Atrial fibrillation with RVR Status: Acute Assessment & Plan: Converted Cardiology consulted, appreciate recs Reviewed previous EKGs and holter monitor with no documented history of a-fib Continue metoprolol Eliquis for stroke ppx Echo ordered (4) Lactic acidosis Status: Resolved Assessment & Plan: Now resolved Likely due to profound and prolonged hypoxia (5) Leukocytosis Status: Resolved Assessment & Plan: Trend (6) Anxiety Status: Chronic Assessment & Plan: Resume ativan Hold Klonopin for now (7) Smoker Status: Chronic Assessment & Plan: Smoking cessation education (8) Prophylactic measure Assessment & Plan: Eliquis Saline lock Reg Diet THOMAS marcus Clinical Quality Measures DVT/VTE Risk/Contraindication: Risk Factor Score Per Nursin RFS Level Per Nursing on Admit: 4+=Very High PABLO BAUTISTA MD Jan 06, 2018 08:05
[2018-01-06] MEDS: CEFEPIME 2 GM/NS 50 ML IVPB IV SCH ×2 (08:33)
[2018-01-06] MEDS: ROFLUMILAST 500 MCG TAB (DALIRESP) PO SCH (08:33)
[2018-01-06] MEDS: DIVALPROEX 250 MG DELAYED RELEASE (DEPAKOTE) TAB PO SCH ×2 (08:33→20:25)
[2018-01-06] MEDS: APIXABAN 5 MG (ELIQUIS) TABLET PO SCH ×2 (08:33→20:25)
--- NOTE | 2018-01-06 09:14 | Progress Note-Cardiology ---
Cardiology SOAP Progress Note Subjective: Sitting up in bed. States she feels well this morning Objective: I&O/Vital Signs 01/05/18 01/05/18 01/05/18 01/06/18 22:00 22:39 23:00 00:00 Pulse 98 117 Resp 11 27 B/P (MAP) 125/77 (93) 141/72 (95) Pulse Ox 96 100 95 96 O2 Delivery Room Air Room Air Room Air NIV CPAP O2 Flow Rate 2.50 01/06/18 01/06/18 01/06/18 01/06/18 00:00 00:03 01:00 01:00 Temp 99.0 Pulse 95 94 98 98 Resp 18 18 14 B/P (MAP) 129/68 (88) 129/68 (88) 115/72 (86) Pulse Ox 98 98 99 O2 Delivery Room Air NIV CPAP NIV CPAP O2 Flow Rate 2.50 2.50 01/06/18 01/06/18 01/06/18 01/06/18 02:00 02:37 03:00 04:00 Temp 98.9 Pulse 71 71 Resp 16 16 B/P (MAP) 133/74 (93) 148/74 (98) Pulse Ox 98 98 98 O2 Delivery NIV CPAP NIV CPAP NIV CPAP O2 Flow Rate 2.50 2.50 2.50 01/06/18 01/06/18 01/06/18 01/06/18 04:00 04:00 05:00 06:00 Pulse 85 71 69 Resp 20 16 17 B/P (MAP) 144/75 (98) 143/78 (99) 146/78 (100) Pulse Ox 98 98 99 99 O2 Delivery NIV CPAP NIV CPAP NIV CPAP Room Air O2 Flow Rate 2.50 2.50 2.50 01/06/18 01/06/18 08:00 08:00 Temp 97.6 Pulse Ox 100 O2 Delivery Room Air Room Air 01/06/18 00:00 Intake Total 970 ml Output Total 4800 ml Balance -3830 ml Weight (Pounds): 141 Weight (Ounces): 1.0 Weight (Calculated Kilograms): 63.627315 Constitutional: appears stated age, AAO x 3; No apparent distress; well- developed, well-nourished Respiratory: chest expansion is symmetric, other (prolonged expiratory phase; diminished lower lobes bilat) Cardiovascular: regular rate-rhythm, S1 and S2 Gastrointestional: No tender; soft, round, audible bowel sounds Extremities: no lower extremity edema bilateral Neurologic/Psychiatric: grossly intact Skin: No rash, No ulcerations Results/Procedures: Labs Laboratory Tests 01/06/18 03:52: White Blood Count 10.2, Red Blood Count 3.42L, Hemoglobin 11.5, Hematocrit 35, Mean Corpuscular Volume 104H, Mean Corpuscular Hemoglobin 34, Mean Corpuscular Hemoglobin Concent 33, Red Cell Distribution Width 13.9, Platelet Count 195, Mean Platelet Volume 9.9, Neutrophils (%) (Auto) 92H, Lymphocytes (%) (Auto) 5L , Monocytes (%) (Auto) 3, Eosinophils (%) (Auto) 0, Basophils (%) (Auto) 0, Neutrophils # (Auto) 9.4H, Lymphocytes # (Auto) 0.5L, Monocytes # (Auto) 0.3, Eosinophils # (Auto) 0.0, Basophils # (Auto) 0.0, Sodium Level 142, Potassium Level 3.7, Chloride Level 109H, Carbon Dioxide Level 21, Anion Gap 12, Blood Urea Nitrogen 12, Creatinine 0.61, Estimat Glomerular Filtration Rate > 60, BUN/ Creatinine Ratio 20, Glucose Level 127H, Calcium Level 8.6, Phosphorus Level 2.4 , Magnesium Level 2.1 Microbiology 01/03/18 Blood Culture - Preliminary, Resulted No growth 01/03/18 MRSA Screen - Final, Complete MRSA not isolated Laboratory Tests 01/05/18 04:10 01/06/18 03:52 A/P: Assessment: PAF - first documented on EKG of 01-03-18 - currently maintaining NSR Acute on chronic respiratory failure - management by [facility] Probable pneumonia with sepsis - improving Acute exacerbation of COPD - improving Leukocytosis - probably related to sepsis - now resolved Tobaccoism Transient hypotension at time of intubation likely secondary to sedation - resolved Recent surgery d/t pre-cancerous lesion Plan: * Continue oral BB to reduce risk of PAF and to control heart rate if PAF recurs * Continue OAC with Eliquis * Monitor labs * Echocardiogram - pending Physician Assessment Physician Assessment Shortness of breath improved. 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
[2018-01-06] MEDS: ALPRAZolam 0.5 MG (XANAX) TAB PO PRN ×2 (17:55→23:58)
[2018-01-06] MEDS: clonazePAM 1 MG (KlonoPIN) TAB PO SCH (20:26)
[2018-01-07 00:02] VITALS: BP 121/58
[2018-01-07] MEDS: RT-ALBUTEROL/IPRATROPIUM 3 ML (DUONEB) VIAL IH SCH ×2 (01:35→06:33)
[2018-01-07 04:01] VITALS: BP 114/56
[2018-01-07] MEDS: ALPRAZolam 0.5 MG (XANAX) TAB PO PRN (05:57)
[2018-01-07] MEDS: methylPREDNISolone 40 MG/ML (Solu-MEDROL) VIAL IV SCH (05:57)
--- NOTE | 2018-01-07 07:09 | Pulmonary Progress Note ---
Subjective Time Seen by a Provider: 07:09 Sepsis Event Evaluation Height, Weight, BMI Height: 5'3.00" Weight: 112lbs. 8.0oz. 51.700880yg; 24.8 BMI Method:Estimated Exam Exam Vital Signs Date Time Temp Pulse Resp B/P (MAP) Pulse Ox O2 Delivery O2 Flow Rate FiO2 01/07/18 06:34 96 Nasal Cannula 2.00 01/07/18 04:01 98.0 65 20 114/56 (75) 96 NIV CPAP 2.50 01/07/18 01:35 98 NIV Bilevel 2.50 01/07/18 00:02 98.0 82 20 121/58 (79) 97 NIV CPAP 2.50 01/06/18 21:33 95 Nasal Cannula 1.00 01/06/18 20:00 Room Air 01/06/18 19:27 97 Nasal Cannula 1.00 01/06/18 19:05 98.4 81 20 162/70 (100) 97 Room Air 01/06/18 15:20 98.2 95 20 159/68 (98) 95 Room Air 01/06/18 15:03 94 Nasal Cannula 2.00 01/06/18 12:00 Room Air 01/06/18 12:00 99.5 97 18 150/64 (92) 96 Room Air 01/06/18 10:30 99.6 77 18 138/72 (94) 97 Room Air 01/06/18 10:14 93 Room Air 01/06/18 08:00 97.6 Room Air 01/06/18 08:00 100 Room Air 01/06/18 08:00 96 26 135/74 (94) 94 Room Air I & O 01/07/18 07:00 Intake Total 2330 ml Output Total 1050 ml Balance 1280 ml Height & Weight Height: 5'3.00" Weight: 112lbs. 8.0oz. 51.498884ps; 24.8 BMI Method:Estimated General Appearance: No Apparent Distress, Chronically ill HEENT: PERRL/EOMI, Normal ENT Inspection Neck: Other (central line in place) Respiratory: No Accessory Muscle Use, No Respiratory Distress, Wheezing Cardiovascular: Regular Rate, Rhythm, No Murmur Capillary Refill: Less Than 3 Seconds Extremity: No Calf Tenderness, No Pedal Edema Neurologic/Psychiatric: Alert, Oriented x3 Skin: Warm/Dry, Cyanosis Results Lab Laboratory Tests 01/06/18 03:52 Assessment/Plan Assessment/Plan Acute on chronic respiratory failure -PT follows with Dr. Eisenberg as an out patient -Pt is already on vent to mask COPDAE r/o pneumonia - solumedrol 40 IV Q 6 -- change to prednisone taper -Change Cefepime to omnicef -Cultures negative thus far -PT has home oxygen -SVNs Q 4 hrs with duoneb Metabolic lactic acidosis probably secondary to hypoxia Lung nodules -Followed as out patient Allergic rhinitis hx -start Zyrtec and RIKI Demarco DO Jan 07, 2018 07:09
[2018-01-07 07:25] LABS: BASOPHILS % (AUTO) 0 % (0-10); EOSINOPHILS % (AUTO) 0 % (0-10); HEMATOCRIT 39 % (35-52); HEMOGLOBIN 12.5 G/DL (11.5-16.0); LYMPHOCYTES # (AUTO) 1.1 X 10^3 (1.0-4.0); LYMPHOCYTES % (AUTO) 11 % (12-44); MEAN CORPUSCULAR HEMOGLOBIN 33 PG (25-34); MEAN CORPUSCULAR HGB CONC 33 G/DL (32-36); MEAN CORPUSCULAR VOLUME 101 FL (80-99); MEAN PLATELET VOLUME 9.9 FL (7.4-10.4); MONOCYTES # (AUTO) 0.6 X 10^3 (0.0-1.0); MONOCYTES % (AUTO) 6 % (0-12); NEUTROPHILS # (AUTO) 8.8 X 10^3 (1.8-7.8); NEUTROPHILS % (AUTO) 84 % (42-75); PLATELET COUNT 267 10^3/uL (130-400); RED CELL DISTRIBUTION WIDTH 13.8 % (10.0-14.5); WHITE BLOOD COUNT 10.5 10^3/uL (4.3-11.0)
[2018-01-07 07:35] VITALS: BP 121/58
--- NOTE | 2018-01-07 07:46 | Diagnostic Imaging Report ---
INDICATION: Respiratory failure. TECHNIQUE: Single view chest 2:34 AM. CORRELATION STUDY: 01/06/2018 FINDINGS: The heart size, mediastinal configuration and pulmonary vascularity are within normal limits. The lungs are somewhat hyperinflated but overall clear with no consolidating infiltrate. There is no significant effusion or pneumothorax. IMPRESSION: 1. No radiographic findings to suggest acute abnormality of the chest. Dictated by: Dictated on workstation # [id number]
[2018-01-07 07:56] LABS: BUN/CREATININE RATIO 22; CALCIUM 8.9 MG/DL (8.5-10.1); CARBON DIOXIDE 24 MMOL/L (21-32); CHLORIDE 102 MMOL/L (98-107); CREATININE SERUM 0.64 MG/DL (0.60-1.30); GFR ESTIMATED > 60; GLUCOSE 120 MG/DL (70-105); MAGNESIUM 2.5 MG/DL (1.8-2.4); PHOSPHORUS 2.7 MG/DL (2.3-4.7); POTASSIUM 4.1 MMOL/L (3.6-5.0); SODIUM 139 MMOL/L (135-145)
[2018-01-07] MEDS ORDERED: CEFD300C3 PO (08:04)
[2018-01-07] MEDS ORDERED: APIX5TAB PO (08:04)
[2018-01-07] MEDS ORDERED: PRED10TA22 PO (08:04)
[2018-01-07] MEDS ORDERED: METO-387 PO (08:04)
[2018-01-07] MEDS: ROFLUMILAST 500 MCG TAB (DALIRESP) PO SCH (08:33)
[2018-01-07] MEDS: APIXABAN 5 MG (ELIQUIS) TABLET PO SCH (08:33)
[2018-01-07] MEDS: clonazePAM 1 MG (KlonoPIN) TAB PO SCH (08:33)
[2018-01-07] MEDS: DIVALPROEX 250 MG DELAYED RELEASE (DEPAKOTE) TAB PO SCH (08:33)
--- NOTE | 2018-01-07 08:36 | Discharge Inst-Simple/Standard ---
Discharge Inst-Standard Discharge Medications New, Converted or Re-Newed RX: Transmitted to Pharmacy Patient Instructions/Follow Up Plan of Care/Instructions/FU: Please continue to take your medications as written. Please follow up with with your PCP and specialists as listed. Activity as Tolerated: Yes Discharge Diet: No Restrictions Return to The Hospital For: Shortness of breath, worsening cough or fever, confusion, chest pain, racing heart, or if you feel you are getting worse. PABLO BAUTISTA MD Jan 07, 2018 8:36 am
[2018-01-07] MEDS ORDERED: CEFDINIR 300 MG (OMNICEF) CAP PO SCH (09:00)
--- NOTE | 2018-01-07 09:00 | Progress Note-Cardiology ---
Cardiology SOAP Progress Note Subjective: Shortness of breath much improved, currently at its usual baseline No cp or palp or syncope Wishes to go home Objective: I&O/Vital Signs 01/06/18 01/07/18 01/07/18 01/07/18 21:33 00:02 01:35 04:01 Temp 98.0 98.0 Pulse 82 65 Resp 20 20 B/P (MAP) 121/58 (79) 114/56 (75) Pulse Ox 95 97 98 96 O2 Delivery Nasal Cannula NIV CPAP NIV Bilevel NIV CPAP O2 Flow Rate 1.00 2.50 2.50 2.50 01/07/18 06:34 Pulse Ox 96 O2 Delivery Nasal Cannula O2 Flow Rate 2.00 01/07/18 00:00 Intake Total 1940 ml Output Total 200 ml Balance 1740 ml Weight (Pounds): 112 Weight (Ounces): 8.0 Weight (Calculated Kilograms): 51.192117 Constitutional: appears stated age, AAO x 3; No apparent distress; well- developed, well-nourished Respiratory: chest expansion is symmetric, other (prolonged expiratory phase; diminished lower lobes bilat) Cardiovascular: regular rate-rhythm, S1 and S2 Gastrointestional: No tender; soft, round, audible bowel sounds Extremities: no lower extremity edema bilateral Neurologic/Psychiatric: grossly intact Skin: No rash, No ulcerations Results/Procedures: Labs Laboratory Tests 01/07/18 06:41: Sodium Level 139, Potassium Level 4.1, Chloride Level 102, Carbon Dioxide Level 24, Anion Gap 13, Blood Urea Nitrogen 14, Creatinine 0.64, Estimat Glomerular Filtration Rate > 60, BUN/Creatinine Ratio 22, Glucose Level 120H, Calcium Level 8.9, Phosphorus Level 2.7, Magnesium Level 2.5H 01/07/18 06:44: White Blood Count 10.5, Red Blood Count 3.80L, Hemoglobin 12.5, Hematocrit 39, Mean Corpuscular Volume 101H, Mean Corpuscular Hemoglobin 33, Mean Corpuscular Hemoglobin Concent 33, Red Cell Distribution Width 13.8, Platelet Count 267, Mean Platelet Volume 9.9, Neutrophils (%) (Auto) 84H, Lymphocytes (%) (Auto) 11L , Monocytes (%) (Auto) 6, Eosinophils (%) (Auto) 0, Basophils (%) (Auto) 0, Neutrophils # (Auto) 8.8H, Lymphocytes # (Auto) 1.1, Monocytes # (Auto) 0.6, Eosinophils # (Auto) 0.0, Basophils # (Auto) 0.0 Microbiology 01/03/18 Blood Culture - Preliminary, Resulted No growth 01/03/18 MRSA Screen - Final, Complete MRSA not isolated A/P: Assessment: PAF - first documented on EKG of 01-03-18 - currently maintaining NSR Acute on chronic respiratory failure prob due to ac exac of COPD due to pneumonia - managed by [facility] Echo of 01/06/18: LVEF 55-60%, mild AoV sclerosis, PASP 50 mmHg Pulm htn, probably related to chronic pulmonary disease, f/u with [facility]m [facility] Tobaccoism, advised to quit Recent surgery d/t pre-cancerous lesion in the groin Plan: * Continue oral BB to reduce risk of PAF and to control heart rate if PAF recurs * Continue OAC with Eliquis * I spoke with her and her and discussed echo results and CV issues. I answered questions. Smoking cessation advised. Out pt f/u advised HANS GORE MD FACP FAC CCDS Jan 07, 2018 09:00
--- NOTE | 2018-01-07 09:00 | Discharge Summary-Hospitalist ---
Diagnosis/Chief Complaint Date of Admission Jan 03, 2018 at 6:32 pm Date of Discharge Discharge Date: Jan 07, 2018 Admission Diagnosis Acute Respiratory Failure Discharge Diagnosis (1) Respiratory failure with hypoxia and hypercapnia Status: Acute Assessment & Plan: Extubated 01/05 Pulm consulted, appreciate recs Continue steroid taper at home Transition to omnicef MAT protocol Home oxygen study reveals 2 lpm requirement with exertion (2) COPD with exacerbation Status: Acute Assessment & Plan: Pulm consulted Has Vent to mask at home (3) Atrial fibrillation with RVR Status: Acute Assessment & Plan: Converted Cardiology consulted, appreciate recs Reviewed previous EKGs and holter monitor with no documented history of a-fib Continue metoprolol Eliquis for stroke ppx Echo reveals preserved EF (4) Lactic acidosis Status: Resolved Assessment & Plan: Now resolved Likely due to profound and prolonged hypoxia (5) Leukocytosis Status: Resolved Assessment & Plan: Trend (6) Anxiety Status: Chronic Assessment & Plan: Resume ativan Hold Klonopin for now (7) Smoker Status: Chronic Assessment & Plan: Smoking cessation education (8) Prophylactic measure Assessment & Plan: Eliquis Saline lock Reg Diet Discharge Summary Procedures/Consulations Pulm- Dr Birch Discharge Physical Exam Allergies: Coded Allergies: Sulfa (Sulfonamide Antibiotics) (Unverified Allergy, Unknown, SOB, SWELLING, RASH, 09/29/14) penicillin (Unverified Allergy, Unknown, Pt has received Ceftriaxone w/o issue, 11/13/17) Vitals & I&Os Vital Signs Date Time Temp Pulse Resp B/P (MAP) Pulse Ox O2 Delivery O2 Flow Rate FiO2 01/07/18 10:25 86 16 121/58 96 Room Air 01/07/18 07:35 98.4 2.50 01/05/18 06:07 25 General Appearance: No Apparent Distress, WD/WN Respiratory: Lungs Clear, No Accessory Muscle Use, No Respiratory Distress Cardiovascular: Regular Rate, Rhythm Neurologic/Psychiatric: Alert, Oriented x3 Hospital Course Pt was admitted in respiratory failure and intubated due to COPD exacerbation. She was treated with scheduled nebulized breathing treatments, steroids, and antibiotics. She recovered quickly and was able to be discharged with exertional oxygen only. She is to discharge on oral antbiotics and steroids. Of note she was found to be in a-fib with RVR on presentation but that quickly resolved and she has remained in sinus rhythm since. Cardiology was consulted for evaluation and she was started on Eliquis for stroke prophylaxis and metoprolol for rate control. Labs (last 24 hrs) Microbiology 01/03/18 Blood Culture - Final, Complete No growth 01/03/18 MRSA Screen - Final, Complete MRSA not isolated Patient resulted labs reviewed. Pending Labs Imaging: Reviewed Imaging Films, Reviewed Imaging Report Discussion & Recommendations Discharge Planning: >30 minutes discharge planning Discharge Home Medications: Active Scripts Active Prednisone 10 Mg Tab.ds.pk 10 Mg PO DAILY Take 6 tabs(60mg)daily,decrease by 1 tab(10mg)every other day. Cefdinir 300 Mg Capsule 300 Mg PO BID Eliquis (Apixaban) 5 Mg Tablet 5 Mg PO BID Metoprolol Succinate 25 Mg Tab.er.24h 25 Mg PO DAILY Reported Alprazolam 0.5 Mg Tablet 0.5 Mg PO Q6H PRN Gabapentin 600 Mg Tablet 600 Mg PO BID #6 FILLED 01-01-18 Tramadol HCl 50 Mg Tablet 50 Mg PO Q6H PRN #20 FILLED 01-01-18 Ibuprofen 600 Mg Tablet 600 Mg PO Q6H PRN #30 FILLED 01-01-18 [[facility] Cpod Vit] 1 Tab PO DAILY Mucinex Fast-Max Congest-Cough (Guaifen/Dextromethorphan/PE) 180 Ml Liquid 20 Ml PO Q4H PRN Anoro Ellipta 62.5-25 Mcg INH (Umeclidinium Brm/Vilanterol Tr) 1 Each Blst.w.dev 1 Puff INH DAILY Daliresp (Roflumilast) 500 Mcg Tablet 500 Mcg PO DAILY Ipratropium Critz 0.2 Mg/1 Ml Solution 1 Vial NEB TID PRN Divalproex Sodium 250 Mg Tablet.dr 250 Mg PO BID Clonazepam 1 Mg Tablet 1.5 Mg PO BID TAKES 1 & 1/2 (1MG) TABLET Ventolin Hfa (Albuterol Sulfate) 18 Gm Hfa.aer.ad 2 Puff INH Q6H PRN Instructions to patient/family Please see electronic discharge instructions given to patient. Clinical Quality Measures DVT/VTE Risk/Contraindication: Risk Factor Score Per Nursin RFS Level Per Nursing on Admit: 4+=Very High Problem Qualifiers (1) Respiratory failure with hypoxia and hypercapnia: Chronicity: acute on chronic Qualified Codes: J96.21 - Acute and chronic respiratory failure with hypoxia; J96.22 - Acute and chronic respiratory failure with hypercapnia PABLO BAUTISTA MD Jan 07, 2018 09:00
[2018-01-07 10:25] VITALS: BP 121/58
[2018-01-07] MEDS ORDERED: predniSONE 10 MG TAB PO SCH (12:00)
--- NOTE | 2018-01-08 08:17 | Physician Query Clarification ---
PQ-Uncertain Diagnosis Admission/Discharge Admission Date: Jan 03, 2018 at 18:32 Discharge Date: Jan 07, 2018 at 10:25 The medical record reflects the following clinical scenario: History/Risk Factors: Acute on chronic respiratory failure with hypoxia and hypercapnia Acute exacerbation of COPD/Emphysema Clinical Findings:T 97.0, Pulse 203, Resp 16, BP 159/78. 01/03/18 xray findings: No infiltrate, effusions or pneumothorax. Treatment: IV Cefepime HCI, Albuterol inhalation therapy, IVP SoluMedrol. Dr. Millan's 01/07 progress note says, "Acute on chronic respiratory failure probably due to acute exacerbation of COPD due to pneumonia. Question: Your H&P, progress notes and discharge summary do not mention pneumonia as a diagnosis. Please clarify if pneumonia was ruled in or out after study. Is Pneumonia a clinically valid diagnosis? Please document a response below. PHYSICIAN RESPONSE Diagnosis clinically valid: No, conditon ruled out In responding to this query, please exercise your independent professional judgment. The purpose of this communication is to more accurately reflect the complexity of your patients condition. The fact that a question is asked does not imply that any particular answer is desired or expected. Thank you for your timely response to this clarification. Requestors name: Sandee Martin [facility] Phone # ext [phone] or [phone] THIS PHYSICIAN QUERY FORM IS A PERMANENT PART OF THE MEDICAL RECORD SANDEE MARTIN Jan 08, 2018 08:17 PABLO BAUTISTA MD Jan 08, 2018 16:43
--- NOTE | 2018-01-08 08:30 | Physician Query Clarification ---
PQ-Uncertain Diagnosis Admission/Discharge Admission Date: Jan 03, 2018 at 18:32 Discharge Date: Jan 07, 2018 at 10:25 The medical record reflects the following clinical scenario: History/Risk Factors: Acute on chronic respiratory failure with hypoxia and hypercapnia Acute exacerbation of COPD/Emphysema Clinical Findings: T97.0, Pulse 203, Resp 16, BP 159/78. WBC 24.6, Bands 2, Lactic acid 6.33 ( documented as due to likely profound and prolonged hypoxia). Treatment: IV Cefepime HCI Question: Is Sepsis a clinically valid diagnosis? Sepsis was documented in the 01/04 consult-Dr. Millan and his progress notes with no further documentation by any other physician in the medical record. Please clarify if sepsis was ruled in or out after study. Please document a response below. PHYSICIAN RESPONSE Diagnosis clinically valid: No, conditon ruled out In responding to this query, please exercise your independent professional judgment. The purpose of this communication is to more accurately reflect the complexity of your patients condition. The fact that a question is asked does not imply that any particular answer is desired or expected. Thank you for your timely response to this clarification. Requestors name: Sandee Martin [facility] Phone # ext [phone] or [phone] THIS PHYSICIAN QUERY FORM IS A PERMANENT PART OF THE MEDICAL RECORD SANDEE MARTIN Jan 08, 2018 08:29 PABLO BAUTISTA MD Jan 08, 2018 16:46
== END 2018-01-07 10:25 | disposition home or self-care (01) | DRG 208 ==
LOC: EDUNIT# 16:31 → ER 16:32 → ICU 18:32 → 4TH 01-06 10:00
PROVIDERS: ADMIT Internal Medicine; ATTEND Family Medicine
PROC: 5A1945Z Respiratory Ventilation, 24-96 Consecutive Hours (ICD-10-PCS; principal; 2018-01-03)
DX: J96.21 Acute and chronic respiratory failure with hypoxia (principal); J96.22 Acute and chronic respiratory failure with hypercapnia; J43.9 Emphysema, unspecified; I48.0 Paroxysmal atrial fibrillation; E87.2 Acidosis; D72.829 Elevated white blood cell count, unspecified; F17.210 Nicotine dependence, cigarettes, uncomplicated; F41.9 Anxiety disorder, unspecified; R91.8 Other nonspecific abnormal finding of lung field; I95.2 Hypotension due to drugs; T41.1X5A Adverse effect of intravenous anesthetics, initial encounter; J30.9 Allergic rhinitis, unspecified; M54.5 Low back pain; M54.2 Cervicalgia; F43.10 Post-traumatic stress disorder, unspecified; K64.9 Unspecified hemorrhoids; Z87.01 Personal history of pneumonia (recurrent); Z99.81 Dependence on supplemental oxygen; Z98.890 Other specified postprocedural states
CPT/HCPCS: 31500; 36415; 36600; 51702; 71045; 80048; 80053; 80061; 80306; 80320; 81000; 82805; 82962; 83605; 83735; 83874; 84100; 84484; 85007; 85025; 85027; 85610; 85730; 87040; 87081; 87804; 93005; 93041; 93306; 94003; 94640; 94760; 94761; 94799; 96361; 96365; 96367; 96368; 96372; 96375; 99291; 99292

== ENCOUNTER 2018-06-25 09:33 | Outpatient (RCR) | payer MEDICARE, OTHER ==
[2018-04-21 16:05] LABS: BUN/CREATININE RATIO 14; GFR ESTIMATED > 60
[~2018-06-25 09:33] MED LIST changes: +APIX5TAB PO; +GBPN600T PO; +IBUP-1773 PO; +METO-387 PO; +ROFL500T PO; -ROFL500T4 PO; +TRAM50TA2 PO; +[UNRECOGNIZED DRUG - OTHER] PO
== END 2018-07-20 | disposition home or self-care (01) ==
LOC: ONC 09:33
PROVIDERS: ATTEND Radiology Radiation Oncology
DX: Z51.0 Encounter for antineoplastic radiation therapy (principal); C51.8 Malignant neoplasm of overlapping sites of vulva
CPT/HCPCS: 36415; 77300; 77301; 77334; 77336; 77338; 77386; 82565; 84520; 99205

== ENCOUNTER → 2018-08-12 | Outpatient (CLI) | payer MEDICARE, OTHER | LOC: LAB 13:30 | PROVIDERS: ATTEND Internal Medicine | DX: J11.1 Influenza due to unidentified influenza virus with other respiratory manifestations (principal) | CPT/HCPCS: 87804 ==

== ENCOUNTER → 2018-11-09 | Outpatient (CLI) | payer MEDICARE, OTHER ==
--- NOTE | 2018-11-09 14:56 | Diagnostic Imaging Report ---
EXAMINATION: CT CHEST SCREENING WO INDICATION: Lung cancer screening. Current smoker with [id number] history. TECHNIQUE: Low-dose helical CT of the chest without IV contrast (Adult Lung Cancer Screening) protocol was performed. Coronal and sagittal reformats were obtained. All CT scans use one or more of the following dose optimizing techniques: automated exposure control, MA and/or KvP adjustment based on a patient size and exam type, or iterative reconstruction. COMPARISON: Multiple prior chest CTs dating back to 01/12/2011. FINDINGS: LUNG NODULES, solid and unchanged unless otherwise specified, axial series 3: Right lung: * 4 mm calcified nodule in the right upper lobe (image 29). * Scattered 2 and 3 mm subpleural nodules in the lateral aspect of the right upper lobe (images 30, 35, and 40). * 2 mm calcified subpleural nodule in the right lower lobe adjacent to the major fissure (image 69). * 2 mm subpleural nodule in the medial aspect of the right lower lobe (image 77). * 2 mm nodule in the central aspect of the right lower lobe (image 84). * 3 mm calcified subpleural nodule in the right middle lobe along the major fissure (image 90. series 3). Left lung: * 3 mm nodule in the left upper lobe (image 30). * 4 mm nodule in the left upper lobe (image 74). * 2 mm subpleural nodule in the medial aspect of the left lower lobe (image 116). OTHER FINDINGS: Low-dose technique and absence of intravenous contrast decreases sensitivity for detection of lymphadenopathy and vascular pathology. TRACHEA AND MAIN BRONCHI: Patent without evidence of tracheal or endobronchial lesion. LUNGS AND PLEURA: There is unchanged biapical pleural-parenchymal scarring. Upper lobe predominant centrilobular emphysematous changes again demonstrated. No focal consolidation or pulmonary mass. No pleural effusion or pneumothorax. MEDIASTINUM AND KATHLEEN: Visualized thyroid gland is normal. No mediastinal or hilar lymphadenopathy, within limits of noncontrast technique. Esophagus is nondistended. HEART AND VESSELS: Heart is normal in size. Unchanged trace pericardial fluid without homar effusion. Atherosclerotic calcification involves the aorta and its branches, including the coronary arteries. Thoracic aorta is nonaneurysmal. DIAPHRAGM AND UPPER ABDOMEN: There is a right adrenal nodule measuring 0.8 x 1.2 cm. This is unchanged dating back to 2009 and thus presumed benign, likely reflecting an adrenal adenoma. CHEST WALL: Unremarkable. BONES: Multilevel degenerative changes involve the spine. No acute osseous abnormality. IMPRESSION: 1. No significant change in scattered small calcified and noncalcified pulmonary nodules in both lungs measuring up to 4 mm. These are not significantly changed dating back to 2010 and thus presumed benign. No new nodules are identified. 2. Additional incidental findings including emphysematous changes in the lungs, unchanged trace pericardial fluid, coronary artery calcifications and benign right adrenal nodule. Lung-RADS Category: 2, Benign appearance or behavior. Nodules with a very low likelihood of becoming a clinically active cancer due to size or lack of growth. RECOMMENDATIONS: Continue annual screening with low-dose CT in 12 months. Dictated by: Dictated on workstation # [id number]
== END ==
LOC: RAD 12:38
PROVIDERS: ATTEND Internal Medicine Critical Care Medicine
DX: Z12.2 Encounter for screening for malignant neoplasm of respiratory organs (principal); J43.9 Emphysema, unspecified; I25.10 Atherosclerotic heart disease of native coronary artery without angina pectoris; E27.8 Other specified disorders of adrenal gland; F17.210 Nicotine dependence, cigarettes, uncomplicated

== ENCOUNTER 2018-12-15 10:36 | Outpatient (RCR) | payer MEDICARE, OTHER | END 2018-12-21 | disposition home or self-care (01) | LOC: ONC 10:36 | PROVIDERS: ATTEND Radiology Radiation Oncology | DX: C51.8 Malignant neoplasm of overlapping sites of vulva (principal) | CPT/HCPCS: 99213 ==

== ENCOUNTER 2019-02-09 06:31 | Outpatient (CLI) | payer MEDICARE, OTHER ==
[~2019-02-09] VITALS: Ht 165 cm; Wt 50.4 kg
[2019-02-09] MEDS ORDERED: AZIT250T12 PO (12:36)
[2019-02-09] MEDS ORDERED: FLT11013 IH (12:36)
== END 2019-02-09 12:45 ==
LOC: PREOP 06:31
PROVIDERS: ATTEND Surgery
DX: Z01.818 Encounter for other preprocedural examination (principal)

== ENCOUNTER → 2019-02-16 | Day surgery (SDC) | payer MEDICARE, OTHER ==
--- NOTE | 2019-02-09 05:18 | HISTORY AND PHYSICAL ---
DATE OF SERVICE: PROCEDURE DATE: 02/16/2019. ATTENDING PHYSICIAN: Dr. Bermeo. HISTORY OF PRESENT ILLNESS: The patient is a 68-year-old female, who is known to us. She has had a colonoscopy in 2006, where a sigmoid colon polyp was identified and removed and found to be a benign tubular adenoma. She was then seen by us in 08/2014 and underwent a colonoscopy with biopsy, where she was again found to have a small hyperplastic polyp of the rectum less than 2 mm in size as well as chronic stage II external and internal hemorrhoids. Biopsy did come back as a hyperplastic polyp. She reports today that she is doing well. She is tolerating a regular diet and having normal bowel movements with no diarrhea or constipation. She denies any family history of colon cancer, but again does report the history of colon polyps. She does report that she does occasionally have issues with bright red blood per rectum, usually more upon wiping and I believe this is more hemorrhoidal related. 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 PAST MEDICAL HISTORY: Hypertension, PTSD, anxiety and COPD. PAST SURGICAL HISTORY: Laparoscopic cholecystectomy in 2009, cervical ORIF 2011, lumbar kyphoplasty 2012, complete hysterectomy and appendectomy 30 years ago and removal of HPV lesions multiple times. ALLERGIES: PENICILLIN. MEDICATIONS: Clonazepam 1 mg one half tablets by mouth b.i.d. Daliresp 500 mcg daily. Anoro Ellipta 62.5/25 mcg inhalation 1 puff daily, Ventolin inhaler 2 puffs q.i.d. p.r.n., Flovent 110 mcg inhaler 2 puffs b.i.d., ipratropium bromide 0.02% inhalation q.6 hours p.r.n., metoprolol ER 25 mg daily, Yupelri 175 mcg inhalation daily, Perforomist 20 mcg inhalation b.i.d. SOCIAL HISTORY: Positive for smoke for approximately 40 pack years. Rare for alcohol. FAMILY HISTORY: Father, lymphoma and leukemia. Brother, hypertension, diabetes and former cancer. Mother diabetes, myocardial infarction. REVIEW OF SYSTEMS: Well-nourished female, in no acute distress. She is not experiencing any shortness of breath or difficulty breathing. No chest pain, palpitations or diaphoresis. No nausea, vomiting or abdominal pain. No diarrhea or constipation. She does report occasional episodes of bright red blood per rectum. No dark tarry stools. No fever or chills. No recent inadvertent weight loss. All other review of systems negative. PHYSICAL EXAMINATION: VITAL SIGNS: Blood pressure 120/65. Current weight is 109.8, height 5 feet 5 inches. CHEST: Scattered rales and rhonchi bilaterally. HEART: Regular, no murmurs. EXTREMITIES: No lower extremity edema. Negative Homans sign. HEENT: No scleral icterus. NECK: No cervical lymphadenopathy. ABDOMEN: Soft, nontender and nondistended. SKIN: Warm, dry and pink. NEUROLOGIC: Awake, alert and oriented x3. ASSESSMENT AND PLAN: A 68-year-old female with a history of colon polyps, who is in need of a followup colonoscopy. The risks and benefits of the procedure as well as the procedure and home care instructions were explained to the patient. The patient verbalized understanding of instructions and agrees to proceed as planned. At this time, we will proceed with scheduling the patient for a screening colonoscopy. Job ID: [id number] DocumentID: [id number] Dictated Date: 02/07/2019 11:33:29 Assistant General Manager Date: 02/07/2019 13:03:24 Dictated By: HILARIA SILVEIRA APRN
[~2019-02-16] VITALS: Ht 165 cm; Wt 50.4 kg
[~2019-02-16] MED LIST changes: +ACETAMINOPHEN 325 MG TABLET PO PRN; +FLT11013 IH; +HYDROcodone/APAP 5 MG/325 MG (LORTAB) TAB PO PRN; +LACTATED RINGERS 1,000 ML IV ONE; +LACTATED RINGERS 1,000 ML IV PRN; +LIDOCAINE JELLY 2% 6 ML SYRINGE MM PRN; +LIDOCAINE JELLY 2% 6 ML SYRINGE ONE; +MIDAZOLAM 2 MG/2 ML (VERSED) VIAL ONE; +ONDANSETRON 4 MG/2 ML (SDV) Z0FRAN IVP PRN; +morphine INJ 10 MG/ML 1ML (SYR OR VIAL) IVP PRN; +proPOfol 200 MG/20 ML (DIPRIVAN) VIAL IV ONE
[2019-02-16 11:10] VITALS: BP 127/78
--- NOTE | 2019-02-16 13:11 | Conscious Sedation/ASA ---
Conscious Sedation Pre-Proced Time 13:00 ASA Score 2 For ASA 3 and 4: Consider anesthesia and medical clearance. Also, for patients with a history of failed moderate sedation consider anesthesia. Airway Lungs Heart ASA score ASA 1: a normal healthy patient ASA 2: a patient with a mild systemic disease (mid diabetes, controlled hypertension, obesity ASA 3: a patient with a severe systemic disease that limits activity (angina, COPD, prior Myocardial infarction) ASA 4: a patient with an incapacitating disease that is a constant threat to life (CHF, renal failure) ASA 5: a moribund patient not expected to survive 24 hrs. (ruptured aneurysm) ASA 6: a declared brain- patient whose organs are being harvested. For emergent operations, add the letter E after the classification Mallampati Classification Grade 2 Sedation Plan Analgesia, Amnesia, Plan communicated to team members, Discussed options with patient/fam, Discussed risks with patient/fam The patient is an appropriate candidate to undergo the planned procedure, sedation, and anesthesia. The patient immediately re-assessed prior to indication. DEYA JJ MD Feb 16, 2019 13:11
--- NOTE | 2019-02-16 13:12 | Progress Note-Pre Operative ---
Pre-Operative Progress Note H&P Reviewed The H&P was reviewed, patient examined and no changes noted. Date Seen by Provider: Feb 16, 2019 Time Seen by Provider: 13:00 Date H&P Reviewed: Feb 16, 2019 Time H&P Reviewed: 13:00 Pre-Operative Diagnosis: hx HPV/colon polyps DEYA JJ MD Feb 16, 2019 13:12
--- NOTE | 2019-02-16 13:13 | Discharge Inst-Surgical ---
D/C Lap Instructions-PARVIZ Follow Up Activity as tolerated High Fiber Diet 25g or more per day Avoid Alcohol, Caffeine, Spicy [place] and Acid foods. Drink 64 fluid oz or more of fluids per day. Symptoms to Report: Fever over 101 degree F, Nausea/Vomiting If any problems/questions: Contact your physician or go to Emergency Room DEYA JJ MD Feb 16, 2019 13:13
[2019-02-16 14:35] VITALS: BP 159/69
[2019-02-16 14:40] VITALS: BP 151/72
[2019-02-16 14:45] VITALS: BP 151/72
--- NOTE | 2019-02-16 15:08 | Anesthesia-General Post-Op ---
MAC Patient Condition Mental Status/LOC: Same as Preop Cardiovascular: Satisfactory Nausea/Vomiting: Absent Respiratory: Satisfactory Pain: Controlled Complications: Absent Post Op Complications Complications None Follow Up Care/Instructions Patient Instructions None needed. Anesthesiology Discharge Order Discharge Order Patient is doing well, no complaints, stable vital signs, no apparent adverse anesthesia problems. TIARRA GRIFFIN DO Feb 16, 2019 15:08
[2019-02-16 15:20] VITALS: BP 162/76
[2019-02-16 15:31] VITALS: BP 162/76
--- NOTE | 2019-02-17 07:23 | OPERATIVE REPORT ---
DATE OF SERVICE: 02/16/2019 ATTENDING PRIMARY CARE PHYSICIAN: Dr. Mehul Bermeo. PREOPERATIVE DIAGNOSES: History of external anal or anal canal HPV lesions. History of colon polyps. POSTOPERATIVE DIAGNOSES: Mild chronic stage II external and internal hemorrhoids. Remainder of the rectum and colon were normal. PROCEDURE: Colonoscopy. SURGEON: Deya Jj MD. ANESTHESIA: Monitored anesthesia care. ESTIMATED BLOOD LOSS: Minimal. FINDINGS: Chronic stage II external and internal hemorrhoids, not actively edematous nor inflamed and no bleeding. Normal sphincter tone was felt and there were no palpable masses. Normal colon and rectum. No polyps or any neoplasms identified. DISPOSITION: The patient tolerated the procedure well. HISTORY: The patient is a 68-year-old female known to us. She had a colonoscopy in 2006 where a sigmoid colon polyp was identified and found to be a benign tubular adenoma. She was then seen by us in August 2014 and underwent a colonoscopy and found to have small polyps of the rectum as well as chronic stage II external and internal hemorrhoids. She reports that she does have some blood per rectum on occasion. She does have a history of HPV related anal lesions and underwent total of 14 surgeries for removal as well as radiation therapy. DESCRIPTION OF PROCEDURE: The patient was brought to the endoscopy suite, laid in the left lateral decubitus position. After adequate IV pain and sedative medications and monitored anesthesia care, digital rectal examination was performed. Mild chronic stage II external and internal hemorrhoids were identified, which were not actively edematous nor inflamed and no bleeding. Normal sphincter tone was felt and there were no palpable masses. There appeared to be some edema within the region including the anus as well as external labia most likely secondary to the radiation therapy. The endoscope was then intubated to the anus and rectum gently insufflated. The endoscope was then advanced to the valves of Bryant and rectum with no polyps or any neoplasms identified. The endoscope was then advanced through the sigmoid colon where no diverticulosis identified. The endoscope was then advanced to the remainder of the descending, transverse and ascending colon to the cecum. These segments were normal. There were no polyps or any neoplasms identified throughout the colon or rectum. The endoscope was then slowly withdrawn while taking a second look and suctioning of residual air with no additional findings. The patient tolerated the procedure well. We will recommend medical management with a high fiber diet with 25 grams of fiber daily as well as significant amounts of water to promote soft stools on a daily basis. She does not have a family history of colon cancer. No polyps were identified and she is asymptomatic, she may wait 5 years for her next colonoscopy. With her history of HPV and anal canal lesions, there is a risk for recurrence as well as risk of squamous cell carcinoma and this would at least warrant examination by proctoscopy versus sigmoidoscopy. Job ID: [id number] DocumentID: [id number] Dictated Date: 02/16/2019 14:41:15 Medical Laboratory Technical Officer Date: 02/17/2019 07:23:06 Dictated By: DEYA JJ MD MTDD
== END ==
LOC: ENDO 10:55
PROVIDERS: ATTEND Surgery
DX: K64.4 Residual hemorrhoidal skin tags (principal); K64.1 Second degree hemorrhoids; I10 Essential (primary) hypertension; M50.90 Cervical disc disorder, unspecified, unspecified cervical region; J45.909 Unspecified asthma, uncomplicated; J44.9 Chronic obstructive pulmonary disease, unspecified; F17.210 Nicotine dependence, cigarettes, uncomplicated; G89.29 Other chronic pain; Z86.19 Personal history of other infectious and parasitic diseases; Z88.0 Allergy status to penicillin; Z88.2 Allergy status to sulfonamides; Z99.89 Dependence on other enabling machines and devices; Z79.899 Other long term (current) drug therapy; Z86.010 Personal history of colon polyps; Z90.710 Acquired absence of both cervix and uterus; Z90.49 Acquired absence of other specified parts of digestive tract; Z90.89 Acquired absence of other organs; Z82.49 Family history of ischemic heart disease and other diseases of the circulatory system; Z83.3 Family history of diabetes mellitus; Z80.6 Family history of leukemia

== ENCOUNTER → 2019-12-08 | Outpatient (CLI) | payer MEDICARE, OTHER ==
[~2019-12-08] MED LIST changes: -ACETAMINOPHEN 325 MG TABLET PO PRN; -HYDROcodone/APAP 5 MG/325 MG (LORTAB) TAB PO PRN; -LACTATED RINGERS 1,000 ML IV ONE; -LACTATED RINGERS 1,000 ML IV PRN; -LIDOCAINE JELLY 2% 6 ML SYRINGE MM PRN; -LIDOCAINE JELLY 2% 6 ML SYRINGE ONE; -METO-387 PO; -MIDAZOLAM 2 MG/2 ML (VERSED) VIAL ONE; +MTP25TSR PO; -ONDANSETRON 4 MG/2 ML (SDV) Z0FRAN IVP PRN; -TRAM50TA2 PO; +TRM50T PO; -morphine INJ 10 MG/ML 1ML (SYR OR VIAL) IVP PRN; -proPOfol 200 MG/20 ML (DIPRIVAN) VIAL IV ONE
--- NOTE | 2019-12-08 15:42 | Diagnostic Imaging Report ---
EXAMINATION: CT Chest without contrast (lung screening). TECHNIQUE: Multiple contiguous axial images were obtained through the chest without the use of intravenous contrast according to lung cancer screening protocol. All CT scans use one or more of the following dose optimizing techniques: automated exposure control, MA and/or KvP adjustment based on a patient size and exam type, or iterative reconstruction. HISTORY: 40 pack year history of smoking. COMPARISON: CT of the chest 11/09/2018. FINDINGS: Thyroid: The thyroid is normal. Mediastinum: Heart size is normal without significant pericardial effusion. Calcifications of the aorta and coronary vessels. Thoracic aorta is normal in caliber. No suspicious lymphadenopathy. Lungs and airways: The lungs are clear without consolidation, pleural effusion, or pneumothorax. Biapical scarring. Emphysema of both lungs. The airways are normal. There are numerous new bilateral pulmonary nodules. The largest new nodule on the right is a subpleural 0.7 cm nodule in the right lower lobe (series 2, image 127). The largest nodule on the left measures 0.6 cm in the posterior left upper lobe (series 2, image 68). The previously seen pulmonary nodules are unchanged. Upper abdomen: Unremarkable. Musculoskeletal: Degenerative changes of the spine without suspicious osseous lesion or compression fracture. IMPRESSION: 1. Numerous new bilateral pulmonary nodules measuring up to 0.7 cm. Recommend three-month low-dose CT follow-up. LUNG-RADS CATEGORY: 4A: Probably suspicious. MODIFIER: None. Dictated by: Dictated on workstation # [id number]
== END ==
LOC: RAD 13:45
PROVIDERS: ATTEND Internal Medicine Critical Care Medicine
DX: Z12.2 Encounter for screening for malignant neoplasm of respiratory organs (principal); R91.8 Other nonspecific abnormal finding of lung field; F17.210 Nicotine dependence, cigarettes, uncomplicated

== ENCOUNTER → 2020-04-06 | Outpatient (CLI) | payer MEDICARE, OTHER ==
--- NOTE | 2020-04-06 13:04 | Diagnostic Imaging Report ---
PROCEDURE: CT chest without contrast. TECHNIQUE: Multiple contiguous axial images were obtained through the chest without the use of intravenous contrast. Auto Exposure Controls were utilized during the CT exam to meet ALARA standards for radiation dose reduction. INDICATION: Pulmonary nodule The prior CT low-dose lung cancer screening exam of 12/08/2019 noted that in the interval since the previous CT low-dose lung cancer screening exam of 11/09/2018 numerous new pulmonary nodules have developed bilaterally. On this exam the 7 mm parenchymal opacity in the right upper lung seen on the prior study cannot be identified with certainty on this exam. The 6.4 mm lobulated parenchymal density in the right upper lobe has decreased in size now measures only 3.8 mm. 5.2 mm nodule in the left upper lung seen previously is also diminished in size and now measures 3.0 mm (image 35/180). The 5.6 mm nodule in the periphery left upper lobe is also much smaller and now measures only 2.8 mm (image 37 of 180). There is no new pulmonary nodule which has developed since the prior exam. As noted previously there are emphysematous changes involving both lungs. There is no sign of failure, pneumonia or pleural effusion to indicate an acute abnormality. The heart size is within normal limits and stable compared to the prior exam. Extensive coronary calcifications are again noted. There is a small pericardial effusion along the anterior aspect of the ventricular heart border. Effusion measures 9 mm in maximum depth. The aorta is not abnormally dilated. There is no obvious mediastinal or hilar adenopathy. The thyroid gland is generally unremarkable. There is no evidence for a breast mass. The sections through the upper abdomen do show borderline aneurysmal dilatation of the infrarenal abdominal aorta. The aorta in this area measures 2.1 x 3.1 cm in size. The bone windows show no sign of a fracture or a destructive lesion. IMPRESSION: 1. The appearance of the chest has improved since the prior exam as the parenchymal nodules in both lungs noted previously have diminished in size or resolved. A short-term (6 month) followup CT chest would be recommended for continued evaluation. 2. There are emphysematous changes involving both lungs but there is no sign of an acute abnormality. 3. There is extensive coronary artery disease. A small 9 mm pericardial effusion is also seen. 4. There is borderline aneurysmal dilatation of the infrarenal abdominal aorta. If further evaluation is desired, then CTA of the aorta would be recommended. Dictated by: Dictated on workstation # [id number]
== END ==
LOC: RAD 11:59
PROVIDERS: ATTEND Internal Medicine Critical Care Medicine
DX: J43.9 Emphysema, unspecified (principal); I25.10 Atherosclerotic heart disease of native coronary artery without angina pectoris; I31.3 Pericardial effusion (noninflammatory); R91.8 Other nonspecific abnormal finding of lung field
CPT/HCPCS: 71250

== ENCOUNTER → 2020-05-15 | Outpatient (CLI) | payer MEDICARE, OTHER ==
--- NOTE | 2020-05-15 12:52 | Diagnostic Imaging Report ---
INDICATION: Routine screening. Comparison is made with prior mammogram 05/02/2011. 2-D and 3-D bilateral screening mammography was performed with CAD. Both breasts are heterogeneously dense, limiting the sensitivity of mammography. Scattered benign calcifications left breast again noted. A stereotactic marker clip remains within the left breast. No mass or malignant appearing microcalcifications are seen. Axillae are unremarkable. IMPRESSION: BI-RADS Category 2 No mammographic features suspicious for malignancy are identified. ACR BI-RADS Category 2: Benign findings. Result letter will be mailed to the patient. Note: At least 10% of breast cancer is not imaged by mammography. Dictated by: Dictated on workstation # [id number]
== END ==
LOC: RAD 10:13
PROVIDERS: ATTEND Internal Medicine
DX: Z12.31 Encounter for screening mammogram for malignant neoplasm of breast (principal)
CPT/HCPCS: 77063; 77067

== ENCOUNTER → 2020-09-26 | Outpatient (CLI) | payer MEDICARE, OTHER ==
--- NOTE | 2020-09-26 16:02 | Diagnostic Imaging Report ---
INDICATION: ANKLE JOINT PAIN, LOCALIZED EDEMA COMPARISON: None. FINDINGS: 3 views of the right ankle were obtained. There is no acute fracture or dislocation. No focal osseous lesions are seen. There is moderate generalized soft tissue swelling. There are no radiopaque foreign bodies. IMPRESSION: 1. Moderate generalized soft tissue swelling, but no radiographic evidence acute fracture or dislocation of the right ankle. Dictated by: Dictated on workstation # [id number]
== END ==
LOC: RAD 15:31
PROVIDERS: ATTEND Internal Medicine
DX: M25.571 Pain in right ankle and joints of right foot (principal); R60.0 Localized edema
CPT/HCPCS: 73610

== ENCOUNTER → 2020-10-03 | Outpatient (CLI) | payer MEDICARE, OTHER ==
--- NOTE | 2020-10-03 16:42 | Diagnostic Imaging Report ---
PROCEDURE: CT chest without contrast. TECHNIQUE: Multiple contiguous axial images were obtained through the chest without the use of intravenous contrast. Auto Exposure Controls were utilized during the CT exam to meet ALARA standards for radiation dose reduction. INDICATION: History of smoking, COPD, pulmonary nodules. COMPARISON: 04/06/2020, 12/08/2019, and 11/09/2018. FINDINGS: No significant adenopathy within the chest. Scattered vascular calcifications within the thoracic aorta and its branch vessels, including within the coronary arteries. No significant pericardial effusion, with pericardial fluid having decreased since the prior examination. No significant pleural effusion. The heart is within normal limits in size. A dependently layering filling defect is noted within the left mainstem bronchus, which appears new from the prior exam. This measures 8 mm. The trachea is otherwise patent. No pneumothorax. Mild background emphysematous changes. Biapical pleural-parenchymal scarring. Calcified granuloma within the right upper lobe. Additional bilateral sub 0.5 cm pulmonary nodules are again identified and similar. No new suspicious pulmonary nodule. Small right adrenal gland nodule is unchanged since 2019, consistent with benign etiology. Hyperdensity within the superior pole of the left kidney is present, which may relate to vascular calcifications versus nonobstructing renal calculi versus excretion of contrast if patient has received intravenous contrast at an outside facility. Minimally visualized upper abdomen is otherwise unremarkable. Scattered osseous degenerative changes without acute osseous abnormality. IMPRESSION: New filling defect within the left mainstem bronchus. This is favored to relate to mucus and secretions. Neoplasm not completely excluded. Therefore, a follow-up CT of the chest is recommended in one month to reevaluate. Sub 0.5 cm bilateral pulmonary nodules appear similar to the prior examination without new pulmonary nodule. Given size and stability, this suggests a benign appearance or behavior. Background emphysematous changes. Nonobstructing left renal calculus versus vascular calcifications. Additional findings as above. Dictated by: Dictated on workstation # [id number]
== END ==
LOC: RAD 11:15
PROVIDERS: ATTEND Internal Medicine Critical Care Medicine
DX: J43.9 Emphysema, unspecified (principal); N20.0 Calculus of kidney; R91.8 Other nonspecific abnormal finding of lung field; Z87.891 Personal history of nicotine dependence
CPT/HCPCS: 71250

== ENCOUNTER → 2020-11-09 | Outpatient (CLI) | payer MEDICARE, OTHER ==
[~2020-11-09] MED LIST changes: +CATHETER FLUSH 10 ML SYR IV PRN; +HOLD METFORMIN - RECEIVED CONTRAST 20 ML VIAL IV SCH; +IOHEXOL 350 MG/ML 100 ML (OMNIPAQUE 350) VIAL IV ONE; +NS 100 ML (IVPB) BAG IV ONE
[2020-11-09 10:07] LABS: ALBUMIN 3.9 GM/DL (3.2-4.5); BILIRUBIN,TOTAL 0.7 MG/DL (0.1-1.0); CALCIUM 9.4 MG/DL (8.5-10.1); CREATININE SERUM 1.12 MG/DL (0.60-1.30); POTASSIUM 4.5 MMOL/L (3.6-5.0); TOTAL PROTEIN 6.4 GM/DL (6.4-8.2)
--- NOTE | 2020-11-09 12:20 | Diagnostic Imaging Report ---
PROCEDURE: CT abdomen and pelvis with contrast. TECHNIQUE: Multiple contiguous axial images were obtained through the abdomen and pelvis after administration of intravenous contrast. Auto Exposure Controls were utilized during the CT exam to meet ALARA standards for radiation dose reduction. All CT scans use one or more of the following dose optimizing techniques: automated exposure control, MA and/or KvP adjustment based on patient size and exam type or iterative reconstruction. INDICATION: Malignant neoplasm of the vulva. Correlation is made with prior CT from 09/18/2009. The lung bases are clear. No discrete liver mass is detected. Gallbladder surgically absent. There is no biliary ductal dilatation. The pancreas, spleen and adrenal glands are unremarkable. Kidneys are unremarkable. Aorta is heavily calcified but nonaneurysmal. No central retroperitoneal or mesenteric lymphadenopathy is detected. No iliac or inguinal lymphadenopathy is seen. Bowel loops are normal caliber. No ascites. Bladder is unremarkable. Bony structures are nonacute. IMPRESSION: Continued unremarkable CT abdomen and pelvis study with contrast. No lymphadenopathy or evidence of metastatic disease is detected. Dictated by: Dictated on workstation # [id number]
== END ==
LOC: RAD 10:15
PROVIDERS: ATTEND Obstetrics & Gynecology
DX: C51.9 Malignant neoplasm of vulva, unspecified (principal); L90.0 Lichen sclerosus et atrophicus; Z85.44 Personal history of malignant neoplasm of other female genital organs
CPT/HCPCS: 36415; 74177; 80053

== ENCOUNTER → 2020-11-09 | Outpatient (CLI) | payer MEDICARE, OTHER ==
[~2020-11-09] MED LIST changes: -CATHETER FLUSH 10 ML SYR IV PRN; -HOLD METFORMIN - RECEIVED CONTRAST 20 ML VIAL IV SCH; -IOHEXOL 350 MG/ML 100 ML (OMNIPAQUE 350) VIAL IV ONE; -NS 100 ML (IVPB) BAG IV ONE
--- NOTE | 2020-11-09 13:28 | Diagnostic Imaging Report ---
PROCEDURE: CT chest without contrast. TECHNIQUE: Multiple contiguous axial images were obtained through the chest without the use of intravenous contrast. Auto Exposure Controls were utilized during the CT exam to meet ALARA standards for radiation dose reduction. DATE: November 09, 2020. COMPARISON: CT chest October 03, 2020. Additional CT chest imaging dating back to January 12, 2011. INDICATION: 70-year-old female, history of vulvar cancer. Evaluation for metastatic disease to the lungs. PROCEDURE: Axial noncontrasted CT images of the chest. Noncontrasted limits the evaluation of the mediastinum and vascular structures. FINDINGS: There is a 2 mm calcified right upper lobe granuloma on axial image 35. There is mild pleural parenchymal scarring in the lung apices. There are 2 mm adjacent right upper lobe pulmonary nodules on axial image 36 which are unchanged as well as an unchanged 2 mm right upper lobe pulmonary nodule on axial image 41. There is a 2 mm pleural-based left upper lobe pulmonary nodule which is unchanged on axial image 60. There is no identified new or enlarging pulmonary nodule. There is no additional focal airspace consolidation. There is no pneumothorax. There is no pleural effusion. The central airways are patent. The heart is not enlarged. There is no pericardial effusion. There are coronary artery calcifications and additional areas of atherosclerotic disease. There is no abnormally enlarged mediastinal or axillary lymph node meeting CT size criteria for adenopathy. The patient is status post cholecystectomy. There is an infrarenal abdominal aortic aneurysm measuring 2.9 x 2.2 cm in diameter on axial image 172. There is an indeterminate right adrenal nodule on axial image 155 measuring 9 mm in size. This is unchanged since at least November 03, 2017. There is severe bilateral glenohumeral arthritis. IMPRESSION: 1. No evidence of metastatic disease to the lungs. 2. Indeterminate right adrenal nodule measuring 9 mm in size which is unchanged in size since at least October 2017. 3. No currently identified filling defect in the left mainstem bronchus. Dictated by: Dictated on workstation # [id number]
== END ==
LOC: RAD 09:29
PROVIDERS: ATTEND Internal Medicine Critical Care Medicine
DX: R91.8 Other nonspecific abnormal finding of lung field (principal); E27.9 Disorder of adrenal gland, unspecified; I71.4 Abdominal aortic aneurysm, without rupture; M19.012 Primary osteoarthritis, left shoulder; M19.011 Primary osteoarthritis, right shoulder; Z85.89 Personal history of malignant neoplasm of other organs and systems
CPT/HCPCS: 71250

== ENCOUNTER 2021-01-07 11:53 | Emergency (ER) | payer MEDICARE, OTHER ==
[~2021-01-07] VITALS: Ht 160 cm; Wt 57.6 kg
[2021-01-07 12:13] LABS: BASOPHILS % (AUTO) 0 % (0-10); EOSINOPHILS # (AUTO) 0.1 10^3/uL (0.0-0.3); EOSINOPHILS % (AUTO) 1 % (0-10); HEMATOCRIT 43 % (35-52); HEMOGLOBIN 14.4 g/dL (11.5-16.0); LYMPHOCYTES # (AUTO) 1.1 10^3/uL (1.0-4.0); LYMPHOCYTES % (AUTO) 22 % (12-44); MEAN CORPUSCULAR HEMOGLOBIN 35 pg (25-34); MEAN CORPUSCULAR HGB CONC 34 g/dL (32-36); MEAN CORPUSCULAR VOLUME 104 fL (80-99); MEAN PLATELET VOLUME 9.1 fL (9.0-12.2); MONOCYTES # (AUTO) 0.5 10^3/uL (0.0-1.0); MONOCYTES % (AUTO) 10 % (0-12); NEUTROPHILS # (AUTO) 3.2 10^3/uL (1.8-7.8); NEUTROPHILS % (AUTO) 66 % (42-75); PLATELET COUNT 214 10^3/uL (130-400); WHITE BLOOD COUNT 4.8 10^3/uL (4.3-11.0)
--- NOTE | 2021-01-07 12:13 | ED Cardiac General ---
History of Present Illness General Chief Complaint: Cardiac/General Problems Stated Complaint: HIGH BP Source: patient Exam Limitations: no limitations History of Present Illness Date Seen by Provider: Jan 07, 2021 Time Seen by Provider: 12:10 Initial Comments To ER by private vehicle with reports of high blood pressure. Is been in the 200s over 100s range for a couple of days intermittently. She has been having headaches for an unclear period of time. She has COPD, smokes about 6 cigarettes/day. She thinks that she takes medication for hypertension but she is not sure. Denies current chest pain or any chest pain today or within the past 24 hours. Denies any new or worsening shortness of breath. Today her symptoms are slight headache, dizziness, tingling in both hands and both feet. 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 ASA po LINDERMAN OPERATOR: Yes Allergies and Home Medications Allergies Coded Allergies: Sulfa (Sulfonamide Antibiotics) (Unverified Allergy, Severe, SOB, SWELLING, RASH, 02/09/19) penicillin (Unverified Allergy, Unknown, Pt has received Ceftriaxone w/o issue, 11/13/17) Patient Home Medication List Home Medication List Reviewed: Yes Albuterol Sulfate (Ventolin Hfa) 18 Gm Hfa.aer.ad, 2 PUFF INH Q6H PRN for WHEEZING, (Reported) Entered as Reported by: MARIAM AGUILA on 08/13/16 0811 Alprazolam (Alprazolam) 0.5 Mg Tablet, 0.5 MG PO Q6H PRN for ANXIETY, (Reported) Entered as Reported by: MARIAM AGUILA on 01/04/18 1013 Azithromycin (Azithromycin) 250 Mg Tablet, 250 MG PO MoWeFr, (Reported) Entered as Reported by: LESLY MELGAR on 02/09/19 1236 Clonazepam (Clonazepam) 1 Mg Tablet, 1.5 MG PO BID, (Reported) Entered as Reported by: MARIAM AGUILA on 08/13/16 0811 Divalproex Sodium (Divalproex Sodium) 250 Mg Tablet.dr, 250 MG PO DAILY, (Reported) Entered as Reported by: MARIAM AGUILA on 08/13/16 0811 Fluticasone Propionate (Flovent Hfa 110 mcg) 1 Ea Aero, 1 EA IH BID, (Reported) Entered as Reported by: LESLY MELGAR on 02/09/19 1236 Ipratropium [place] (Ipratropium [place]) 0.2 Mg/1 Ml Solution, 1 VIAL NEB TID PRN for SHORTNESS OF BREATH, (Reported) Entered as Reported by: MARIAM AGUILA on 08/13/16 0811 Metoprolol Succinate (Metoprolol Succinate) 25 Mg Tab.er.24h, 25 MG PO DAILY Prescribed by: PABLO BAUTISTA on 01/07/18 0804 Roflumilast (Daliresp) 500 Mcg Tablet, 500 MCG PO DAILY, (Reported) Entered as Reported by: MARIAM AGUILA on 04/17/17 1401 Review of Systems Review of Systems Constitutional: see HPI, dizziness EENTM: No Symptoms Reported Respiratory: No Symptoms Reported Cardiovascular: See HPI; Denies Chest Pain, Denies Irregular Heart Rate, Denies Lightheadedness Gastrointestinal: No Symptoms Reported Genitourinary: No Symptoms Reported Musculoskeletal: no symptoms reported Skin: no symptoms reported Psychiatric/Neurological: See HPI Endocrine: No Symptoms Reported Hematologic/Lymphatic: No Symptoms Reported Past Amvrnyj-Fjmpjb-Pihiyg Hx Patient Social History Tobacco Use?: Yes Tobacco type used: Cigarettes Smoking Status: Current Everyday Smoker Use of E-Cig and/or Vaping dev: No Substance use?: No Alcohol Use?: Yes Alcohol Frequency: Couple times a week Pt feels they are or have been: No Immunizations Up To Date Tetanus Booster (TDap): Unknown PED Vaccines UTD: Yes First/Initial COVID19 Vaccinat: APRIL 2020 Second COVID19 Vaccination Michi: APRIL 2020 COVID19 Vaccine Bb Shot Packer: EKATERINA Seasonal Allergies Seasonal Allergies: No Past Medical History Surgeries: Yes (NECK) Appendectomy, Gallbladder, Hysterectomy Respiratory: Yes (O2 2L AT NIGHT) Asthma, Pneumonia, Chronic Bronchitis, Sleep Apnea, COPD, Emphysema Currently Using CPAP: Yes Currently Using BIPAP: No Cardiac: Yes Hypertension Neurological: No 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 Disorders: Yes (HPV) Female 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 Disorders: Denies 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 History: Hysterectomy, Menopausal Sexually Transmitted Disease: Yes (HPV) HIV/AIDS: No Genitourinary: Yes UTI-Chronic Gastrointestinal: Yes Hemorrhoids, Chronic Diarrhea, Polyps Musculoskeletal: Yes (CHRONIC NECK AND BACK PAIN--S/P CERVICAL AND LUMBAR SPINE SURGERIES) Chronic Back Pain Endocrine: No HEENT: Yes (GLASSES) Loss of Vision: Denies Hearing Impairment: Denies Cancer: Yes Vaginal Did You Recieve Any Treatments: Yes What Type of Treatment Did You: Radiation Psychosocial: Yes Anxiety, PTSD Integumentary: Yes (SHINGLES) Blood Disorders: No Adverse Reaction/Blood Tranf: No (HAS HAD BLOOD WITH NO REACTION) Family Medical History Cardiovascular disease G8 BROTHER Diabetes mellitus G8 BROTHER G8 BROTHER Hypertension G8 BROTHER Neoplasm 19 FATHER (LEUKEMIA LYMPHOMA) G8 BROTHER (LEUKEMIA) Respiratory disorder 19 FATHER 19 MOTHER G8 BROTHER Hypertension Physical Exam Vital Signs Vital Signs - First Documented 01/07/21 12:00 Temp 35.5 Pulse 96 Resp 16 B/P (MAP) 225/114 (151) Pulse Ox 96 O2 Delivery Room Air Capillary Refill : Less Than 3 Seconds Height, Weight, BMI Height: 5'3.00" Weight: 112lbs. 8.0oz. 51.001926rx; 18.51 BMI Method:Estimated General Appearance: No Apparent Distress, WD/WN, Chronically ill Neck: Full Range of Motion, Normal Inspection Respiratory: No Accessory Muscle Use, No Respiratory Distress, Wheezing (Faint wheezing) Cardiovascular: Regular Rate, Rhythm, Normal Peripheral Pulses Gastrointestinal: Non Tender, Soft Extremity: Normal Capillary Refill, Normal Inspection Neurologic/Psychiatric: Alert, Oriented x3 Skin: Normal Color, Warm/Dry Procedures/Interventions Date of ETT Placement: Jan 03, 2018 Time of ETT Placement: 1640 Progress/Results/Core Measures Results/Orders Lab Results Laboratory Tests Test 01/07/21 12:04 Range/Units White Blood Count 4.8 4.3-11.0 10^3/uL Red Blood Count 4.15 3.80-5.11 10^6/uL Hemoglobin 14.4 11.5-16.0 g/dL Hematocrit 43 35-52 % Mean Corpuscular Volume 104 H 80-99 fL Mean Corpuscular Hemoglobin 35 H 25-34 pg Mean Corpuscular Hemoglobin Concent 34 32-36 g/dL Red Cell Distribution Width 12.3 10.0-14.5 % Platelet Count 214 130-400 10^3/uL Mean Platelet Volume 9.1 9.0-12.2 fL Immature Granulocyte % (Auto) 0 % Neutrophils (%) (Auto) 66 42-75 % Lymphocytes (%) (Auto) 22 12-44 % Monocytes (%) (Auto) 10 0-12 % Eosinophils (%) (Auto) 1 0-10 % Basophils (%) (Auto) 0 0-10 % Neutrophils # (Auto) 3.2 1.8-7.8 10^3/uL Lymphocytes # (Auto) 1.1 1.0-4.0 10^3/uL Monocytes # (Auto) 0.5 0.0-1.0 10^3/uL Eosinophils # (Auto) 0.1 0.0-0.3 10^3/uL Basophils # (Auto) 0.0 0.0-0.1 10^3/uL Immature Granulocyte # (Auto) 0.0 0.0-0.1 10^3/uL Prothrombin Time 13.0 12.2-14.7 SEC INR Comment 0.9 0.8-1.4 Activated Partial Thromboplast Time 31 24-35 SEC Sodium Level 143 135-145 MMOL/L Potassium Level 3.7 3.6-5.0 MMOL/L Chloride Level 107 98-107 MMOL/L Carbon Dioxide Level 22 21-32 MMOL/L Anion Gap 14 5-14 MMOL/L Blood Urea Nitrogen 10 7-18 MG/DL Creatinine 0.93 0.60-1.30 MG/DL Estimat Glomerular Filtration Rate 59 BUN/Creatinine Ratio 11 Glucose Level 94 70-105 MG/DL Calcium Level 9.0 8.5-10.1 MG/DL Corrected Calcium 8.8 8.5-10.1 MG/DL Total Bilirubin 0.6 0.1-1.0 MG/DL Aspartate Amino Transf (AST/SGOT) 16 5-34 U/L Alanine Aminotransferase (ALT/SGPT) 15 0-55 U/L Alkaline Phosphatase 44 40-136 U/L Total Protein 6.9 6.4-8.2 GM/DL Albumin 4.2 3.2-4.5 GM/DL My Orders Orders - FIOR PARRA APRN Ct Head Wo (01/07/21 12:06) Cbc With Automated Diff (01/07/21 12:06) Comprehensive Metabolic Panel (01/07/21 12:06) Ed Iv/Invasive Line Start (01/07/21 12:06) Chest 1 View, Ap/Pa Only (01/07/21 12:06) Ekg Tracing (01/07/21 12:06) Clonidine Tablet (Catapres Tablet) (01/07/21 12:15) Protime With Inr (01/07/21 12:33) Partial Thromboplastin Time (01/07/21 12:33) Medications Given in ED Current Medications Medications Dose Ordered Sig/Lulu Route Start Time Stop Time Status Last Admin Dose Admin Clonidine HCl 0.2 mg ONCE ONCE PO 01/07/21 12:15 01/07/21 12:16 DC 01/07/21 12:15 0.2 MG Vital Signs/I&O 01/07/21 12:00 Temp 35.5 Pulse 96 Resp 16 B/P (MAP) 225/114 (151) Pulse Ox 96 O2 Delivery Room Air Departure Communication (Admissions) Blood pressure here at 1213 is 225/114 heart rate is 83 sinus no ectopy normal intervals. 1337-her headache is improved dizziness is improved. There is no erythema or tenderness to the left mastoid process as there was some effusion noted on CT. I will put her on some antibiotic and steroid for this. She is only on metoprolol 25 mg for the hypertension so I will add an arb until she can follow- up with primary care. She states the tingling in her hands and feet has been present since about 2 months ago. I will defer that work-up to Dr. Bermeo. At this time, after 0.2 mg of clonidine p.o. her blood pressure is down to 145/80 heart rate 71. Impression Primary Impression: left mastoid effusion Additional Impression: Hypertension Disposition: 01 HOME, SELF-CARE Condition: Stable Departure-Patient Inst. Decision time for Depature: 13:39 Referrals: GEORGINA BERMEO DO (PCP/Family) Primary Care Physician Patient Instructions: High Blood Pressure in Adults Add. Discharge Instructions: 1. Take the antibiotic and steroid as directed for the fluid in the left ear. Take the blood pressure medication as directed in addition to your current blood pressure medication. It would be a good idea to check your blood pressure once or twice a day but do not become alarmed at the numbers unless you have symptoms going along with them. Follow-up with Dr. Bermeo in regards to the tingling in your hands and feet and to make sure that our blood pressure medication prescription is helping. All discharge instructions reviewed with patient and/or family. Voiced understanding. Scripts Cefuroxime Axetil (Cefuroxime) 250 Mg Tablet 250 MG PO BID, #10 TAB Prov: FIOR PARRA APRN 01/07/21 Prednisone (Prednisone) 20 Mg Tab 40 MG PO DAILY, #8 TAB 0 Refills Prov: FIOR PARRA APRN 01/07/21 Losartan Potassium (Losartan Potassium) 50 Mg Tablet 50 MG PO DAILY, #30 TAB Prov: FIOR PARRA APRN 01/07/21 Copy Copies To 1: GEORGINA BERMEO PETER J APRN Jan 07, 2021 12:13
[2021-01-07] MEDS ORDERED: cloNIDine 0.1 MG (CATAPRES) TAB PO ONE (12:15)
[2021-01-07 12:34] LABS: ALBUMIN 4.2 GM/DL (3.2-4.5); POTASSIUM 3.7 MMOL/L (3.6-5.0)
[2021-01-07 12:37] LABS: TOTAL PROTEIN 6.9 GM/DL (6.4-8.2)
[2021-01-07 12:38] LABS: BILIRUBIN,TOTAL 0.6 MG/DL (0.1-1.0)
[2021-01-07 12:40] LABS: CREATININE SERUM 0.93 MG/DL (0.60-1.30)
--- NOTE | 2021-01-07 13:17 | Diagnostic Imaging Report ---
EXAMINATION: Chest 1 view HISTORY: Hypertension COMPARISON: 01/17/2018 FINDINGS: Heart size and pulmonary vasculature are normal. The lungs are clear without consolidation, pleural effusion, or pneumothorax. The osseous structures are intact. IMPRESSION: 1. No acute radiographic abnormality in the chest. Dictated by: Dictated on workstation # [id number]
[2021-01-07 13:19] LABS: INR 0.9 (0.8-1.4)
--- NOTE | 2021-01-07 13:22 | Diagnostic Imaging Report ---
PROCEDURE: CT head without contrast. TECHNIQUE: Multiple contiguous axial images were obtained through the brain without the use of intravenous contrast. Auto Exposure Controls were utilized during the CT exam to meet ALARA standards for radiation dose reduction. INDICATION: Hypertensive patient. COMPARISON: I have no relevant comparison. FINDINGS: There is no intracerebral hemorrhage, hydrocephalus, edema, mass, mass effect, nor evidence for an elevation of the intracerebral pressures. Basilar cisterns are patent. There is no sulcal effacement. Cortical yeboah-white matter differentiations are maintained. There are intracranial atherosclerotic vascular calcifications. The orbits are unremarkable. There is membrane thickening in the left greater than right maxillary sinuses. Frontal sinuses are clear. There is left-sided mastoid effusion. The middle ear cavities are unremarkable. Partially visualized nasopharyngeal mucosa appeared symmetric and normal. IMPRESSION: 1. No hemorrhage, edema, or acute intracerebral pathology. 2. Unilateral left-sided mastoid effusion with mild paranasal sinus membrane disease. Dictated by: Dictated on workstation # [id number]
[2021-01-07] MEDS ORDERED: CEFU250T80 PO (13:41)
[2021-01-07] MEDS ORDERED: PRD20T PO (13:41)
[2021-01-07] MEDS ORDERED: LOSA50TA63 PO (13:41)
[2021-01-07 13:54] VITALS: BP 132/79
== END 2021-01-07 13:54 | disposition home or self-care (01) ==
LOC: EDUNIT# 11:53 → ER 11:58
DX: H74.8X2 Other specified disorders of left middle ear and mastoid (principal); I10 Essential (primary) hypertension; G47.30 Sleep apnea, unspecified; J44.9 Chronic obstructive pulmonary disease, unspecified; F41.9 Anxiety disorder, unspecified; F17.210 Nicotine dependence, cigarettes, uncomplicated; Z79.899 Other long term (current) drug therapy
CPT/HCPCS: 36415; 70450; 71045; 80053; 85025; 85610; 85730; 93005

== ENCOUNTER → 2021-02-04 | Outpatient (CLI) | payer MEDICARE, OTHER ==
[~2021-02-04] VITALS: Ht 165 cm; Wt 58.0 kg
[~2021-02-04] MED LIST changes: +CATHETER FLUSH 10 ML SYR IV PRN; +CEFU250T80 PO; -LEVO500T80 PO; +LEVO500T81 PO; +LOSA50TA63 PO; +REGADENOSON 0.4 MG/5 ML SYR (LEXISCAN) IV ONE
[2021-02-04 08:08] VITALS: BP 161/81
--- NOTE | 2021-02-05 07:56 | Cardiology Stress Test Report ---
Stress Test Report Date of Procedure/Referring: Date of Procedure: Feb 04, 2021 PCP Georgina Bermeo DO Admitting Physician Georgina Bermeo DO Indications: CP Baseline Vital Signs Vital Signs Date Time Temp Pulse Resp B/P (MAP) Pulse Ox O2 Delivery O2 Flow Rate FiO2 02/04/21 08:08 87 18 161/81 (107) 97 Room Air Summary: Patient receive a resting and stress dose of Myoview, images were acquired and reviewed in the short axis view, horizontal long axis view and vertical long axis view. TID: 1.05 SSS: 4 SDS: 2 EF: 68 1. No significant ischemia or infarction on SPECT images 2. Normal left ventricular size, EF 68% Copy Copies To 1: GEORGINA BERMEO BASHAR J MD Feb 05, 2021 07:56
== END ==
LOC: CARD 07:00
PROVIDERS: ATTEND Internal Medicine
DX: R07.9 Chest pain, unspecified (principal)
CPT/HCPCS: 78452; 93017; A9502

== ENCOUNTER → 2021-03-14 | Outpatient (CLI) | payer MEDICARE, OTHER ==
[~2021-03-14] MED LIST changes: +HOLD METFORMIN - RECEIVED CONTRAST 20 ML VIAL IV SCH; +IOHEXOL 350 MG/ML 100 ML (OMNIPAQUE 350) VIAL IV ONE; +NS 100 ML (IVPB) BAG IV ONE; -REGADENOSON 0.4 MG/5 ML SYR (LEXISCAN) IV ONE
[2021-03-14 09:29] LABS: CREATININE SERUM 0.91 MG/DL (0.60-1.30)
--- NOTE | 2021-03-14 10:42 | Diagnostic Imaging Report ---
PROCEDURE: CT chest, abdomen, and pelvis with contrast. TECHNIQUE: Multiple contiguous axial images were obtained through the chest, abdomen, and pelvis after the administration of intravenous contrast. Auto Exposure Controls were utilized during the CT exam to meet ALARA standards for radiation dose reduction. INDICATION: History of vulvar cancer. COMPARISON with CT chest, abdomen and pelvis performed 11/09/2020. FINDINGS: CHEST: There is no lung mass or suspicious pulmonary nodularity. There is no hilar, mediastinal or axillary lymphadenopathy. No thoracic effusion or aneurysm. No acute or suspect chest wall lesion. The lungs are clear. ABDOMEN PELVIS: The gallbladder is absent. No pathological bile duct dilatation. There is no liver mass. The adrenals are unremarkable. There is chronic left renal atrophy and diminished perfusion with severe atherosclerotic disease of the left renal artery and presumed high-grade stenosis with progressive presumed chronic postischemic atrophy. No hydronephrosis. No renal edema or hemorrhage. Right kidney appears well-perfused, unobstructed, nonfocal and nonacute. There is no abdominal pelvic mesenteric or retroperitoneal lymphadenopathy. There is extensive aortoiliac and mesenteric atherosclerotic disease without findings of hollow visceral acute ischemia. There is focal mild atherosclerotic aneurysmal dilatation of the proximal infrarenal aorta measuring 2.9 x 2.3 cm, unruptured and unchanged. Severe atherosclerotic disease in the left greater than right external and common iliacs present, no dissection. There is no ascites. There is no omental infiltration. The pelvic sidewalls appeared normal. The inguinal canals unremarkable. There is no suspicious lytic or sclerotic bony lesion. There are hypertrophic degenerative changes throughout the spine most severe at L3-L4 and L4-L5 where there is marked endplate sclerosis. IMPRESSION: 1. No findings of neoplastic recurrence or metastasis within the chest, abdomen or pelvis. 2. Severe chronic atherosclerotic disease and severe chronic stenosis of the left renal artery with progressive chronic nonobstructive postischemic atrophy of the left kidney. 3. Atherosclerotic disease without evidence for acute or chronic hollow visceral end organ ischemia. 4. Mild dilatation of the proximal infrarenal aorta, unchanged and unruptured. Dictated by: Dictated on workstation # [id number]
== END ==
LOC: RAD 09:45
PROVIDERS: ATTEND Obstetrics & Gynecology
DX: Z01.419 Encounter for gynecological examination (general) (routine) without abnormal findings (principal); I70.1 Atherosclerosis of renal artery; N26.1 Atrophy of kidney (terminal); L90.0 Lichen sclerosus et atrophicus; Z85.44 Personal history of malignant neoplasm of other female genital organs
CPT/HCPCS: 36415; 71260; 74177; 82565; 84520

== ENCOUNTER → 2021-05-16 | Outpatient (CLI) | payer MEDICARE, OTHER ==
[~2021-05-16] MED LIST changes: -CATHETER FLUSH 10 ML SYR IV PRN; -HOLD METFORMIN - RECEIVED CONTRAST 20 ML VIAL IV SCH; -IOHEXOL 350 MG/ML 100 ML (OMNIPAQUE 350) VIAL IV ONE; -NS 100 ML (IVPB) BAG IV ONE
--- NOTE | 2021-05-16 12:21 | Diagnostic Imaging Report ---
INDICATION: Routine screening. COMPARISON: 05/15/2020. TECHNIQUE: 2D and 3D bilateral screening mammography was performed with CAD. FINDINGS: Both breasts are heterogeneously dense, limiting the sensitivity of mammography. There are two densities in the right breast centrally located on the CC view. One nodular density is slightly lateral to the nipple line and the second is at the nipple line. Additional views are recommended. There are scattered benign calcifications. There is a biopsy marker clip in the superior left breast. No malignant-appearing microcalcifications are seen. The axillae are unremarkable. IMPRESSION: Right breast densities. Additional views including spot compression views, mediolateral views, and rolled CC views are recommended for further evaluation. ACR BI-RADS Category 0: Incomplete. (Needs additional imaging evaluation). Result letter will be mailed to the patient. Note: At least 10% of breast cancer is not imaged by mammography. Dictated by: Dictated on workstation # [id number]
== END ==
LOC: RAD 11:00
PROVIDERS: ATTEND Internal Medicine
DX: Z12.31 Encounter for screening mammogram for malignant neoplasm of breast (principal)
CPT/HCPCS: 77063; 77067

== ENCOUNTER → 2021-05-24 | Outpatient (CLI) | payer MEDICARE, OTHER ==
--- NOTE | 2021-05-24 14:02 | Diagnostic Imaging Report ---
INDICATION: Right breast densities. Patient presents for additional views. COMPARISON: Screening study from 05/16/2021. TECHNIQUE: Unilateral right 2D and 3D diagnostic mammography was performed. This included spot compression CC, rolled CC, spot compression ML, and conventional 90 degree lateral views. FINDINGS: The additional views show a persistent lobulated density approximately 3 cm behind the nipple and slightly lateral to the nipple. This has the appearance of a cluster of cysts. The density slightly more medial on the screening study appears to resolve with additional views and may represent superimposed tissue. No suspicious calcifications are seen. IMPRESSION: Persistent lobulated density 3 cm retroareolar and slightly lateral. Further evaluation with ultrasound is recommended and will be performed today. ACR BI-RADS Category 0: Incomplete. (Needs additional imaging evaluation). Result letter will be mailed to the patient. Note: At least 10% of breast cancer is not imaged by mammography. Dictated by: Dictated on workstation # [id number]
--- NOTE | 2021-05-24 15:13 | Diagnostic Imaging Report ---
INDICATION: Right breast density. COMPARISON: Correlation is made with the diagnostic mammogram from earlier this same day and a screening mammogram from 05/16/2021. FINDINGS: Sonographic interrogation of the right breast does show a cluster of cysts at the 9 o'clock location of the right breast 3 cm from the nipple measuring in aggregate 8 mm x 5 mm x 6 cm. This corresponds to the density noted mammographically. No internal vascularity is identified. No other abnormalities are seen. IMPRESSION: Cluster of cysts at the 9 o'clock location of the right breast 3 cm from the nipple corresponding to the mammographic density. The patient may return to routine annual screening mammography. ACR BI-RADS Category 2: Benign findings. Dictated by: Dictated on workstation # [id number]
== END ==
LOC: RAD 13:45
PROVIDERS: ATTEND Internal Medicine
DX: N60.01 Solitary cyst of right breast (principal); R92.2 Inconclusive mammogram
CPT/HCPCS: 76642; 77065; G0279

== ENCOUNTER → 2021-11-01 | Outpatient (CLI) | payer MEDICARE, OTHER ==
[~2021-11-01] MED LIST changes: +GUAI180L11 PO; -GUAI180L12 PO; +LEVO-55 PO; -LEVO500T81 PO
--- NOTE | 2021-11-01 10:21 | Diagnostic Imaging Report ---
PROCEDURE: CT chest without contrast. TECHNIQUE: Multiple contiguous axial images were obtained through the chest without the use of intravenous contrast. Auto Exposure Controls were utilized during the CT exam to meet ALARA standards for radiation dose reduction. INDICATION: Pulmonary nodules. COMPARISON: 03/14/2021 and 11/09/2018 FINDINGS: No adenopathy within the chest. Scattered vascular calcifications, including within the coronary arteries. No aneurysmal dilatation of thoracic aorta. The heart is within normal limits in size. Trace pericardial fluid, similar to prior examinations. No significant pleural effusion. No pneumothorax. Background emphysematous changes are again identified with associated mild biapical pleural parenchymal scarring. Scarring within the lingula is again seen. Several sub-zero 0.4 cm bilateral pulmonary nodules are again identified and not significantly changed since the prior examination. No new suspicious pulmonary nodule or mass. The trachea is patent. 1 cm nodularity associated with posterior aspect of the right adrenal gland, not significantly changed since 2019. Cholecystectomy. Atrophy of the left kidney is again noted. Scattered osseous degenerative changes without acute osseous abnormality. IMPRESSION: [id number] background emphysematous changes with unchanged benign tiny sub-zero 0.4 cm pulmonary nodules without new pulmonary nodule. Additional stable findings as above. Dictated by: Dictated on workstation # [id number]
== END ==
LOC: RAD 09:37
PROVIDERS: ATTEND Internal Medicine Critical Care Medicine
DX: J43.9 Emphysema, unspecified (principal); R91.8 Other nonspecific abnormal finding of lung field; Z87.891 Personal history of nicotine dependence
CPT/HCPCS: 71250

== ENCOUNTER 2021-12-11 05:30 | Outpatient (CLI) | payer MEDICARE, OTHER ==
[~2021-12-11] VITALS: Ht 157.5 cm; Wt 58.6 kg
[2021-12-11] MEDS ORDERED: AMLO-250 PO (15:39)
[2021-12-11] MEDS ORDERED: PRED10TA22 PO (15:39)
== END 2021-12-11 15:54 | disposition home or self-care (01) ==
LOC: PREOP 05:30
PROVIDERS: ATTEND Orthopaedic Surgery
DX: Z01.818 Encounter for other preprocedural examination (principal)

== ENCOUNTER 2021-12-18 07:46 | Day surgery (SDC) | payer MEDICARE, OTHER ==
--- NOTE | 2021-12-06 05:58 | HISTORY AND PHYSICAL ---
DATE OF SERVICE: ADMISSION HISTORY AND PHYSICAL DATE OF SURGERY: Outpatient surgery will be 12/18/2021 for left carpal tunnel release and left cubital tunnel release. HISTORY OF PRESENT ILLNESS: The patient is a -okky-nej right hand dominant female with complaints of left-hand pain and paresthesias. She reports a 6-month history of pain and paresthesias. She reports it progressed to the point where she is having numbness at all times. She reports no improvement with activity modifications. She reports activity limitations because of her hand. She reports difficulty with fine motor skills and clumsiness. She underwent an EMG nerve conduction studies, which revealed evidence of left carpal and cubital tunnel syndrome. Due to functional impairment and failure to improve with conservative measures, the patient elected to proceed with surgical intervention. REVIEW OF SYSTEMS: No chest pain, no shortness of breath, no dysuria. PAST MEDICAL HISTORY: COPD, anxiety, PAF, hypertension, depression. PAST SURGICAL HISTORY: Cholecystectomy, back surgery, cervical spine surgery. SOCIAL HISTORY: The patient reports occasional alcohol use, denies tobacco use. FAMILY HISTORY: Significant for diabetes, stroke, and seizures. PRIMARY CARE PROVIDER: Dr. Bermeo. MEDICATIONS: Perforomist, Yumasha Alprazolam, clonazepam, aspirin, Daliresp, amlodipine, metoprolol, albuterol, divalproex, losartan, Flovent. ALLERGIES: PENICILLIN. PHYSICAL EXAMINATION: GENERAL: The patient is well-developed, well-nourished, in no acute distress. HEENT: Normocephalic, atraumatic. Pupils are equal, round, reactive to light. Oropharynx is clear. NECK: Supple, no lymphadenopathy. LUNGS: Clear to auscultation bilaterally. HEART: Regular rate and rhythm. ABDOMEN: Soft, nontender, nondistended. EXTREMITIES: The left elbow demonstrates positive Tinel's with cubital tunnel with positive elbow flexion test. She has a positive Phalen's maneuver at the left wrist and positive Tinel's of the carpal tunnel. She has decreased sensation in ulnar and median distribution. IMPRESSION: Left carpal and cubital tunnel syndrome. PLAN: Left carpal and cubital tunnel releases. The risks, benefits, options, ramifications and recovery have been discussed at length with the patient. She understands and wishes to proceed. Job ID: [id number] DocumentID: [id number] Dictated Date: 12/05/2021 09:44:02 Molder Wax Ball Date: 12/05/2021 13:03:10 Dictated By: TEDDY DEL VALLE MD
[~2021-12-18] VITALS: Ht 157.5 cm; Wt 58.6 kg
[2021-12-18] VITALS (10 sets, daily range): BP systolic 89–155; BP diastolic 50–102
[~2021-12-18 07:46] MED LIST changes: +AMLO-250 PO; +oxyCODONE/APAP 5/325MG (PERCOCET 5) TABLET PO PRN
[2021-12-18] MEDS ORDERED: BUPIVACAINE 0.5% 30 ML (SENSORCAINE) VIAL ONE (08:23)
[2021-12-18] MEDS ORDERED: LACTATED RINGERS 1,000 ML IV PRN (08:30)
[2021-12-18] MEDS ORDERED: CLINDAMYCIN 600 MG/50 ML IVPB 50 ML IV ONE (08:30)
[2021-12-18] MEDS ORDERED: MIDAZOLAM 2 MG/2 ML (VERSED) VIAL ONE ×2 (09:11→09:33)
[2021-12-18] MEDS ORDERED: MIDAZOLAM 2 MG/2 ML (VERSED) VIAL IV ONE (09:15)
--- NOTE | 2021-12-18 09:16 | Progress Note-Pre Operative ---
Pre-Operative Progress Note Date of Available H&P: Dec 06, 2021 Date H&P Reviewed: Dec 18, 2021 Time H&P Reviewed: 07:11 Changes from last HP none Pre-Operative Diagnosis: left carpal and cubital tunnel syndrome TEDDY DEL VALLE MD Dec 18, 2021 09:16
--- NOTE | 2021-12-18 09:17 | Progress Note-Post Operative ---
Post-Operative Progess Note Surgeon (s)/Managing Jeweler (s) Surgeon TEDDY DEL VALLE MD Managing Jeweler: Yosef Dennis Pre-Operative Diagnosis left carpal and cubital tunnel syndrome Post-Operative Diagnosis left carpal and cubital tunnel syndrome Procedure & Operative Findings Date of Procedure 12/18/21 Procedure Performed/Findings left carpal and cubital tunnel releases Anesthesia Type GETA Estimated Blood Loss Estimated blood loss (mL): minimal Specimens/Packing Specimens Removed none Packing: none TEDDY DEL VALLE MD Dec 18, 2021 09:17
[2021-12-18] MEDS ORDERED: fentaNYL INJ 100 MCG/2 ML AMP ONE (09:32)
[2021-12-18] MEDS ORDERED: BUPIVACAINE 0.5% 30 ML (SENSORCAINE) VIAL INJ ONE (09:55)
[2021-12-18] MEDS ORDERED: proPOfol 200 MG/20 ML (DIPRIVAN) VIAL IV ONE (10:14)
[2021-12-18] MEDS ORDERED: SEVOFLURANE (ULTANE) 15 ML INHAL SOLN ONE ×2 (10:14→10:15)
[2021-12-18] MEDS ORDERED: ONDANSETRON 4 MG/2 ML (SDV) Z0FRAN ONE (10:15)
[2021-12-18] MEDS ORDERED: LIDOCAINE PF 2% 5 ML (XYLOCAINE) VIAL ONE (10:15)
--- NOTE | 2021-12-18 10:23 | Anesthesia-General Post-Op ---
General Patient Condition Mental Status/LOC: Same as Preop Cardiovascular: Satisfactory Nausea/Vomiting: Absent Respiratory: Satisfactory Pain: Controlled Complications: Absent Post Op Complications Complications None Follow Up Care/Instructions Patient Instructions None needed. Anesthesia/Patient Condition Patient Condition Patient is doing well, no complaints, stable vital signs, no apparent adverse anesthesia problems. No complications reported per nursing. DAVIDSON MARTINEZ CRNA Dec 18, 2021 10:23
[2021-12-18] MEDS ORDERED: ONDANSETRON 4 MG/2 ML (SDV) Z0FRAN IVP PRN (10:30)
[2021-12-18] MEDS ORDERED: morphine INJ 10 MG/ML 1ML (SYR OR VIAL) IVP ONE (10:30)
[2021-12-18] MEDS ORDERED: MEPERIDINE (DEMEROL) INJ 50 MG/ML IVP ONE (10:30)
--- NOTE | 2021-12-18 17:05 | OPERATIVE REPORT ---
DATE OF SERVICE: 12/18/2021 PREOPERATIVE DIAGNOSES: 1. Left cubital tunnel syndrome. 2. Left carpal tunnel syndrome. POSTOPERATIVE DIAGNOSES: 1. Left cubital tunnel syndrome. 2. Left carpal tunnel syndrome. PROCEDURES: 1. Left cubital tunnel release. 2. Left carpal tunnel release. SURGEON: Earl Del Valle MD CENTER MEDICAL DIRECTOR: Yosef Dennis, who assisted throughout the procedure and closed the incisions. ANESTHESIA: General endotracheal by Maurice Gonzales CRNA. TOURNIQUET TIME: 10 minutes at 250 mmHg. ESTIMATED BLOOD LOSS: Minimal. DRAINS: None. COMPLICATIONS: None. POSTOPERATIVE PLAN: Routine protocol. The patient was transferred to recovery room awake and stable condition. STATEMENT OF MEDICAL NECESSITY: The patient is a 71-year-old right hand dominant female with complaints of left-hand pain and paresthesias. She had positive Tinel's with carpal and cubital tunnels. She had positive elbow flexion test. Positive Phalen's maneuver. She underwent an EMG nerve conduction studies, which revealed evidence of left carpal and cubital tunnel syndromes and due to functional impairment and failure to improve with conservative measures, the patient elected to proceed with surgical intervention. DESCRIPTION OF PROCEDURE: After risks and benefits of procedure were discussed and questions were answered, an informed consent was signed and placed on chart. The operative site was confirmed in the preoperative holding area initialed by the surgeon. The patient was then transferred to the operating room and after adequate levels of general endotracheal anesthetic were obtained, a timeout was called, confirming the operative site. The left upper extremity was prepped and draped in the usual sterile fashion. With the arm elevated, tourniquet inflated to 250 mmHg. A curved incision was made posterior to the medial epicondyle and the underlying soft tissues were carefully dissected. The ulnar nerve was identified proximal to the medial epicondyle and dissected to 0.9 cm proximal to this which was then dissected through the cubital tunnel into the flexor/pronator mass. After release, the elbow was taken through range of motion with no subluxation noted; therefore, transposition was not performed. Incision was then made in line with radial border ring finger over the transverse carpal ligament. The underlying soft tissues were carefully dissected. Transverse carpal ligament was identified, sharply incised by pushing through with the scalpel blade. The median nerve was identified and carefully protected throughout the procedure and intact at the conclusion of the procedure. Distally, this was confirmed fully released under direct visualization. Proximally, transverse carpal ligament was spread above and below with dissection scissors and opened with slightly open scissor edges. This was confirmed fully released with a freer. The tourniquet was deflated for a total tourniquet time 10 minutes. Pressure was used for hemostasis. The wounds were copiously irrigated, 3-0 Vicryl was used to reapproximate subcutaneous tissue at the elbow incision and both skin incisions were closed with 4-0 nylon running alternating horizontal mattress fashion. Incisions were infiltrated with plain Marcaine and soft dressing was applied and a wrist brace. The patient was transferred to the recovery room awake and in stable condition. Job ID: [id number] DocumentID: [id number] Dictated Date: 12/18/2021 10:23:32 Custom Bike Builder Date: 12/18/2021 17:04:28 Dictated By: EARL DEL VALLE MD
== END 2021-12-18 12:40 | disposition home or self-care (01) ==
LOC: SDC 07:46
PROVIDERS: ATTEND Orthopaedic Surgery
DX: G56.02 Carpal tunnel syndrome, left upper limb (principal); G56.22 Lesion of ulnar nerve, left upper limb; F17.210 Nicotine dependence, cigarettes, uncomplicated; Z99.81 Dependence on supplemental oxygen
CPT/HCPCS: 87081

== ENCOUNTER 2022-01-21 05:32 | Outpatient (CLI) | payer MEDICARE, OTHER ==
[~2022-01-21] VITALS: Ht 165.1 cm; Wt 57.0 kg
[~2022-01-21 05:32] MED LIST changes: +ALBU8.5H6; -RT-ALBUINH; -oxyCODONE/APAP 5/325MG (PERCOCET 5) TABLET PO PRN
== END 2022-01-21 17:19 | disposition home or self-care (01) ==
LOC: PREOP 05:32
PROVIDERS: ATTEND Orthopaedic Surgery
DX: Z01.818 Encounter for other preprocedural examination (principal)

== ENCOUNTER 2022-01-29 09:10 | Day surgery (SDC) | payer MEDICARE, OTHER ==
--- NOTE | 2022-01-22 07:04 | HISTORY AND PHYSICAL ---
DATE OF SERVICE: 01/29/2022 ADMISSION HISTORY AND PHYSICAL This will be for outpatient surgery on 01/29/2022 for right carpal tunnel release and right cubital tunnel release. HISTORY: The patient is a 71-year-old right hand dominant female with complaints of right hand pain and paresthesias. She reports a 6-month history of pain and paresthesias. She reports this progressed to the point where she is having numbness at all times. She has tried activity modifications without relief. She underwent an EMG nerve conduction study, which revealed evidence of right carpal and cubital tunnel syndrome. Due to functional impairment, failure to improve with conservative measures, the patient elected to proceed with surgical intervention. REVIEW OF SYSTEMS: No chest pain, no shortness of breath. No dysuria. PAST MEDICAL HISTORY: COPD, anxiety, PAF, hypertension, depression. PAST SURGICAL HISTORY: Cholecystectomy, lumbar and cervical spine and left carpal and cubital tunnel releases. SOCIAL HISTORY: The patient reports occasional alcohol use. Denies tobacco use. FAMILY HISTORY: Diabetes, stroke, seizures. PRIMARY CARE PROVIDER: Dr. Bermeo. MEDICATIONS Perforomist, ____, alprazolam, clonazepam, aspirin, Daliresp, amlodipine, metoprolol, albuterol, divalproex, losartan and Flovent. ALLERGIES: PENICILLIN. PHYSICAL EXAMINATION: GENERAL: The patient is well-developed, well-nourished, in no acute distress. HEENT: Normocephalic, atraumatic. Pupils are equal, round, react to light. Oropharynx is clear. NECK: Supple, with no lymphadenopathy. LUNGS: Clear to auscultation bilaterally. HEART: Regular rate and rhythm. ABDOMEN: Soft, nontender, nondistended. EXTREMITIES: The right elbow demonstrates positive Tinel's at the cubital tunnel with a positive elbow flexion test. She has a positive Tinel's at the carpal tunnel with a positive Phalen's maneuver. She has decreased sensation in a median and ulnar distribution. IMPRESSION: Right carpal and cubital tunnel syndrome. PLAN: Right carpal and cubital tunnel releases. The risks, benefits, options, ramifications and recovery have been discussed at length with the patient. She understands and wishes to proceed. Job ID: [id number] DocumentID: [id number] Dictated Date: 01/13/2022 10:56:39 Gear Lapping Machine Operator Date: 01/13/2022 11:19:00 Dictated By: TEDDY DEL VALLE MD
[2022-01-29] VITALS (11 sets, daily range): BP systolic 124–171; BP diastolic 70–88
[~2022-01-29] VITALS: Ht 165.1 cm; Wt 57.0 kg
[2022-01-29] MEDS ORDERED: fentaNYL INJ 100 MCG/2 ML AMP ONE (09:43)
[2022-01-29] MEDS ORDERED: proPOfol 200 MG/20 ML (DIPRIVAN) VIAL IV ONE (09:43)
[2022-01-29] MEDS ORDERED: ONDANSETRON 4 MG/2 ML (SDV) Z0FRAN ONE (09:43)
[2022-01-29] MEDS ORDERED: LIDOCAINE PF 2% 5 ML (XYLOCAINE) VIAL ONE (09:43)
[2022-01-29] MEDS ORDERED: MIDAZOLAM 2 MG/2 ML (VERSED) VIAL ONE (09:44)
[2022-01-29] MEDS ORDERED: LACTATED RINGERS 1,000 ML IV PRN (09:45)
[2022-01-29] MEDS ORDERED: CLINDAMYCIN 600 MG/50 ML IVPB 50 ML IV ONE (09:45)
[2022-01-29] MEDS ORDERED: MIDAZOLAM 2 MG/2 ML (VERSED) VIAL IV ONE (09:45)
[2022-01-29] MEDS ORDERED: BUPIVACAINE 0.5% 30 ML (SENSORCAINE) VIAL ONE (09:51)
[2022-01-29] MEDS ORDERED: LIDOCAINE 1% INJ 20 ML VIAL ONE (09:51)
[2022-01-29] MEDS ORDERED: oxyCODONE/APAP 5/325MG (PERCOCET 5) TABLET PO PRN (10:45)
--- NOTE | 2022-01-29 10:46 | Progress Note-Pre Operative ---
Pre-Operative Progress Note Date of Available H&P: Jan 13, 2022 Date H&P Reviewed: Jan 29, 2022 Time H&P Reviewed: 07:11 Changes from last HP none Pre-Operative Diagnosis: right carpal and cubital tunnel syndrome TEDDY DEL VALLE MD Jan 29, 2022 10:46
--- NOTE | 2022-01-29 10:47 | Progress Note-Post Operative ---
Post-Operative Progess Note Surgeon (s)/Mat Man (s) Surgeon TEDDY DEL VALLE MD Mat Man: Yosef Dennis Pre-Operative Diagnosis right carpal and cubital tunnel syndrome Post-Operative Diagnosis right carpal and cubital tunnel syndrome Procedure & Operative Findings Date of Procedure 01/29/22 Procedure Performed/Findings right carpal and cubital tunnel releases Anesthesia Type GETA Estimated Blood Loss Estimated blood loss (mL): minimal Specimens/Packing Specimens Removed none Packing: none TEDDY DEL VALLE MD Jan 29, 2022 10:47
[2022-01-29] MEDS ORDERED: SEVOFLURANE (ULTANE) 15 ML INHAL SOLN ONE (11:29)
[2022-01-29] MEDS ORDERED: PROMETHAZINE INJ 25 MG/ML (PHENERGAN) AMP IVP ONE (11:45)
[2022-01-29] MEDS ORDERED: ONDANSETRON 4 MG/2 ML (SDV) Z0FRAN IVP PRN (11:45)
[2022-01-29] MEDS ORDERED: morphine INJ 10 MG/ML 1ML (SYR OR VIAL) IVP ONE (11:45)
--- NOTE | 2022-01-29 20:39 | OPERATIVE REPORT ---
DATE OF SERVICE: 01/29/2022 PREOPERATIVE DIAGNOSES: 1. Right cubital tunnel syndrome. 2. Right carpal tunnel syndrome. POSTOPERATIVE DIAGNOSES: 1. Right cubital tunnel syndrome. 2. Right carpal tunnel syndrome. PROCEDURES: 1. Right cubital tunnel release. 2. Right carpal tunnel release. SURGEON: Earl Celis MD MANAGER PROGRESSIVE CARE: Yosef Dennis, who assisted throughout the procedure and closed the incisions. ANESTHESIA: General endotracheal by Idris Winston CRNA. TOURNIQUET TIME: 7 minutes at 250 mmHg. ESTIMATED BLOOD LOSS: Minimal. DRAINS: None. COMPLICATIONS: None. POSTOPERATIVE PLAN: Routine protocol. The patient was transferred to the recovery room awake and in stable condition. STATEMENT OF MEDICAL NECESSITY: The patient is a 71-year-old right hand dominant female with complaints of right hand pain and paresthesias. She had positive Tinel's at the carpal tunnel, positive Phalen's maneuver, positive elbow flexion test, positive Tinel's at the cubital tunnel due to functional impairment and failure to improve with conservative measures, the patient elected to proceed with surgical intervention. DESCRIPTION OF PROCEDURE: After risks and benefits of the procedure were discussed and questions were answered and informed consent was signed and placed on the chart, the operative site was confirmed in the preoperative holding area and initialed by the surgeon. The patient was then transported to the operating room. After adequate levels of general endotracheal anesthetic was obtained, a timeout was called, confirming the operative site. The right upper extremity was prepped and draped in the usual sterile fashion with the arm elevated, tourniquet was inflated to 250 mmHg. A curved incision was made posterior to the medial epicondyle. The underlying soft tissues were carefully dissected. The ulnar nerve was identified proximal to the medial epicondyle and dissected cm proximally. This was then dissected through the cubital tunnel and into the flexor/pronator mass. The nerve was carefully protected throughout the procedure and intact at the conclusion of the procedure. After complete release, the elbow was taken through a range of motion. No subluxation was noted. Therefore, a transposition was not performed. An incision was then made in line with the radial border of the ring finger over the transverse carpal ligament in the palm of the right hand. The underlying soft tissues were sharply dissected. The transverse carpal ligament was identified and sharply incised by pushing through with a scalpel blade. Distal extent was confirmed fully released under direct visualization. Proximally, the transverse carpal ligament was spread above and below with dissection scissors were carefully protected the median nerve. This was then released with slightly open scissor edges. The median nerve was intact at the conclusion of the procedure, proximally the transverse carpal ligament was confirmed full release with the [place]. The tourniquet was deflated for a total tourniquet time 7 minutes. Pressure was used for hemostasis. Both wounds were copiously irrigated. A 3-0 Vicryl was used to reapproximate subcutaneous tissue at the elbow, both skin incisions were closed with 4-0 nylon running alternating horizontal mattress fashion. The incisions were infiltrated with plain Marcaine. A soft dressing was applied and a wrist splint. The patient was transferred to recovery room awake and in stable condition. Job ID: [id number] DocumentID: [id number] Dictated Date: 01/29/2022 11:27:36 Restaurant Hostess Date: 01/29/2022 20:37:00 Dictated By: EARL CELIS MD
== END 2022-01-29 14:00 | disposition home or self-care (01) ==
LOC: SDC 09:10
PROVIDERS: ATTEND Orthopaedic Surgery
DX: G56.21 Lesion of ulnar nerve, right upper limb (principal); G56.01 Carpal tunnel syndrome, right upper limb
CPT/HCPCS: 87081

== ENCOUNTER 2022-03-02 22:06 | Emergency (ER) | payer MEDICARE, OTHER ==
[~2022-03-02] VITALS: Ht 160 cm; Wt 57.6 kg
[2022-03-02] MEDS ORDERED: AZITHROMYCIN INJECTION 500 MG in NS (IVPB) 250 ML IV ONE (22:15)
[2022-03-02] MEDS ORDERED: cefTRIAXone 1 GM PRE-MIX 50 ML IV ONE (22:15)
[2022-03-02 22:19] LABS: BASOPHILS % (AUTO) 0 % (0-10); EOSINOPHILS # (AUTO) 0.1 10^3/uL (0.0-0.3); EOSINOPHILS % (AUTO) 1 % (0-10); HEMATOCRIT 43 % (35-52); LYMPHOCYTES # (AUTO) 2.1 10^3/uL (1.0-4.0); LYMPHOCYTES % (AUTO) 19 % (12-44); MEAN CORPUSCULAR HEMOGLOBIN 33 pg (25-34); MEAN CORPUSCULAR HGB CONC 33 g/dL (32-36); MEAN CORPUSCULAR VOLUME 102 fL (80-99); MEAN PLATELET VOLUME 9.2 fL (9.0-12.2); MONOCYTES # (AUTO) 0.9 10^3/uL (0.0-1.0); MONOCYTES % (AUTO) 9 % (0-12); NEUTROPHILS # (AUTO) 7.4 10^3/uL (1.8-7.8); NEUTROPHILS % (AUTO) 70 % (42-75); PLATELET COUNT 207 10^3/uL (130-400); WHITE BLOOD COUNT 10.6 10^3/uL (4.3-11.0)
[2022-03-02] MEDS ORDERED: methylPREDNISolone 125 MG (Solu-MEDROL) VIAL IV STA (22:22)
--- NOTE | 2022-03-02 22:26 | ED Respiratory ---
General Chief Complaint: Respiratory Problems Stated Complaint: SOA Nursing Triage Note: PT TO ED BY EMS WITH C/O SOB. PT HAS HX COPD WEARS 2 L NC PRN. EMS GAVE DUONEB EN ROUTE AND PT HAD RELIEF IN SOB. EMS REPORTS WAS WORKING VERY HARD TO BREATHE UPON ARRIVAL, RR 32, ECO2 18. ECO2 30 AFTER DUONEB. PT REPORTS SHE HAS HAD A COLD OVER THE LAST 3 WEEKS, TESTED NEGATIVE FOR COVID AND FLU AT [facility]. REPORTS SHE WAS SITTING ON THE COUCH WATCHING TV WHEN SOB BEGAN THIS EVENING. Source: patient History of Present Illness Date Seen by Provider: Mar 02, 2022 Time Seen by Provider: 22:08 Initial Comments PT ARRIVES VIA EMS FROM HOME PT HAS BEEN SICK FOR ABOUT 2-3 WEEKS WITH COLD SYMPTOMS--COUGH/CONGESTION SHE WENT TO [facility] ABOUT 2 WEEKS AGO, AND STATES SHE TESTED NEGATIVE FOR COVID AND FLU, AND WAS GIVEN RX FOR UNKNOWN ANTIBIOTIC AND PREDNISONE NO IMPROVEMENT IN SYMPTOMS SHE HAS HAD INCREASED SHORTNESS OF BREATH ALL DAY TODAY, AND ESPECIALLY TONIGHT PT HAS COPD AND WEARS O2 AT 2L/NC CONTINUOUSLY SHE HAD A DUO NEB TREATMENT [facility] REPORT THAT HER O2 SAT WAS 98% ON ROOM AIR AT THE SCENE THEY REPORT INITIAL ETCO2 WAS 18, AND AFTER NEB TREATMENT ETCO2 UP TO 30. PT HAS HAD HER SECOND COVID VACCINE WELL A FLU VACCINE 3 WEEKS AGO. DENIES CHEST PAIN DENIES FEVER/SWEATS/CHILLS DENIES GI SYMPTOMS DENIES HEADACHE OR BODY ACHES SHE HAS HAD SWELLING TO HER RIGHT FOOT AND LEG FOR AT LEAST 6 MONTHS, SHE HAS SEEN BOTH DR. GARCIA AND DR. DEL VALLE FOR IT, AND PT STATES NO CAUSE HAS BEEN FOUND SHE IS NOT ON ASPIRIN OR BLOOD THINNERS SHE STATES THAT THE SWELLING IS ACTUALLY LESS TODAY THAN NORMAL SHE CONTINUES TO SMOKE 1/2 PPD, AND DRINKS " A COUPLE " OF BEERS EVERY DAY. Allergies and Home Medications Allergies Coded Allergies: Sulfa (Sulfonamide Antibiotics) (Unverified Allergy, Severe, SOB, SWELLING, RASH, 12/11/21) penicillin (Unverified Allergy, Unknown, Pt has received Ceftriaxone w/o issue, 12/11/21) Patient Home Medication List Albuterol Sulfate (Ventolin Hfa) 18 Gm Hfa.aer.ad, 2 PUFF INH Q6H PRN for WHEEZING, (Reported) Entered as Reported by: MARIAM AGUILA on 08/13/16 0811 Alprazolam (Alprazolam) 0.5 Mg Tablet, 1 MG PO Q6H PRN for ANXIETY, (Reported) Entered as Reported by: MARIAM AGUILA on 01/04/18 1013 Amlodipine Besylate (Amlodipine Besylate) 5 Mg Tablet, 5 MG PO DAILY, (Reported) Entered as Reported by: LUC JONES on 12/11/21 1539 Clonazepam (Clonazepam) 1 Mg Tablet, 1.5 MG PO BID, (Reported) Entered as Reported by: MARIAM AGUILA on 08/13/16 0811 Divalproex Sodium (Divalproex Sodium) 250 Mg Tablet.dr, 250 MG PO DAILY, (Reported) Entered as Reported by: MARIAM AGUILA on 08/13/16 0811 Fluticasone Propionate (Flovent Hfa 110 mcg) 1 Ea Aero, 1 EA IH BID, (Reported) Entered as Reported by: LESLY MELGAR on 02/09/19 1236 Ipratropium [place] (Ipratropium [place]) 0.2 Mg/1 Ml Solution, 1 VIAL NEB TID PRN for SHORTNESS OF BREATH, (Reported) Entered as Reported by: MARIAM AGUILA on 08/13/16 0811 Losartan Potassium (Losartan Potassium) 50 Mg Tablet, 50 MG PO DAILY Prescribed by: FIOR PARRA on 01/07/21 1341 Prednisone (Prednisone) 10 Mg Tab.ds.pk, 10 MG PO UD, (Reported) Entered as Reported by: LUC JONES on 12/11/21 1539 Roflumilast (Daliresp) 500 Mcg Tablet, 500 MCG PO DAILY, (Reported) Entered as Reported by: MARIAM AGUILA on 04/17/17 1401 Past Fxwjomj-Lguysg-Mjfbft Hx Patient Social History Tobacco Use?: Yes Tobacco type used: Cigarettes Smoking Status: Current Everyday Smoker Use of E-Cig and/or Vaping dev: No Substance use?: No Alcohol Use?: Yes Alcohol type: Beer Alcohol Frequency: Daily Pt feels they are or have been: No Immunizations Up To Date Tetanus Booster (TDap): Unknown PED Vaccines UTD: Yes Influenza Vaccine Up-to-Date: Yes; Up-to-Date First/Initial COVID19 Vaccinat: 2020 Second COVID19 Vaccination Michi: 2020 Third COVID19 Vaccination Date: 2021 Seasonal Allergies Seasonal Allergies: No Past Medical History Surgery/Hospitalization HX: COPD, HTN HYST, APPE Surgeries: Yes (NECK; L CTR) Appendectomy, Gallbladder, Hysterectomy Respiratory: Yes (O2 2L AT NIGHT) Pneumonia, Chronic Bronchitis, COPD, Emphysema Currently Using CPAP: Yes Currently Using BIPAP: No Cardiac: Yes Hypertension Neurological: No 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 Disorders: Yes (HPV) Female 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 Disorders: Denies [employer] History: Hysterectomy, Menopausal Sexually Transmitted Disease: Yes (HPV) HIV/AIDS: No Genitourinary: Yes UTI-Chronic Gastrointestinal: Yes Hemorrhoids, Chronic Diarrhea, Polyps, Gall Bladder Disease Musculoskeletal: Yes (NERVE PAIN RIGHT WRIST AND ELBOW) Arthritis, Chronic Back Pain Endocrine: No HEENT: Yes (GLASSES) Loss of Vision: Denies Hearing Impairment: Denies Cancer: Yes Vaginal Did You Recieve Any Treatments: Yes What Type of Treatment Did You: Radiation Psychosocial: Yes (PANIC ATTACKS) Anxiety, PTSD Integumentary: No Blood Disorders: No Adverse Reaction/Blood Tranf: No (HAS HAD BLOOD WITH NO REACTION) Family Medical History Cardiovascular disease G8 BROTHER Diabetes mellitus G8 BROTHER G8 BROTHER Hypertension G8 BROTHER Neoplasm 19 FATHER (LEUKEMIA LYMPHOMA) G8 BROTHER (LEUKEMIA) Respiratory disorder 19 FATHER 19 MOTHER G8 BROTHER Hypertension Physical Exam Vital Signs - First Documented 03/02/22 03/02/22 22:09 23:04 Pulse 87 Resp 18 B/P (MAP) 143/80 (101) Pulse Ox 99 O2 Delivery Nasal Cannula O2 Flow Rate 2.00 FiO2 21 Capillary Refill : Less Than 3 Seconds Height: 5'3.00" Weight: 112lbs. 8.0oz. 51.572738my; 22.00 BMI Method:Estimated General Appearance: other (REEKS OF CIGARETTES, AND ODOR OF ALCOHOL) Focused Exam Lactate Level 03/02/22 22:18: Lactic Acid Level 1.66 Lactic Acid Level Laboratory Tests Test 03/02/22 22:18 Lactic Acid Level 1.66 MMOL/L (0.50-2.00) Procedures/Interventions Date of ETT Placement: Jan 03, 2018 Time of ETT Placement: 1640 Progress/Results/Core Measures Suspected Sepsis SIRS Temperature: Pulse: 87 Respiratory Rate: 18 Laboratory Tests 03/02/22 22:13: White Blood Count 10.6 Blood Pressure 143 /80 Mean: 101 03/02/22 22:18: Lactic Acid Level 1.66 Laboratory Tests 03/02/22 22:13: Creatinine 1.11, INR Comment 1.0, Platelet Count 207, Total Bilirubin 0.6 Results/Orders Lab Results Laboratory Tests Test 03/02/22 22:13 03/02/22 22:14 03/02/22 22:18 03/02/22 22:49 Range/Units White Blood Count 10.6 4.3-11.0 10^3/uL Red Blood Count 4.21 3.80-5.11 10^6/uL Hemoglobin 14.0 11.5-16.0 g/dL Hematocrit 43 35-52 % Mean Corpuscular Volume 102 H 80-99 fL Mean Corpuscular Hemoglobin 33 25-34 pg Mean Corpuscular Hemoglobin Concent 33 32-36 g/dL Red Cell Distribution Width 14.2 10.0-14.5 % Platelet Count 207 130-400 10^3/uL Mean Platelet Volume 9.2 9.0-12.2 fL Immature Granulocyte % (Auto) 1 % Neutrophils (%) (Auto) 70 42-75 % Lymphocytes (%) (Auto) 19 12-44 % Monocytes (%) (Auto) 9 0-12 % Eosinophils (%) (Auto) 1 0-10 % Basophils (%) (Auto) 0 0-10 % Neutrophils # (Auto) 7.4 1.8-7.8 10^3/uL Lymphocytes # (Auto) 2.1 1.0-4.0 10^3/uL Monocytes # (Auto) 0.9 0.0-1.0 10^3/uL Eosinophils # (Auto) 0.1 0.0-0.3 10^3/uL Basophils # (Auto) 0.0 0.0-0.1 10^3/uL Immature Granulocyte # (Auto) 0.1 0.0-0.1 10^3/uL Erythrocyte Sedimentation Rate 5 0-30 MM/HR Prothrombin Time 13.1 12.2-14.7 SEC INR Comment 1.0 0.8-1.4 Activated Partial Thromboplast Time 27 24-35 SEC D-Dimer 0.43 0.00-0.49 UG/ML Sodium Level 141 135-145 MMOL/L Potassium Level 3.4 L 3.6-5.0 MMOL/L Chloride Level 103 98-107 MMOL/L Carbon Dioxide Level 24 21-32 MMOL/L Anion Gap 14 5-14 MMOL/L Blood Urea Nitrogen 18 7-18 MG/DL Creatinine 1.11 0.60-1.30 MG/DL Estimat Glomerular Filtration Rate 53 BUN/Creatinine Ratio 16 Glucose Level 87 70-105 MG/DL Calcium Level 9.1 8.5-10.1 MG/DL Corrected Calcium 9.0 8.5-10.1 MG/DL Magnesium Level 2.2 1.6-2.4 MG/DL Total Bilirubin 0.6 0.1-1.0 MG/DL Aspartate Amino Transf (AST/SGOT) 11 5-34 U/L Alanine Aminotransferase (ALT/SGPT) 14 0-55 U/L Alkaline Phosphatase 44 40-136 U/L Total Creatine Kinase 51 29-168 U/L Creatine Kinase MB 1.7 <6.6 NG/ML Myoglobin 37.4 10.0-92.0 NG/ML Troponin I < 0.028 <0.028 NG/ML C-Reactive Protein High Sensitivity 1.12 H 0.00-0.50 MG/DL B-Type Natriuretic Peptide 30.8 <100.0 PG/ML Total Protein 6.7 6.4-8.2 GM/DL Albumin 4.1 3.2-4.5 GM/DL Procalcitonin 0.07 <0.10 NG/ML Serum Alcohol 27 H <10 MG/DL Influenza Type A (RT-PCR) Not Detected Not Detecte Influenza Type B (RT-PCR) Not Detected Not Detecte SARS-CoV-2 RNA (RT-PCR) Not Detected Not Detecte Lactic Acid Level 1.66 0.50-2.00 MMOL/L Blood Gas Puncture Site LEFT RADIAL Blood Gas Patient Temperature 35.9 Arterial Blood pH 7.42 7.37-7.43 Arterial Blood Partial Pressure CO2 41 35-45 MMHG Arterial Blood Partial Pressure O2 62 L 79-93 MMHG Arterial Blood HCO3 26 23-27 MMOL/L Arterial Blood Total CO2 27.5 21.0-31.0 MMOL/L Arterial Blood Oxygen Saturation 95 94-100 % Arterial Blood Base Excess 1.9 -2.5-2.5 MMOL/L Rush Test YES-POS Blood Gas Ventilator Setting NO Blood Gas Inspired Oxygen NA My Orders Orders - SHAILESH HICKMAN DO Covid 19 Inhouse Test (03/02/22 22:09) Ed Iv/Invasive Line Start (03/02/22 22:09) Ekg Tracing (03/02/22 22:09) O2 (03/02/22 22:09) Monitor-Rhythm Ecg Trace Only (03/02/22 22:09) Bnp [place] (03/02/22 22:09) Cbc With Automated Diff (03/02/22 22:09) Comprehensive Metabolic Panel (03/02/22 22:09) Creatine Kinase (03/02/22 22:09) Creatine Kinase Mb (03/02/22 22:09) Hs C Reactive Protein (03/02/22 22:09) Fibrin Degradation Products (03/02/22 22:09) Lactic Acid Analyzer (03/02/22 22:09) Magnesium (03/02/22 22:09) Procalcitonin (Pct) (03/02/22 22:09) Protime With Inr (03/02/22 22:09) Partial Thromboplastin Time (03/02/22 22:09) Ua Culture If Indicated (03/02/22 22:09) Blood Culture (03/02/22 22:09) Sputum Culture (03/02/22 22:09) Erythrocyte Sedimentation Rate (03/02/22 22:09) Myoglobin Serum (03/02/22 22:09) Troponin I [place] (03/02/22 22:09) Urine Culture (03/02/22 22:09) Ed Iv/Invasive Line Start (03/02/22 22:09) Ed Iv/Invasive Line Start (03/02/22 22:09) Vital Signs Adult Sepsis Patie Q15M (03/02/22 22:09) Remove Rings In Anticipation O (03/02/22 22:09) Ceftriaxone 1 Gm Pre-Mix (Rocephin 1 Gm (03/02/22 22:15) Azithromycin Injection (Zithromax Inject (03/02/22 22:15) Influenza A And B By Pcr (03/02/22 22:09) Isolation Central Supply Req (03/02/22 22:09) Alcohol (03/02/22 22:22) Arterial Blood Gas (03/02/22 22:22) Drug Screen Stat (Urine) (03/02/22 22:22) Albuterol/Ipra Inhalation Soln (Duoneb I (03/02/22 22:30) Dexamethasone Injection (Decadron Injec (03/02/22 22:30) Rt Request For Service (03/02/22 22:22) Methylprednisolone Sod Succ (Solu-Medrol (03/02/22 22:22) Svn Small Volume Nebulizer (03/02/22 22:22) Chest 1 View, Ap/Pa Only (03/02/22 22:32) Arterial Blood Draw - Obtain (03/02/22 ) Medications Given in ED Current Medications Medications Dose Ordered Sig/Lulu Route Start Time Stop Time Status Last Admin Dose Admin Albuterol/ Ipratropium 3 ml ONCE ONCE INH 03/02/22 22:30 03/02/22 22:31 DC 03/02/22 22:54 3 ML Azithromycin 500 mg/Sodium Chloride 255 ml @ 250 mls/hr ONCE ONCE IV 03/02/22 22:15 03/02/22 23:16 DC 03/02/22 23:14 250 MLS/HR Ceftriaxone Sodium/Dextrose 50 ml @ 100 mls/hr ONCE ONCE IV 03/02/22 22:15 03/02/22 22:44 DC 03/02/22 22:37 100 MLS/HR Dexamethasone Sodium Phosphate 20 mg ONCE ONCE IH 03/02/22 22:30 03/02/22 22:31 DC 03/02/22 23:00 20 MG Vital Signs/I&O 03/02/22 03/02/22 22:09 23:04 Pulse 87 Resp 18 B/P (MAP) 143/80 (101) Pulse Ox 99 O2 Delivery Nasal Cannula O2 Flow Rate 2.00 FiO2 21 Capillary Refill : Less Than 3 Seconds Blood Pressure Mean: 101 Progress Note : Progress Note NO HYPOXIA AT ANY TIME Departure Impression Primary Impression: COPD with exacerbation Additional Impressions: Bronchitis Smoker Alcohol use HTN (hypertension) Disposition: 01 HOME, SELF-CARE Condition: Stable Departure-Patient Inst. Decision time for Depature: 23:40 Referrals: GEORGINA GARCIA DO (PCP/Family) Primary Care Physician Patient Instructions: Acute Bronchitis, Adult (DC), COPD Exacerbation, Adult ED, High Blood Pressure ED, Quitting Smoking for Older Adults, DASH Diet Add. Discharge Instructions: HOME, REST NO SMOKING OR ALCOHOL USE TYLENOL AND MOTRIN NEEDED FOR PAIN OR FEVER LOTS OF FLUIDS TAKE YOUR MEDICATIONS PRESCRIBED ALL OF YOUR INHALERS AND NEBULIZERS PRESCRIBED FOLLOW UP WITH YOUR DR IN 2-3 DAYS FOR FURTHER CARE, RETURN TO ER IF WORSE All discharge instructions reviewed with patient and/or family. Voiced understanding. Scripts Benzonatate (TESSALON PERLES) 100 Mg Capsule 200 MG PO TID, #30 CAP Prov: SHAILESH HICKMAN DO 03/02/22 Azithromycin (Zithromax) 500 Mg Tablet 500 MG PO DAILY for 5 Days, #5 TAB Prov: SHAILESH HICKMAN DO 03/02/22 Cefdinir (Cefdinir) 300 Mg Capsule 300 MG PO BID, #20 CAP Prov: SHAILESH HICKMAN DO 03/02/22 Prednisone (Prednisone) 10 Mg Tab.ds.pk 10 MG PO UD, #21 EA Take 6 tabs(60mg)daily,decrease by 1 tab(10MG)daily. Prov: SHAILESH HICKMAN DO 03/02/22 SHAILESH HICKMAN DO Mar 02, 2022 22:26
[2022-03-02] MEDS ORDERED: RT-ALBUTEROL/IPRATROPIUM 3 ML (DUONEB) VIAL INH ONE (22:30)
[2022-03-02 22:33] LABS: FIBRIN DEGRADATION PRODUCTS 0.43 UG/ML (0.00-0.49); PROTHROMBIN TIME PATIENT 13.1 SEC (12.2-14.7)
[2022-03-02 22:40] LABS: ALANINE AMINOTRANSFERASE 14 U/L (0-55); ALBUMIN 4.1 GM/DL (3.2-4.5); ALKALINE PHOSPHATASE 44 U/L (40-136); BILIRUBIN,TOTAL 0.6 MG/DL (0.1-1.0); BUN/CREATININE RATIO 16; CALCIUM 9.1 MG/DL (8.5-10.1); CARBON DIOXIDE 24 MMOL/L (21-32); CHLORIDE 103 MMOL/L (98-107); CREATINE KINASE 51 U/L (29-168); CREATININE SERUM 1.11 MG/DL (0.60-1.30); GFR ESTIMATED 53; GLUCOSE 87 MG/DL (70-105); MAGNESIUM 2.2 MG/DL (1.6-2.4); POTASSIUM 3.4 MMOL/L (3.6-5.0); SODIUM 141 MMOL/L (135-145); TOTAL PROTEIN 6.7 GM/DL (6.4-8.2)
[2022-03-02 22:49] LABS: ERYTHROCYTE SEDIMENTATION RATE 5 MM/HR (0-30)
[2022-03-02 22:56] LABS: ABG BASE EXCESS 1.9 MMOL/L (-2.5-2.5); ABG OXYGEN SATURATION 95 % (94-100); ABG PCO2 41 MMHG (35-45); ABG PH 7.42 (7.37-7.43); ABG PO2 62 MMHG (79-93); ABG TCO2 27.5 MMOL/L (21.0-31.0); ALLENS TEST YES-POS
[2022-03-02 22:57] LABS: PATIENT TEMP 35.9; VENTILATOR NO
[2022-03-02 23:00] LABS: CREATINE KINASE MB 1.7 NG/ML (<6.6)
[2022-03-02] MEDS ORDERED: AZIT500T PO (23:49)
[2022-03-02] MEDS ORDERED: BENZ100C18 PO (23:49)
[2022-03-02] MEDS ORDERED: PRED10TA22 PO (23:49)
[2022-03-02] MEDS ORDERED: CEFD300C3 PO (23:49)
[2022-03-02 23:50] LABS: BILIRUBIN,URINE NEGATIVE (NEGATIVE); CLARITY,URINE CLEAR; COLOR,URINE YELLOW; GLUCOSE, URINE (UA) NEGATIVE (NEGATIVE); KETONES,URINE NEGATIVE (NEGATIVE); LEUKOCYTE ESTERASE ,URINE NEGATIVE (NEGATIVE); NITRITE,URINE NEGATIVE (NEGATIVE); PROTEIN,URINE NEGATIVE (NEGATIVE)
[2022-03-02 23:58] LABS: BACTERIA,URINE NEGATIVE /HPF; WBC,URINE RARE /HPF
[2022-03-03 00:08] LABS: AMPHETAMINE SCREEN, URINE NEGATIVE (NEGATIVE); BARBITURATE SCREEN URINE NEGATIVE (NEGATIVE); BENZODIAZEPINES SCREEN URINE POSITIVE (NEGATIVE); CANNABINOID SCREEN, URINE NEGATIVE (NEGATIVE); COCAINE SCREEN URINE NEGATIVE (NEGATIVE); METHADONE STAT NEGATIVE (NEGATIVE); OPIATE SCREEN URINE NEGATIVE (NEGATIVE); OXYCODONE STAT NEGATIVE (NEGATIVE); PROPOXYPHENE STAT NEGATIVE (NEGATIVE); TRICYCLIC ANTIDEPRESSANTS SCRE NEGATIVE (NEGATIVE)
[2022-03-03 00:28] VITALS: BP 154/72
--- NOTE | 2022-03-03 05:04 | Diagnostic Imaging Report ---
INDICATION: Cough and congestion for 3 weeks COMPARISONS: 01/07/2021 FINDINGS: Single view of the chest shows the cardiac contour to be normal. There is some background chronic parenchymal changes seen. There is slight prominent central lung markings. No consolidations are seen. There is slight chronically elevated left hemidiaphragm. There is no effusion or pneumothorax. There is suggestion of [place] deformity of the right shoulder as may be seen with right shoulder subluxation. IMPRESSION: 1. Mild central reactive airway changes such as mild bronchitis. No consolidations are seen. Minimal basilar atelectatic infiltrates on the right may be present. 2. Slightly chronic elevation of the left hemidiaphragm. 3. Suspected [place] lesion of the right shoulder. Dedicated right shoulder views may be of further value. Dictated by: Dictated on workstation # [id number]
== END 2022-03-03 00:34 | disposition home or self-care (01) ==
LOC: EDUNIT# 22:06 → ER 22:07
DX: J44.1 Chronic obstructive pulmonary disease with (acute) exacerbation (principal); I10 Essential (primary) hypertension; J40 Bronchitis, not specified as acute or chronic; F10.90 Alcohol use, unspecified, uncomplicated; F17.210 Nicotine dependence, cigarettes, uncomplicated; Z88.0 Allergy status to penicillin; Z20.822 Contact with and (suspected) exposure to COVID-19; Z99.81 Dependence on supplemental oxygen
CPT/HCPCS: 36600; 71045; 80053; 80306; 81000; 82550; 82553; 82805; 83605; 83735; 83874; 83880; 84145; 84484; 85025; 85379; 85610; 85652; 85730; 86141; 87040; 87088; 87636; 93005; 93041; 94640; 99285; G0480; 36415; 80320

== ENCOUNTER → 2022-05-19 | Outpatient (CLI) | payer MEDICARE, OTHER ==
[~2022-05-19] MED LIST changes: +AZIT500T PO; +BENZ100C18 PO
--- NOTE | 2022-05-19 14:43 | Diagnostic Imaging Report ---
EXAMINATION: 3D bilateral screening mammogram with CAD. INDICATION: Screening. COMPARISON: This study was compared to the prior exams of 05/24/2021 and 05/16/2020. PERSONAL HISTORY: At this time, there are no current complaints. FINDINGS: The fibroglandular tissue in both breasts is heterogeneously dense. This does limit the sensitivity of this exam. The screening mammogram of the right breast performed on 05/16/2021 noted two right breast densities. The subsequent diagnostic mammogram and ultrasound exam of the right breast noted a small benign-appearing cluster of cysts in this region. On this exam, those findings are again evident and do not seem to have changed significantly. I do suspect that they are benign. The stereotactic clip and the microcalcifications in the left breast seen previously are also again evident and no different. There is no primary or secondary sign of malignancy noted. IMPRESSION: 1. There is no evidence for malignancy. 2. The patient should have her annual bilateral screening mammogram on schedule in May 2023. ACR BI-RADS Category 1: Negative. Result letter will be mailed to the patient. Note: At least 10% of breast cancer is not imaged by mammography. Dictated by: Dictated on workstation # [id number]
== END ==
LOC: RAD 09:00
PROVIDERS: ATTEND Internal Medicine
DX: Z12.31 Encounter for screening mammogram for malignant neoplasm of breast (principal)
CPT/HCPCS: 77063; 77067

== ENCOUNTER 2022-09-26 23:51 | Inpatient (IN) | payer MEDICARE, OTHER ==
[~2022-09-26] VITALS: Ht 157 cm; Wt 62.6 kg
[~2022-09-26 23:51] MED LIST changes: -GUAI180L11 PO; +GUAI180L12 PO
[2022-09-26] MEDS ORDERED: RT-ALBUTEROL SULF 2.5 MG/3 ML PRE-MIX VIAL INH STA (23:57)
[2022-09-27] VITALS (16 sets, daily range): BP systolic 129–176; BP diastolic 70–94
[2022-09-27] MEDS ORDERED: RT-ALBUTEROL/IPRATROPIUM 3 ML (DUONEB) VIAL INH ONE
[2022-09-27] MEDS ORDERED: dexAMETHasone INJ 10 MG/ML 1 ML VIAL IV ONE
[2022-09-27] MEDS ORDERED: LIDOCAINE UROJET 2% GEL 10 ML PKG TOP ONE
[2022-09-27 00:16] LABS: BASOPHILS % (AUTO) 1 % (0-10); EOSINOPHILS # (AUTO) 0.2 10^3/uL (0.0-0.3); EOSINOPHILS % (AUTO) 4 % (0-10); HEMATOCRIT 41 % (35-52); HEMOGLOBIN 13.3 g/dL (11.5-16.0); LYMPHOCYTES # (AUTO) 1.6 10^3/uL (1.0-4.0); LYMPHOCYTES % (AUTO) 27 % (12-44); MEAN CORPUSCULAR HEMOGLOBIN 34 pg (25-34); MEAN CORPUSCULAR HGB CONC 33 g/dL (32-36); MEAN CORPUSCULAR VOLUME 103 fL (80-99); MEAN PLATELET VOLUME 9.4 fL (9.0-12.2); MONOCYTES # (AUTO) 0.6 10^3/uL (0.0-1.0); MONOCYTES % (AUTO) 10 % (0-12); NEUTROPHILS # (AUTO) 3.5 10^3/uL (1.8-7.8); NEUTROPHILS % (AUTO) 58 % (42-75); PLATELET COUNT 190 10^3/uL (130-400)
[2022-09-27 00:24] LABS: ABG BASE EXCESS 4.1 MMOL/L (-2.5-2.5); ABG OXYGEN SATURATION 99 % (94-100); ABG PCO2 47 MMHG (35-45); ABG PO2 151 MMHG (79-93); ABG TCO2 30.3 MMOL/L (21.0-31.0)
[2022-09-27 00:27] LABS: ALLENS TEST YES-POS; INSPIRED O2 BIPAP; PATIENT TEMP 36; VENTILATOR NO
[2022-09-27 00:28] LABS: ALBUMIN 3.9 GM/DL (3.2-4.5)
[2022-09-27 00:29] LABS: CHLORIDE 102 MMOL/L (98-107); POTASSIUM 3.7 MMOL/L (3.6-5.0); SODIUM 139 MMOL/L (135-145)
[2022-09-27 00:30] LABS: CALCIUM 8.9 MG/DL (8.5-10.1)
[2022-09-27 00:31] LABS: GLUCOSE 113 MG/DL (70-105); TOTAL PROTEIN 6.2 GM/DL (6.4-8.2)
[2022-09-27 00:32] LABS: CARBON DIOXIDE 26 MMOL/L (21-32); FIBRIN DEGRADATION PRODUCTS 0.6 UG/ML (0.00-0.49)
[2022-09-27 00:33] LABS: BILIRUBIN,TOTAL 0.7 MG/DL (0.1-1.0)
[2022-09-27 00:34] LABS: ALKALINE PHOSPHATASE 42 U/L (40-136)
[2022-09-27 00:35] LABS: CREATININE SERUM 0.94 MG/DL (0.60-1.30); GFR ESTIMATED 64
[2022-09-27 00:36] LABS: BUN/CREATININE RATIO 13
[2022-09-27 00:37] LABS: ALANINE AMINOTRANSFERASE 14 U/L (0-55); MAGNESIUM 2.2 MG/DL (1.6-2.4)
[2022-09-27 00:38] LABS: CREATINE KINASE 135 U/L (29-168)
[2022-09-27 00:45] LABS: CREATINE KINASE MB 5.3 NG/ML (<6.6)
[2022-09-27] MEDS ORDERED: CEFEPIME 1 GM/10 ML VIAL ONE (00:59)
[2022-09-27] MEDS ORDERED: CEFEPIME INJECTION 1,000 MG in NS (IVPB) 50 ML 50 ML IV ONE (01:00)
[2022-09-27] MEDS ORDERED: LORazepam INJ 2 MG/ML (ATIVAN) VIAL IVP ONE (01:15)
--- NOTE | 2022-09-27 02:59 | ED Respiratory ---
General Chief Complaint: Respiratory Problems Stated Complaint: ACUTE ON CHRONIC RESP FAILURE Nursing Triage Note: PT TO ROOM BY [facility]. EMS REPORTS PT HAS FELT INCREASINGLY SHORT OF BREATH TODAY. PT HAS COPD AND WEARS 2L O2 AT ALL TIMES. STATES SHE WAS BREATHING SO BADLY TODAY THAT SHE PUT HER CPAP ON TODAY WHEN SHE NORMALLY ONLY WEARS IT TO SLEEP. EMS ALSO REPORTS THAT PT GLUCOSE WAS 59. PT WAS GIVEN APPROX 100MLS 10% DEXTROSE EN ROUTE. PT STATES SHE IS NOT A DIABETIC. PT IS A&OX4, SPEECH NORMAL. PT REPORTS O2 WAS IN THE 80S AT HOME BEFORE PUTTING HER CPAP ON. PT O2 99% ON ARRIVAL WITH NONREBREATHER AND DUONEB TREATMENT PER EMS Source: patient History of Present Illness Date Seen by Provider: Sep 26, 2022 Time Seen by Provider: 23:53 Initial Comments PT ARRIVES VIA EMS FROM HOME PT WITH COPD WHO WEARS O2 AT 2L/NC CONTINOUSLY, AND CPAP AT NIGHT SHE HAS HAD PROGRESSIVE SHORTNESS OF BREATH ALL DAY TODAY AND FOR THE LAST 3 HOURS HAS BEEN ON HER CPAP HE STATES THAT IT DID HELP FOR AWHILE, BUT THEN STARTED BECOMING MORE SHORT OF BREATH O2 SATS WERE IN THE 80'S AT HOME BEFORE SHE STARTED USING HER CPAP. O2 SATS WERE IN THE 90'S ON CPAP EMS GAVE NEB TREATMENT ENROUTE AND SHE IS FEELING BETTER. ACCUCHECK FOR EMS WAS 59, THEY GAVE D10 AND BLOOD SUGAR UP TO 85. PT IS NOT DIABETIC PT STATES IT DOES HURT TO BREATHE NO FEVER/SWEATS/CHILLS NO NAUSEA/VOMITING NO SWELLING IN LEGS/FEET PT CONTINUES TO SMOKE 1 PPD PCP: DR. GARCIA FLAKE CUTTER OPERATOR: DR. CHIN Allergies and Home Medications Allergies Coded Allergies: Sulfa (Sulfonamide Antibiotics) (Unverified Allergy, Severe, SOB, SWELLING, RASH, 12/11/21) penicillin (Unverified Allergy, Unknown, Pt has received Ceftriaxone w/o issue, 12/11/21) Patient Home Medication List Home Medication List Reviewed: Yes Albuterol Sulfate (Ventolin Hfa) 18 Gm Hfa.aer.ad, 2 PUFF INH Q6H PRN for WHEEZING, (Reported) Entered as Reported by: MARIAM AGUILA on 08/13/16 0811 Last Action: Reviewed Alprazolam (Alprazolam) 0.5 Mg Tablet, 1 MG PO TID PRN for ANXIETY, (Reported) Entered as Reported by: MARIAM AGUILA on 01/04/18 1013 Last Action: Reviewed Azithromycin (Azithromycin) 250 Mg Tablet, 250 MG PO three times a week, (Reported) Entered as Reported by: CHERY JIMENEZ on 09/27/221553 Last Action: Reviewed Clonazepam (Clonazepam) 1 Mg Tablet, 1.5 MG PO BID, (Reported) Entered as Reported by: MARIAM AGUILA on 08/13/16810 Last Action: Reviewed Divalproex Sodium (Divalproex Sodium) 250 Mg Tablet.dr, 250 MG PO BID, (Reporte d) Entered as Reported by: MARIAM AGUILA on 08/13/16810 Last Action: Reviewed Fluticasone Propionate (Flovent Hfa 110 mcg) 1 Ea Aero, 1 EA IH BID, (Reported) Entered as Reported by: LESLY MELGAR on 02/09/19 1236 Last Action: Reviewed Formoterol Fumarate (Perforomist) 20 Mcg/2 Ml Vial.neb, 20 MCG IH BID, (Reported) Entered as Reported by: CHERY JIMENEZ on 09/27/221553 Last Action: Reviewed Guaifenesin (Mucinex) 600 Mg Tab.er.12h, 600 MG PO Q12H, (Reported) Entered as Reported by: CHERY JIMENEZ on 09/27/221553 Last Action: Reviewed Ipratropium [place] (Ipratropium [place]) 0.2 Mg/1 Ml Solution, 1 VIAL NEB TID P RN for SHORTNESS OF BREATH, (Reported) Entered as Reported by: MARIAM AGUILA on 08/13/16810 Last Action: Reviewed Losartan Potassium (Losartan Potassium) 50 Mg Tablet, 50 MG PO DAILY, (Reported) Entered as Reported by: CHERY JIMENEZ on 09/27/221557 Last Action: Reviewed Prednisone (Prednisone) 10 Mg Tab.ds.pk, 10 MG PO UD Prescribed by: SHAILESH HICKMAN on 03/02/22 5281 Last Action: Reviewed Revefenacin (Yupelri) 175 Mcg/3 Ml Vial.neb, 175 MCG IH noon, (Reported) Entered as Reported by: CHERY JIMENEZ on 09/27/221553 Last Action: Reviewed Roflumilast (Daliresp) 500 Mcg Tablet, 500 MCG PO DAILY, (Reported) Entered as Reported by: MARIAM AGUILA on 04/17/17 1401 Last Action: Reviewed Discontinued Medications Amlodipine Besylate (Amlodipine Besylate) 5 Mg Tablet, 5 MG PO DAILY, (Reported) Discontinued Reason: No Longer Taking Entered as Reported by: LUC JONES on 12/11/21 1539 Last Action: Discontinued Azithromycin (Zithromax) 500 Mg Tablet, 500 MG PO DAILY Discontinued Reason: No Longer Taking Prescribed by: SHAILESH HICKMAN on 03/02/222348 Last Action: Discontinued Benzonatate (Tessalon Perles) 100 Mg Capsule, 200 MG PO TID Discontinued Reason: No Longer Taking Prescribed by: SHAILESH HICKMAN on 03/02/222348 Last Action: Discontinued Cefdinir (Cefdinir) 300 Mg Capsule, 300 MG PO BID Discontinued Reason: No Longer Taking Prescribed by: SHAILESH HICKMAN on 03/02/222348 Last Action: Discontinued Losartan Potassium (Losartan Potassium) 50 Mg Tablet, 50 MG PO DAILY Discontinued Reason: No Longer Taking Prescribed by: FIOR PARRA on 01/07/21 1341 Last Action: Discontinued Review of Systems Review of Systems Constitutional: no symptoms reported EENTM: no symptoms reported Respiratory: see HPI Cardiovascular: see HPI Gastrointestinal: no symptoms reported Genitourinary: no symptoms reported Musculoskeletal: no symptoms reported Skin: no symptoms reported Psychiatric/Neurological: No Symptoms Reported Hematologic/Lymphatic: No Symptoms Reported Immunological/Allergic: no symptoms reported Past Mvnecxx-Iyqjrk-Zlxrkl Hx Patient Social History Tobacco Use?: Yes Tobacco type used: Cigarettes Smoking Status: Current Everyday Smoker Use of E-Cig and/or Vaping dev: No Substance use?: No Alcohol Use?: Yes Alcohol type: Beer, Hard Liquor Alcohol Frequency: Daily Immunizations Up To Date Tetanus Booster (TDap): Unknown PED Vaccines UTD: Yes Influenza Vaccine Up-to-Date: Yes; Up-to-Date First/Initial COVID19 Vaccinat: 2020 Second COVID19 Vaccination Michi: 2020 Third COVID19 Vaccination Date: 2021 Seasonal Allergies Seasonal Allergies: No Past Medical History Surgery/Hospitalization HX: COPD, HTN HYST, APPY Surgeries: Yes (NECK; L CTR; R CTR 12/2021) Appendectomy, Gallbladder, Hysterectomy, Orthopedic Respiratory: Yes (O2 2L/NC CONTINUOUSLY; CPAP AT NIGHT) Pneumonia, Chronic Bronchitis, Sleep Apnea, COPD, Emphysema Currently Using CPAP: Yes Currently Using BIPAP: No Cardiac: Yes Hypertension Neurological: No 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 Disorders: Yes (HPV) Female 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 Disorders: Denies 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, 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 Sexually Transmitted Disease: Yes (HPV) HIV/AIDS: No Genitourinary: Yes UTI-Chronic Gastrointestinal: Yes Hemorrhoids, Chronic Diarrhea, Polyps, Gall Bladder Disease Musculoskeletal: Yes (BILAT CARPAL TUNNEL SURGERY) Arthritis, Chronic Back Pain Endocrine: No HEENT: Yes (GLASSES) Loss of Vision: Denies Hearing Impairment: Denies Cancer: Yes Vaginal Did You Recieve Any Treatments: Yes What Type of Treatment Did You: Radiation Psychosocial: Yes (PANIC ATTACKS) Anxiety, PTSD Integumentary: No Blood Disorders: No Adverse Reaction/Blood Tranf: No (HAS HAD BLOOD WITH NO REACTION) Family Medical History Cardiovascular disease G8 BROTHER Diabetes mellitus G8 BROTHER G8 BROTHER Hypertension G8 BROTHER Neoplasm 19 FATHER (LEUKEMIA LYMPHOMA) G8 BROTHER (LEUKEMIA) Respiratory disorder 19 FATHER 19 MOTHER G8 BROTHER Hypertension SOCIAL HISTORY: -SMOKES 1 PPD -ETOH--DRINKS DAILY--"COUPLE OF DRINKS" -DRUGS--DENIES USE PAST SURGICAL HISTORY: -BILATERAL CARPAL TUNNEL -NECK SURGERY -CHOLECYSTECTOMY -APPENDECTOMY -HYSTERECTOMY Physical Exam Vital Signs - First Documented Capillary Refill : Height: 5'3.00" Weight: 112lbs. 8.0oz. 51.234757va; 23.00 BMI Method:Estimated General Appearance: thin, other (REEKS OF CIGARETTES) Neck: normal inspection Respiratory: respiratory distress, decreased breath sounds, accessory muscle use, other (MODERATE DISTRESS, WITH ESSENTIALLY NO AIR MOVEMENT) Cardiovascular: regular rate, rhythm, no JVD Gastrointestinal: non tender, soft Extremities: normal inspection, no pedal edema, normal capillary refill Neurologic/Psychiatric: no motor/sensory deficits, alert, oriented x 3 Skin: warm/dry, pallor Focused Exam Sepsis Stage: Ruled Out Reason for ruling out sepsis: DOES NOT MEET CRITERIA Possible Source: Pulmonary Lactate Level 09/27/22 00:00: Lactic Acid Level 0.68 Time of Focused Exam: 01:30 Respiratory: Normal Breath Sounds, No Accessory Muscle Use, No Respiratory Distress, Other (INCREASED AERATION) Cardiovascular: Regular Rate, Rhythm, No Murmur Capillary Refill: Less Than 3 Seconds Skin: normal color, warm/dry Lactic Acid Level Laboratory Tests Test 09/27/22 00:00 Lactic Acid Level 0.68 MMOL/L (0.50-2.00) Within 3hrs of presentation: Admin fluids, Admin ABX, Blood cultures prior to ABX's, Focus exam, Lactate level Procedures/Interventions Date of ETT Placement: Jan 03, 2018 Time of ETT Placement: 1640 Progress/Results/Core Measures Suspected Sepsis SIRS Temperature: Pulse: 93 Respiratory Rate: 22 Laboratory Tests 09/27/22 00:00: White Blood Count 6.0 Blood Pressure 149 /94 Mean: 112 09/27/22 00:00: Lactic Acid Level 0.68 Laboratory Tests 09/27/22 00:00: Creatinine 0.94, INR Comment 1.0, Platelet Count 190, Total Bilirubin 0.7 Results/Orders Lab Results Laboratory Tests Test 09/26/22 23:59 09/27/22 00:00 09/27/22 00:17 09/27/22 00:42 Range/Units Glucometer 125 H 70-110 MG/DL White Blood Count 6.0 4.3-11.0 10^3/uL Red Blood Count 3.93 3.80-5.11 10^6/uL Hemoglobin 13.3 11.5-16.0 g/dL Hematocrit 41 35-52 % Mean Corpuscular Volume 103 H 80-99 fL Mean Corpuscular Hemoglobin 34 25-34 pg Mean Corpuscular Hemoglobin Concent 33 32-36 g/dL Red Cell Distribution Width 13.0 10.0-14.5 % Platelet Count 190 130-400 10^3/uL Mean Platelet Volume 9.4 9.0-12.2 fL Immature Granulocyte % (Auto) 1 % Neutrophils (%) (Auto) 58 42-75 % Lymphocytes (%) (Auto) 27 12-44 % Monocytes (%) (Auto) 10 0-12 % Eosinophils (%) (Auto) 4 0-10 % Basophils (%) (Auto) 1 0-10 % Neutrophils # (Auto) 3.5 1.8-7.8 10^3/uL Lymphocytes # (Auto) 1.6 1.0-4.0 10^3/uL Monocytes # (Auto) 0.6 0.0-1.0 10^3/uL Eosinophils # (Auto) 0.2 0.0-0.3 10^3/uL Basophils # (Auto) 0.0 0.0-0.1 10^3/uL Immature Granulocyte # (Auto) 0.0 0.0-0.1 10^3/uL Prothrombin Time 13.0 12.2-14.7 SEC INR Comment 1.0 0.8-1.4 Activated Partial Thromboplast Time 31 24-35 SEC D-Dimer 0.60 H 0.00-0.49 UG/ML Sodium Level 139 135-145 MMOL/L Potassium Level 3.7 3.6-5.0 MMOL/L Chloride Level 102 98-107 MMOL/L Carbon Dioxide Level 26 21-32 MMOL/L Anion Gap 11 5-14 MMOL/L Blood Urea Nitrogen 12 7-18 MG/DL Creatinine 0.94 0.60-1.30 MG/DL Estimat Glomerular Filtration Rate 64 BUN/Creatinine Ratio 13 Glucose Level 113 H 70-105 MG/DL Lactic Acid Level 0.68 0.50-2.00 MMOL/L Calcium Level 8.9 8.5-10.1 MG/DL Corrected Calcium 9.0 8.5-10.1 MG/DL Magnesium Level 2.2 1.6-2.4 MG/DL Total Bilirubin 0.7 0.1-1.0 MG/DL Aspartate Amino Transf (AST/SGOT) 19 5-34 U/L Alanine Aminotransferase (ALT/SGPT) 14 0-55 U/L Alkaline Phosphatase 42 40-136 U/L Total Creatine Kinase 135 29-168 U/L Creatine Kinase MB 5.3 <6.6 NG/ML Myoglobin 66.3 10.0-92.0 NG/ML Troponin I < 0.028 <0.028 NG/ML B-Type Natriuretic Peptide 48.3 <100.0 PG/ML Total Protein 6.2 L 6.4-8.2 GM/DL Albumin 3.9 3.2-4.5 GM/DL TSH Clay Testing 2.10 0.35-4.94 UIU/ML Blood Gas Puncture Site L RAD Blood Gas Patient Temperature 36 Arterial Blood pH 7.40 7.37-7.43 Arterial Blood Partial Pressure CO2 47 H 35-45 MMHG Arterial Blood Partial Pressure O2 151 H 79-93 MMHG Arterial Blood HCO3 29 H 23-27 MMOL/L Arterial Blood Total CO2 30.3 21.0-31.0 MMOL/L Arterial Blood Oxygen Saturation 99 94-100 % Arterial Blood Base Excess 4.1 H -2.5-2.5 MMOL/L Rush Test YES-POS Blood Gas Ventilator Setting NO Blood Gas Inspired Oxygen BIPAP Influenza Type A (RT-PCR) Not Detected Not Detecte Influenza Type B (RT-PCR) Not Detected Not Detecte SARS-CoV-2 RNA (RT-PCR) Not Detected Not Detecte My Orders Orders - SHAILESH HICKMAN DO Ed Iv/Invasive Line Start (09/26/22 23:54) Ekg Tracing (09/26/22 23:54) O2 (09/26/22 23:54) Monitor-Rhythm Ecg Trace Only (09/26/22 23:54) Chest 1 View, Ap/Pa Only (09/26/22 23:54) Catheter(Urinary) Insert & Ass 03,15 (09/26/22 23:57) Arterial Blood Gas (09/26/22 00:17) Bnp [place] (09/26/22 23:57) Cbc With Automated Diff (09/26/22 23:57) Comprehensive Metabolic Panel (09/26/22 23:57) Creatine Kinase (09/26/22 23:57) Creatine Kinase Mb (09/26/22 23:57) Fibrin Degradation Products (09/26/22 23:57) Lactic Acid Analyzer (09/26/22 23:57) Magnesium (09/26/22 23:57) Protime With Inr (09/26/22 23:57) Partial Thromboplastin Time (09/26/22 23:57) Thyroid Analyzer (09/26/22 23:57) Ua Culture If Indicated (09/26/22 23:57) Myoglobin Serum (09/26/22 23:57) Troponin I [place] (09/26/22 23:57) Albuterol Pre-Mix Nebs (Rt) (Albuterol (09/26/22 23:57) Albuterol/Ipra Inhalation Soln (Duoneb I (09/27/22 00:00) Dexamethasone Injection (Decadron Injec (09/27/22 00:00) Rt Request For Service (09/26/22 23:57) Dexamethasone Injection (Decadron Inje (09/27/22 00:00) Lidocaine 2% (Urojet) (Xylocaine Urojet) (09/27/22 00:00) Svn Small Volume Nebulizer (09/26/22 23:57) Svn Small Volume Nebulizer (09/26/22 23:57) Covid 19 Inhouse Test (09/27/22 00:41) Influenza A And B By Pcr (09/27/22 00:41) Arterial Blood Draw - Obtain (09/27/22 00:15) Cefepime Injection (Cefepime Injection) (09/27/22 01:00) Lorazepam Injection (Ativan Injection) (09/27/22 01:15) Medications Given in ED Vital Signs/I&O 09/26/22 09/26/22 09/26/22 09/27/22 23:55 23:55 23:55 00:10 Temp 36.0 Pulse 96 83 Resp 26 23 B/P (MAP) 173/84 (113) Pulse Ox 100 99 96 O2 Delivery Room Air Non Rebreather Non Rebreather O2 Flow Rate 2.00 45.00 09/27/22 02:38 Temp 36.0 Pulse 93 Resp 22 B/P (MAP) 149/94 Pulse Ox 100 O2 Delivery Room Air O2 Flow Rate 45.00 Capillary Refill : Blood Pressure Mean: 112 Point of Care Testing Finger Stick Blood Glucose: 125 Blood Glucose Action Taken: RN AND PHYSICIAN NOTIFIED Progress Note : Progress Note VITALS ON ARRIVAL: TEMP 36.0=96.8, HR 96, RR 26, BP 173/84, O2 SAT 99-100% WITH NEB TREATMENT IN PROGRESS ON ARRIVAL GIVEN: -DECADRON IV -HOUR LONG NEB TREATMENT -ANTIBIOTICS -IV FLUIDS PT IMMEDIATELY PLACED ON BIPAP ON ARRIVAL, AND HOUR LONG NEB TREATMENT AND IV STEROIDS GIVEN. SHE HAD SIGNIFICANT IMPROVEMENT IN SYMPTOMS AND INCREASED AERATION, RESPIRATIONS EVEN AND UNLABORED, AND MUCH IMPROVED COLOR. PERTINENT LABS: -CBC WITH WBC 6.0 -CMP IS ESSENTIALLY NORMAL -TROPONIN AND BNP ARE NORMAL -ABG'S WITH PH 7.4, PCO2 47, PO2 151, HCO3 29, O2 SAT 99% ON BIPAP -COVID AND FLU NEGATIVE CXR IS UNREMARKABLE EKG IS UNREMARKABLE. NO DETERIORATION IN PT'S CONDITION DURING ER STAY. PT FEELS MUCH BETTER. PT WISHES TO BE A FULL CODE ECG Initial ECG Impression Date: Sep 27, 2022 Initial ECG Impression Time: 00:26 Initial ECG Rate: 96 Initial ECG Rhythm: Normal Sinus (WITH MUCH ARTIFACT DUE TO LABORED BREATHING) Initial ECG Intervals: Normal Initial ECG Impression: Nonspecific Changes Comment INTERPRETED BY ME Diagnostic Imaging Comments CXR--NO ACUTE PROCESS, PENDING RADIOLOGIST REVIEW Reviewed: Reviewed by Me Departure Communication (Admissions) 0140--SPOKE WITH DR. BAUTISTA, ACCEPTS PT FOR ADMIT 0141--REPORT TO E-ICU PHYSICIAN. Impression Primary Impression: Acute on chronic respiratory failure with hypoxia and hypercapnia Additional Impression: COPD exacerbation Disposition: ADMITTED INPATIENT Condition: Improved Admissions Decision to Admit Reason: Admit from ER (General) Decision to Admit/Date: Sep 27, 2022 Time/Decision to Admit Time: 01:40 Departure-Patient Inst. Referrals: GEORGINA GARCIA DO (PCP/Family) Primary Care Physician SHAILESH HICKMAN DO Sep 27, 2022 02:59
[2022-09-27 03:30] LABS: BASOPHILS % (AUTO) 0 % (0-10); EOSINOPHILS % (AUTO) 1 % (0-10); HEMATOCRIT 40 % (35-52); HEMOGLOBIN 13.4 g/dL (11.5-16.0); LYMPHOCYTES # (AUTO) 0.5 10^3/uL (1.0-4.0); LYMPHOCYTES % (AUTO) 7 % (12-44); MEAN CORPUSCULAR HEMOGLOBIN 34 pg (25-34); MEAN CORPUSCULAR HGB CONC 33 g/dL (32-36); MEAN CORPUSCULAR VOLUME 101 fL (80-99); MEAN PLATELET VOLUME 9.5 fL (9.0-12.2); MONOCYTES # (AUTO) 0.2 10^3/uL (0.0-1.0); MONOCYTES % (AUTO) 2 % (0-12); NEUTROPHILS # (AUTO) 6.8 10^3/uL (1.8-7.8); NEUTROPHILS % (AUTO) 90 % (42-75); PLATELET COUNT 180 10^3/uL (130-400); WHITE BLOOD COUNT 7.6 10^3/uL (4.3-11.0)
[2022-09-27 03:44] LABS: ALBUMIN 3.9 GM/DL (3.2-4.5); POTASSIUM 4.1 MMOL/L (3.6-5.0)
[2022-09-27] MEDS ORDERED: RT-ALBUTEROL SULF 2.5 MG/3 ML PRE-MIX VIAL INH PRN (03:45)
[2022-09-27 03:47] LABS: TOTAL PROTEIN 6.2 GM/DL (6.4-8.2)
[2022-09-27 03:49] LABS: BILIRUBIN,TOTAL 0.7 MG/DL (0.1-1.0)
[2022-09-27 03:49] LABS: ABG BASE EXCESS 2.7 MMOL/L (-2.5-2.5); ABG OXYGEN SATURATION 100 % (94-100); ABG PCO2 47 MMHG (35-45); ABG PH 7.38 (7.37-7.43); ABG PO2 113 MMHG (79-93); ABG TCO2 28.8 MMOL/L (21.0-31.0)
[2022-09-27 03:50] LABS: PHOSPHORUS 3.9 MG/DL (2.3-4.7)
[2022-09-27 03:50] LABS: ALLENS TEST YES-POS; INSPIRED O2 45%; PATIENT TEMP 36; VENTILATOR NO
[2022-09-27 03:51] LABS: CREATININE SERUM 0.95 MG/DL (0.60-1.30)
--- NOTE | 2022-09-27 04:04 | Tele-ICU Consult ---
History of Present Illness History of Present Illness Date Seen by Provider: Sep 27, 2022 Time Seen by Provider: 04:03 Date of Admission 09/27/22 History of Present Illness (Tele-ICU Physician , consultation note) Service provided via interactive audio and video telecommunications E-CARE system to a patient admitted to ICU bed no new physicians they can do it for some reason Use the [place] dictation for all the other side just correct and cough. Copy Via [facility]. Patient is seen today due to persistent need of ICU care Available chart/ vitals / labs / Images reviewed Video assessment done using teleICU camera, rest of exam as per RN She is a 71-year-old female with past medical history of chronic obstructive pulmonary disease on home oxygen apparently has been in having short of breath for the last 24 hours or so and became very short of breath hence came to the emergency room where she is found to be in moderate respiratory distress hence s he is put on a BiPAP ventilation and admitted to the intensive care unit for close monitoring and management. Denies any fever. Impression 1. Acute and chronic respiratory failure 2. COPD exacerbation secondary to heat and humidity 3. History of carpal tunnel syndrome release. Recommendations 1. Continue BiPAP ventilation 2. IV steroids 3. DuoNeb nebulizer treatments 4. Empiric antibiotics 5. DVT prophylaxis Coordination of care with primary care physician and bedside consultants. I am remotely monitoring this patient from Tele icu station in [place]. I am unable to do the bedside exam, and history/physical and pertinent information is taken from other notes in the computer and bedside staff. Certain portions of this document may have been dictated utilizing voice recogni tion technology such as [employer]. Inherent to this technology, typographical and grammatical errors may exist. As much as I am diligent to identify and correct to these mistakes, some errors may remain in the document. Critical care time devoted to this patient today is approximately is-35 minutes Allergies and Home Medications Allergies Coded Allergies: Sulfa (Sulfonamide Antibiotics) (Unverified Allergy, Severe, SOB, SWELLING, RASH, 12/11/21) penicillin (Unverified Allergy, Unknown, Pt has received Ceftriaxone w/o issue, 12/11/21) Home Medications Albuterol Sulfate 18 Gm Hfa.aer.ad, 2 PUFF INH Q6H PRN for WHEEZING, (Reported) Alprazolam 0.5 Mg Tablet, 1 MG PO Q6H PRN for ANXIETY, (Reported) Amlodipine Besylate 5 Mg Tablet, 5 MG PO DAILY, (Reported) Azithromycin 500 Mg Tablet, 500 MG PO DAILY Prescribed by: SHAILESH HICKMAN on 03/02/222348 Benzonatate 100 Mg Capsule, 200 MG PO TID Prescribed by: SHAILESH HICKMAN on 03/02/222348 Cefdinir 300 Mg Capsule, 300 MG PO BID Prescribed by: SHAILESH HICKMAN on 03/02/222348 Clonazepam 1 Mg Tablet, 1.5 MG PO BID, (Reported) TAKES 1 & 1/2 (1MG) TABLET Divalproex Sodium 250 Mg Tablet.dr, 250 MG PO DAILY, (Reported) Fluticasone Propionate 1 Ea Aero, 1 EA IH BID, (Reported) Ipratropium [place] 0.2 Mg/1 Ml Solution, 1 VIAL NEB TID PRN for SHORTNESS OF BREATH, (Reported) Losartan Potassium 50 Mg Tablet, 50 MG PO DAILY Prescribed by: FIOR PARRA on 01/07/21 1341 Prednisone 10 Mg Tab.ds.pk, 10 MG PO UD Take 6 tabs(60mg)daily,decrease by 1 tab(10MG)daily. Prescribed by: SHAILESH HICKMAN on 03/02/222348 Roflumilast 500 Mcg Tablet, 500 MCG PO DAILY, (Reported) Past Medical/Social/Family Hx Patient Social History Tobacco Use?: Yes Tobacco type used: Cigarettes Smoking Status: Current Everyday Smoker Use of E-Cig and/or Vaping dev: No Substance use?: No Alcohol Use?: No Immunizations Up To Date Influenza Vaccine Up-to-Date: Yes; Up-to-Date First/Initial COVID19 Vaccinat: 2020 Second COVID19 Vaccination Michi: 2020 Tetanus Booster (TDap): Unknown Date of Pneumonia Vaccine: Dec 01, 2016 Current Status Communicates: Verbally Primary Language: Singaporean Preferred Spoken Language: Singaporean Is interpretation needed?: No Review of Systems Constitutional: see HPI, other (shortness of breath) Focused Exam Lactate Level 09/27/22 00:00: Lactic Acid Level 0.68 09/27/22 03:10: Lactic Acid Level 1.61 Height, Weight, BMI Height: 5'3.00" Weight: 112lbs. 8.0oz. 51.849741fo; 23.00 BMI Method:Estimated Lactic Acid Level Laboratory Tests Test 09/27/22 03:10 Lactic Acid Level 1.61 MMOL/L (0.50-2.00) Exam Exam Patient acknowledged, consented, and participated in this virtual visit which was conducted using real time audio/video Vital Signs Date Time Temp Pulse Resp B/P (MAP) Pulse Ox O2 Delivery O2 Flow Rate FiO2 09/27/22 04:00 NIV Bilevel 28.00 09/27/22 03:45 92 21 129/78 (90) 98 NIV Bilevel 30.00 09/27/22 03:33 36.0 83 98 30 09/27/22 03:30 97 23 142/79 (111) 98 NIV Bilevel 30.00 09/27/22 03:30 97 23 142/79 (111) 98 30.00 09/27/22 03:16 100 09/27/22 03:15 98 13 167/93 (126) 100 NIV Bilevel 09/27/22 03:15 98 13 167/93 (126) 100 NIV Bilevel 30.00 09/27/22 03:11 98 25 166/91 (126) 100 NIV Bilevel 30.00 09/27/22 03:11 98 25 166/91 (126) 100 NIV Bilevel 35.00 09/27/22 03:09 36.2 32 176/90 (135) 99 NIV Bilevel 35.00 09/27/22 03:09 36.2 32 176/90 (135) 99 NIV Bilevel 35.00 09/27/22 02:38 36.0 93 22 149/94 100 Room Air 45.00 09/27/22 00:10 83 23 96 45.00 09/26/22 23:55 99 Non Rebreather 09/26/22 23:55 36.0 96 26 173/84 (113) 100 Non Rebreather 09/26/22 23:55 Room Air 2.00 I & O 09/27/22 07:00 Intake Total 50 ml Balance 50 ml Height & Weight Height: 5'3.00" Weight: 112lbs. 8.0oz. 51.603463wy; 23.00 BMI Method:Estimated General Appearance: Chronically ill, Moderate Distress Results Lab Laboratory Tests 09/27/22 00:00 09/27/22 03:10 Assessment/Plan Assessment/Plan as above Critical Care: Critically Ill Patient Time spent with patient (mins): 35 XIMENA BURR MD Sep 27, 2022 04:04
[2022-09-27 04:14] LABS: ATYPICAL LYMPHOCYTES 1 %; BAND NEUTROPHILS 1 %; EOSINOPHILS % (MANUAL) 1 %; LYMPHOCYTES % (MANUAL) 12 %; MONOCYTES % (MANUAL) 2 %; NEUTROPHILS % (MANUAL) 83 %
[2022-09-27] MEDS ORDERED: fentaNYL INJ 100 MCG/2 ML AMP IV PRN (04:30)
[2022-09-27] MEDS ORDERED: ONDANSETRON 4 MG/2 ML (SDV) Z0FRAN IV PRN (04:45)
[2022-09-27] MEDS ORDERED: LORazepam INJ 2 MG/ML (ATIVAN) VIAL IV PRN (04:45)
[2022-09-27] MEDS ORDERED: VASOPRESSIN INJECTION 20 UNIT in NS (IVPB) 100 ML 100 ML IV SCH (04:45)
[2022-09-27] MEDS ORDERED: LACTATED RINGERS 1,000 ML IV SCH (04:45)
[2022-09-27] MEDS ORDERED: EPINEPHrine 1 MG INJECTION 4 MG in NS (IVPB) 250 ML 248 ML IV SCH (04:45)
[2022-09-27] MEDS ORDERED: NOREPINEPHRINE 8 MG/250 ML 250 ML IV SCH (04:45)
--- NOTE | 2022-09-27 05:37 | History & Physical-Hospitalist ---
History of Present Illness HPI/Chief Complaint Patient is a 71-year-old female with past medical history of COPD and hypertension who presented to the emergency department due to shortness of breath. She reports her symptoms started over the past day. She normally wears oxygen at night with her CPAP but has been requiring oxygen the whole day. She is wheezing. She was quite dyspneic on arrival to the emergency room and was placed on BiPAP and reports feeling much better now. She remains on BiPAP but is asking if she can be discharged home today as she feels so much better. Discussed plan to monitor at least 1 more night off of BiPAP to ensure stability. Date Seen 09/27/22 Time Seen by a Provider: 05:30 Attending Physician Mehul Bermeo DO PCP Admitting Physician: Dorie Fiore MD Attending Physician: Dorie Fiore MD Referring Physician Date of Admission Sep 27, 2022 at 02:42 Home Medications & Allergies Home Medications Reviewed patient Home Medication Reconciliation performed by pharmacy medication reconciliations database software technician and/or nursing. Patients Allergies have been reviewed. Allergies Allergies Coded Allergies Sulfa (Sulfonamide Antibiotics) (Unverified Allergy, Severe, SOB, SWELLING, RASH, 12/11/21) penicillin (Unverified Allergy, Unknown, Pt has received Ceftriaxone w/o issue, 12/11/21) Past Ofwpifg-Rujacv-Xlfgag Hx Patient Social History Tobacco Use?: Yes Tobacco type used: Cigarettes Smoking Status: Current Everyday Smoker Use of E-Cig and/or Vaping dev: No Substance use?: No Alcohol Use?: Unable to obtain Pt feels they are or have been: Unable to obtain Immunizations Up To Date Date of Influenza Vaccine: Dec 06, 2021 First/Initial COVID19 Vaccinat: 2020 Second COVID19 Vaccination Michi: 2020 Tetanus Booster (TDap): Unknown PED Vaccines UTD: Yes Date of Pneumonia Vaccine: Dec 01, 2016 Seasonal Allergies Seasonal Allergies: No Current Status Communicates: Verbally Primary Language: B[place]ian Preferred Spoken Language: Bermudian Is interpretation needed?: No Implanted or Applied Medical D: CPAP Past Medical History Surgeries: Appendectomy, Gallbladder, Hysterectomy, Orthopedic Pneumonia, Chronic Bronchitis, COPD, Emphysema Currently Using CPAP: Yes Currently Using BIPAP: No 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, 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 Sexually Transmitted Disease: Yes (HPV) HIV/AIDS: No UTI-Chronic Hemorrhoids, Chronic Diarrhea, Polyps, Gall Bladder Disease Arthritis, Chronic Back Pain Loss of Vision: Denies Hearing Impairment: Denies Vaginal Did You Recieve Any Treatments: Yes What Type of Treatment Did You: Radiation Anxiety, PTSD Blood Disorders: No Adverse Reaction/Blood Tranf: No (HAS HAD BLOOD WITH NO REACTION) Family Medical History Cardiovascular disease G8 BROTHER Diabetes mellitus G8 BROTHER G8 BROTHER Hypertension G8 BROTHER Neoplasm 19 FATHER (LEUKEMIA LYMPHOMA) G8 BROTHER (LEUKEMIA) Respiratory disorder 19 FATHER 19 MOTHER G8 BROTHER Hypertension Review of Systems Constitutional: see HPI Physical Exam Physical Exam Vital Signs Vital Signs - First Documented 09/27/22 03:33 FiO2 30 Capillary Refill : Height, Weight, BMI Height: 5'3.00" Weight: 112lbs. 8.0oz. 51.440452pe; 23.53 BMI Method:Estimated General Appearance: No Apparent Distress Respiratory: Other (Expiratory wheezes but breathing comfortably on BiPAP) Cardiovascular: Regular Rate, Rhythm, No Murmur Gastrointestinal: Normal Bowel Sounds, Soft Extremity: No Pedal Edema Neurologic/Psychiatric: Alert, Oriented x3 Results Results/Procedures Labs Laboratory Tests 09/27/22 00:00 09/27/22 03:10 Patient resulted labs reviewed. Imaging: Reviewed Imaging Films Assessment/Plan Admission Diagnosis Acute respiratory failure Admission Status: Inpatient Order (span 2 midnights) Reason for Inpatient Admission: See below Assessment and Plan Acute respiratory failure COPD exacerbation Continue on BiPAP try to wean off this morning Continue steroid switch to oral Continue empiric antibiotics Reviewed chest x-ray no obvious pneumonia Sputum culture ordered MAT protocol Resume home inhalers once med rec done HTN Continue home meds Anxiety Continue home Xanax DVT ppx: Lovenox Diagnosis/Problems Diagnosis/Problems (1) Acute respiratory failure (2) COPD with exacerbation Status: Acute (3) HTN (hypertension) Status: Acute (4) Anxiety Status: Chronic (5) Prophylactic measure (6) Smoker Status: Chronic DORIE FIORE MD Sep 27, 2022 05:37
[2022-09-27] MEDS ORDERED: dexAMETHasone INJECTION 20 MG in NS (IVPB) 50 ML 50 ML IV SCH (06:00)
--- NOTE | 2022-09-27 06:20 | Diagnostic Imaging Report ---
EXAMINATION: Chest 1 view HISTORY: DYSPENA COMPARISON: 03/02/2022 FINDINGS: Heart size and pulmonary vasculature are normal. The lungs are clear without consolidation, pleural effusion, or pneumothorax. The osseous structures are intact. IMPRESSION: 1. No acute radiographic abnormality in the chest. Dictated by: Dictated on workstation # [id number]
[2022-09-27] MEDS: ENOXAPARIN 40 MG/0.4 ML (LOVENOX) SYR SQ SCH (06:38)
[2022-09-27] MEDS ORDERED: predniSONE 20 MG TAB PO SCH (07:00)
[2022-09-27] MEDS: RT-ALBUTEROL/IPRATROPIUM 3 ML (DUONEB) VIAL INH SCH ×5 (07:24→21:59)
[2022-09-27] MEDS: LOSARTAN 50 MG (COZAAR) TAB PO SCH (08:09)
[2022-09-27] MEDS: ALPRAZolam 1 MG TABLET PO PRN ×3 (08:09→18:52)
[2022-09-27] MEDS: DIVALPROEX 250 MG DELAYED RELEASE (DEPAKOTE) TAB PO SCH ×2 (08:10→20:00)
[2022-09-27] MEDS: CEFEPIME 1,000 MG/NS 50 ML IVPB IV SCH ×4 (08:10→17:06)
--- NOTE | 2022-09-27 08:22 | Tele-ICU Progress Note ---
Subjective Date Seen by a Provider: Sep 27, 2022 Time Seen by a Provider: 08:17 Subjective/Events-last exam (Tele-ICU Physician , Progress Note ) Service provided via interactive audio and video telecommunications E-CARE system to a patient admitted to ICU bed in [facility]. Patient is seen today due to persistent need of ICU care Available chart/ vitals / labs / Images reviewed Video assessment done using teleICU camera, rest of exam as per RN Discussed with RN Events overnight : 71 yo F admitted last night for AECOPD, on home oxygen, placed on BIPAP, now on 2l NC with SpO2 97%, On IV Cefepime, prednisone 40 alb, CXR shows mild hyperinflation, no infiltrate, Hb 13, trop neg 4am ABG 7.38 Not in resp distress Sepsis Event Evaluation Height, Weight, BMI Height: 5'3.00" Weight: 112lbs. 8.0oz. 51.628803tx; 23.53 BMI Method:Estimated Focused Exam Lactate Level 09/27/22 00:00: Lactic Acid Level 0.68 09/27/22 03:10: Lactic Acid Level 1.61 Time of Focused Exam: 01:30 Exam Exam Patient acknowledged, consented, and participated in this virtual visit which was conducted using real time audio/video Vital Signs Date Time Temp Pulse Resp B/P (MAP) Pulse Ox O2 Delivery O2 Flow Rate FiO2 09/27/22 07:56 35.8 09/27/22 07:27 97 Nasal Cannula 2.00 09/27/22 07:00 91 21 147/86 (103) 96 NIV Bilevel 28.00 09/27/22 07:00 93 09/27/22 06:00 92 21 137/76 (108) 93 NIV Bilevel 30.00 09/27/22 06:00 91 21 137/76 (96) 97 NIV Bilevel 28.00 09/27/22 05:30 89 15 95 NIV Bilevel 30.00 09/27/22 05:15 95 18 94 09/27/22 05:00 96 14 135/77 (89) 94 NIV Bilevel 28.00 09/27/22 05:00 96 14 135/77 (89) 94 NIV Bilevel 30.00 09/27/22 04:45 137/74 (83) NIV Bilevel 09/27/22 04:45 137/74 (83) 09/27/22 04:30 92 20 130/73 (92) 93 NIV Bilevel 28.00 09/27/22 04:30 92 20 130/73 (92) 93 NIV Bilevel 30.00 09/27/22 04:28 28.00 09/27/22 04:15 93 19 141/70 (100) 09/27/22 04:15 93 19 141/70 (100) NIV Bilevel 30.00 09/27/22 04:00 92 18 133/71 (94) 95 NIV Bilevel 30.00 09/27/22 04:00 NIV Bilevel 28.00 09/27/22 04:00 98 NIV Bilevel 30 09/27/22 04:00 98 NIV Bilevel 30 09/27/22 03:45 92 21 129/78 (90) 98 NIV Bilevel 30.00 09/27/22 03:45 92 21 129/78 (90) 98 NIV Bilevel 30.00 09/27/22 03:33 36.0 83 98 30 09/27/22 03:30 97 23 142/79 (111) 98 NIV Bilevel 30.00 09/27/22 03:30 97 23 142/79 (111) 98 30.00 09/27/22 03:16 100 09/27/22 03:15 98 13 167/93 (126) 100 NIV Bilevel 09/27/22 03:15 98 13 167/93 (126) 100 NIV Bilevel 30.00 09/27/22 03:11 98 25 166/91 (126) 100 NIV Bilevel 30.00 09/27/22 03:11 98 25 166/91 (126) 100 NIV Bilevel 35.00 09/27/22 03:09 36.2 32 176/90 (135) 99 NIV Bilevel 35.00 09/27/22 03:09 36.2 32 176/90 (135) 99 NIV Bilevel 35.00 09/27/22 02:38 36.0 93 22 149/94 100 Room Air 45.00 09/27/22 00:10 83 23 96 45.00 09/26/22 23:55 99 Non Rebreather 09/26/22 23:55 36.0 96 26 173/84 (113) 100 Non Rebreather 09/26/22 23:55 Room Air 2.00 I & O 09/27/22 07:00 Intake Total 243 ml Balance 243 ml Height & Weight Height: 5'3.00" Weight: 112lbs. 8.0oz. 51.744140gq; 23.53 BMI Method:Estimated General Appearance: No Apparent Distress Respiratory: Normal Breath Sounds, No Accessory Muscle Use, No Respiratory Dist ress, Wheezing (soft wheezing both lung which pt says is normal), Other (INCREASED AERATION) Cardiovascular: Regular Rate, Rhythm, No Murmur, Tachycardia Capillary Refill: Less Than 3 Seconds Gastrointestinal: normal bowel sounds, non tender, soft Extremity: No Pedal Edema Neurologic/Psychiatric: Alert, Oriented x3 Results Lab Laboratory Tests 09/27/22 00:00 09/27/22 03:10 Assessment/Plan Assessment/Plan AECOPD, doing better will continue albuterol, start to taper prednisone Critical Care: Critically Ill Patient Time spent with patient (mins): 25 JASE SAM MD Sep 27, 2022 08:22
[2022-09-27 13:40] LABS: BILIRUBIN,URINE NEGATIVE (NEGATIVE); CLARITY,URINE CLEAR; COLOR,URINE YELLOW; GLUCOSE, URINE (UA) NEGATIVE (NEGATIVE); KETONES,URINE NEGATIVE (NEGATIVE); LEUKOCYTE ESTERASE ,URINE NEGATIVE (NEGATIVE); NITRITE,URINE NEGATIVE (NEGATIVE); PROTEIN,URINE NEGATIVE (NEGATIVE)
[2022-09-27 13:48] LABS: BACTERIA,URINE NEGATIVE /HPF; SQUAMOUS EPITHELIAL CELL,UR 0-2 /HPF; WBC,URINE RARE /HPF
[2022-09-27 14:04] LABS: AMPHETAMINE SCREEN, URINE NEGATIVE (NEGATIVE); BARBITURATE SCREEN URINE NEGATIVE (NEGATIVE); BENZODIAZEPINES SCREEN URINE POSITIVE (NEGATIVE); CANNABINOID SCREEN, URINE NEGATIVE (NEGATIVE); COCAINE SCREEN URINE NEGATIVE (NEGATIVE); METHADONE STAT NEGATIVE (NEGATIVE); OPIATE SCREEN URINE NEGATIVE (NEGATIVE); OXYCODONE STAT NEGATIVE (NEGATIVE); PROPOXYPHENE STAT NEGATIVE (NEGATIVE); TRICYCLIC ANTIDEPRESSANTS SCRE NEGATIVE (NEGATIVE)
[2022-09-27] MEDS ORDERED: REVE175V IH (15:54)
[2022-09-27] MEDS ORDERED: AZIT250T12 PO (15:54)
[2022-09-27] MEDS ORDERED: FORM20VI IH (15:54)
[2022-09-27] MEDS ORDERED: GUAI600T43 PO (15:54)
[2022-09-27] MEDS ORDERED: LOSA50TA63 PO (15:58)
[2022-09-27] MEDS ORDERED: ALPRAZolam 1 MG TABLET ONE (18:50)
[2022-09-28] MEDS: CEFEPIME 1,000 MG/NS 50 ML IVPB IV SCH ×4 (01:36→09:11)
[2022-09-28] MEDS: RT-ALBUTEROL/IPRATROPIUM 3 ML (DUONEB) VIAL INH SCH ×3 (02:30→10:02)
[2022-09-28 03:19] VITALS: BP 149/73
[2022-09-28] MEDS: ALPRAZolam 1 MG TABLET PO PRN (04:30)
[2022-09-28 05:47] LABS: BASOPHILS % (AUTO) 0 % (0-10); EOSINOPHILS % (AUTO) 0 % (0-10); HEMATOCRIT 36 % (35-52); HEMOGLOBIN 11.9 g/dL (11.5-16.0); LYMPHOCYTES # (AUTO) 1.3 10^3/uL (1.0-4.0); LYMPHOCYTES % (AUTO) 18 % (12-44); MEAN CORPUSCULAR HEMOGLOBIN 34 pg (25-34); MEAN CORPUSCULAR HGB CONC 33 g/dL (32-36); MEAN CORPUSCULAR VOLUME 102 fL (80-99); MEAN PLATELET VOLUME 9.6 fL (9.0-12.2); MONOCYTES # (AUTO) 0.9 10^3/uL (0.0-1.0); MONOCYTES % (AUTO) 12 % (0-12); NEUTROPHILS # (AUTO) 5.3 10^3/uL (1.8-7.8); NEUTROPHILS % (AUTO) 70 % (42-75); PLATELET COUNT 173 10^3/uL (130-400); WHITE BLOOD COUNT 7.6 10^3/uL (4.3-11.0)
[2022-09-28 06:04] LABS: ALBUMIN 3.6 GM/DL (3.2-4.5); POTASSIUM 4.1 MMOL/L (3.6-5.0)
[2022-09-28 06:05] LABS: CALCIUM 8.8 MG/DL (8.5-10.1)
[2022-09-28 06:07] LABS: TOTAL PROTEIN 5.8 GM/DL (6.4-8.2)
[2022-09-28 06:08] LABS: BILIRUBIN,TOTAL 0.4 MG/DL (0.1-1.0)
[2022-09-28 06:10] LABS: CREATININE SERUM 0.89 MG/DL (0.60-1.30); PHOSPHORUS 3.6 MG/DL (2.3-4.7)
[2022-09-28 06:13] LABS: MAGNESIUM 2.2 MG/DL (1.6-2.4)
[2022-09-28] MEDS: ENOXAPARIN 40 MG/0.4 ML (LOVENOX) SYR SQ SCH (06:54)
[2022-09-28] MEDS ORDERED: predniSONE 20 MG TAB PO SCH (07:00)
[2022-09-28 08:15] VITALS: BP_SYST 191; BP_SYST 205; BP_DIAS 89; BP_DIAS 95
[2022-09-28] MEDS ORDERED: PRED10TA22 PO (08:45)
--- NOTE | 2022-09-28 08:45 | Discharge Inst-Simple/Standard ---
Discharge Inst-Standard Discharge Medications New, Converted or Re-Newed RX: Transmitted to Pharmacy Patient Instructions/Follow Up Plan of Care/Instructions/FU: Please continue to take your medications as written. Please follow up with your primary care doctor to follow up this hospital stay. Activity as Tolerated: Yes Discharge Diet: Cardiac Diet Return to The Hospital For: Chest pain, shortness of breath, fever, weakness, if you feel you are getting worse. PABLO BAUTISTA MD Sep 28, 2022 08:45
[2022-09-28] MEDS ORDERED: NON-FORMULARY MEDICATION 1 EA EA (Formoterol Fumarate (Perforomist) 20 MCG) IH SCH (09:00)
[2022-09-28] MEDS ORDERED: guaiFENesin (MUCINEX) 600 MG TAB PO SCH (09:00)
[2022-09-28] MEDS ORDERED: clonazePAM 1 MG TABLET PO SCH (09:00)
[2022-09-28] MEDS ORDERED: ROFLUMILAST 500 MCG TAB (DALIRESP) PO SCH (09:00)
[2022-09-28] MEDS: DIVALPROEX 250 MG DELAYED RELEASE (DEPAKOTE) TAB PO SCH (09:10)
[2022-09-28] MEDS: LOSARTAN 50 MG (COZAAR) TAB PO SCH (09:10)
--- NOTE | 2022-09-28 10:38 | Discharge Summary ---
Diagnosis/Chief Complaint Date of Admission Sep 27, 2022 at 02:42 Date of Discharge Discharge Date: Sep 28, 2022 Admission Diagnosis Acute respiratory failure Primary Care Georgina Bermeo DO Discharge Diagnosis (1) Acute respiratory failure (2) COPD with exacerbation Status: Acute (3) HTN (hypertension) Status: Acute (4) Anxiety Status: Chronic (5) Prophylactic measure (6) Smoker Status: Chronic Discharge Summary Discharge Physical Exam Allergies: Coded Allergies: Sulfa (Sulfonamide Antibiotics) (Unverified Allergy, Severe, SOB, SWELLING, RASH, 12/11/21) penicillin (Unverified Allergy, Unknown, Pt has received Ceftriaxone w/o issue, 12/11/21) Vitals & I&Os Vital Signs Date Time Temp Pulse Resp B/P (MAP) Pulse Ox O2 Delivery O2 Flow Rate FiO2 09/28/22 11:48 36.4 100 20 150/70 100 Nasal Cannula 2.00 09/27/22 04:00 30 General Appearance: No Apparent Distress, Chronically ill Respiratory: Lungs Clear, No Accessory Muscle Use, No Respiratory Distress, Wheezing Cardiovascular: Regular Rate, Rhythm, No Murmur Neurologic/Psychiatric: Alert, Oriented x3 Hospital Course Patient was admitted to the hospital secondary to COPD exacerbation. She required BiPAP secondary to her work of breathing and hypercapnia. She was admitted to the ICU at first but improved quickly. She was treated with steroids and matte protocol breathing treatments. She has a baseline 2 L oxygen requirement and return to that within 1 day. She was able to be discharged home in stable and improved condition to follow-up with Dr. Bermeo to follow-up this hospital stay. Labs (last 24 hrs) Laboratory Tests 09/27/22 13:33: Urine Color YELLOW, Urine Clarity CLEAR, Urine pH 6.0, Urine Specific [place] 1.025H, Urine Protein NEGATIVE, Urine Glucose (UA) NEGATIVE, Urine Ketones NEGATIVE, Urine Nitrite NEGATIVE, Urine Bilirubin NEGATIVE, Urine Urobilinogen 0.2, Urine Leukocyte Esterase NEGATIVE, Urine RBC (Auto) NEGATIVE, Urine RBC NONE, Urine WBC RARE, Urine Squamous Epithelial Cells 0-2, Urine Crystals , Urine Bacteria NEGATIVE, Urine Casts NONE, Urine Mucus NEGATIVE, Urine Culture Indicated NO, Urine Opiates Screen NEGATIVE, Urine Oxycodone Screen NEGATIVE, Urine Methadone Screen NEGATIVE, Urine Propoxyphene Screen NEGATIVE, Urine Barbiturates Screen NEGATIVE, Ur Tricyclic Antidepressants Screen NEGATIVE, Urine Phencyclidine Screen NEGATIVE, Urine Amphetamines Screen NEGATIVE, Urine Methamphetamines Screen NEGATIVE, Urine Benzodiazepines Screen POSITIVEH, Urine Cocaine Screen NEGATIVE, Urine Cannabinoids Screen NEGATIVE 09/28/22 05:13: White Blood Count 7.6, Red Blood Count 3.54L, Hemoglobin 11.9, Hematocrit 36, Mean Corpuscular Volume 102H, Mean Corpuscular Hemoglobin 34, Mean Corpuscular Hemoglobin Concent 33, Red Cell Distribution Width 13.0, Platelet Count 173, Mean Platelet Volume 9.6, Immature Granulocyte % (Auto) 0, Neutrophils (%) (Auto) 70, Lymphocytes (%) (Auto) 18, Monocytes (%) (Auto) 12, Eosinophils (%) (Auto) 0, Basophils (%) (Auto) 0, Neutrophils # (Auto) 5.3, Lymphocytes # (Auto) 1.3, Monocytes # (Auto) 0.9, Eosinophils # (Auto) 0.0, Basophils # (Auto) 0.0, I mmature Granulocyte # (Auto) 0.0, Sodium Level 140, Potassium Level 4.1, Chloride Level 107, Carbon Dioxide Level 25, Anion Gap 8, Blood Urea Nitrogen 18, Creatinine 0.89, Estimat Glomerular Filtration Rate 69, BUN/Creatinine Ratio 20, Glucose Level 90, Calcium Level 8.8, Corrected Calcium 9.1, Phosphorus Level 3.6, Magnesium Level 2.2, Total Bilirubin 0.4, Aspartate Amino Transf (AST/SGOT) 13, Alanine Aminotransferase (ALT/SGPT) 12, Alkaline Phosphatase 33L, Total Protein 5.8L, Albumin 3.6 Microbiology 09/27/22 MRSA Screen - Final, Complete MRSA not isolated Patient resulted labs reviewed. Pending Labs Laboratory Tests 09/28/22 05:13: White Blood Count 7.6, Red Blood Count 3.54, Hemoglobin 11.9, Hematocrit 36, Mean Corpuscular Volume 102, Mean Corpuscular Hemoglobin 34, Mean Corpuscular Hemoglobin Concent 33, Red Cell Distribution Width 13.0, Platelet Count 173, Mean Platelet Volume 9.6, Immature Granulocyte % (Auto) 0, Neutrophils (%) (Auto) 70, Lymphocytes (%) (Auto) 18, Monocytes (%) (Auto) 12, Eosinophils (%) (Auto) 0, Basophils (%) (Auto) 0, Neutrophils # (Auto) 5.3, Lymphocytes # (Auto) 1.3, Monocytes # (Auto) 0.9, Eosinophils # (Auto) 0.0, Basophils # (Auto) 0.0, Immature Granulocyte # (Auto) 0.0, Sodium Level 140, Potassium Level 4.1, Chloride Level 107, Carbon Dioxide Level 25, Anion Gap 8, Blood Urea Nitrogen 18, Creatinine 0.89, Estimat Glomerular Filtration Rate 69, BUN/Creatinine Ratio 20, Glucose Level 90, Calcium Level 8.8, Corrected Calcium 9.1, Phosphorus Level 3.6, Magnesium Level 2.2, Total Bilirubin 0.4, Aspartate Amino Transf (AST/SGOT) 13, Alanine Aminotransferase (ALT/SGPT) 12, Alkaline Phosphatase 33, Total Prote in 5.8, Albumin 3.6 Imaging: Reviewed Imaging Films Discussion & Recommendations Discharge Planning: >30 minutes discharge planning Discharge Home Medications: Active Scripts Active Prednisone 10 Mg Tab.ds.pk 10 Mg PO DAILY Take 6 tabs(60mg)daily,decrease by 1 tab(10MG)daily. Reported Losartan Potassium 50 Mg Tablet 50 Mg PO DAILY Yupelri (Revefenacin) 175 Mcg/3 Ml Vial.neb 175 Mcg IH NOON Perforomist (Formoterol Fumarate) 20 Mcg/2 Ml Vial.neb 20 Mcg IH BID Mucinex (Guaifenesin) 600 Mg Tab.er.12h 600 Mg PO Q12H Azithromycin 250 Mg Tablet 250 Mg PO THREE TIMES A WEEK Thursday, Thursday, Thursday Flovent Hfa 110 mcg (Fluticasone Propionate) 1 Ea Aero 1 Ea IH BID Alprazolam 0.5 Mg Tablet 1 Mg PO TID PRN Am, Noon, PM Daliresp (Roflumilast) 500 Mcg Tablet 500 Mcg PO DAILY Ipratropium [place] 0.2 Mg/1 Ml Solution 1 Vial NEB TID PRN Divalproex Sodium 250 Mg Tablet.dr 250 Mg PO BID Clonazepam 1 Mg Tablet 1.5 Mg PO BID TAKES 1 & 1/2 (1MG) TABLET Ventolin Hfa (Albuterol Sulfate) 18 Gm Hfa.aer.ad 2 Puff INH Q6H PRN Instructions to patient/family Please see electronic discharge instructions given to patient. Copy Copies To 1: GEORGINA BERMEO KATELYN M MD Sep 28, 2022 10:38
[2022-09-28 10:40] VITALS: BP 150/70
[2022-09-28] MEDS ORDERED: RT-ALBUTEROL SULF 2.5 MG/3 ML PRE-MIX VIAL IH SCH (11:00)
[2022-09-28 11:48] VITALS: BP 150/70
== END 2022-09-28 11:40 | disposition home or self-care (01) | DRG 189 ==
LOC: EDUNIT# 23:51 → ER 23:53 → ICU 09-27 02:42 → 4TH 09-27 13:37
PROVIDERS: ADMIT Family Medicine; ATTEND Family Medicine
PROC: 5A09357 Assistance with Respiratory Ventilation, Less than 24 Consecutive Hours, Continuous Positive Airway Pressure (ICD-10-PCS; principal; 2022-09-27)
PROC: 5A0935A Assistance with Respiratory Ventilation, Less than 24 Consecutive Hours, High Flow/Velocity Cannula (ICD-10-PCS; 2022-09-28)
DX: J96.21 Acute and chronic respiratory failure with hypoxia (principal); I10 Essential (primary) hypertension; J96.22 Acute and chronic respiratory failure with hypercapnia; F41.9 Anxiety disorder, unspecified; F17.210 Nicotine dependence, cigarettes, uncomplicated; J43.1 Panlobular emphysema; M19.90 Unspecified osteoarthritis, unspecified site; G89.29 Other chronic pain; Z20.822 Contact with and (suspected) exposure to COVID-19; M54.9 Dorsalgia, unspecified; Z85.41 Personal history of malignant neoplasm of cervix uteri; Z92.3 Personal history of irradiation; F32.A Depression, unspecified; Z99.81 Dependence on supplemental oxygen
CPT/HCPCS: 36415; 36600; 71045; 80053; 80306; 81000; 82550; 82553; 82805; 82947; 83605; 83735; 83874; 83880; 84100; 84443; 84484; 85007; 85025; 85027; 85379; 85610; 85730; 87040; 87081; 87449; 87636; 93041; 94640; 94660; 94760

== ENCOUNTER → 2022-12-30 | Outpatient (RCR) | payer MEDICARE, OTHER ==
[~2022-12-30] MED LIST changes: +FORM20VI IH; +GUAI600T43 PO; +REVE175V IH
== END | disposition home or self-care (01) ==
PROVIDERS: ATTEND Internal Medicine Critical Care Medicine
DX: J43.9 Emphysema, unspecified (principal); J44.9 Chronic obstructive pulmonary disease, unspecified; J96.10 Chronic respiratory failure, unspecified whether with hypoxia or hypercapnia

== ENCOUNTER → 2023-01-29 | Outpatient (RCR) | payer MEDICARE, OTHER | END | disposition home or self-care (01) | PROVIDERS: ATTEND Internal Medicine Critical Care Medicine | DX: J44.9 Chronic obstructive pulmonary disease, unspecified (principal); J43.9 Emphysema, unspecified ==